=== PATIENT | female | born 1965 ===

== ENCOUNTER 2020-03-30 09:58 | Outpatient (REF) | payer OTHER, SELFPAY ==
[2020-03-30 11:28] LABS: Thyroid Stimulating Hormone 0.02 mIU/mL (0.32-4.0)
== END 2020-03-30 09:59 | disposition home or self-care (01) ==
LOC: HO.LAB 09:58
PROVIDERS: PCP Internal Medicine; Visit Provider Internal Medicine
DX: E03.9 Hypothyroidism, unspecified (principal)
CPT/HCPCS: 84443

== ENCOUNTER 2020-05-25 10:47 | Outpatient (REF) | payer OTHER, SELFPAY | END 2020-05-25 10:48 | disposition home or self-care (01) | LOC: HO.LAB 10:47 | PROVIDERS: Visit Provider Internal Medicine | DX: Z20.828 Contact with and (suspected) exposure to other viral communicable diseases (principal) | CPT/HCPCS: C9803; U0003 ==

== ENCOUNTER 2020-06-22 11:11 | Outpatient (REF) | payer OTHER, SELFPAY | END 2020-06-22 11:12 | disposition home or self-care (01) | LOC: HO.LAB 11:11 | PROVIDERS: Visit Provider Internal Medicine | DX: Z20.822 Contact with and (suspected) exposure to COVID-19 (principal) | CPT/HCPCS: 36415; C9803; U0003 ==

== ENCOUNTER 2020-11-11 06:44 | Outpatient (REF) | payer OTHER, SELFPAY ==
[2020-11-11 10:06] LABS: Thyroid Stimulating Hormone 0.76 uIU/mL (0.32-4.0)
== END 2020-11-11 06:45 | disposition home or self-care (01) ==
LOC: HO.LAB 06:44
PROVIDERS: PCP Internal Medicine; Visit Provider Internal Medicine
DX: E03.9 Hypothyroidism, unspecified (principal)
CPT/HCPCS: 36415; 84443

== ENCOUNTER 2020-12-13 15:26 | Emergency (ER) | payer OTHER, SELFPAY ==
--- NOTE | ~2020-12-13 | XR_ITS ---
EXAMINATION: XR LUMBOSACRAL SPINE CLINICAL INFORMATION: Lifting injury COMPARISON: Previous x-ray May 2018 TECHNIQUE: Three views of the lumbosacral spine. FINDINGS: Bone alignment is normal. No fracture or dislocation is seen. There is degenerative disc disease at L5-S1. There is lower lumbar spine facet arthritis. XR/XR lumbar spine 2-3V IMPRESSION: Degenerative disc disease at L5-S1 and lower lumbar spine facet arthritis.
[2020-12-13 15:54] VITALS: BP 117/79; PULSE 88; RESP 18; TEMP 37; O2SAT 97; BMI 24.1
[2020-12-13] MEDS: traMADoL HCL 50 MG TABLET PO (16:59)
[2020-12-13] MEDS: Lidocaine 4 % Patch ADH..PATCH 1 PATCH TRANSDERMA (17:00)
--- NOTE | 2020-12-13 17:08 | ED.BACK ---
HPI - Back Pain/Injury General Chief Complaint: Back Pain/Injury Stated Complaint: Lower back pain Time Seen by Provider: 12/13/20 16:38 Source: patient Mode of arrival: ambulatory Limitations: language barrier (Venezuelan-speaking) History of Present Illness MD elicited complaint: back pain and back injury Pertinent past history: prior back pain and recent trauma (Carrying her grandson) Onset (ago): week(s) (A week and half ago) Timing: constant and progressively worsening Severity: severe Pain scale (0-10): 10 Similar Symptoms Previously: Yes Quality: aching Location: lumbar spine Radiation: none Exacerbating factors: movement, lifting and other (Bending over forward) Relieving factors: none Context: while lifting (After caring grandson) and turning/twisting Associated symptoms: denies other symptoms Treatments prior to arrival: other (Has been trying Flexeril 5 mg and Tylenol and no symptomatic relief) Work related injury: No Related Data Home Medications Medication Instructions Recorded Confirmed epinephrine 0.3 mg/0.3 mL IM 04/08/20 11/16/20 injection, auto-injector fluticasone propionate 50 INTRANASAL 04/08/20 11/16/20 mcg/actuation nasal spray,suspension Previous Rx's Medication Instructions Recorded levothyroxine 125 mcg tablet 125 mcg PO DAILY #90 tab 06/04/20 diazepam [Valium] 10 mg PO TID PRN #10 tab 12/13/20 lidocaine HCl [Aspercreme 1 appl TOPICAL BID PRN #120 g 12/13/20 (lidocaine HCl)] prednisone 40 mg PO DAILY 5 Days #10 tab 12/13/20 tramadol 50 mg PO BID PRN #14 tab 12/13/20 Allergies Allergy/AdvReac Type Severity Reaction Status Date / Time No Known Allergies Allergy Verified 11/16/20 08:57 Review of Systems Review of Systems: Constitutional : No trauma, No Weight loss, No Fever, No Chills, ENT/Mouth : No Hearing loss, No Ear Pain, No Nasal Congestion, No Sinus Pain, No Hoarseness, No sore throat, No Rhinorrhea, No Swallowing Difficulty Cardiovascular : No Chest Pain, No SOB Respiratory : No Cough, No Dyspnea Gastrointestinal : No Nausea, No Vomiting, No Diarrhea, No abdominal Pain, No Hematochezia, No Melena Genitourinary : No Dysuria, No Urinary Frequency, No Hematuria, No Urinary or Bowel Incontinence/retention Musculoskeletal : + Back pain, No neck pain, No joint stiffness, No joint swelling Skin : No Skin Lesions, No rash or signs of infection Neuro : No Weakness, No radiation, No Numbness, No Paresthesias, No headache, no loss of bowel or bladder incontinence, no saddle anesthesia, Focal weakness, No radiation Denies history of IV drug usage. Yes all other systems are reviewed and are negative [facility] Past Medical History Attestation statement: The following information was validated with the patient. Medical History Hypothyroidism Surgical History History of biopsy History of section History of cholecystectomy Family History Family History Father CVD (cardiovascular disease) DVT (deep venous thrombosis) Mother Liver problem Kidney disease Diabetes Social History Social History Housing: Apartment Alcohol intake: never Second Hand Smoke Exposure: No Advance Directives: No Advance Directives Information Provided: No service: No Current occupational status: employed Physical Exam Vital Signs: Vital Signs: Last Vital Signs Temp 98.6 F 12/13/20 15:54 Pulse 88 12/13/20 15:54 Resp 18 12/13/20 15:54 BP 117/79 12/13/20 15:54 Pulse Ox 97 12/13/20 15:54 Body Mass Index 24.1 vital signs have been reviewed as normal and appeared to be correct. Blood pressure normal. Heart rate normal. Respiration rate normal. Temperature normal. Oxygen saturation normal. Appearance: Alert. Oriented X3. No acute distress. Head: Normal external exam. Normocephalic. Atraumatic. No Mccormack signs noted. No raccoon eyes noted Eyes: PERRLA. EOMI. Conjunctiva and sclera normal. Eyelids normal. ENT: EAC normal. TM's Normal. Pharynx normal. Uvula midline. Moist mucous membranes. No trismus noted. No drooling noted. No muffled voice noted. Neck: Normal inspection. Neck supple. FROM. No adenopathy. Thyroid Normal. No meningeal signs. No neck mass noted. CVS: Normal heart rate and rhythm. Heart sound normal. No murmurs noted. Pulses normal throughout. Respiratory: No respiratory distress. Painless inspiration. Breath sounds normal. No wheezes/rales/rhonchi noted. Chest nontender. No accessory muscle usage noted or decreased air movement noted. Abdomen: Soft and nontender. Bowel sounds normal in all 4 quadrants. No distention noted. No organomegaly noted. No visible injury noted. Back: No CVA tenderness. Full range of motion noted. No obvious deformities, or edema. Mild para-spinal muscular tenderness from lumbar region to coccyx. Full ROM in back and lower extremities. 5/5 strength hip extension/flexion, abduction, adduction. Mild Lumbar pain with hip flexion against resistance. Straight leg raise test negative on right; Straight leg raise test negative on left; Reflexes normal ankle and knee bilaterally; EHL motor strength normal bilaterally. No rashes/lesion/induration/fluctuance or signs infection noted. Skin: Skin warm and dry. Normal skin color. Normal skin turgor. No rashes/lesions/lacerations noted. Extremities: No lower extremity edema. Extremities exhibit normal range of motion. Extremities nontender. Neuro: Oriented X 3. No motor deficit. No sensory deficit. Reflexes normal. Patient has a normal steady gait. Course Course Course Narrative: Pt c likely muscular pain, but could be herniated disc. Neuro exam shows no deficits. Not c/w AAA/epidural abscess/dissection.No high risk Hx (Incont, fever, immunosupp, recent surgery/LP, coag, signif trauma, wt loss, puls mass, hx/o Ca, TB, or IVDU) to warrant MRI/CT today. Not c/w Pyelo/UTI/kidney stone/spinal fx. Not cauda equina syndrome. X-ray obtained and revealed degenerative disc disease otherwise no other acute processes. DC c meds and f/u. MDM - Back Pain/Injury Medical Records Attestation: I reviewed the patient's medical records. Imaging Data X-ray lumbar spine: Attestation: I personally reviewed and interpreted this imaging study as follows: Radiologist's impression: FINDINGS: Bone alignment is normal. No fracture or dislocation is seen. There is degenerative disc disease at L5-S1. There is lower lumbar spine facet arthritis. XR/XR lumbar spine 2-3V IMPRESSION: Degenerative disc disease at L5-S1 and lower lumbar spine facet arthritis. Discharge Plan Discharge Clinical Impression: Strain of lumbar region, Degenerative disc disease at L5-S1 level Patient Disposition: Home, Self-Care Instructions: Low Back Strain (ED), Degenerative Disc Disease (ED), Lower Back Exercises (ED) Prescriptions: New diazepam [Valium] 10 mg tablet 10 mg PO TID PRN (Reason: muscle spasm) Qty: 10 RF: 0 lidocaine HCl [Aspercreme (lidocaine HCl)] 4 % cream 1 appl topical BID PRN (Reason: pain) Qty: 120 RF: 0 prednisone 20 mg tablet 40 mg PO DAILY 5 Days Qty: 10 RF: 0 tramadol 50 mg tablet 50 mg PO BID PRN (Reason: pain) Qty: 14 RF: 0 No Action levothyroxine 125 mcg tablet 125 mcg PO DAILY Qty: 90 RF: 8 fluticasone propionate 50 mcg/actuation spray,suspension intranasal RF: 0 epinephrine 0.3 mg/0.3 mL auto-injector IM RF: 0 Referrals: Dylan Ambriz MD [Primary Care Provider] - 2 days Print Language: Venezuelan
== END 2020-12-13 17:26 | disposition home or self-care (01) ==
PROVIDERS: Emergency Provider Emergency Medicine; PCP Internal Medicine
DX: S39.012A Strain of muscle, fascia and tendon of lower back, initial encounter (principal); M51.37 Other intervertebral disc degeneration, lumbosacral region; X50.9XXA Other and unspecified overexertion or strenuous movements or postures, initial encounter; Y93.9 Activity, unspecified; Y92.9 Unspecified place or not applicable; Y99.9 Unspecified external cause status
CPT/HCPCS: 72100; 99283

== ENCOUNTER 2020-12-29 16:08 | Outpatient (REF) | payer OTHER, SELFPAY ==
[2020-12-29 17:14] LABS: MANUAL DIFF FLAG NO
[2020-12-29 17:35] LABS: Basophils Percent Auto 0.6 % (0-2); Eosinophils Absolute Auto 0.2 X10*3/uL (0.0-0.4); Eosinophils Percent Auto 2.6 % (0-4); Imm Gran Abs Auto 0.02 X10*3/uL (0.00-0.03); Imm Gran Pct Auto 0.3 % (0.0-0.4); Lymphocytes Percent Auto 27.5 % (20-40); Mean Corpuscular HGB Conc 31.6 g/dl (31.0-35.0); Mean Corpuscular Volume 88.6 fL (80-98); Mean Platelet Volume 12.2 fL (9.4-12.3); Monocytes Absolute Auto 0.5 X10*3/uL (0.1-1.2); Monocytes Percent Auto 7.2 % (2-11); Neutrophils Absolute Auto 4.5 X10*3/uL (2.0-8.3); Neutrophils Percent Auto 61.8 % (45-73); Platelet Count 265 X10*3/uL (160-400); Red Blood Count 4.29 X10*6/uL (4.20-5.50); Red Cell Distribution Width 13.7 % (11.0-16.0); White Blood Count 7.3 X10*3/uL (4.8-10.8)
[2020-12-29 17:41] LABS: Alanine Aminotransferase 16 U/L (0-31); Albumin Level 4.6 g/dL (3.5-5.0); Alkaline Phosphatase 107 U/L (39-117); Anion Gap 13 (12-20); Aspartate Amino Transferase 19 U/L (5-31); Bilirubin Total 0.3 mg/dL (0.0-1.0); Blood Urea Nitrogen 19 mg/dL (9-16); Calcium 10.1 mg/dL (8.4-10.2); Carbon Dioxide 32 mmol/L (22-29); Chloride 101 mmol/L (96-108); Cholesterol 223 mg/dL; Estimated Glomerular Filt Rate > 60; Glucose Fasting 87 mg/dL (60-99); HDL Cholesterol 55 mg/dL; LDL Cholesterol Calculated 143 mg/dl; Potassium 4.5 mmol/L (3.3-5.1); Sodium 141 mmol/L (135-145); Total Protein 7.5 g/dL (6.5-8.0); Triglycerides 129 mg/dL
== END 2020-12-29 16:09 | disposition home or self-care (01) ==
LOC: HO.LAB 16:08
PROVIDERS: PCP Internal Medicine; Visit Provider Internal Medicine
DX: Z00.00 Encounter for general adult medical examination without abnormal findings (principal); E11.9 Type 2 diabetes mellitus without complications
CPT/HCPCS: 36415; 80053; 80061; 85025

== ENCOUNTER 2021-03-05 07:17 | Outpatient (REF) | payer OTHER, SELFPAY ==
[2021-03-05 08:25] LABS: Thyroid Stimulating Hormone 72.41 uIU/mL (0.32-4.0)
== END 2021-03-05 07:18 | disposition home or self-care (01) ==
LOC: HO.LAB 07:17
PROVIDERS: PCP Internal Medicine; Visit Provider Internal Medicine
DX: E03.9 Hypothyroidism, unspecified (principal)
CPT/HCPCS: 36415; 84443

== ENCOUNTER 2021-05-07 07:27 | Outpatient (REF) | payer OTHER, SELFPAY ==
[2021-05-07 08:44] LABS: Thyroid Stimulating Hormone 0.91 uIU/mL (0.32-4.0)
== END 2021-05-07 07:28 | disposition home or self-care (01) ==
LOC: HO.LAB 07:27
PROVIDERS: PCP Internal Medicine; Visit Provider Internal Medicine
DX: Z00.00 Encounter for general adult medical examination without abnormal findings (principal)
CPT/HCPCS: 36415; 84443

== ENCOUNTER 2021-07-02 13:43 | Outpatient (REF) | payer OTHER, SELFPAY ==
--- NOTE | ~2021-07-02 | XR_ITS ---
EXAMINATION: XR CHEST CLINICAL INFORMATION: R05.9 - Cough, unspecified COMPARISON: Chest radiographs 03/19/2014 TECHNIQUE: 2 views of the chest were obtained. FINDINGS: The lungs are clear. There is no lobar or segmental airspace consolidation or groundglass opacity or effusion. The costophrenic sulci are well-defined. The heart is normal in size. The hilar and mediastinal contours and visualized bony structures are unremarkable. XR/XR chest 2V IMPRESSION: Unremarkable examination.
[2021-07-02 14:07] LABS: Binax Internal Control QC Valid; Binax Now Covid-19 Ag Negative (Negative)
== END 2021-07-02 13:44 | disposition home or self-care (01) ==
LOC: HO.HMGCX 13:43
PROVIDERS: Visit Provider Physician Assistant
DX: R05.9 Cough, unspecified (principal); B34.9 Viral infection, unspecified
CPT/HCPCS: 71046

== ENCOUNTER 2021-07-11 16:15 | Outpatient (REF) | payer OTHER, SELFPAY ==
[2021-07-11 17:14] LABS: Thyroid Stimulating Hormone 1.48 uIU/mL (0.32-4.0)
== END 2021-07-11 16:16 | disposition home or self-care (01) ==
LOC: HO.LAB 16:15
PROVIDERS: PCP Internal Medicine; Visit Provider Internal Medicine
DX: Z00.00 Encounter for general adult medical examination without abnormal findings (principal)
CPT/HCPCS: 36415; 84443

== ENCOUNTER 2021-09-06 16:57 | Outpatient (REF) | payer OTHER, SELFPAY ==
[2021-09-06 19:08] LABS: Influenza A PCR POSITIVE (Negative); Influenza B PCR NEGATIVE (Negative); Resp Syncy Virus RNA Qual PCR NEGATIVE (Negative); SARS COV2 PCR INHOUSE NEGATIVE (Negative)
== END 2021-09-06 16:58 | disposition home or self-care (01) ==
LOC: HO.LAB 16:57
PROVIDERS: Visit Provider Internal Medicine
DX: R43.9 Unspecified disturbances of smell and taste (principal); Z20.822 Contact with and (suspected) exposure to COVID-19
CPT/HCPCS: 0241U

== ENCOUNTER 2021-10-01 07:29 | Outpatient (REF) | payer OTHER, SELFPAY ==
--- NOTE | ~2021-10-01 | XR_ITS ---
EXAMINATION: XR KNEE, RIGHT CLINICAL INFORMATION: M25.561 - Pain in right knee COMPARISON: Radiographs right knee 10/19/2015 TECHNIQUE: Four views of the right knee. FINDINGS: No fracture, dislocation, or arthropathy. No interval joint narrowing or erosive change or chondrocalcinosis. No suprapatellar effusion. Hoffa's fat pad appears normal. Normal bony mineralization. Axial view patella shows no lateralization or tilting. XR/XR knee RT 4V IMPRESSION: Normal right knee.
[2021-10-01 08:58] LABS: Thyroid Stimulating Hormone 0.27 uIU/mL (0.32-4.0)
== END 2021-10-01 07:30 | disposition home or self-care (01) ==
LOC: HO.XRAY 07:29
PROVIDERS: PCP Internal Medicine; Visit Provider Nurse Practitioner Family
DX: M25.561 Pain in right knee (principal); G89.29 Other chronic pain; E03.9 Hypothyroidism, unspecified
CPT/HCPCS: 36415; 73564; 84443

== ENCOUNTER 2021-10-23 11:42 | Emergency (ER) | payer OTHER, SELFPAY ==
--- NOTE | ~2021-10-23 | XR_ITS ---
EXAMINATION: XR CHEST CLINICAL INFORMATION: Cough. COMPARISON: Chest 07/02/2021 TECHNIQUE: 2 views of the chest were obtained. FINDINGS: The lungs are well-expanded and clear of acute process. The heart size and pulmonary vascularity is normal. No gross bony abnormality seen. XR/XR chest 2V IMPRESSION: Unremarkable chest exam.
[2021-10-23 12:26] VITALS: BP 146/76; PULSE 80; RESP 18; TEMP 37.1; O2SAT 97; BMI 23.3
[2021-10-23 13:28] LABS: Influenza A PCR NEGATIVE (Negative); Influenza B PCR NEGATIVE (Negative); Resp Syncy Virus RNA Qual PCR NEGATIVE (Negative); SARS COV2 PCR INHOUSE NEGATIVE (Negative)
--- NOTE | 2021-10-23 14:22 | ED.URI ---
HPI - URI/Sore Throat General Chief Complaint: Upper Respiratory Symptoms Stated Complaint: cough, chest pain, chills Time Seen by Provider: 10/23/21 14:22 History of Present Illness HPI Narrative: Patient complains of a dry cough, mild runny nose for several days, it does hurt sometimes when she coughs but there is no other chest pain, no sputum no shortness of breath no fever Related Data Home Medications Medication Instructions Recorded Confirmed epinephrine 0.3 mg/0.3 mL IM 04/08/20 10/21/21 injection, auto-injector Previous Rx's Medication Instructions Recorded levothyroxine 150 mcg tablet 150 mcg PO DAILY 90 Days #90 tab 04/08/21 cetirizine 10 mg tablet (Zyrtec) 10 mg PO DAILY 30 Days #30 tab 07/02/21 meloxicam 15 mg tablet 15 mg PO DAILY #14 tab 07/18/21 albuterol sulfate 90 mcg/actuation 2 puff INHALATION Q4-6H PRN #6.7 g 10/23/21 aerosol inhaler (ProAir HFA) azithromycin 250 mg tablet See Rx Instructions .ROUTE 10/23/21 (Zithromax Z-Home) .COMPLEX #6 tab Allergies Allergy/AdvReac Type Severity Reaction Status Date / Time No Known Allergies Allergy Verified 10/23/21 12:26 Review of Systems Review of Systems: Positive for cough and runny nose Negatives are no fever no chills no dizziness weakness no fainting no feeling faint no headache no neck pain no stiff neck no chest pain no shortness of breath no abdominal pain no nausea vomiting or diarrhea no skin rash no leg swelling Yes all other systems are reviewed and are negative PMFSH Past Medical History Source: nursing notes reviewed Medical History (Updated 10/23/21 @ 14:24 by MARYLOU Camacho) Hypothyroidism Surgical History History of biopsy History of section History of cholecystectomy Family History Family History Father CVD (cardiovascular disease) DVT (deep venous thrombosis) Mother Liver problem Kidney disease Diabetes Social History Social History Housing: Apartment Alcohol intake: never Patient Tobacco Use Status: Never used Tobacco e-Cigarette/Vaping Use: Never Used Second Hand Smoke Exposure: No Advance Directives: No Advance Directives Information Provided: No service: No Current occupational status: employed Cognitive needs: No Hearing needs: No Vision needs: Yes Physical Exam Vital Signs: Vital Signs: Last Vital Signs Temp 98.7 F 10/23/21 12:26 Pulse 80 10/23/21 12:26 Resp 18 10/23/21 12:26 BP 146/76 H 10/23/21 12:26 Pulse Ox 97 10/23/21 12:26 BMI result Body Mass Index 23.3 General appearance is no acute distress The eyes anicteric no pallor The nose no sinus tenderness The pharynx clear with no redness swelling or exudate mucous membranes moist Neck is supple Chest clear to auscultation bilateral Heart no murmur Abdomen soft nontender Extremities no edema no rashes Course Course Course Narrative: Chest x-ray was normal, COVID testing negative and well-appearing patient with no shortness of breath was discharged diagnosis bronchitis MDM - URI/Sore Throat Lab Data Labs: Lab Results 10/23/21 Range/Units 12:31 Influenza Type A (PCR) NEGATIVE (Negative) Influenza Type B (PCR) NEGATIVE (Negative) RSV RNA Qual (PCR) NEGATIVE (Negative) SARS-CoV-2 RNA (RT-PCR) NEGATIVE (Negative) Discharge Plan Discharge Clinical Impression: Bronchitis Patient Disposition: Home, Self-Care Additional Instructions: Chest x-ray was normal, COVID test and flu test were negative We are treating for possible bronchitis with antibiotic Zithromax When you take antibiotics it is a good idea to get probiotics in the vitamin section of the pharmacy to help prevent antibiotic associated diarrhea Return any time for difficulty breathing, any worse condition any concerns Prescriptions: New azithromycin [Zithromax Z-Home] 250 mg tablet See Rx Instructions .ROUTE .COMPLEX Qty: 6 0RF Rx Instructions: For 250 mg dose pack: take 500 mg today (day 1), then 250 mg for 4 days (days 2-5) albuterol sulfate [ProAir HFA] 90 mcg/actuation HFA aerosol inhaler 2 puff inhalation Q4-6H PRN (Reason: shortness of breath or wheezing) Qty: 6.7 0RF No Action levothyroxine 150 mcg tablet 150 mcg PO DAILY 90 Days Qty: 90 8RF epinephrine 0.3 mg/0.3 mL auto-injector IM 0RF cetirizine [Zyrtec] 10 mg tablet 10 mg PO DAILY 30 Days Qty: 30 0RF meloxicam 15 mg tablet 15 mg PO DAILY Qty: 14 0RF Stand Alone Forms: Work/School Release Interventions: ED Discharge Assessment Last Done: 10/23/21 14:31 Discharge Date/Time: 10/23/21 14:31
== END 2021-10-23 14:31 | disposition home or self-care (01) ==
PROVIDERS: Emergency Provider Emergency Medicine; PCP Internal Medicine
DX: J40 Bronchitis, not specified as acute or chronic (principal); R05.9 Cough, unspecified; R07.89 Other chest pain; Z20.822 Contact with and (suspected) exposure to COVID-19; Z79.899 Other long term (current) drug therapy
CPT/HCPCS: 0241U; 71046; 99283

== ENCOUNTER 2021-10-28 17:59 | Outpatient (REF) | payer OTHER, SELFPAY ==
--- NOTE | ~2021-10-28 | MR_ITS ---
EXAMINATION: MR KNEE WITHOUT CONTRAST, RIGHT CLINICAL INFORMATION: Pain in right knee. COMPARISON: None TECHNIQUE: MRI of the knee without contrast was performed using routine sequences on a high-field scanner. FINDINGS: MENISCI: Medial Meniscus: There is some subtle increased signal in the posterior horn the medial meniscus which appears to extend into the tibial articular surface on a single sagittal image. Probable tear. Lateral Meniscus: Normal. LIGAMENTS: Cruciate: Intact. Collateral: Intact. EXTENSOR MECHANISM: Intact. ARTICULAR CARTILAGE/BONE: Patellofemoral Compartment: Normal cartilage heterogeneity and tiny subchondral cyst in the medial facet of the patella. Trochlear cartilage normal overall minimal patellofemoral arthrosis. Medial Compartment: Normal. Lateral Compartment: Normal. JOINT FLUID AND BURSAE: Normal. MR/MR knee RT wo con IMPRESSION: Probable tear posterior horn medial meniscus.
== END 2021-10-28 18:00 | disposition home or self-care (01) ==
LOC: HO.MRI 17:59
PROVIDERS: Visit Provider Nurse Practitioner Family
DX: M25.561 Pain in right knee (principal); G89.29 Other chronic pain
CPT/HCPCS: 73721

== ENCOUNTER 2021-12-10 07:09 | Outpatient (REF) | payer OTHER, SELFPAY ==
[2021-12-10 07:21] LABS: MANUAL DIFF FLAG NO
[2021-12-10 08:27] LABS: Basophils Percent Auto 0.3 % (0-2); Eosinophils Absolute Auto 0.2 X10*3/uL (0.0-0.4); Eosinophils Percent Auto 3.2 % (0-4); Hematocrit 38.7 % (37.0-47.0); Hemoglobin 12.1 g/dl (12.0-16.0); Imm Gran Abs Auto 0.01 X10*3/uL (0.00-0.03); Imm Gran Pct Auto 0.2 % (0.0-0.4); Lymphocytes Absolute Auto 1.6 X10*3/uL (1.2-4.9); Lymphocytes Percent Auto 26.5 % (20-40); Mean Corpuscular HGB Conc 31.3 g/dl (31.0-35.0); Mean Corpuscular Hemoglobin 28.1 pg (27.0-33.0); Mean Corpuscular Volume 89.8 fL (80.0-98.0); Mean Platelet Volume 11.6 fL (9.4-12.3); Monocytes Absolute Auto 0.6 X10*3/uL (0.1-1.2); Monocytes Percent Auto 9.8 % (2-11); Neutrophils Absolute Auto 3.6 x10*3/uL (2.0-8.3); Platelet Count 251 X10*3/uL (160-400); Red Blood Count 4.31 X10*6/uL (4.20-5.50); Red Cell Distribution Width 12.6 % (11.0-16.0); White Blood Count 5.9 X10*3/uL (4.8-10.8)
[2021-12-10 08:58] LABS: Alanine Aminotransferase 14 U/L (0-31); Albumin Level 4.3 g/dL (3.5-5.0); Alkaline Phosphatase 116 U/L (39-117); Anion Gap 10 (12-20); Aspartate Amino Transferase 19 U/L (5-31); Bilirubin Total 0.4 mg/dL (0.0-1.0); Blood Urea Nitrogen 13 mg/dL (9-16); Calcium 9.1 mg/dL (8.4-10.2); Carbon Dioxide 31 mmol/L (22-29); Chloride 103 mmol/L (96-108); Cholesterol 205 mg/dL; Estimated Glomerular Filt Rate > 60; Glucose Fasting 91 mg/dL (60-99); HDL Cholesterol 49 mg/dL; LDL Cholesterol Calculated 132 mg/dl; Potassium 4.7 mmol/L (3.3-5.1); Sodium 139 mmol/L (135-145); Total Protein 7.2 g/dL (6.5-8.0); Triglycerides 124 mg/dL
[2021-12-10 09:22] LABS: Thyroid Stimulating Hormone 0.08 uIU/mL (0.32-4.0)
== END 2021-12-10 07:10 | disposition home or self-care (01) ==
LOC: HO.LAB 07:09
PROVIDERS: PCP Internal Medicine; Visit Provider Internal Medicine
DX: Z13.0 Encounter for screening for diseases of the blood and blood-forming organs and certain disorders involving the immune mechanism (principal); E78.5 Hyperlipidemia, unspecified; E03.9 Hypothyroidism, unspecified; I10 Essential (primary) hypertension
CPT/HCPCS: 36415; 80053; 80061; 84443; 85025

== ENCOUNTER → 2021-12-23 08:43 | Outpatient (BNVA) | payer OTHER, SELFPAY | PROVIDERS: PCP Internal Medicine; Visit Provider Physician Assistant | DX: M17.11 Unilateral primary osteoarthritis, right knee (principal); S83.241A Other tear of medial meniscus, current injury, right knee, initial encounter | CPT/HCPCS: 20610; 99202; J1040 ==

== ENCOUNTER 2022-02-07 17:00 | Outpatient (RCR) | payer OTHER, SELFPAY ==
--- NOTE | 2022-01-10 18:34 | MHC.PT.EP ---
[facility] [place] Office [place] Office [place] Office [address] [phone] F: [phone] F: [phone] F: [phone] F: [phone] Physical Therapy Plan of Care Date of Evaluation: Date of Surgery: Diagnosis: R knee medial meniscus injury Assessment: Pt is a 56 y/o female referred to PT for eval and treat for R knee medial meniscus injury resulting in decreased tolerance for negotiating stairs, walking nd standing for duration, standing after sitting for a while, squatting activities and performing heavy chores secondary to decreased R knee strength, decreased hip abd strength, antalgic stair negotiation, painful R knee end range flexion, evidence of R medial meniscus injury on MRI, and pain. Pt is deemed an appropriate candidate to receive skilled PT in order to address her physical limitations to improve her functional ability. Frequency and Duration: The patient will be seen 2 x / wk x 5 wks Short Term Goals: Initiate HEP. improve baseline pain to < 4/10; initial 6/10. Implementation Architect Goals: I with HEP. Pt will be able to walk 1 mile with at most a little bit of difficulty; initial: quite a bit of difficulty. Pt will improve R knee extension MMT by at least 1/2 MMT grade; initial 4/5 with pain. Pt will be able to negotiate 1 fl of stairs with at most a little bit of difficulty; initial: quite a bit of difficulty. Treatment Plan: Modalities to reduce pain, spasms and effusion. Manual therapy to restore motion and function. Therapeutic exercise to improve strength and flexibility. Neuromuscular re-education for posture and balance. Therapeutic activities to return to functional activities of daily living. Electronically signed by: Tanvir Liz PT. Please sign and return to therapist. Thank you for your referral.
--- NOTE | 2022-04-27 15:09 | MHC.PT.DC ---
[facility] [place] Office [place] Office [place] Office [address] Suzi Martinez [address] [facility] [phone] F: [phone] F: [phone] F: [phone] F: [phone] Physical Therapy Discharge Report Diagnosis: R knee medial meniscus injury. Date of Surgery: Date of Evaluation: 01/10/22 Date of Discharge: 04/27/22 Treatments to Date: 5 Cancellations to Date: No Shows to Date: Discharge Status: Visit Non-compliance Discharge Summary: Electronically signed by: Tanvir Liz PT. Please sign and return to therapist. Thank you for your referral.
== END 2022-04-27 15:03 | disposition home or self-care (01) ==
LOC: HO.PTCHIC 17:00
PROVIDERS: PCP Internal Medicine; Visit Provider Physician Assistant
DX: M17.11 Unilateral primary osteoarthritis, right knee (principal); S83.241A Other tear of medial meniscus, current injury, right knee, initial encounter
CPT/HCPCS: 97110; 97112; 97140; 97161

== ENCOUNTER → 2022-02-09 15:13 | Outpatient (BNVA) | payer OTHER, SELFPAY | PROVIDERS: PCP Internal Medicine; Visit Provider Orthopaedic Surgery | DX: M17.11 Unilateral primary osteoarthritis, right knee (principal); S83.241A Other tear of medial meniscus, current injury, right knee, initial encounter | CPT/HCPCS: 99212 ==

== ENCOUNTER 2022-05-25 14:48 | Outpatient (REF) | payer OTHER, SELFPAY ==
[2022-05-25 18:37] LABS: Thyroid Stimulating Hormone 0.45 uIU/mL (0.32-4.0)
== END 2022-05-25 14:49 | disposition home or self-care (01) ==
LOC: HO.LAB 14:48
PROVIDERS: PCP Internal Medicine; Visit Provider Internal Medicine
DX: E03.9 Hypothyroidism, unspecified (principal)
CPT/HCPCS: 36415; 84443

== ENCOUNTER 2022-06-17 11:53 | Outpatient (REF) | payer OTHER, SELFPAY ==
[2022-06-17 14:39] LABS: Influenza A PCR NEGATIVE (Negative); Influenza B PCR NEGATIVE (Negative); Resp Syncy Virus RNA Qual PCR NEGATIVE (Negative); SARS COV2 PCR INHOUSE NEGATIVE (Negative)
== END 2022-06-17 11:54 | disposition home or self-care (01) ==
LOC: HO.LAB 11:53
PROVIDERS: Visit Provider Nurse Practitioner Acute Care
DX: Z20.822 Contact with and (suspected) exposure to COVID-19 (principal); R68.89 Other general symptoms and signs
CPT/HCPCS: 0241U

== ENCOUNTER 2022-06-26 16:38 | Emergency (ER) | payer OTHER, SELFPAY ==
--- NOTE | ~2022-06-26 | XR_ITS ---
EXAMINATION: XR CHEST CLINICAL INFORMATION: Chest pain COMPARISON: Chest x-ray 10/23/2021 TECHNIQUE: 2 views of the chest were obtained. FINDINGS: No significant abnormality is noted involving the heart, lungs, mediastinum, bony thorax or soft tissues. XR/XR chest 2V IMPRESSION: Unremarkable examination.
[2022-06-26 16:53] VITALS: BP 140/84; PULSE 100; RESP 18; TEMP 36.8; O2SAT 98; BMI 25.7
--- NOTE | 2022-06-26 16:54 | ECG_ITS ---
Test Reason : sob Blood Pressure : / mmHG Vent. Rate : 084 BPM Atrial Rate : 084 BPM P-R Int : 194 ms QRS Dur : 076 ms QT Int : 360 ms P-R-T Axes : 053 014 040 degrees QTc Int : 425 ms Normal sinus rhythm Possible Left atrial enlargement Borderline ECG When compared with ECG of 20-MAR-2018 19:57, No significant change was found Referred By: Generic ED Physician Electronically Signed By:Tray Willson
[2022-06-26 17:46] LABS: Influenza A PCR NEGATIVE (Negative); Influenza B PCR NEGATIVE (Negative); Resp Syncy Virus RNA Qual PCR NEGATIVE (Negative); SARS COV2 PCR INHOUSE NEGATIVE (Negative)
--- NOTE | 2022-06-26 17:52 | ED.CHESTPAIN ---
HPI - Chest Pain General Chief Complaint: Chest Pain Stated Complaint: chest pain headache Time Seen by Provider: 06/26/22 23:37 Related Data Home Medications Medication Instructions Recorded Confirmed epinephrine 0.3 mg/0.3 mL IM 04/08/20 05/25/22 injection, auto-injector Previous Rx's Medication Instructions Recorded cetirizine 10 mg tablet (Zyrtec) 10 mg PO DAILY 30 days #30 tabs 07/02/21 albuterol sulfate 90 mcg/actuation 2 puff inhalation Q4-6H PRN 10/23/21 aerosol inhaler (ProAir HFA) shortness of breath or wheezing #6.7 grams levothyroxine 125 mcg capsule 125 mcg PO DAILY #90 caps 02/24/22 ibuprofen 400 mg tablet 400 mg PO Q6H PRN pain #20 tabs 06/27/22 ondansetron 4 mg disintegrating 4 mg PO TID PRN nausea and 06/27/22 tablet vomiting 5 days #10 tabs Allergies Allergy/AdvReac Type Severity Reaction Status Date / Time No Known Allergies Allergy Verified 06/17/22 11:46 [facility] Past Medical History Medical History Hypothyroidism Patellofemoral arthritis of right knee Surgical History History of biopsy History of section History of cholecystectomy Family History Family History Father CVD (cardiovascular disease) DVT (deep venous thrombosis) Mother Liver problem Kidney disease Diabetes Social History Social History Housing: Apartment Alcohol intake: never Patient Tobacco Use Status: Never used Tobacco e-Cigarette/Vaping Use: Never Used Second Hand Smoke Exposure: No Advance Directives: No Advance Directives Information Provided: No service: No Current occupational status: 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 Deferred additional HPI, ROS, PE to primary provider. 56 yo female with history of asthma, hypothyroidism who presents with headache, body aches, intermittent chest pressure for the last 2 days. Will obtain labs, EKG, chest x-ray, viral testing. Vital signs stable. Medications Administered Discontinued Medications Generic Name Dose Route Start Last Admin Trade Name Freq PRN Reason Stop Dose Admin Diphenhydramine HCl 50 mg 06/27/22 00:23 06/27/22 01:26 Diphenhydramine Hcl 50 Mg/Ml Vial IVPUSH 06/27/22 00:24 50 mg ONCE ONE Administration Sodium Chloride 1,000 mls @ 999 mls/hr 06/27/22 00:30 06/27/22 01:27 Ns IV 06/27/22 01:30 999 mls/hr .Q1H1M ALPESH Administration Ketorolac Tromethamine 30 mg 06/27/22 00:23 06/27/22 01:26 Ketorolac Tromethamine 30 Mg/Ml Vial IVPUSH 06/27/22 00:24 30 mg ONCE ONE Administration Metoclopramide HCl 10 mg 06/27/22 00:23 06/27/22 01:26 Metoclopramide Hcl 10 Mg/2 Ml Vial IVPUSH 06/27/22 00:24 10 mg ONCE ONE Administration Ondansetron HCl 4 mg 06/27/22 00:23 06/27/22 01:26 Ondansetron Hcl 4 Mg/2 Ml Vial IVPUSH 06/27/22 00:24 4 mg ONCE ONE Administration Medical Decision Making Lab Data 06/26/22 18:43 06/26/22 18:43 Labs: Lab Results 06/26/22 06/26/22 06/26/22 Range/Units 17:03 18:43 18:43 WBC 7.4 (4.8-10.8) X10*3/uL RBC 4.46 (4.20-5.50) X10*6/uL Hgb 12.7 (12.0-16.0) g/dl Hct 39.6 (37.0-47.0) % MCV 88.8 (80.0-98.0) fL MCH 28.5 (27.0-33.0) pg MCHC 32.1 (31.0-35.0) g/dl RDW 12.2 (11.0-16.0) % Plt Count 255 (160-400) X10*3/uL MPV 11.1 (9.4-12.3) fL Immature Gran % (Auto) 0.1 (0.0-0.4) % Neut % (Auto) 63.1 (45-73) % Lymph % (Auto) 26.7 (20-40) % Shannon % (Auto) 7.8 (2-11) % Eos % (Auto) 1.8 (0-4) % Baso % (Auto) 0.5 (0-2) % Lymph # (Auto) 2.0 (1.2-4.9) X10*3/uL Shannon # (Auto) 0.6 (0.1-1.2) X10*3/uL Eos # (Auto) 0.1 (0.0-0.4) X10*3/uL Baso # (Auto) 0.0 (0.0-0.2) X10*3/uL Abs Immat Gran (auto) 0.01 (0.00-0.03) X10*3/uL Absolute Neuts (auto) 4.6 (2.0-8.3) x10*3/uL Absolute Nucleated RBC 0.000 (0.0-0.012) X10*3/uL Nucleated RBC % (auto) 0.0 (0.0-0.2) /100WBC Sodium 141 (135-145) mmol/L Potassium 4.6 (3.3-5.1) mmol/L Chloride 107 (96-108) mmol/L Carbon Dioxide 27 (22-29) mmol/L Anion Gap 12 (12-20) BUN 13 (9-16) mg/dL Creatinine 0.68 (0.5-1.4) mg/dL Estim Creat Clear Calc 89.6 Estimated GFR > 60 Random Glucose 102 (60-115) mg/dL Calcium 9.4 (8.4-10.2) mg/dL Magnesium 2.3 (1.6-2.6) mg/dL Total Bilirubin 0.2 (0.0-1.0) mg/dL Direct Bilirubin < 0.2 (0.0-0.5) mg/dL AST 23 (5-31) U/L ALT 19 (0-31) U/L Alkaline Phosphatase 112 (39-117) U/L Troponin I High Sens (<3.5-17.0) ng/L Total Protein 7.3 (6.5-8.0) g/dL Albumin 4.3 (3.5-5.0) g/dL Influenza Type A (PCR) NEGATIVE (Negative) Influenza Type B (PCR) NEGATIVE (Negative) RSV RNA Qual (PCR) NEGATIVE (Negative) SARS-CoV-2 RNA (RT-PCR) NEGATIVE (Negative) 06/26/22 06/27/22 Range/Units 18:43 01:01 WBC (4.8-10.8) X10*3/uL RBC (4.20-5.50) X10*6/uL Hgb (12.0-16.0) g/dl Hct (37.0-47.0) % MCV (80.0-98.0) fL MCH (27.0-33.0) pg MCHC (31.0-35.0) g/dl RDW (11.0-16.0) % Plt Count (160-400) X10*3/uL MPV (9.4-12.3) fL Immature Gran % (Auto) (0.0-0.4) % Neut % (Auto) (45-73) % Lymph % (Auto) (20-40) % Shannon % (Auto) (2-11) % Eos % (Auto) (0-4) % Baso % (Auto) (0-2) % Lymph # (Auto) (1.2-4.9) X10*3/uL Shannon # (Auto) (0.1-1.2) X10*3/uL Eos # (Auto) (0.0-0.4) X10*3/uL Baso # (Auto) (0.0-0.2) X10*3/uL Abs Immat Gran (auto) (0.00-0.03) X10*3/uL Absolute Neuts (auto) (2.0-8.3) x10*3/uL Absolute Nucleated RBC (0.0-0.012) X10*3/uL Nucleated RBC % (auto) (0.0-0.2) /100WBC Sodium (135-145) mmol/L Potassium (3.3-5.1) mmol/L Chloride (96-108) mmol/L Carbon Dioxide (22-29) mmol/L Anion Gap (12-20) BUN (9-16) mg/dL Creatinine (0.5-1.4) mg/dL Estim Creat Clear Calc Estimated GFR Random Glucose (60-115) mg/dL Calcium (8.4-10.2) mg/dL Magnesium (1.6-2.6) mg/dL Total Bilirubin (0.0-1.0) mg/dL Direct Bilirubin (0.0-0.5) mg/dL AST (5-31) U/L ALT (0-31) U/L Alkaline Phosphatase (39-117) U/L Troponin I High Sens < 3.5 < 3.5 (<3.5-17.0) ng/L Total Protein (6.5-8.0) g/dL Albumin (3.5-5.0) g/dL Influenza Type A (PCR) (Negative) Influenza Type B (PCR) (Negative) RSV RNA Qual (PCR) (Negative) SARS-CoV-2 RNA (RT-PCR) (Negative) Discharge Plan Discharge Clinical Impression: Migraine Patient Disposition: Home, Self-Care Instructions: Migraine Headache (ED) Prescriptions: New ibuprofen 400 mg tablet 400 mg PO Q6H PRN (Reason: pain) Qty: 20 0RF ondansetron 4 mg tablet,disintegrating 4 mg PO TID PRN (Reason: nausea and vomiting) 5 Days Qty: 10 0RF No Action albuterol sulfate [ProAir HFA] 90 mcg/actuation HFA aerosol inhaler 2 puff inhalation Q4-6H PRN (Reason: shortness of breath or wheezing) Qty: 6.7 0RF epinephrine 0.3 mg/0.3 mL auto-injector IM cetirizine [Zyrtec] 10 mg tablet 10 mg PO DAILY 30 Days Qty: 30 0RF levothyroxine 125 mcg capsule 125 mcg PO DAILY Qty: 90 4RF Referrals: Dylan Ambriz MD [Primary Care Provider] -
[2022-06-26 18:46] LABS: MANUAL DIFF FLAG NO
[2022-06-26 18:49] LABS: Basophils Percent Auto 0.5 % (0-2); Eosinophils Absolute Auto 0.1 X10*3/uL (0.0-0.4); Eosinophils Percent Auto 1.8 % (0-4); Hematocrit 39.6 % (37.0-47.0); Hemoglobin 12.7 g/dl (12.0-16.0); Imm Gran Abs Auto 0.01 X10*3/uL (0.00-0.03); Imm Gran Pct Auto 0.1 % (0.0-0.4); Lymphocytes Percent Auto 26.7 % (20-40); Mean Corpuscular HGB Conc 32.1 g/dl (31.0-35.0); Mean Corpuscular Hemoglobin 28.5 pg (27.0-33.0); Mean Corpuscular Volume 88.8 fL (80.0-98.0); Mean Platelet Volume 11.1 fL (9.4-12.3); Monocytes Absolute Auto 0.6 X10*3/uL (0.1-1.2); Monocytes Percent Auto 7.8 % (2-11); Neutrophils Absolute Auto 4.6 x10*3/uL (2.0-8.3); Neutrophils Percent Auto 63.1 % (45-73); Platelet Count 255 X10*3/uL (160-400); Red Blood Count 4.46 X10*6/uL (4.20-5.50); Red Cell Distribution Width 12.2 % (11.0-16.0); White Blood Count 7.4 X10*3/uL (4.8-10.8)
[2022-06-26 19:10] LABS: Alanine Aminotransferase 19 U/L (0-31); Albumin Level 4.3 g/dL (3.5-5.0); Alkaline Phosphatase 112 U/L (39-117); Anion Gap 12 (12-20); Aspartate Amino Transferase 23 U/L (5-31); Bilirubin Direct < 0.2 mg/dL (0.0-0.5); Bilirubin Total 0.2 mg/dL (0.0-1.0); Blood Urea Nitrogen 13 mg/dL (9-16); Calcium 9.4 mg/dL (8.4-10.2); Carbon Dioxide 27 mmol/L (22-29); Chloride 107 mmol/L (96-108); Creatinine Clr Calc Pharmacy 89.6; Estimated Glomerular Filt Rate > 60; Glucose Random 102 mg/dL (60-115); Magnesium 2.3 mg/dL (1.6-2.6); Potassium 4.6 mmol/L (3.3-5.1); Sodium 141 mmol/L (135-145); Total Protein 7.3 g/dL (6.5-8.0)
[2022-06-26 19:20] LABS: Troponin-I High Sensitivity < 3.5 ng/L (<3.5-17.0)
[2022-06-26 23:57] VITALS: BP 164/90; PULSE 81; TEMP 36.6; O2SAT 100
--- NOTE | 2022-06-27 00:26 | ED_ITS ---
HPI - Headache General Chief Complaint: Chest Pain Stated Complaint: chest pain headache Time Seen by Provider: 06/26/22 23:37 History of Present Illness HPI Narrative: Patient is a 56-year-old female presents today with having headache, mainly on the right side. It is behind the eye. Very similar to previous bouts of migraine. Associated with nausea. Associated with pain going to the neck. Generalized malaise. Symptoms been ongoing for 2 days. Patient had very minimal chest pain. There is no diaphoresis. There is no shortness of breath. She has no history of diabetes, hypertension, hypercholesterolemia, smoking or [place]. she is from home. No recent travel. Not made worse with deep inspiration. No leg swelling. No history of blood clots in the past. Related Data Home Medications Medication Instructions Recorded Confirmed epinephrine 0.3 mg/0.3 mL IM 04/08/20 05/25/22 injection, auto-injector Previous Rx's Medication Instructions Recorded cetirizine 10 mg tablet (Zyrtec) 10 mg PO DAILY 30 days #30 tabs 07/02/21 albuterol sulfate 90 mcg/actuation 2 puff inhalation Q4-6H PRN 10/23/21 aerosol inhaler (ProAir HFA) shortness of breath or wheezing #6.7 grams levothyroxine 125 mcg capsule 125 mcg PO DAILY #90 caps 02/24/22 ibuprofen 400 mg tablet 400 mg PO Q6H PRN pain #20 tabs 06/27/22 ondansetron 4 mg disintegrating 4 mg PO TID PRN nausea and 06/27/22 tablet vomiting 5 days #10 tabs Allergies Allergy/AdvReac Type Severity Reaction Status Date / Time No Known Allergies Allergy Verified 06/17/22 11:46 Review of Systems Review of Systems: No fever no chills no cough no congestion. Positive headache very similar Yes all other systems are reviewed and are negative PMFSH Past Medical History Attestation statement: The following information was validated with the patient. 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 Oriented X3. No acute distress. Eyes: Pupils equal, round and reactive to light. ENT: Pharynx normal. Neck: Normal inspection. Neck supple. No lymph nodes noted. No crepitus CVS: Normal heart rate and rhythm. Pulses normal. Normal S1 and S2 Respiratory: No respiratory distress. Breath sounds normal. No Wheezing. No rales Abdomen: Soft and nontender. No rigidity. No distention. good BS x4 Skin: Skin warm and dry. Normal skin color. Normal skin turgor. Extremities: No lower extremity edema. Neurovascular intact to all extremities. No Lacerations. No Rash Neuro: Oriented X 3. No motor deficit. No sensory deficit. Moving all extermities. No slurred speech Medications Administered Discontinued Medications Generic Name Dose Route Start Last Admin Trade Name Freq PRN Reason Stop Dose Admin Diphenhydramine HCl 50 mg 06/27/22 00:23 06/27/22 01:26 Diphenhydramine Hcl 50 Mg/Ml Vial IVPUSH 06/27/22 00:24 50 mg ONCE ONE Administration Sodium Chloride 1,000 mls @ 999 mls/hr 06/27/22 00:30 06/27/22 01:27 Ns IV 06/27/22 01:30 999 mls/hr .Q1H1M ALPESH Administration Ketorolac Tromethamine 30 mg 06/27/22 00:23 06/27/22 01:26 Ketorolac Tromethamine 30 Mg/Ml Vial IVPUSH 06/27/22 00:24 30 mg ONCE ONE Administration Metoclopramide HCl 10 mg 06/27/22 00:23 06/27/22 01:26 Metoclopramide Hcl 10 Mg/2 Ml Vial IVPUSH 06/27/22 00:24 10 mg ONCE ONE Administration Ondansetron HCl 4 mg 06/27/22 00:23 06/27/22 01:26 Ondansetron Hcl 4 Mg/2 Ml Vial IVPUSH 06/27/22 00:24 4 mg ONCE ONE Administration Medical Decision Making Medical Decision Making [facility] Narrative: patient well appearing no acute distress. Chest x-ray showed no evidence of pneumonia. No pneumothorax. I personally reviewed the x-ray. Patient's chest pain atypical for ACS. No significant cardiac risk factors. Patient's troponin is negative. Symptoms been ongoing for days. my interpretation of the patient's EKG showed a sinus pattern heart rate is 60 MA QRS QTC within normal limits there is no acute ST segment elevation noted. EKG is unchanged from previous EKG. Patient's heart score is less than 3 as patient's history knots none was with ACS, negative troponin, no additional risk factor and patient is 56 years old. Patient's pain atypical for PE. Her headache is Similar with previous bouts of migraine. She is less likely to have temporal arteritis. there is no cord change in vision. The headache is behind the eye. There is no tenderness on palpation of the eyeball. Pupils are equal reactive in size. There is no gross signs of glaucoma. Patient neurologically intact. Will give Reglan Toradol Zofran Ngo migraine. Monitor carefully. 2 a.m. patient monitor in the emergency department. After giving migraine treatment symptomatic Kori improved. Headache has subsided. Two sets of cardiac enzymes are negative. He is in stable condition will discharge home. Differential Diagnosis Differential Diagnoses: The differential diagnosis associated with the presentation includes Migraine headache, intracranial bleed, meningitis, ACS, pneumonia, pneumothorax Lab Data [facility] Lab Attestation statement: I reviewed the patient's lab results. 06/26/22 18:43 06/26/22 18:43 Labs: Lab Results 06/26/22 06/26/22 06/26/22 Range/Units 17:03 18:43 18:43 WBC 7.4 (4.8-10.8) X10*3/uL RBC 4.46 (4.20-5.50) X10*6/uL Hgb 12.7 (12.0-16.0) g/dl Hct 39.6 (37.0-47.0) % MCV 88.8 (80.0-98.0) fL MCH 28.5 (27.0-33.0) pg MCHC 32.1 (31.0-35.0) g/dl RDW 12.2 (11.0-16.0) % Plt Count 255 (160-400) X10*3/uL MPV 11.1 (9.4-12.3) fL Immature Gran % (Auto) 0.1 (0.0-0.4) % Neut % (Auto) 63.1 (45-73) % Lymph % (Auto) 26.7 (20-40) % [place]oshone % (Auto) 7.8 (2-11) % Eos % (Auto) 1.8 (0-4) % Baso % (Auto) 0.5 (0-2) % Lymph # (Auto) 2.0 (1.2-4.9) X10*3/uL [place]oshone # (Auto) 0.6 (0.1-1.2) X10*3/uL Eos # (Auto) 0.1 (0.0-0.4) X10*3/uL Baso # (Auto) 0.0 (0.0-0.2) X10*3/uL Abs Immat Gran (auto) 0.01 (0.00-0.03) X10*3/uL Absolute Neuts (auto) 4.6 (2.0-8.3) x10*3/uL Absolute Nucleated RBC 0.000 (0.0-0.012) X10*3/uL Nucleated RBC % (auto) 0.0 (0.0-0.2) /100WBC Sodium 141 (135-145) mmol/L Potassium 4.6 (3.3-5.1) mmol/L Chloride 107 (96-108) mmol/L Carbon Dioxide 27 (22-29) mmol/L Anion Gap 12 (12-20) BUN 13 (9-16) mg/dL Creatinine 0.68 (0.5-1.4) mg/dL Estim Creat Clear Calc 89.6 Estimated GFR > 60 Random Glucose 102 (60-115) mg/dL Calcium 9.4 (8.4-10.2) mg/dL Magnesium 2.3 (1.6-2.6) mg/dL Total Bilirubin 0.2 (0.0-1.0) mg/dL Direct Bilirubin < 0.2 (0.0-0.5) mg/dL AST 23 (5-31) U/L ALT 19 (0-31) U/L Alkaline Phosphatase 112 (39-117) U/L Troponin I High Sens (<3.5-17.0) ng/L Total Protein 7.3 (6.5-8.0) g/dL Albumin 4.3 (3.5-5.0) g/dL Influenza Type A (PCR) NEGATIVE (Negative) Influenza Type B (PCR) NEGATIVE (Negative) RSV RNA Qual (PCR) NEGATIVE (Negative) SARS-CoV-2 RNA (RT-PCR) NEGATIVE (Negative) 06/26/22 06/27/22 Range/Units 18:43 01:01 WBC (4.8-10.8) X10*3/uL RBC (4.20-5.50) X10*6/uL Hgb (12.0-16.0) g/dl Hct (37.0-47.0) % MCV (80.0-98.0) fL MCH (27.0-33.0) pg MCHC (31.0-35.0) g/dl RDW (11.0-16.0) % Plt Count (160-400) X10*3/uL MPV (9.4-12.3) fL Immature Gran % (Auto) (0.0-0.4) % Neut % (Auto) (45-73) % Lymph % (Auto) (20-40) % [place]oshone % (Auto) (2-11) % Eos % (Auto) (0-4) % Baso % (Auto) (0-2) % Lymph # (Auto) (1.2-4.9) X10*3/uL [place] # (Auto) (0.1-1.2) X10*3/uL Eos # (Auto) (0.0-0.4) X10*3/uL Baso # (Auto) (0.0-0.2) X10*3/uL Abs Immat Gran (auto) (0.00-0.03) X10*3/uL Absolute Neuts (auto) (2.0-8.3) x10*3/uL Absolute Nucleated RBC (0.0-0.012) X10*3/uL Nucleated RBC % (auto) (0.0-0.2) /100WBC Sodium (135-145) mmol/L Potassium (3.3-5.1) mmol/L Chloride (96-108) mmol/L Carbon Dioxide (22-29) mmol/L Anion Gap (12-20) BUN (9-16) mg/dL Creatinine (0.5-1.4) mg/dL Estim Creat Clear Calc Estimated GFR Random Glucose (60-115) mg/dL Calcium (8.4-10.2) mg/dL Magnesium (1.6-2.6) mg/dL Total Bilirubin (0.0-1.0) mg/dL Direct Bilirubin (0.0-0.5) mg/dL AST (5-31) U/L ALT (0-31) U/L Alkaline Phosphatase (39-117) U/L Troponin I High Sens < 3.5 < 3.5 (<3.5-17.0) ng/L Total Protein (6.5-8.0) g/dL Albumin (3.5-5.0) g/dL Influenza Type A (PCR) (Negative) Influenza Type B (PCR) (Negative) RSV RNA Qual (PCR) (Negative) SARS-CoV-2 RNA (RT-PCR) (Negative) Independent Interpretation I performed an independent interpretation of an: EKG Interpretation: Sinus pattern heart rate is 60 MA QRS QTC within normal limits there is no acute ST segment elevation noted. Discharge Plan Discharge Clinical Impression: Migraine Patient Disposition: Home, Self-Care Instructions: Migraine Headache (ED) Prescriptions: New ibuprofen 400 mg tablet 400 mg PO Q6H PRN (Reason: pain) Qty: 20 0RF ondansetron 4 mg tablet,disintegrating 4 mg PO TID PRN (Reason: nausea and vomiting) 5 Days Qty: 10 0RF No Action albuterol sulfate [ProAir HFA] 90 mcg/actuation HFA aerosol inhaler 2 puff inhalation Q4-6H PRN (Reason: shortness of breath or wheezing) Qty: 6.7 0RF epinephrine 0.3 mg/0.3 mL auto-injector IM cetirizine [Zyrtec] 10 mg tablet 10 mg PO DAILY 30 Days Qty: 30 0RF levothyroxine 125 mcg capsule 125 mcg PO DAILY Qty: 90 4RF Referrals: Dylan Ambriz MD [Primary Care Provider] -
[2022-06-27] MEDS: diphenhydrAMINE HCL 50 MG/ML VIAL IVPUSH (01:26)
[2022-06-27] MEDS: ondansetron HCL 4 MG/2 ML VIAL IVPUSH (01:26)
[2022-06-27] MEDS: Ketorolac Tromethamine 30 MG/ML VIAL IVPUSH (01:26)
[2022-06-27] MEDS: Metoclopramide HCl 10 MG/2 ML VIAL IVPUSH (01:26)
[2022-06-27] MEDS: 0.9 % Sodium Chloride 1,000 ML 999 ML IV (01:27)
[2022-06-27 01:30] LABS: Troponin-I High Sensitivity < 3.5 ng/L (<3.5-17.0)
--- NOTE | 2022-06-27 02:32 | PC.NURSE ---
IV line removed. Pt tolerated well. Discharge instructions reviewed with pt. Pt verbalizes understanding.
== END 2022-06-27 02:32 | disposition home or self-care (01) ==
PROVIDERS: Nurse Practitioner Family; Emergency Provider Emergency Medicine Emergency Medical Services; PCP Internal Medicine
DX: G43.909 Migraine, unspecified, not intractable, without status migrainosus (principal); R07.89 Other chest pain; R11.2 Nausea with vomiting, unspecified; Z79.899 Other long term (current) drug therapy; Z20.822 Contact with and (suspected) exposure to COVID-19; Z20.828 Contact with and (suspected) exposure to other viral communicable diseases
CPT/HCPCS: 0241U; 36415; 71046; 80048; 80076; 83735; 84484; 85025; 93005; 96361; 96374; 96375; 99284; J1200; J1885; J2405; J2765

== ENCOUNTER 2022-07-12 09:11 | Outpatient (REF) | payer OTHER, SELFPAY ==
--- NOTE | ~2022-07-12 | XR_ITS ---
EXAMINATION: XR CHEST CLINICAL INFORMATION: Cough COMPARISON: 06/26/2022 TECHNIQUE: 2 views of the chest were obtained. FINDINGS: Lungs are well-inflated and clear. Trachea is midline in position. No interstitial disease, consolidation or mass. No pleural effusion or pneumothorax. Cardiac silhouette and pulmonary vessels are normal in size. The mediastinum and salvatore have normal contour. The visualized bones, and upper abdomen, are unremarkable. XR/XR chest 2V IMPRESSION: Lungs are well-inflated. No radiographic evidence of pneumonia.
== END 2022-07-12 09:12 | disposition home or self-care (01) ==
LOC: HO.XRAY 09:11
PROVIDERS: PCP Internal Medicine; Visit Provider Internal Medicine
DX: R05.9 Cough, unspecified (principal)
CPT/HCPCS: 71046

== ENCOUNTER 2022-08-28 11:07 | Outpatient (REF) | payer OTHER, SELFPAY ==
[2022-08-28 12:41] LABS: Blood Urea Nitrogen 15 mg/dL (9-16); Estimated Glomerular Filt Rate > 60
== END 2022-08-28 11:08 | disposition home or self-care (01) ==
LOC: HO.LAB 11:07
PROVIDERS: Visit Provider Psychiatry & Neurology Neurology
DX: I67.1 Cerebral aneurysm, nonruptured (principal); G43.009 Migraine without aura, not intractable, without status migrainosus
CPT/HCPCS: 36415; 82565; 84520

== ENCOUNTER 2022-09-20 07:28 | Outpatient (REF) | payer OTHER, SELFPAY ==
--- NOTE | ~2022-09-20 | CT_ITS ---
EXAMINATION: CT ANGIOGRAM BRAIN, HEAD CLINICAL INFORMATION: Aneurysm COMPARISON: MRA head without contrast 06/09/2019 TECHNIQUE: Test bolus sequences followed by intravenous administration 75 mL of Omnipaque 350 intravenous contrast. Helical imaging was performed in the axial plane from the skull base to the vertex. Delayed postcontrast imaging of the head was also performed. The data was processed at the chief radiologic technologist workstation for generation of MIP sequences. Three-dimensional volume rendered reformatted images were also generated at an offline 3-D workstation. The degree of stenosis determined by NASCET criteria. This CT examination was performed using dose optimization techniques as appropriate, variously including the following: *Automated exposure control *Adjustment of mA and/or kV according to patient size (this includes techniques or standardized protocols for targeted exams where dose is matched to indication/reason for exam; i.e. extremities or head) *Use of iterative reconstruction technique DLP: 1932 mGy-cm FINDINGS: CT Head: There is no evidence of acute intracranial hemorrhage or edematous territorial infarction. A few foci of hypoattenuation in the periventricular and deep white matter are consistent with mild microangiopathy. Del Rosario-white matter differentiation is preserved. The ventricles are normal in size and configuration. No evidence for obstructive hydrocephalus. No abnormal mass effect or midline shift. No extra-axial fluid collections. No pathologic intra-axial enhancement or regional oligemia. No acute soft tissue or osseous abnormalities. The mastoid air cells and paranasal sinuses are clear. Brain CTA: Intracranial Internal Carotid Arteries: No focal stenosis or occlusion. Stable 3 mm posteriorly and inferiorly projecting aneurysm involving the right carotid terminus (series 13 image 99). Redemonstration of a left posterior communicating artery origin infundibulum. Right Anterior Cerebral Artery: Normal A1 segment. Normal opacification of the distal BRIAN segments. Left Anterior Cerebral Artery: Normal A1 segment. Normal opacification of the distal BRIAN segments. Anterior Communicating Artery: Normal. Right Middle Cerebral Artery: Normal M1 segment of the MCA without focal stenosis or occlusion. Normal arborization of the distal segments. Left Middle Cerebral Artery: Normal M1 segment of the MCA without focal stenosis or occlusion. Normal arborization of the distal segments. Right Vertebral Artery: Dominant. Normal V4 segment. Left Vertebral Artery: Normal V4 segment. Basilar Artery: Normal without focal stenosis or occlusion. Normal appearance of the proximal superior cerebellar arteries. Right Posterior Cerebral Artery: Normal P1 segment. Normal opacification of the distal [employer] segments. Left Posterior Cerebral Artery: Normal P1 segment. Normal opacification of the distal [employer] segments. Normal opacification of the superior sagittal, straight, transverse, and sigmoid sinuses. 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
[2022-09-20] MEDS: iohexoL 350 MG/ML 100 ML INFUS..BTL IV (08:20)
== END 2022-09-20 07:29 | disposition home or self-care (01) ==
LOC: HO.CT 07:28
PROVIDERS: PCP Internal Medicine; Visit Provider Psychiatry & Neurology Neurology
DX: I67.1 Cerebral aneurysm, nonruptured (principal)
CPT/HCPCS: 70496; Q9967

== ENCOUNTER 2023-01-19 16:23 | Outpatient (AMB) | payer OTHER, SELFPAY ==
--- NOTE | 2023-01-19 16:35 | MHC.OFFWIV ---
Intake Vital Signs 01/19/23 16:36 Weight 151 lb BP 120/80 Blood Pressure Location Rt brachial Position Sitting Pulse 80 Pulse Source Pulse Oximeter Temp 97.9 F Temp Source Temporal Artery Scan Pulse Oximetry (%) 98 Intake Visit Reasons: EP Discharge from the Belly Button Intake Note: Patient here because she noticed a few days ago she noticed an odor from belly button and didnt think anything of it and cleaned it and started to notice discharge on sunday. pt states it smells bad. Patient Tobacco Use Status: Never used Tobacco Allergies No Known Allergies Allergy (Verified 01/19/23 16:37) Do you need a note to return to daycare/school/sports/work: No HPI HPI Comments History of Present Illness Details This is a 57-year-old female who presents to the office today for sick visit. Patient complaining of discharge/erythema of her belly button. She states she started to notice foul smelling discharge from her belly button yesterday. She denies any fevers or chills. She denies any abdominal pain or nausea/vomiting/diarrhea. She is otherwise feeling well. 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 Cognitive needs: No Hearing needs: No Vision needs: Yes Review of Systems Const All systems reviewed & are unremarkable except as noted in HPI and below Reports no additional complaints Eyes Reports no additional complaints ENT Reports no additional complaints Card Reports no additional complaints Resp Reports no additional complaints GI Reports no additional complaints Reports no additional complaints Musc Reports no additional complaints Skin/Breast Reports system reviewed and no additional complaints, except as documented Neuro Reports no additional complaints Psych Reports no additional complaints Endo Reports no additional complaints Jeremy/Lymph Reports no additional complaints Aller/Immun Reports no additional complaints Physical Exam Vital Signs: Last Vital Signs Temp 97.9 F 01/19/23 16:36 Pulse 80 01/19/23 16:36 BP 120/80 01/19/23 16:36 Pulse Ox 98 01/19/23 16:36 Const General: cooperative, healthy appearing, no acute distress and well developed Orientation/consciousness: patient oriented x3 HEENT Head: Yes normal to inspection Ears: hearing grossly normal bilaterally General nose exam: Normal external nose present Face and sinus: Yes normal facial exam Mouth: Normal oral and palatal mucosa present Eyes General: appearance normal, both eyes and all related structures Pupils: Equal, round and reactive pupils present EOM: EOMs intact bilaterally Resp Effort & Inspection: normal respiratory effort and no respiratory distress Auscultation: clear to auscultation bilaterally Cardio Rate: regular rate Rhythm: regular rhythm Heart sounds: no gallops, no murmurs and no rubs Peripheral pulses: Peripheral pulses 2+ throughout GI Inspection: No distended Palpation (GI): Soft to palpation and nontender Auscultation: normal bowel sounds Skin Other: There is beefy red discoloration of the umbilicus with thick white discharge noted. General skin exam: no rashes or lesions noted Neuro General: patient oriented x3 Cranial nerves: Yes CN's II-XII intact bilaterally and Yes Equal, round and reactive pupils present Gait exam (Neuro): Normal gait present Motor exam (neuro): 5/5 motor strength present throughout Extrem General: Yes normal to inspection, Yes full ROM and Yes no clubbing, cyanosis or edema Psych Appearance: grossly normal Mental Status: mental status grossly normal Assessment & Plan Assessment & Plan (1) Candidiasis: Code(s): B37.9 - Candidiasis, unspecified Plan: This is a 57-year-old female presenting with foul-smelling drainage from her belly button. On physical examination, there is beefy red discoloration of the umbilicus with a thick white discharge. History and physical most consistent with intertrigo candidiasis of the umbilicus. Patient's vital signs are stable she is overall nontoxic appearing. Her physical exam is otherwise benign. Patient is safe to be discharged home. She was sent home on nystatin cream 3 times daily. She was advised to follow-up here for persistent or worsening symptoms. Patient verbalizes her understanding and she is in agreement with the plan. Medications: New nystatin 1 appl topical TID 15 grams 0RF Coding Level of Care Code Est Pt Level 3 (52763) Diagnoses Candidiasis B37.9
[2023-01-19 16:36] VITALS: BP 120/80; PULSE 80; TEMP 36.6; O2SAT 98
== END 2023-01-19 16:57 | disposition home or self-care (01) ==
PROVIDERS: PCP Internal Medicine; Visit Provider Physician Assistant Medical
DX: B37.9 Candidiasis, unspecified (principal)
CPT/HCPCS: 99213

== ENCOUNTER 2023-02-14 11:15 | Outpatient (AMB) | payer OTHER, SELFPAY ==
[2023-02-14 12:10] VITALS: BP 132/80; PULSE 116; TEMP 37.4; O2SAT 96; BMI 25.9
--- NOTE | 2023-02-14 12:10 | AM.OFFWIN_ITS ---
Intake Vital Signs 02/14/23 12:10 Height 5 ft 4 in Weight 151 lb BMI 25.9 BP 132/80 Blood Pressure Location Rt brachial Position Sitting Pulse 116 H Pulse Source Pulse Oximeter Temp 99.4 F Temp Source Temporal Artery Scan Pulse Oximetry (%) 96 Oxygen Delivery Method Room Air Intake Visit Reasons: EST/runny nose headache/[phone] Intake Note: pt is here for c/o runny nose, headache Patient Tobacco Use Status: Never used Tobacco Allergies No Known Allergies Allergy (Verified 02/14/23 12:10) Do you need a note to return to daycare/school/sports/work: Yes HPI EST/runny nose headache/[phone] HPI Details 57-year-[facility] Reports a 3 day history of nasal congestion, headache, body aches, dry cough, chills. 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 Denies any shortness of breath or GI symptoms. 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 Cognitive needs: No Hearing needs: No Vision needs: Yes Review of Systems Const All systems reviewed & are unremarkable except as noted in HPI and below Physical Exam Vital Signs: Last Vital Signs Temp 99.4 F 02/14/23 12:10 Pulse 116 H 02/14/23 12:10 BP 132/80 02/14/23 12:10 Pulse Ox 96 02/14/23 12:10 Oxygen Delivery Method Room Air 02/14/23 12:10 BMI result Body Mass Index 25.9 Const General: cooperative and ill appearing acutely HEENT Head: Yes normal to inspection and Yes normocephalic Ears: hearing grossly normal bilaterally, external ears normal and TM's normal bilaterally General nose exam: Normal external nose present and Nasal discharge present mucoid Face and sinus: Yes normal facial exam and Yes sinuses nontender Mouth: Normal oral and palatal mucosa present and moist mucous membranes Throat: Yes posterior oropharynx normal Neck Neck: Yes no lymphadenopathy Resp Effort & Inspection: normal respiratory effort, able to speak in complete sentences and Actively coughing Quality: dry Auscultation: clear to auscultation bilaterally Cardio Jugular venous distension: no JVD Palpation: normal PMI Rate: regular rate Rhythm: regular rhythm Skin General skin exam: no rashes or lesions noted Extrem General: Yes capillary refill normal and Yes no clubbing, cyanosis or edema Psych Appearance: grossly normal Mental Status: mental status grossly normal Speech and movement: Normal speech and movement present Assessment & Plan Assessment & Plan (1) Upper respiratory infection: Code(s): J06.9 - Acute upper respiratory infection, unspecified Qualifiers: URI type: unspecified viral URI Qualified Code(s): J06.9 - Acute upper respiratory infection, unspecified Plan: Symptoms consistent with viral illness. COVID/flu/RSV viral swab obtained. Patient aware she will be notified with results once these are available. 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 Advised conservative measures with rest, hydration, otc cold/flu products for symptomatic treatment. If she does not improve with time and conservative measures, or if symptoms worsen/new symptoms develop, she should return to the clinic for further evaluation. Patient agrees to plan. Orders: Orders SARS-CoV2/FLU/RSV Today J06.9 - Acute upper respiratory infection, unspecified Coding Level of Care Code Est Pt Level 3 (11196) Diagnoses Viral upper respiratory tract infection J06.9 URI type: unspecified viral URI
== END 2023-02-14 13:06 | disposition home or self-care (01) ==
PROVIDERS: PCP Internal Medicine; Visit Provider Nurse Practitioner Family
DX: J06.9 Acute upper respiratory infection, unspecified (principal)
CPT/HCPCS: 99213

== ENCOUNTER 2023-02-14 16:29 | Outpatient (REF) | payer OTHER, SELFPAY ==
[2023-02-14 17:59] LABS: Influenza A PCR NEGATIVE (Negative); Influenza B PCR NEGATIVE (Negative); Resp Syncy Virus RNA Qual PCR NEGATIVE (Negative); SARS COV2 PCR INHOUSE POSITIVE (Negative)
== END 2023-02-14 16:30 | disposition home or self-care (01) ==
LOC: HO.LNP 16:29
PROVIDERS: Visit Provider Nurse Practitioner Family
DX: J06.9 Acute upper respiratory infection, unspecified (principal); Z20.822 Contact with and (suspected) exposure to COVID-19
CPT/HCPCS: 0241U

== ENCOUNTER 2023-06-09 09:24 | Outpatient (AMB) | payer OTHER, SELFPAY ==
--- NOTE | 2023-06-09 11:41 | AM.OFFWIN_ITS ---
Intake Vital Signs 06/09/23 11:42 Height 5 ft 4 in Weight 151 lb BMI 25.9 BP 130/80 Blood Pressure Location Rt brachial Position Sitting Pulse 81 Pulse Source Pulse Oximeter Temp 98.1 F Temp Source Oral Pulse Oximetry (%) 97 Oxygen Delivery Method Room Air Intake Visit Reasons: EP Stuffy nose 2wks( masked lobby) Intake Note: Patient here for congestion that has been present for about 2 weeks. Having slight sinus pain and slight SOB. Patient Tobacco Use Status: Never used Tobacco Allergies No Known Allergies Allergy (Verified 06/09/23 11:43) Do you need a note to return to daycare/school/sports/work: No HPI EP Stuffy nose 2wks( masked lobby) HPI Details Patient is a 57-year-old female comes to the walk-in clinic complaining of almost 4 weeks of intermittent nasal congestion, mild cough, and now is has sinus pressure under her eyes bilaterally. She states that she gets purulent discharge at times, no blood reported. She denies fever or chills, significant headache or dizziness, nausea vomiting, diarrhea, weakness, myalgias or malaise, or other significant associated symptoms. 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 Cognitive needs: No Hearing needs: No Vision needs: Yes Review of Systems Const All systems reviewed & are unremarkable except as noted in HPI and below Physical Exam Vital Signs: Last Vital Signs Temp 98.1 F 06/09/23 11:42 Pulse 81 06/09/23 11:42 BP 130/80 06/09/23 11:42 Pulse Ox 97 06/09/23 11:42 Oxygen Delivery Method Room Air 06/09/23 11:42 BMI result Body Mass Index 25.9 Const General: cooperative, comfortable, no acute distress, alert, awake, Physically active and well groomed; No anxious, diaphoretic, intoxicated appearing or poor hygiene Nutritional Appearance: average body habitus Orientation/consciousness: oriented to person Limitations: no limitations HEENT Head: Yes normal to inspection, Yes normocephalic and Yes atraumatic Ears: hearing grossly normal bilaterally, external ears normal, TM's normal bilaterally and EAC's normal General nose exam: Normal external nose present, Abnormal mucous membranes and turbinates present, Abnormal nasal septum present and Nasal discharge present Face and sinus: Yes face symmetric, No edema, No fluctuance, No maxillary instability and Yes sinus tenderness Mouth: Normal oral and palatal mucosa present, lip normal and tongue normal Throat: Yes posterior oropharynx normal, Yes tonsils normal, No peritonsillar mass, No postnasal drainage, No uvular edema and No cobblestoning Eyes General: appearance normal, both eyes and all related structures Neck Neck: Yes normal visual inspection, Yes no lymphadenopathy, Yes trachea midline, Yes supple and No anterior neck swelling Chest Chest palpation & inspection: normal palpation of entire chest wall Resp Effort & Inspection: normal respiratory effort, able to speak in complete sentences, no audible wheezes, Actively coughing (rare), no grunting, not labored, no nasal flaring, no retractions and symmetric chest movement Auscultation: clear to auscultation bilaterally, no crackles, no rales, no rhonchi, no wheezes, lung sounds not diminished and No rub present Cardio Rate: regular rate Skin Other: Good color, warm and dry Neuro General: oriented to person Psych Appearance: grossly normal Mental Status: mental status grossly normal Speech and movement: Normal speech and movement present Affect: normal affect Attitude: cooperative Thought process: Normal thought process present Insight: Good insight present (Psych) Judgement: Good judgement present (Psych) Assessment & Plan Assessment & Plan (1) Sinusitis: Code(s): J32.9 - Chronic sinusitis, unspecified Qualifiers: Chronicity: subacute Sinusitis location: ethmoidal Qualified Code(s): J01.20 - Acute ethmoidal sinusitis, unspecified Plan: Patient is a 57-year-old female comes to the walk-in clinic complaining of almost 4 weeks of intermittent nasal congestion, mild cough, and now is developing sinus pressure under her eyes bilaterally. She states that she gets purulent discharge at times, no blood reported. Pending PCR test to rule out flu, covid and RSV. Will write for antibiotics for likely bacterial sinusitis at this point and she should follow up if symptoms persist or worsen. Orders: Orders SARS-CoV2/FLU/RSV 06/09/23 R09.89 - Other specified symptoms and signs involving the circulatory and respiratory systems Medications: New azithromycin take 500 mg today (day 1), then 250 mg for 4 days (days 2-5) PO 6 tabs 0RF Coding Level of Care Code Est Pt Level 4 (71601) Diagnoses Subacute ethmoidal sinusitis J01.20 Chronicity: subacute Sinusitis location: ethmoidal
[2023-06-09 11:42] VITALS: BP 130/80; PULSE 81; TEMP 36.7; O2SAT 97; BMI 25.9
== END 2023-06-09 12:32 | disposition home or self-care (01) ==
PROVIDERS: PCP Internal Medicine; Visit Provider Physician Assistant Medical
DX: J01.20 Acute ethmoidal sinusitis, unspecified (principal)
CPT/HCPCS: 99051; 99214

== ENCOUNTER 2023-06-09 12:30 | Outpatient (REF) | payer OTHER, SELFPAY ==
[2023-06-09 15:20] LABS: Influenza A PCR NEGATIVE (Negative); Influenza B PCR NEGATIVE (Negative); Resp Syncy Virus RNA Qual PCR NEGATIVE (Negative); SARS COV2 PCR INHOUSE NEGATIVE (Negative)
== END 2023-06-09 12:31 | disposition home or self-care (01) ==
LOC: HO.LNP 12:30
PROVIDERS: Visit Provider Physician Assistant Medical
DX: Z11.52 Encounter for screening for COVID-19 (principal); Z20.822 Contact with and (suspected) exposure to COVID-19; R09.89 Other specified symptoms and signs involving the circulatory and respiratory systems
CPT/HCPCS: 0241U

== ENCOUNTER 2023-08-15 16:03 | Outpatient (AMB) | payer OTHER, SELFPAY ==
[2023-08-15 16:05] VITALS: BP 122/68; PULSE 99; TEMP 37.5; O2SAT 97; BMI 25.7
--- NOTE | 2023-08-15 16:05 | AM.OFFWIN_ITS ---
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 in clinic with c/o cough, chest congestion, headaches and fatigue since Yesterday. 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 Denies fevers, chills, nausea or vomiting today. She has not taken any OTC medications for her symptoms. 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 Cognitive needs: No Hearing needs: No Vision needs: Yes Review of Systems Const All systems reviewed & are unremarkable except as noted in HPI and below Physical Exam Vital Signs: Last Vital Signs Temp 99.5 F 08/15/23 16:05 Pulse 99 08/15/23 16:05 BP 122/68 08/15/23 16:05 Pulse Ox 97 08/15/23 16:05 Oxygen Delivery Method Room Air 08/15/23 16:05 BMI result Body Mass Index 25.7 Const General: comfortable and no acute distress Orientation/consciousness: patient oriented x3 HEENT Head: Yes normocephalic Ears: external ears normal and TM's normal bilaterally General nose exam: Abnormal mucous membranes and turbinates present boggy and erythematous Face and sinus: Yes sinuses nontender Mouth: moist mucous membranes Throat: Yes posterior oropharynx normal Resp Effort & Inspection: normal respiratory effort, able to speak in complete sentences and no audible wheezes Auscultation: clear to auscultation bilaterally, no crackles, no rales, no rhonchi and no wheezes Cardio Rate: regular rate Rhythm: regular rhythm Neuro General: patient oriented x3 Assessment & Plan Assessment & Plan (1) Upper respiratory infection: Code(s): J06.9 - Acute upper respiratory infection, unspecified Qualifiers: URI type: unspecified URI Qualified Code(s): J06.9 - Acute upper respiratory infection, unspecified Plan: -Rest for few days. - Hydrate with warm fluids - Acetaminophen for pain relief - OTC cold remedies. Plan -Rest for few days. - Hydrate with warm fluids - Acetamin Orders: Orders SARS-CoV2/FLU/RSV Today J06.9 - Acute upper respiratory infection, unspecified Coding Level of Care Code Est Pt Level 3 (04192) Diagnoses Upper respiratory tract infection, unspecified type J06.9 URI type: unspecified URI Time Spent (min) 15
== END 2023-08-15 16:32 | disposition home or self-care (01) ==
PROVIDERS: PCP Internal Medicine; Visit Provider Nurse Practitioner Family
DX: J06.9 Acute upper respiratory infection, unspecified (principal)
CPT/HCPCS: 99213

== ENCOUNTER 2023-08-15 16:15 | Outpatient (REF) | payer OTHER, SELFPAY ==
[2023-08-16 14:49] LABS: Influenza A PCR NEGATIVE (Negative); Influenza B PCR NEGATIVE (Negative); Resp Syncy Virus RNA Qual PCR NEGATIVE (Negative); SARS COV2 PCR INHOUSE NEGATIVE (Negative)
== END 2023-08-15 16:16 | disposition home or self-care (01) ==
LOC: HO.LAB 16:15
PROVIDERS: Visit Provider Nurse Practitioner Family
DX: Z11.52 Encounter for screening for COVID-19 (principal); J06.9 Acute upper respiratory infection, unspecified
CPT/HCPCS: 0241U

== ENCOUNTER 2023-08-17 09:58 | Outpatient (AMB) | payer OTHER, SELFPAY ==
[2023-08-17 09:59] VITALS: BP 124/70; PULSE 97; O2SAT 98; BMI 25.2
--- NOTE | 2023-08-17 09:59 | A.OFFPC_ITS ---
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 per policy Accompanied by: Self / Same As Patient Allergies No Known Allergies Allergy (Verified 08/17/23 09:59) Medication List - Last Reconciled 08/17/23 by Dylan Ambriz MD albuterol sulfate 90 mcg/actuation (Ventolin HFA) 2 puffs inhalation Q4-6H PRN cetirizine (Zyrtec) 10 mg PO DAILY 30 days epinephrine IM levothyroxine 125 mcg PO DAILY Tobacco use date assessed: 08/17/23 Dental Screening Dental Screen Date: 08/17/23 Did you have a dental visit in the last 12 months?: Yes Did you have a dental problem in the last 6 months where you did not have access to dental care?: No Was dental information given to patient?: Patient has dentist HPI congestion, cough, chills (COVID-) HPI Details cough and congestion for a week [facility] Medical History Patellofemoral arthritis of right knee Hypothyroidism Surgical History History of biopsy History of cholecystectomy History of section Family History Father CVD (cardiovascular disease) DVT (deep venous thrombosis) Mother Liver problem Kidney disease Diabetes Social History Housing: Apartment Alcohol intake: never Patient Tobacco Use Status: Never used Tobacco e-Cigarette/Vaping Use: Never Used Second Hand Smoke Exposure: No service: No 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 1. Little interest or pleasure in doing things: not at all 2. Feeling down, depressed, or hopeless: not at all 3. Trouble falling or staying asleep, or sleeping too much: not at all 4. Feeling tired or having little energy: not at all 5. Poor appetite or overeating: not at all 6. Feeling bad about yourself - or that you are a failure or have let yourself or your family down: not at all 7. Trouble concentrating on things, such as reading the newspaper or watching television: not at all 8. Moving or speaking so slowly that other people could have noticed. Or the opposite - being so fidgety or restless that you have been moving around a lot more than usual: not at all 9. Thoughts that you would be better off or of hurting yourself in some way: not at all Total score: 0 Depression Screening Interpretation: Negative Depression Screening Done: Yes 23726 - PHQ-9 Billing: Yes Source: Developed by Drs. Deepak Mason, Christina Armando, Darrell Cardenas and colleagues, with an educational susie from [employer]. Thrive Questionnaire Date Thrive assessed: 08/17/23 I am a: Patient What is your living situation today?: I have a steady place to live Within the past 12 months, did the food you bought not last and you didn't have the money to get more?: Never true Within the past 12 months, did you worry whether your food would run out before you got money to buy more?: Never true Do you have trouble paying for medicines?: No Do you have trouble getting transportation to medical appointments?: No Do you have trouble paying your heating and electricity bill?: No Do you have trouble taking care of your child, family member or friend?: No Do you have trouble with day-to-day activities such as bathing, preparing meals, shopping, managing finances, etc.?: No Are you currently unemployed and looking for a job?: No Are you interested in more education?: No Please select the resources that you would like help with: None THRIVE Score: 0 AUDIT C Alcohol Use Questionnaire (AUDIT-C) 1. How often do you have a drink containing alcohol?: Never Total Score: 0 Score Reviewed/Action Taken: Yes CAMILLE-7 AMB Questionnaire CAMILLE-7 Date CAMILLE - 7 assessed: 08/17/23 Feeling nervous, anxious, or on edge: 0 = Not at all Not being able to stop or control worryin = Not at all Worrying too much about different things: 0 = Not at all Trouble relaxin = Not at all Being so restless that it is hard to sit still: 0 = Not at all Becoming easily annoyed or irritable: 0 = Not at all Feeling afraid as if something awful might happen: 0 = Not at all Total CAMILLE-7 score (0-4 normal; 5-9 mild; 10-14 moderate; 15-21 severe): 0 Source: Developed by Drs. Deepak Mason, Christina Armando, Darrell Cardenas and colleagues, with an educational susie from [employer]. CAMILLE-7 Assessment Billing CAMILLE-7 Assessment Tool: CAMILLE-7 Assessment 12847 Review of Systems Const Denies chills, Denies headache(s) and Denies weight loss ENT Denies headache(s) Card Denies chest pain, Denies syncope, Denies irregular heart rhythm and Denies dyspnea Resp Denies dyspnea GI Denies abdominal pain, Denies change in stool character, Denies nausea and Denies vomiting Musc Denies deformity and Denies joint swelling Neuro Denies syncope and Denies headache(s) Physical exam (Primary Care) Vital Signs: Last Vital Signs Pulse 97 08/17/23 09:59 BP 124/70 08/17/23 09:59 Pulse Ox 98 08/17/23 09:59 Oxygen Delivery Method Room Air 08/17/23 09:59 BMI result Body Mass Index 25.2 Tobacco/Smoking Status: Tobacco use Status Tobacco use date assessed 08/17/23 08/17/23 10:00 Patient Tobacco Use Status Never used Tobacco 08/17/23 10:00 e-Cigarette/Vaping Use Never Used 08/17/23 10:00 PHQ-9: PHQ-9 Score PHQ-9: Total score 0 08/17/23 10:00 Depression Screening Interpretation: Negative Thrive Assessment: Date of Thrive Assessment Date Thrive assessed 08/17/23 08/17/23 10:00 Const General: cooperative, comfortable, no acute distress and alert Neck Neck: Yes no lymphadenopathy Thyroid: Thyroid normal Resp Effort & Inspection: normal respiratory effort Auscultation: clear to auscultation bilaterally Percussion: percussion normal Cardio Jugular venous distension: no JVD Palpation: normal PMI Rate: regular rate Rhythm: regular rhythm Heart sounds: S1 normal heart sound present and S2 normal heart sound present GI Inspection: Yes normal to inspection Palpation (GI): No hepatosplenomegaly present Skin General skin exam: no rashes or lesions noted Extrem General: Yes no clubbing, cyanosis or edema Assessment and Plan Assessment & Plan (1) Cough: Code(s): R05.9 - Cough, unspecified Plan: rx sent Orders: Orders COVID-19 ID NOW ([place]) Today R68.89 - Other general symptoms and signs Medications: New azithromycin take 500 mg today (day 1), then 250 mg for 4 days (days 2-5) PO 6 tabs 0RF Coding Level of Care Code Est Pt Level 3 (74899) Diagnoses Cough R05.9 Additional Codes CAMILLE-7 Assessment Billing - CAMILLE-7 Assessment Tool: CAMILLE-7 Assessment 55864 ([id number])
== END 2023-08-17 10:15 | disposition home or self-care (01) ==
PROVIDERS: PCP Internal Medicine; Visit Provider Internal Medicine
DX: R05.9 Cough, unspecified (principal)
CPT/HCPCS: 99213

== ENCOUNTER 2023-08-17 10:28 | Outpatient (REF) | payer OTHER, SELFPAY ==
[2023-08-17 10:55] LABS: COVID-19 Test Negative (Negative); IDNOW Serial# 08D9AD1C
== END 2023-08-17 10:29 | disposition home or self-care (01) ==
LOC: HO.LAB 10:28
PROVIDERS: PCP Internal Medicine; Visit Provider Internal Medicine
DX: Z11.52 Encounter for screening for COVID-19 (principal); R68.89 Other general symptoms and signs
CPT/HCPCS: 87635

== ENCOUNTER 2023-08-27 16:07 | Outpatient (REF) | payer OTHER, SELFPAY ==
--- NOTE | ~2023-08-27 | MM_ITS ---
EXAMINATION: MM SCREENING DIGITAL BREAST TOMOSYNTHESIS, BILATERAL CLINICAL INFORMATION: Screening. Asymptomatic. COMPARISON: Mammography: This study is compared with prior exams dating back to 2017. TECHNIQUE: Digital breast tomosynthesis is performed in both the craniocaudal and mediolateral oblique views along with computer-aided detection (CAD). Synthesized 2D images are generated from the tomosynthesis. FINDINGS: There are scattered areas of fibroglandular density (ACR BI-RADS breast composition Category b). There are no significant masses, abnormal calcifications, or other abnormalities. In the central portion of the left breast from prior benign percutaneous biopsy. MM/MM tomosynthesis screening BI IMPRESSION: No mammographic evidence of malignancy. ASSESSMENT: BI-RADS BI-RADS 2 - Benign Findings RECOMMENDATION: Routine annual mammography screening. 1 year F/U This examination should not preclude the clinical evaluation of a suspicious palpable abnormality. This patient's information was entered into a reminder system with a target due date for their next mammogram.
== END 2023-08-27 16:08 | disposition home or self-care (01) ==
LOC: HO.MAMMO 16:07
PROVIDERS: PCP Internal Medicine; Visit Provider Internal Medicine
DX: Z12.31 Encounter for screening mammogram for malignant neoplasm of breast (principal)
CPT/HCPCS: 77063; 77067

== ENCOUNTER → 2023-08-27 16:30 | Outpatient (BNV) | payer OTHER, SELFPAY | PROVIDERS: PCP Internal Medicine; Visit Provider Radiology Diagnostic Radiology | DX: Z12.31 Encounter for screening mammogram for malignant neoplasm of breast (principal) | CPT/HCPCS: 77063; 77067 ==

== ENCOUNTER 2023-09-10 08:29 | Outpatient (AMB) | payer OTHER, SELFPAY ==
[2023-09-10 08:41] VITALS: BP 120/72; PULSE 73; O2SAT 97; BMI 25.1
--- NOTE | 2023-09-10 08:41 | A.OFFPC_ITS ---
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 Allergies No Known Allergies Allergy (Verified 09/10/23 09:08) Medication List - Last Reconciled 09/10/23 by Dylan Ambriz MD albuterol sulfate 90 mcg/actuation (Ventolin HFA) 2 puffs inhalation Q4-6H PRN cetirizine (Zyrtec) 10 mg PO DAILY 30 days epinephrine IM levothyroxine 125 mcg PO DAILY Tobacco use date assessed: 09/10/23 Dental Screening Dental Screen Date: 09/10/23 Did you have a dental visit in the last 12 months?: No Did you have a dental problem in the last 6 months where you did not have access to dental care?: No HPI f/u HPI Details asthma; stable on rx PFSH Medical History Patellofemoral arthritis of right knee Hypothyroidism Surgical History History of biopsy History of cholecystectomy History of section Family History Father CVD (cardiovascular disease) DVT (deep venous thrombosis) Mother Liver problem Kidney disease Diabetes Social History Housing: Apartment Alcohol intake: never Patient Tobacco Use Status: Never used Tobacco e-Cigarette/Vaping Use: Never Used Second Hand Smoke Exposure: No service: No Current occupational 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: 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 Cognitive needs: No Hearing needs: No Vision needs: Yes Questionnaire Thrive Questionnaire Date Thrive assessed: 09/10/23 I am a: Patient What is your living situation today?: I have a steady place to live Within the past 12 months, did the food you bought not last and you didn't have the money to get more?: Never true Within the past 12 months, did you worry whether your food would run out before you got money to buy more?: Never true Do you have trouble paying for medicines?: No Do you have trouble getting transportation to medical appointments?: No Do you have trouble paying your heating and electricity bill?: No Do you have trouble taking care of your child, family member or friend?: No Do you have trouble with day-to-day activities such as bathing, preparing meals, shopping, managing finances, etc.?: No Are you currently unemployed and looking for a job?: No Are you interested in more education?: No Please select the resources that you would like help with: None THRIVE Score: 0 AUDIT C Alcohol Use Questionnaire (AUDIT-C) 1. How often do you have a drink containing alcohol?: Never 3. How often do you have six or more drinks on one occasion?: Never Total Score: 0 Score Reviewed/Action Taken: Yes CAMILLE-7 AMB Questionnaire CAMILLE-7 Date CAMILLE - 7 assessed: 08/17/23 Source: Developed by Drs. Deepak Mason, Christina Armando, Darrell Cardenas and colleagues, with an educational susie from [employer]. Review of Systems Const Denies chills, Denies headache(s) and Denies weight loss ENT Denies headache(s) Card Denies chest pain, Denies syncope, Denies irregular heart rhythm and Denies dyspnea Resp Denies chest congestion, Denies cough and Denies dyspnea GI Denies abdominal pain, Denies change in stool character, Denies nausea and Denies vomiting Musc Denies deformity and Denies joint swelling Neuro Denies syncope and Denies headache(s) Physical exam (Primary Care) Vital Signs: Last Vital Signs Pulse 73 09/10/23 08:41 BP 120/72 09/10/23 08:41 Pulse Ox 97 09/10/23 08:41 Oxygen Delivery Method Room Air 09/10/23 08:41 BMI result Body Mass Index 25.1 Tobacco/Smoking Status: Tobacco use Status Tobacco use date assessed 09/10/23 09/10/23 08:42 Patient Tobacco Use Status Never used Tobacco 09/10/23 08:42 e-Cigarette/Vaping Use Never Used 09/10/23 08:42 Thrive Assessment: Date of Thrive Assessment Date Thrive assessed 09/10/23 09/10/23 08:42 Const General: cooperative, comfortable, no acute distress and alert Neck Neck: Yes no lymphadenopathy Thyroid: Thyroid normal Resp Effort & Inspection: normal respiratory effort Auscultation: clear to auscultation bilaterally Percussion: percussion normal Cardio Jugular venous distension: no JVD Palpation: normal PMI Rate: regular rate Rhythm: regular rhythm Heart sounds: S1 normal heart sound present and S2 normal heart sound present GI Inspection: Yes normal to inspection Palpation (GI): No hepatosplenomegaly present Skin General skin exam: no rashes or lesions noted Extrem General: Yes no clubbing, cyanosis or edema Assessment and Plan Assessment & Plan (1) Hypothyroidism: Code(s): E03.9 - Hypothyroidism, unspecified Plan: stable; same rx; do labs (2) Asthma: Code(s): J45.909 - Unspecified asthma, uncomplicated Plan: stable; same rx Orders: Orders Thyroid Stimulating Hormone Today Z13.29 - Encounter for screening for other suspected endocrine disorder Coding Level of Care Code Est Pt Level 3 (15854) Diagnoses Hypothyroidism E03.9 Asthma J45.909
== END 2023-09-10 09:22 | disposition home or self-care (01) ==
PROVIDERS: PCP Internal Medicine; Visit Provider Internal Medicine
DX: E03.9 Hypothyroidism, unspecified (principal); J45.909 Unspecified asthma, uncomplicated
CPT/HCPCS: 99213

== ENCOUNTER 2023-09-10 09:27 | Outpatient (REF) | payer OTHER, SELFPAY ==
[2023-09-10 10:44] LABS: Thyroid Stimulating Hormone 0.99 uIU/mL (0.32-4.0)
== END 2023-09-10 09:28 | disposition home or self-care (01) ==
LOC: HO.LAB 09:27
PROVIDERS: PCP Internal Medicine; Visit Provider Internal Medicine
DX: Z13.29 Encounter for screening for other suspected endocrine disorder (principal)
CPT/HCPCS: 36415; 84443

== ENCOUNTER 2024-01-03 08:34 | Outpatient (AMB) | payer OTHER, SELFPAY ==
--- NOTE | 2024-01-03 08:37 | A.OFFPC_ITS ---
Vital Signs 01/03/24 08:38 Height 5 ft 4 in Weight 153 lb BMI 26.3 BP 150/80 H Blood Pressure Location Lt brachial Position Sitting Pulse 72 Pulse Source Pulse Oximeter Pulse Oximetry (%) 98 Oxygen Delivery Method Room Air Intake Visit Reasons: PE Intake Note: Patient here for a physical exam Director Mba Required: No Accompanied by: Self / Same As Patient Allergies No Known Allergies Allergy (Verified 01/03/24 08:38) Medication List - Last Reconciled 01/03/24 by Dylan Ambriz MD albuterol sulfate 90 mcg/actuation (Ventolin HFA) 2 puffs inhalation Q4-6H PRN cetirizine (Zyrtec) 10 mg PO DAILY 30 days epinephrine IM levothyroxine 125 mcg PO DAILY Tobacco use date assessed: 09/10/23 Dental Screening Dental Screen Date: 01/03/24 Did you have a dental visit in the last 12 months?: No Did you have a dental problem in the last 6 months where you did not have access to dental care?: No Was dental information given to patient?: Patient has dentist HPI PE HPI Details asthma and hypothyroidism; doing well and compliant ON LICENSE OF [facility] Medical History Patellofemoral arthritis of right knee Hypothyroidism Surgical History History of biopsy History of cholecystectomy History of section Family History Father CVD (cardiovascular disease) DVT (deep venous thrombosis) Mother Liver problem Kidney disease Diabetes Social History Housing: Apartment Alcohol intake: never Patient Tobacco Use Status: Never used Tobacco e-Cigarette/Vaping Use: Never Used Second Hand Smoke Exposure: No service: No 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 Deepak Mason, Christina Armando, Darrell Cardenas and colleagues, with an educational susie from [employer] Review of Systems Const Denies chills, Denies fatigue, Denies headache(s) and Denies weight loss Eyes Denies change in vision, Denies diplopia and Denies eye pain ENT Denies vertigo, Denies dizziness, Denies headache(s) and Denies nasal discharge Card Denies chest pain, Denies rapid heart rate and Denies dyspnea on exertion Resp Denies chest congestion, Denies cough, Denies pain with cough and Denies dyspnea on exertion GI Denies abdominal pain, Denies hematochezia and Denies change in bowel habits Musc Denies myalgias, Denies arthralgias and Denies joint swelling Skin/Breast Denies lesions and Denies unusual bruising Neuro Denies vertigo, Denies dizziness, Denies headache(s) and Denies focal weakness Endo Denies fatigue Physical exam (Primary Care) Vital Signs: Last Vital Signs Pulse 72 01/03/24 08:38 BP 150/80 H 01/03/24 08:38 Pulse Ox 98 01/03/24 08:38 Oxygen Delivery Method Room Air 01/03/24 08:38 BMI result Body Mass Index 26.3 Tobacco/Smoking Status: Tobacco use Status Tobacco use date assessed 09/10/23 01/03/24 08:42 Patient Tobacco Use Status Never used Tobacco 01/03/24 08:42 e-Cigarette/Vaping Use Never Used 01/03/24 08:42 Thrive Assessment: Date of Thrive Assessment Date Thrive assessed 09/10/23 01/03/24 08:42 Const General: cooperative, healthy appearing and no acute distress Orientation/consciousness: oriented to person, oriented to place and oriented to time [facility] Head: Yes normal to inspection, Yes normocephalic and Yes atraumatic Mouth: Normal oral and palatal mucosa present and tongue normal Throat: Yes posterior oropharynx normal and Yes uvula midline Eyes General: appearance normal, both eyes and all related structures Neck Neck: Yes normal visual inspection, Yes full ROM and Yes no lymphadenopathy Thyroid: Thyroid normal Carotids: normal carotid upstroke Chest Chest palpation & inspection: normal inspection of the chest Resp Effort & Inspection: normal respiratory effort and able to speak in complete sentences Auscultation: clear to auscultation bilaterally Cardio Jugular venous distension: no JVD Palpation: normal PMI Rate: regular rate Rhythm: regular rhythm Heart sounds: S1 normal heart sound present and S2 normal heart sound present GI Inspection: Yes normal to inspection Palpation (GI): Soft to palpation and No hepatosplenomegaly present Auscultation: normal bowel sounds General: Yes no CVA tenderness Back/Spine/Pelvis Back: no CVA tenderness Skin General skin exam: no rashes or lesions noted Neuro General: oriented to person, oriented to place and oriented to time Extrem General: Yes normal to inspection and Yes full ROM Assessment and Plan Assessment & Plan (1) Physical exam: Code(s): Z00.00 - Encounter for general adult medical examination without abnormal findings Plan: stable; do labs (2) Hypothyroidism: Code(s): E03.9 - Hypothyroidism, unspecified Plan: stablle; same rx (3) Asthma: Code(s): J45.909 - Unspecified asthma, uncomplicated Plan: stable; same rx Orders: Orders Thyroid Stimulating Hormone Today Z13.29 - Encounter for screening for other suspected endocrine disorder Comprehensive [place]. Panel Fast Today Z13.9 - Encounter for screening, unspecified Lipid Panel Today Z13.220 - Encounter for screening for lipoid disorders Complete Blood Count Auto Diff Today Z13.0 - Encounter for screening for diseases of the blood and blood-forming organs and certain disorders involving the immune mechanism Coding Level of Care Code New Pt Prev Care 40-64y(64035) Diagnoses Physical exam Z00.00 Hypothyroidism E03.9 Asthma J45.909
[2024-01-03 08:38] VITALS: BP 150/80; PULSE 72; O2SAT 98; BMI 26.3
== END 2024-01-03 09:21 | disposition home or self-care (01) ==
PROVIDERS: PCP Internal Medicine; Visit Provider Internal Medicine
DX: Z00.00 Encounter for general adult medical examination without abnormal findings (principal); E03.9 Hypothyroidism, unspecified; J45.909 Unspecified asthma, uncomplicated
CPT/HCPCS: 99396

== ENCOUNTER 2024-04-19 09:06 | Outpatient (REF) | payer OTHER, SELFPAY ==
[2024-04-19 09:19] LABS: MANUAL DIFF FLAG NO
[2024-04-19 10:22] LABS: Basophils Percent Auto 0.6 % (0-2); Eosinophils Absolute Auto 0.2 X10*3/uL (0.0-0.4); Eosinophils Percent Auto 4.4 % (0-4); Hematocrit 38.8 % (37.0-47.0); Hemoglobin 12.5 g/dl (12.0-16.0); Imm Gran Abs Auto 0.01 X10*3/uL (0.00-0.03); Imm Gran Pct Auto 0.2 % (0.0-0.4); Lymphocytes Absolute Auto 1.7 X10*3/uL (1.2-4.9); Lymphocytes Percent Auto 34.5 % (20-40); Mean Corpuscular HGB Conc 32.2 g/dl (31.0-35.0); Mean Corpuscular Hemoglobin 29.1 pg (27.0-33.0); Mean Corpuscular Volume 90.2 fL (80.0-98.0); Mean Platelet Volume 11.3 fL (9.4-12.3); Monocytes Absolute Auto 0.5 X10*3/uL (0.1-1.2); Neutrophils Absolute Auto 2.4 x10*3/uL (2.0-8.3); Neutrophils Percent Auto 50.3 % (45-73); Platelet Count 263 X10*3/uL (160-400); Red Cell Distribution Width 12.5 % (11.0-16.0); White Blood Count 4.8 X10*3/uL (4.8-10.8)
[2024-04-19 11:08] LABS: Alanine Aminotransferase 23 U/L (0-31); Albumin Level 4.3 g/dL (3.5-5.0); Alkaline Phosphatase 107 U/L (39-117); Anion Gap 10 (12-20); Aspartate Amino Transferase 24 U/L (5-31); Bilirubin Total 0.4 mg/dL (0.0-1.0); Blood Urea Nitrogen 11 mg/dL (9-16); Calcium 9.6 mg/dL (8.4-10.2); Carbon Dioxide 29 mmol/L (22-29); Chloride 105 mmol/L (96-108); Cholesterol 248 mg/dL (<200); Estimated Glomerular Filt Rate > 60; Glucose Fasting 102 mg/dL (60-99); HDL Cholesterol 51 mg/dL (>40); LDL Cholesterol Calculated 167 mg/dL (<100); Potassium 4.2 mmol/L (3.3-5.1); Sodium 140 mmol/L (135-145); Total Protein 7.3 g/dL (6.5-8.0); Triglycerides 152 mg/dL (<150)
[2024-04-19 11:24] LABS: Thyroid Stimulating Hormone 0.75 uIU/mL (0.32-4.0)
== END 2024-04-19 09:07 | disposition home or self-care (01) ==
LOC: HO.LAB 09:06
PROVIDERS: PCP Internal Medicine; Visit Provider Internal Medicine
DX: Z13.29 Encounter for screening for other suspected endocrine disorder (principal); Z13.9 Encounter for screening, unspecified; Z13.220 Encounter for screening for lipoid disorders; Z13.0 Encounter for screening for diseases of the blood and blood-forming organs and certain disorders involving the immune mechanism
CPT/HCPCS: 36415; 80053; 80061; 84443; 85025

== ENCOUNTER 2024-04-23 14:15 | Outpatient (AMB) | payer OTHER, SELFPAY ==
[2024-04-23 14:16] VITALS: BP 122/70; PULSE 79; O2SAT 95; BMI 26.9
--- NOTE | 2024-04-23 14:16 | A.OFFPC_ITS ---
Vital Signs 04/23/24 14:16 Height 5 ft 4 in Weight 157 lb BMI 26.9 BP 122/70 Blood Pressure Location Lt brachial Position Sitting Pulse 79 Pulse Source Pulse Oximeter Pulse Oximetry (%) 95 Oxygen Delivery Method Room Air Intake Visit Reasons: 3 mo f/u Allergies No Known Allergies Allergy (Verified 04/23/24 14:17) Medication List - Last Reconciled 04/28/24 by Dylan Ambriz MD albuterol sulfate 90 mcg/actuation (Ventolin HFA) 2 puffs inhalation Q4-6H PRN cetirizine (Zyrtec) 10 mg PO DAILY 30 days epinephrine IM levothyroxine 125 mcg PO DAILY Tobacco use date assessed: 09/10/23 Dental Screening Dental Screen Date: 01/03/24 HPI 3 mo f/u HPI Details hypothyroidism on rx; due for labs; compliant [facility] Medical History Patellofemoral arthritis of right knee Hypothyroidism Surgical History History of biopsy History of cholecystectomy History of section Family History Father CVD (cardiovascular disease) DVT (deep venous thrombosis) Mother Liver problem Kidney disease Diabetes Social History Housing: Apartment Alcohol intake: never Patient Tobacco Use Status: Never used Tobacco e-Cigarette/Vaping Use: Never Used Second Hand Smoke Exposure: No service: No 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 How often do you have a drink containing alcohol?: Never 3. How often do you have six or more drinks on one occasion?: Never Total Score: 0 Score Reviewed/Action Taken: Yes CAMILLE-7 AMB Questionnaire CAMILLE-7 Date CAMILLE - 7 assessed: 08/17/23 Source: Developed by Drs. Deepak Mason, Christina Armando, Darrell Cardenas and colleagues, with an educational susie from [employer]. Review of Systems Const Denies chills, Denies headache(s) and Denies weight loss ENT Denies headache(s) Card Denies chest pain, Denies syncope, Denies irregular heart rhythm and Denies dyspnea Resp Denies chest congestion, Denies cough and Denies dyspnea GI Denies abdominal pain, Denies change in stool character, Denies nausea and Denies vomiting Musc Denies deformity and Denies joint swelling Neuro Denies syncope and Denies headache(s) Physical exam (Primary Care) Vital Signs: Last Vital Signs Pulse 79 04/23/24 14:16 BP 122/70 04/23/24 14:16 Pulse Ox 95 04/23/24 14:16 Oxygen Delivery Method Room Air 04/23/24 14:16 BMI result Body Mass Index 26.9 Tobacco/Smoking Status: Tobacco use Status Tobacco use date assessed 09/10/23 04/23/24 14:20 Patient Tobacco Use Status Never used Tobacco 04/23/24 14:20 e-Cigarette/Vaping Use Never Used 04/23/24 14:20 Thrive Assessment: Date of Thrive Assessment Date Thrive assessed 09/10/23 04/23/24 14:20 Const General: cooperative, comfortable, no acute distress and alert Neck Neck: Yes no lymphadenopathy Thyroid: Thyroid normal Resp Effort & Inspection: normal respiratory effort Auscultation: clear to auscultation bilaterally Percussion: percussion normal Cardio Jugular venous distension: no JVD Palpation: normal PMI Rate: regular rate Rhythm: regular rhythm Heart sounds: S1 normal heart sound present and S2 normal heart sound present GI Inspection: Yes normal to inspection Palpation (GI): No hepatosplenomegaly present Skin General skin exam: no rashes or lesions noted Extrem General: Yes no clubbing, cyanosis or edema Office Procedures Flu Questionnaire Does the patient have a severe egg allergy?: No Does the patient have severe life threatening allergies?: No Does the patient have a fever or illness today?: No Has the patient ever had Guillain-[place] Syndrome?: No Has the patient ever had any past reaction to a flu shot?: No Immunizations Fluarix Triv [id number] (PF) 45 mcg (15 mcg x 3)/0.5 mL IM syringe Performing Provider: Dylan Ambriz MD [facility] [place] [facility] Administered by: GEMA Frazier on 04/23/24 14:36 Dose Route Admin Location Dispensed Lot Number Expiration Date NDC Stamp Maker 0.5 mL IM Left Deltoid 0.5 mL [id number] 11/24/24 [id number] [id number] VIS Given Date VIS Provided VIS Publication Date 04/23/24 Single Vaccine 20 Eligibility Eligibility Date Funding Source Not [facility] Eligible 04/23/24 Private Coding Level of Care Code Est Pt Level 3 (75734) Diagnoses Hypothyroidism E03.9 Assessment & Plan Assessment & Plan (1) Hypothyroidism: Code(s): E03.9 - Hypothyroidism, unspecified Category: Medical Plan: stable; same rx; do labs Orders: Orders Thyroid Stimulating Hormone 04/23/24 Z13.29 - Encounter for screening for other suspected endocrine disorder Lipid Panel 04/23/24 Z13.220 - Encounter for screening for lipoid disorders Influenza [id number] Immunization 04/23/24 Z23 - Encounter for immunization
== END 2024-04-23 14:33 | disposition home or self-care (01) ==
PROVIDERS: PCP Internal Medicine; Visit Provider Internal Medicine
DX: E03.9 Hypothyroidism, unspecified (principal)

== ENCOUNTER → 2024-04-23 14:15 | Outpatient (BNVA) | payer OTHER, SELFPAY | PROVIDERS: PCP Internal Medicine; Visit Provider Internal Medicine | DX: E03.9 Hypothyroidism, unspecified (principal); Z23 Encounter for immunization | CPT/HCPCS: 90471; 90656 ==

== ENCOUNTER 2024-05-29 10:55 | Outpatient (REF) | payer OTHER, SELFPAY ==
--- OUTSIDE RECORDS SUMMARY | 2024-05-29 13:23 | XMS_ITS | Continuity of Care Document ---
Author Organization [place] - [facility], Allergy Address [address] [address] Care Team Providers Care Performance Tester Name Role Phone BETH ROSA Primary Care Provider Assessment Encounter Date Assessment Date Assessment LastModified by Organization Details LastModified Time 04/02/2024 04/02/2024 Administered By: GEMA Marinelli Use of Antihistamines: No If yes: Vial Test Change in medications: No If yes ?? Increase in asthma symptoms If yes, inhaler use: Reaction to last injections: Yes If yes: ??15mm right arm Allergy Symptoms: Other: ?? Missed 1 week Dose Decreased Notes:?? [email or web address] Not available 04/02/2024 16:18:12 Plan of Treatment Reminders Order Date Submit Date Provider Last Modified By Organization Details Last Modified Time Details Appointments Allergy Shot 2024 09:30A M AVEL HERNANDEZ MD Not available Not available Not available [facility] hed- Allergy f-up 6mon 2024 03:45P [...] and Address Organization Details Recorded Time Headache 24727059 Active 2019 Headache, unspecifi ed; Note: Changed from R51 to R51.9 (07/01/2020 3:34 PM) , Date Diagnosed : 07/03/2019 4:22 PM (R51) Not Available [facility] 4 02:13:25 Tinnitus of vascular origin 834739173 Active 2022 Pulsatile tinnitus, right ear; Note: Date Diagnosed : 08/02/2022 4:38 PM (H93.A1) Not Available [facility] 4 02:14:37 Allergic rhinitis 31991918 Active 2023 SCIT [address] Zhao biweekly shottaurus HERNANDEZ MD 100 [facility],[place] [address], [place], [address] , [facility] - [facility] 4 11:34:09 Bilateral tinnitus 59771325252 02 Active 2018 Tinnitus, bilateral ; Note: Date Diagnosed : 01/23/2019 4:23 PM (H93.13) Not Available [facility] 4 02:13:43 Perennial allergic rhinitis 510606319 Active 2023 GEMA MARINELLI 100 [facility],[place] [address], [place], [address] , [facility] 4 16:27:42 Vasomotor rhinitis 4721981 Active 2023 Vasomotor rhinitis; Note: Date Diagnosed : 07/13/2023 4:55 PM (J30.0) Not Available [facility] 4 02:13:53 Acute maxillary sinusitis 76930129 Active 2023 Acute maxillary sinusitis , unspecifi ed; Note: Date Diagnosed : 07/13/2023 4:55 PM (J01.00) Not Available [facility] 4 02:14:10 Problem Notes None recorded. Procedures Surgical History Date Name Laterality Status Provider Name and Address Organization Details Recorded Time 05/29/19 25 Allergy Immunotherapy Injections completed GEMA MARINELLI [address] [facility],[place] [address], [place], [address], [facility] - [facility] 05/29/2024 11:27:48 05/14/20 24 Allergy Immunotherapy Injections completed CHERIE HERMAN RN 100 [facility],[place] [address], [place], [address], [facility] - [facility] 05/14/2024 16:33:31 04/30/20 24 Allergy Immunotherapy Injections completed SOILA BIRCH, RMA [address], [place], [address], [place] [facility] 04/30/2024 16:31:43 04/16/20 24 Allergy Immunotherapy Injections completed SOILA WEINERC, RMA [address], [place], [address], [place] [facility] 04/16/2024 17:03:52 04/02/20 24 Allergy Immunotherapy Injections completed GEMA MAYS [address], [place], [address], [place] [facility] 04/02/2024 16:17:47 03/19/20 24 Allergy Immunotherapy Injections completed CHERIE HERMAN RN [address],[place] [address] [place] [address], [address], [place] [facility] 03/19/2024 16:26:16 03/07/20 24 Allergy Immunotherapy Injections completed SOILA BIRCH, RMA [address], [place], [address], [place] [facility] 03/07/2024 13:40:29 02/20/20 24 Allergy Immunotherapy Injections completed GEMA MAYS [address], [place], [address], [place] [facility] 02/20/2024 17:11:11 02/06/20 24 Allergy Immunotherapy Injections completed CHERIE HERMAN RN [address],[place] [address] [place] [address], [address], [place] [facility] 02/07/2024 08:49:22 01/22/20 24 Allergy Immunotherapy Injections completed GEMA MAYS [address],[place] [address], [place], [address], [place] [facility] 01/22/2024 14:00:20 01/08/20 24 Allergy Immunotherapy Injections completed GEMA MAYS [address],[place] [address], [place], [address], [place] [facility] 01/08/2024 12:12:08 12/26/19 24 Allergy Immunotherapy Injections completed CHERIE HERMAN RN 100 [facility],[place] [address] [place] [address], [address], [facility] - [facility] 12/26/2023 16:50:55 12/12/19 24 Allergy Immunotherapy Injections completed CHERIE HERMAN RN 100 [facility] [place],[address], [address], [facility] - [facility] 12/12/2023 16:40:58 11/27/19 24 Allergy Immunotherapy Injections completed ABHIJEET MARIN, [facility] [address] [facility],[place] [address] [place] [address], [address], [facility] - [facility] 11/27/2023 16:41:14 11/14/19 24 Allergy Immunotherapy Injections completed SOILA BIRCH, [facility] [address] [facility],[address] [facility], [place], [address], [facility] - [facility] 11/14/2023 11:18:33 10/31/19 24 Allergy Immunotherapy Injections completed SOILA HUSAM, [facility] 100 [facility] [place] [address] [place] [address], [address], [facility] - [facility] 10/31/2023 16:21:15 10/17/19 24 Allergy Immunotherapy Injections completed SOILA HUSAM, [facility] 100 [facility],[place] [address] [place] [address], [address], [facility] - [facility] 10/17/2023 16:28:03 Imaging Results None recorded. Procedure Notes None recorded. Medical Equipment None Reported. Medications Name Sig Start Date Stop Date Status Note LastModified by Organization Details LastModified Time levothyro xine 137 mcg tablet 07/01 completed Medicati on ID: [id number] D uration Value: 30 Brand Name: levothyr [...] gram tablet 09/12 completed Medicati on ID: [id number] D uration Value: 30 Reason: () Brand [...] mg tablet 01/23 completed Medicati on ID: [id number] D uration Value: 3 Reason: () Brand Name: ondanset atif HCl Send Method: E-Prescr ibed Sub s Allowed: subs OK Speci al Instruct ion: TAKE 1 TABLET BY MOUTH EVERY 6 HOURS NEEDED FOR NAUSEA & VOMITING . Medica tionGene ricName: ondanset atif HCl Not Available Not Available Not Available omeprazol e 40 mg capsule,d elayed release 01/02 completed Medicati on ID: [id number] D uration Value: 14 Reason: () Brand Name: omeprazo le Send Method: E-Prescr ibed Sub s Allowed: subs OK Speci al Instruct ion: TAKE ONE CAPSULE BY MOUTH EVERY DAY FOR 14 DAYS Med icationG enericNa me: omeprazo le Not Available Not Available Not Available levothyro xine 25 mcg tablet 01/02 completed Medicati on ID: [id number] D uration Value: 30 Reason: () Brand [...] mcg tablet 01/23 completed Medicati on ID: [id number] D uration Value: 30 Reason: () Brand [...] mg tablet 01/02 completed Medicati on ID: [id number] D uration Value: 30 Reason: () Brand Name: Citrucel Send Method: E-Prescr ibed Sub s Allowed: subs OK Speci al Instruct ion: TAKE 2 TABLETS BY MOUTH DAILY, DRINK 8 OZ WATER WITH TABLETS Medicati onGeneri cName: Citrucel Not Available Not Available Not Available levothyro xine 150 mcg tablet 05/19 completed Medicati on ID: [id number] D uration Value: 30 Reason: () Brand Name: levothyr oxine Se nd Method: E-Prescr ibed Sub s Allowed: subs DANIELLA Speci al Instruct ion: TAKE 1 TABLET BY MOUTH EVERY DAY Medi cationGe nericNam e: levothyr oxine Not Available Not Available Not Available omeprazol e 20 mg capsule,d elayed release 07/01 completed Medicati on ID: [id number] D uration Value: 30 Brand Name: omeprazo [...] Relief 50 mcg/actua tion nasal spray,gabrielle pension [place] 2 spray into both nostrils once a day 07/01 completed Medicati on ID: [id number] D uration Value: 30 Brand Name: Flonase [...] Diagnosis/Indication Diagnosis SNOMED-CT Code Diagnosis ICD10 Code 53158 SOILA BIRCH [facility] Allergy [address] [place] [phone] 03/07/2024 12:27:11 03/07/2024 13:41:01 Perennial allergic rhinitis 363847803 J30.89 62720 CHERIE HERMAN RN Allergy [address] [place] [address] 03/19/2024 16:15:44 03/19/2024 16:27:02 Perennial allergic rhinitis 188887174 J30.89 62211 ABHIJEET MARIN [facility] Allergy [address] [place] [phone] 04/02/2024 16:11:14 04/02/2024 16:19:33 Perennial allergic rhinitis 659632442 J30.89 Health Concerns Section Related Observation LastModified by Organization Detai ls LastModified Time None Recorded Concern Status LastModified by Organization Details LastModified Time None Recorded Payers Encounter Date Sequence Insurance Name Policy Number Policy Gonsalez Covered Member ID Gonsalez Member ID Guarantor Name 04/02/2024 1 [facility] [employer] - NANWALEK ZERO (HMO) [id number] Deepa Ross [id number] 2 Deepa Ross OBGyn Episode No OBEpisode recorded.
[2024-05-29 14:25] LABS: Influenza A PCR NEGATIVE (Negative); Influenza B PCR NEGATIVE (Negative); Resp Syncy Virus RNA Qual PCR NEGATIVE (Negative); SARS COV2 PCR INHOUSE NEGATIVE (Negative)
== END 2024-05-29 10:56 | disposition home or self-care (01) ==
LOC: HO.LAB 10:55
PROVIDERS: PCP Internal Medicine; Visit Provider Physician Assistant
DX: J06.9 Acute upper respiratory infection, unspecified (principal)
CPT/HCPCS: 0241U

== ENCOUNTER 2024-05-29 10:55 | Outpatient (AMB) | payer OTHER, SELFPAY ==
--- OUTSIDE RECORDS SUMMARY | 2024-05-29 11:41 | XMS_ITS | Continuity of Care Document ---
Author Organization [place] - [facility], Allergy Address [address] [address] Care Team Providers Care Replenishment Specialist Name Role Phone BETH ROSA Primary Care Provider Assessment Encounter Date Assessment Date Assessment LastModified by Organization Details LastModified Time 05/29/2024 05/29/2024 Visit With: Carolynn Noland Use of Antihistamine s: No If yes: Vial Test Change in medications: No If yes ?? Increase in asthma symptoms No Asthma Hx If yes, inhaler use: Reaction to last injections: No If yes: ?? Allergy Symptoms: Other: ?? Missed: Dose Aware of Vial Test Notes:?? [email or web address] Not available 05/29/2024 11:28:03 Plan of Treatment Reminders Order Date Submit Date Provider Last Modified By Organization Details Last Modified Time Details Appointments Allergy Shot 2024 09:30A M AVEL HERNANDEZ MD Not available Not available Not available [facility] hed- Allergy f-up 6mon 2024 03:45P Charmaine HERNANDEZ MD Not available Not available Not available Lab None recorded . Referral None recorded . Procedures None recorded . Surgeries None recorded . Imaging None recorded . Medication Orders None recorded . Patient TargetsNo targets recorded. Patient InstructionsNo instructions recorded. Reason for Referral None Reported. Problems Name Problem SNOMED Code Status Onset Date Resolution Date Notes Provider Name and Address Organization Details Recorded Time Headache 00965220 Active 2019 Headache, unspecifi ed; Note: Changed from R51 to R51.9 (07/01/2020 3:34 PM) , Date Diagnosed : 07/03/2019 4:22 PM (R51) Not Available [facility] 08/02/202 4 02:13:25 Tinnitus of vascular origin 927722157 Active 2022 Pulsatile tinnitus, right ear; Note: Date Diagnosed : 08/02/2022 4:38 PM (H93.A1) Not Available [facility] 4 02:14:37 Allergic rhinitis 92953439 Active 2023 [facility] [address] Zhao biweekly [employer] HERNANDEZ MD [address] [facility],[place] [address], [place], [address] , [facility] - [facility] 4 11:34:09 Bilateral tinnitus [id number] 02 Active 2018 Tinnitus, bilateral ; Note: Date Diagnosed : 01/23/2019 4:23 PM (H93.13) Not Available [facility] 4 02:13:43 Perennial allergic rhinitis 721887533 Active 2023 [facility] [address] [facility],[place] [address], [place], [address] , [facility] 4 16:27:42 Vasomotor rhinitis 1831352 Active 2023 Vasomotor rhinitis; Note: Date Diagnosed : 07/13/2023 4:55 PM (J30.0) Not Available [facility] 4 02:13:53 Acute maxillary sinusitis 08924308 Active 2023 Acute maxillary sinusitis , unspecifi ed; Note: Date Diagnosed : 07/13/2023 4:55 PM (J01.00) Not Available [facility] 4 02:14:10 Problem Notes None recorded. Procedures Surgical History Date Name Laterality Status Provider Name and Address Organization Details Recorded Time 05/29/19 25 Allergy Immunotherapy Injections completed GEMA MARINELLI [address] [facility],[place] [address], [place], [address], [facility] - [facility] 05/29/2024 11:27:48 05/14/20 24 Allergy Immunotherapy Injections completed CHERIE HERMAN RN [address] [facility],[place] [address], [place], [address], [facility] - [facility] 05/14/2024 16:33:31 04/30/20 24 Allergy Immunotherapy Injections completed SOILA BIRCH, RMA [address], [place], [address], [place] - [facility] 04/30/2024 16:31:43 04/16/20 24 Allergy Immunotherapy Injections completed SOILA WEINERC, RMA [address], [place], [address], [place] [facility] 04/16/2024 17:03:52 04/02/20 24 Allergy Immunotherapy Injections completed GEMA MAYS [address], [place], [address], [place] [facility] 04/02/2024 16:17:47 03/19/20 24 Allergy Immunotherapy Injections completed CHERIE HERMAN RN [address] [place] [address], [address], [place] - [facility] 03/19/2024 16:26:16 03/07/20 24 Allergy Immunotherapy Injections completed SOILA BIRCH, RMA [address], [place], [address], [place] [facility] 03/07/2024 13:40:29 02/20/20 24 Allergy Immunotherapy Injections completed GEMA MAYS [address] [place] [address], [address], [place] - [facility] 02/20/2024 17:11:11 02/06/20 24 Allergy Immunotherapy Injections completed CHERIE HERMAN RN [address] [facility] [place] [address], [address], [place] [facility] 02/07/2024 08:49:22 01/22/20 24 Allergy Immunotherapy Injections completed GEMA MAYS [address] [place] [address], [address], [place] [facility] 01/22/2024 14:00:20 01/08/20 24 Allergy Immunotherapy Injections completed GEMA MAYS [address],[place] [address], [place], [address], [place] [facility] 01/08/2024 12:12:08 12/26/19 24 Allergy Immunotherapy Injections completed CHERIE HERMAN RN [address] [facility] [place],[address] [facility], [place], [address], [facility] - [facility] 12/26/2023 16:50:55 12/12/19 24 Allergy Immunotherapy Injections completed CHERIE HERMAN RN [address], [place], [address], [facility] - [facility] 12/12/2023 16:40:58 11/27/19 24 Allergy Immunotherapy Injections completed [facility]NN NOLAND[facility] [address], [place], [address], [facility] - [facility] 11/27/2023 16:41:14 11/14/19 24 Allergy Immunotherapy Injections completed SOILA BIRCH, A [address] [facility],[place] [facility], [place], [address], [facility] - [facility] 11/14/2023 11:18:33 10/31/19 24 Allergy Immunotherapy Injections completed SOILA BIRCH, RMA [address] [facility], [place], [address], [facility] - [facility] 10/31/2023 16:21:15 10/17/19 24 Allergy Immunotherapy Injections completed SOILA BIRCH, RMA [address], [place], [address], [facility] - [facility] 10/17/2023 16:28:03 Imaging Results None recorded. Procedure Notes None recorded. Medical Equipment None Reported. Medications Name Sig Start Date Stop Date Status Note LastModified by Organization Details LastModified Time levothyro xine 137 mcg tablet 07/01 completed Medicati on ID: [id number] D uration Value: 30 Brand Name: levothyr oxine Se nd Method: E-Prescr ibed Sub s Allowed: subs OK Speci al Instruct ion: take 1 tablet by mouth once daily Me dication GenericN kati: levothyr oxine Not Available Not Available Not Available azithromy lakshmi 250 mg tablet TOME 2 TABLETAS V A ORAL HOY, [place] TOME 1 TABLETA DIARIAME NTE TAMIKO 4 D SEG N LAS INDICACI ONES active Not Available Not Available No t Available sucralfat e 1 gram tablet 09/12 completed Medicati on ID: [id number] D uration Value: 30 Reason: () Brand Name: sucralfa te Send Method: E-Prescr ibed Sub s Allowed: subs OK Speci al Instruct ion: MIX 1 TABLET IN 5 OZ WARM WATER STIR AND DRINK SLURRY ON EMPTY STOMACH BEFORE MEALS 3 TIMES DAILY Me dication GenericN kati: sucralfa te Not Available Not Available Not Available ondansetr on HCl 4 mg tablet 01/23 completed Medicati on ID: [id number] D uration Value: 3 Reason: () Brand Name: ondanset atif HCl Send Method: E-Prescr ibed Sub s Allowed: subs OK Speci al Instruct ion: TAKE 1 TABLET BY MOUTH EVERY 6 HOURS NEEDED FOR NAUSEA & VOMITING . Medica tionGene ricName: ondanset atif HCl Not Available Not Available Not Available omeprazol e 40 mg capsule,d elayed release 01/02 completed Medicati on ID: [id number] D uration Value: 14 Reason: () Brand Name: omeprazo le Send Method: E-Prescr ibed Sub s Allowed: subs OK Speci al Instruct ion: TAKE ONE CAPSULE BY MOUTH EVERY DAY FOR 14 DAYS Med icationG enericNa me: omeprazo le Not Available Not Available Not Available levothyro xine 25 mcg tablet 01/02 completed Medicati on ID: [id number] D uration Value: 30 Reason: () Brand Name: levothyr oxine Se nd Method: E-Prescr ibed Sub s Allowed: subs OK Speci al Instruct ion: TAKE 1 TABLET BY MOUTH EVERY DAY ON EMPTY STOMACH IN THE MORNING TAKE WITH 50MCG FOR TOTAL 125MCG M edicatio nGeneric Name: levothyr oxine Not Available Not Available Not Available levothyro xine 50 mcg tablet 01/23 completed Medicati on ID: [id number] D uration Value: 30 Reason: () Brand Name: levothyr oxine Se nd Method: E-Prescr ibed Sub s Allowed: subs OK Speci al Instruct ion: TAKE 2 TABLETS ON AN EMPTY STOMACH IN THE MORNING ONCE A DAY TAKE WITH 25MCG FOR TOTAL OF 125MCG Charmaine Hianes Name: levothyr oxine Not Available Not Available Not Available levothyro xine 125 mcg tablet TOME ADRIANA TABLETA TODOS LOS D active Not Available Not Available No t Available Citrucel 500 mg tablet 01/02 completed Medicati on ID: [id number] D uration Value: 30 Reason: () Brand Name: Citrucel Send Method: E-Prescr ibed Sub s Allowed: subs DANIELLA Guilloryi al Instruct ion: TAKE 2 TABLETS BY MOUTH DAILY, DRINK 8 OZ WATER WITH TABLETS Medicati onGeneri cName: Citrucel Not Available Not Available Not Available levothyro xine 150 mcg tablet 05/19 completed Medicati on ID: [id number] D uration Value: 30 Reason: () Brand Name: levothyr oxine Se nd Method: E-Prescr ibed Sub s Allowed: subs DANIELLA Bahena al Instruct ion: TAKE 1 TABLET BY MOUTH EVERY DAY Medi cationGe nericNam e: levothyr oxine Not Available Not Available Not Available omeprazol e 20 mg capsule,d elayed release 07/01 completed Medicati on ID: [id number] D uration Value: 30 Brand Name: omeprazo le Send Method: E-Prescr ibed Sub s Allowed: subs DANIELLA Bahena al Instruct ion: TAKE 1 CAPSULE BY MOUTH TWICE A DAY Medi cationGe nericNam e: omeprazo le Not Available Not Available Not Available epinephri ne 0.3 mg/0.3 mL injection , auto-inje ctor INJECT 1 PEN INJECTOR INTRAMUS CULARLY SINGLE DOSE active Not Available Not Available No t Available ipratropi um bromide 21 mcg (0.03 %) nasal spray USE 2 SPRAYS IN EACH NOSTRIL 1-3 TIMES A DAY active Not Available Not Available No t Available amoxicill in 875 mg-potass ium clavulana te 125 mg tablet TOME ADRIANA TABLETA POR V A ORAL CADA DOCE HORAS active Not Available Not Available No t Available Flonase Allergy Relief 50 mcg/actua tion nasal spray,gabrielle pension Uph[place] 2 spray into both nostrils once a day 07/01 completed Medicati on ID: [id number] D uration Value: 30 Brand Name: Flonase Allergy Relief S end Method: E-Prescr ibed Sub s Allowed: subs OK Medic ationGen ericName : Flonase Allergy Relief Not Available Not Available Not Available Vitals None Recorded Social History None recorded. Functional Status None recorded. Mental Status None recorded. Family History Nothing Reported. Medical History No medical history recorded. Gynecological HistoryNo gynecological history recorded. Obstetrics History GPAL:G 0 P 0 0 0 0 Past Encounters Encounter ID Performer Location Encounter Start Date Encounter Closed Date Diagnosis/Indication Diagnosis SNOMED-CT Code Diagnosis ICD10 Code [id number] GEMA MARINELLI Allergy [address] [place] [address] [address] [place] [address] 04/30/2024 16:13:35 04/30/2024 16:32:22 Perennial allergic rhinitis 540385301 J30.89 [id number] CHERIE HERAMN RN Allergy [address] [place] [address] [address] [place] [address] 05/14/2024 16:21:48 05/14/2024 16:34:07 Perennial allergic rhinitis 296776232 J30.89 [id number] GEMA MARINELLI Allergy [address] [place] [address] [address] [place] [address] 05/29/2024 09:15:53 05/29/2024 11:28:25 Perennial allergic rhinitis 821037427 J30.89 Health Concerns Section Related Observation LastModified by Organization Detai ls LastModified Time None Recorded Concern Status LastModified by Organization Details LastModified Time None Recorded Payers Encounter Date Sequence Insurance Name Policy Number Policy Gonsalez Covered Member ID Gonsalez Member ID Guarantor Name 05/29/2024 1 [facility] [employer] - DIRECT - [id number] (HMO) [id number] Deepa Ross [id number] Deepa Ross OBGyn Episode No OBEpisode recorded.
--- OUTSIDE RECORDS SUMMARY | 2024-05-29 11:41 | XMS_ITS | Data Portability ---
Author Organization [place] [facility], Allergy Address [address] [address] Care Team Providers Care Igniter Assembler Name Role Phone BETH ROSA Primary Care Provider Assessment Encounter Date Assessment Date Assessment LastModified by Organization Details LastModified Time 04/02/2024 04/02/2024 Administered By: GEMA Ontiveros Use of Antihistamines: No If yes: Vial Test Change in medications: No If yes ?? Increase in asthma symptoms If yes, inhaler use: Reaction to last injections: Yes If yes: ??15mm right arm Allergy Symptoms: Other: ?? Missed 1 week Dose Decreased Notes:?? Not available 04/02/2024 16:18:12 04/16/2024 04/16/2024 Administered By: GEMA Ontiveros Use of Antihistamines: No If yes: Vial Test Yes Change in medications: No If yes ?? Increase in asthma symptoms If yes, inhaler use: Reaction to last injections: No If yes: ?? Allergy Symptoms: Other: ?? Missed 1 week Dose Notes:?? [email or web address] Not available 04/16/2024 17:03:58 04/30/2024 04/30/2024 Administered By: Carolynn Noland Use of Antihistamines: No If yes: Vial Test Change in medications: No If yes ?? Increase in asthma symptoms If yes, inhaler use: Reaction to last injections: No If yes: ?? Allergy Symptoms: Other: ?? Missed 1 week Dose Notes:?? [email or web address] Not available 04/30/2024 16:32:00 05/14/2024 05/14/2024 Administered By: Carolynn Noland Use of Antihistamines: No If yes: Vial Test Change in medications: No If yes ?? Increase in asthma symptoms No Asthma Hx If yes, inhaler use: Reaction to last injections: No If yes: ?? Allergy Symptoms: Other: ?? Missed 1 week Dose Notes:?? [email or web address] Not available 05/14/2024 16:33:46 05/29/2024 05/29/2024 Visit With: Carolynn Noland Use of Antihistamines: No If yes: Vial Test Change in [...] MD Not available Not available Not available [facility] hed- Allergy f-up 6mon 2024 03:45P M AVEL HERNANDEZ MD Not available Not [...] and Address Organization Details Recorded Time Headache 58950480 Active 2019 Headache, unspecifi ed; Note: Changed from R51 to R51.9 (07/01/2020 3:34 PM) , Date Diagnosed : 07/03/2019 4:22 PM (R51) Not Available Critical access hospital 4 02:13:25 Tinnitus of vascular origin 917561320 Active 2022 Pulsatile tinnitus, right ear; Note: Date Diagnosed : 08/02/2022 4:38 PM (H93.A1) Not Available Critical access hospital 4 02:14:37 Allergic rhinitis 13836482 Active 2023 [facility] [address] Pavel HERNANDEZ MD [address] [place] [address], [place], [address] , [facility] - [facility] 4 11:34:09 Bilateral tinnitus 55161656343 02 Active 2018 Tinnitus, bilateral ; Note: Date Diagnosed : 01/23/2019 4:23 PM (H93.13) Not Available Critical access hospital 02:13:43 Perennial allergic rhinitis 928122305 Active 2023 [facility] [address] [facility],[place] [address], [facility] [place], [address] , [facility] - [facility] 4 16:27:42 Vasomotor rhinitis 3714816 Active 2023 Vasomotor rhinitis; Note: Date Diagnosed : 07/13/2023 4:55 PM (J30.0) Not Available Critical access hospital 02:13:53 Acute maxillary sinusitis 70802091 Active 2023 Acute maxillary sinusitis , unspecifi ed; Note: Date Diagnosed : 07/13/2023 4:55 PM (J01.00) Not Available Critical access hospital 02:14:10 Problem Notes None recorded. Procedures Surgical History Date Name Laterality Status Provider Name and Address Organization Details Recorded Time 05/29/19 25 Allergy Immunotherapy Injections completed [facility] [address] [facility],[address], [address], [facility] - [facility] 05/29/2024 11:27:48 05/14/20 24 Allergy Immunotherapy Injections completed CHERIE HERMAN RN 100 [facility],[address], [address], [facility] - [facility] 05/14/2024 16:33:31 04/30/20 24 Allergy Immunotherapy Injections completed [facility] [address] [facility],[address], [address], [facility] - [facility] 04/30/2024 16:31:43 04/16/20 24 Allergy Immunotherapy Injections completed [facility] [address] [facility],[address], [address], [facility] - [facility] 04/16/2024 17:03:52 04/02/20 24 Allergy Immunotherapy Injections completed GEMA MAYS [address], [place], [address], [place] [facility] 04/02/2024 16:17:47 03/19/20 24 Allergy Immunotherapy Injections completed CHERIE HERMAN RN [address], [place], [address], [place] [facility] 03/19/2024 16:26:16 03/07/20 24 Allergy Immunotherapy Injections completed [facility]ILA [facility] RMJohnny [address], [place], [address], [place] [facility] 03/07/2024 13:40:29 02/20/20 24 Allergy Immunotherapy Injections completed GEMA MAYS [address] [place] [address], [address], [place] [facility] 02/20/2024 17:11:11 02/06/20 24 Allergy Immunotherapy Injections completed CHERIE HERMAN RN [address] [place] [address], [address], [place] [facility] 02/07/2024 08:49:22 01/22/20 24 Allergy Immunotherapy Injections completed GEMA MAYS [address],[place] [address], [place], [address], [place] [facility] 01/22/2024 14:00:20 01/08/20 24 Allergy Immunotherapy Injections completed GEMA MAYS [address], [place], [address], [place] [facility] 01/08/2024 12:12:08 12/26/19 24 Allergy Immunotherapy Injections completed CHERIE HERMAN RN [address], [place], [address], [place] [facility] 12/26/2023 16:50:55 12/12/19 24 Allergy Immunotherapy Injections completed CHERIE HERMAN RN [address],[place], [place], [address], [place] [facility] 12/12/2023 16:40:58 11/27/19 24 Allergy Immunotherapy Injections completed [facility] [place],[address], [address], [facility] - [facility] 11/27/2023 16:41:14 11/14/19 24 Allergy Immunotherapy Injections completed [facility] [place],[address], [address], [facility] - [facility] 11/14/2023 11:18:33 10/31/19 24 Allergy Immunotherapy Injections completed [facility] [address] [facility] [place] [address], [place], [address], [facility] - [facility] 10/31/2023 16:21:15 10/17/19 24 Allergy Immunotherapy Injections completed [facility], A [address] [facility],[address], [address], [facility] - [facility] 10/17/2023 16:28:03 Imaging Results None recorded. Procedure Notes None recorded. Medical Equipment None Reported. Medications Name Sig Start Date Stop Date Status Note LastModified by Organization Details LastModified Time levothyro xine 137 mcg tablet 07/01 completed Medicati on ID: [id number] D uration Value: 30 Brand Name: levothyr [...] gram tablet 09/12 completed Medicati on ID: [id number] D uration Value: 30 Reason: () Brand [...] mg tablet 01/23 completed Medicati on ID: [id number] D uration Value: 3 Reason: () Brand Name: ondanset atif HCl Send Method: E-Prescr ibed Sub s Allowed: subs OK Speci al Instruct ion: TAKE 1 TABLET BY MOUTH EVERY 6 HOURS NEEDED FOR NAUSEA & VOMITING . Medica tionGene ricName: ondanset atif HCl Not Available Not Available Not Available omeprazol e 40 mg capsule,d elayed release 01/02 completed Medicati on ID: [id number] D uration Value: 14 Reason: () Brand Name: omeprazo le Send Method: E-Prescr ibed Sub s Allowed: subs OK Speci al Instruct ion: TAKE ONE CAPSULE BY MOUTH EVERY DAY FOR 14 DAYS Med icationG enericNa me: omeprazo le Not Available Not Available Not Available levothyro xine 25 mcg tablet 01/02 completed Medicati on ID: [id number] D uration Value: 30 Reason: () Brand [...] mcg tablet 01/23 completed Medicati on ID: [id number] D uration Value: 30 Reason: () Brand Name: levothyr oxine Se nd Method: E-Prescr ibed Sub s Allowed: subs OK Speci al Instruct ion: TAKE 2 TABLETS ON AN EMPTY STOMACH IN THE MORNING ONCE A DAY TAKE WITH 25MCG FOR TOTAL OF 125MCG M edicatio nGeneric Name: levothyr oxine Not Available Not Available Not Available levothyro xine 125 mcg tablet TOME ADRIANA TABLETA TODOS LOS D active Not Available Not Available No t Available Citrucel 500 mg tablet 01/02 completed Medicati on ID: [id number] D uration Value: 30 Reason: () Brand Name: Citrucel Send Method: E-Prescr ibed Sub s Allowed: subs OK Speci al Instruct ion: TAKE 2 TABLETS BY MOUTH DAILY, DRINK 8 OZ WATER WITH TABLETS Medicati onGeneri cName: Citrucel Not Available Not Available Not Available levothyro xine 150 mcg tablet 05/19 completed Medicati on ID: [id number] D uration Value: 30 Reason: () Brand Name: levothyr oxine Se nd Method: E-Prescr ibed Sub s Allowed: subs OK Speci al Instruct ion: TAKE 1 TABLET BY MOUTH EVERY DAY Medi cationGe nericNam e: levothyr oxine Not Available Not Available Not Available omeprazol e 20 mg capsule,d elayed release 07/01 completed Medicati on ID: [id number] D uration Value: 30 Brand Name: omeprazo le Send Method: E-Prescr ibed Sub s Allowed: subs OK Speci al Instruct ion: TAKE 1 CAPSULE BY [...] Relief 50 mcg/actua tion nasal spray,gabrielle pension [place] 2 spray into both nostrils once a day 07/01 completed Medicati on ID: [id number] D uration Value: 30 Brand Name: Flonase [...] Diagnosis/Indication Diagnosis SNOMED-CT Code Diagnosis ICD10 Code 1218 AVEL HERNANDEZ MD Allergy [address] [place] [address],[place] [address] [place] [address] 10/17/2023 16:13:22 10/17/2023 17:41:05 Perennial allergic rhinitis 012009032 J30.89 2931 [facility], A Allergy [address] [place] [address], [address] [place] [address] 10/31/2023 16:06:43 10/31/2023 16:22:50 Perennial allergic rhinitis 611552937 J30.89 4686 [facility], A Allergy [address] [place] [address] [address] [place] [address] 11/14/2023 11:17:23 11/14/2023 14:48:16 Perennial allergic rhinitis 818273414 J30.89 6403 [facility] Allergy [address] [place] [address] [address] [place] [address] 11/27/2023 16:10:47 11/27/2023 16:44:32 Perennial allergic rhinitis 781862550 J30.89 8352 CHERIE HERMAN RN Allergy [address] [place] [address] [address] [place] [address] 12/12/2023 16:17:18 12/12/2023 16:41:45 Perennial allergic rhinitis 559683066 J30.89 78546 CHERIE HERMAN RN Allergy [address] [place], [place] [address] [address] [place] [address] 12/26/2023 16:12:41 12/26/2023 16:54:07 Perennial allergic rhinitis 867558475 J30.89 73213 [facility] Allergy [address] [place] [address],[place] [address] [place] [address] 01/08/2024 10:13:46 01/08/2024 12:13:56 Perennial allergic rhinitis 900501501 J30.89 17817 [facility] Allergy [address] [place], [place] [address] [address] [place] [address] 01/22/2024 13:40:12 01/22/2024 15:01:18 Perennial allergic rhinitis 878241682 J30.89 24895 AVEL HERNANDEZ MD [facility] [address] [facility] [place] [facility] [address] 02/01/2024 15:36:38 02/01/2024 16:07:42 Allergic rhinitis 23259558 J30.89 41255 CHERIE HERMAN RN Allergy [address] [place] [address] 100 [place] [facility] [place] [address] 02/06/2024 16:23:19 02/07/2024 08:49:55 Perennial allergic rhinitis 894458554 J30.89 05585 [facility] Allergy [address] [place] [address] 100 [place] [address] 02/20/2024 16:26:39 02/20/2024 17:23:59 Perennial allergic rhinitis 420453570 J30.89 03939 [facility] Allergy [address] [place] [address] 100 [place] [address] 03/07/2024 12:27:11 03/07/2024 13:41:01 Perennial allergic rhinitis 124493865 J30.89 42852 CHERIE HERMAN RN Allergy [address] [place] [address] 100 [place] [address] 03/19/2024 16:15:44 03/19/2024 16:27:02 Perennial allergic rhinitis [id number] J30.89 79871 [facility] All[facility] [address] [place] [address] 100 [place] [address] 04/02/2024 16:11:14 04/02/2024 16:19:33 Perennial allergic rhinitis 554390025 J30.89 40400 [facility] Allergy [address] [place], [place] [address] [address] [place] [address] 04/16/2024 16:44:27 04/16/2024 17:04:24 Perennial allergic rhinitis 094317429 J30.89 12280 [facility], [facility] Allergy [address] [facility],[place] [address] [place] [address] 04/30/2024 16:13:35 04/30/2024 16:32:22 Perennial allergic rhinitis 641160984 J30.89 20751 CHERIE HERMAN RN Allergy [address] [facility],[place] [address] [place] [address] 05/14/2024 16:21:48 05/14/2024 16:34:07 Perennial allergic rhinitis 803142509 J30.89 50753 [facility], [facility] [address] [facility],[place] [address] [place] [address] 05/29/2024 09:15:53 05/29/2024 11:28:25 Perennial allergic rhinitis 285987556 J30.89 Health Concerns Section Related Observation LastModified by Organization Detai ls LastModified Time None Recorded Concern Status LastModified by Organization Details LastModified Time None Recorded Advance Directives Directive None Recorded Payers Encounter Date Sequence Insurance Name Policy Number Policy Gonsalez Covered Member ID Gonsalez Member ID Guarantor Name 04/02/2024 1 [facility] [employer] [place] [employer] (HMO) [id number] Deepa Ross [id number] 2 Deepa Ross 04/16/2024 1 [facility] [employer] [place] [employer] [place]H[employer]) [id number] Deepa Ross [id number] 2 Deepa Ross 04/30/2024 1 [facility] [employer] [place] [employer] (HMO) [id number] Deepa Ross [id number] 2 Deepa Ross 05/14/2024 1 [facility] [employer] [place] [employer] (HMO) [id number] Deepa Ross [id number] 2 Deepa Ross 05/29/2024 1 [facility] [employer] [place] [employer] (HMO) [id number] Deepa Ross [id number] 2 Deepa Ross OBGyn Episode No OBEpisode recorded.
--- OUTSIDE RECORDS SUMMARY | 2024-05-29 11:42 | XMS_ITS | Continuity of Care Document ---
Author Organization [place] - [facility], Allergy Address [address] [address] Care Team Providers Care Publication Editor Name Role Phone BETH ROSA Primary Care Provider Assessment Encounter Date Assessment Date Assessment LastModified by Organization Details LastModified Time 04/16/2024 04/16/2024 Administered By: GEMA Marinelli Use of Antihistamines: No If yes: Vial Test Yes Change in medications: No If yes ?? Increase in asthma symptoms If yes, inhaler use: Reaction to last injections: No If yes: ?? Allergy Symptoms: Other: ?? Missed 1 week Dose Notes:?? [email or web address] Not available 04/16/2024 17:03:58 Plan of Treatment Reminders Order Date Submit Date Provider Last Modified By Organization Details Last Modified Time Details Appointments Allergy Shot 2024 09:30A M AVEL HERNANDEZ MD Not available Not available Not available [facility]- Allergy f-up 6mon 2024 03:45P M AVEL [...] and Address Organization Details Recorded Time Headache 72370063 Active 2019 Headache, unspecifi ed; Note: Changed from R51 to R51.9 (07/01/2020 3:34 PM) , Date Diagnosed : 07/03/2019 4:22 PM (R51) Not [facility] 4 02:13:25 Tinnitus of vascular origin 012720652 Active 2022 Pulsatile tinnitus, right ear; Note: Date Diagnosed : 08/02/2022 4:38 PM (H93.A1) Not Available [facility] 4 02:14:37 Allergic rhinitis 98585569 Active 2023 SCIT [address] Pavel HERNANDEZ MD 100 [facility],[place] [address], [place], [address] , [facility] - [facility] 4 11:34:09 Bilateral tinnitus [id number] 02 Active 2018 Tinnitus, bilateral ; Note: Date Diagnosed : 01/23/2019 4:23 PM (H93.13) Not Available [facility] 4 02:13:43 Perennial allergic rhinitis 820775666 Active 2023 SOILA BIRCH [facility] 100 [facility],[place] [address], [place], [address] , [facility] - [facility] 4 16:27:42 Vasomotor rhinitis 9605514 Active 2023 Vasomotor rhinitis; Note: Date Diagnosed : 07/13/2023 4:55 PM (J30.0) Not Available [facility] 4 02:13:53 Acute maxillary sinusitis 93382086 Active 2023 Acute maxillary sinusitis , unspecifi ed; Note: Date Diagnosed : 07/13/2023 4:55 PM (J01.00) Not Available [facility] 4 02:14:10 Problem Notes None recorded. Procedures Surgical History Date Name Laterality Status Provider Name and Address Organization Details Recorded Time 05/29/19 25 Allergy Immunotherapy Injections completed GEMA MARINELLI [address] [facility],[place] [address], [place], [address], [facility] - [facility] 05/29/2024 11:27:48 05/14/20 24 Allergy Immunotherapy Injections completed CHERIE HERMAN RN 100 [facility],[place] [address], [place], [address], [facility] - [facility] 05/14/2024 16:33:31 04/30/20 24 Allergy Immunotherapy Injections completed SOILA BIRCH, RMA [address], [place], [address], [place] [facility] [place] 04/30/2024 16:31:43 04/16/20 24 Allergy Immunotherapy Injections completed SOILA WEINERC, RMA [address], [place], [address], [place] [facility] [place] 04/16/2024 17:03:52 04/02/20 24 Allergy Immunotherapy Injections completed GEMA MAYS [address], [place], [address], [place] [facility] [place] 04/02/2024 16:17:47 03/19/20 24 Allergy Immunotherapy Injections completed CHERIE HERMAN RN [address] [place] [address], [address], [place] [facility] [place] 03/19/2024 16:26:16 03/07/20 24 Allergy Immunotherapy Injections completed SOILA BIRCH, RMA [address], [place], [address], [place] [facility] [place] 03/07/2024 13:40:29 02/20/20 24 Allergy Immunotherapy Injections completed GEMA MAYS [address], [place], [address], [place] [facility] [place] 02/20/2024 17:11:11 02/06/20 24 Allergy Immunotherapy Injections completed CHERIE HERMAN RN [address], [place], [address], [place] [facility] [place] 02/07/2024 08:49:22 01/22/20 24 Allergy Immunotherapy Injections completed GEMA MAYS [address], [place], [address], [place] [facility] [place] 01/22/2024 14:00:20 01/08/20 24 Allergy Immunotherapy Injections completed GEMA MAYS [address], [place], [address], [place] [facility] [place] 01/08/2024 12:12:08 12/26/19 24 Allergy Immunotherapy Injections completed CHERIE HERMAN RN [address] [facility],[address] [facility], [place], [address], [facility] - [facility] 12/26/2023 16:50:55 12/12/19 24 Allergy Immunotherapy Injections completed CHERIE HERMAN RN [address], [place], [address], [facility] - [facility] 12/12/2023 16:40:58 11/27/19 24 Allergy Immunotherapy Injections completed ABHIJEET MARIN, [facility] [address], [place], [address], [facility] - [facility] 11/27/2023 16:41:14 11/14/19 24 Allergy Immunotherapy Injections completed SOILA BIRCH, [facility] [address] [facility], [place], [address], [facility] - [facility] 11/14/2023 11:18:33 10/31/19 24 Allergy Immunotherapy Injections completed SOILA BIRCH, [facility] [address], [place], [address], [facility] - [facility] 10/31/2023 16:21:15 10/17/19 24 Allergy Immunotherapy Injections completed SOILA BIRCH, A [address], [place], [address], [facility] - [facility] 10/17/2023 16:28:03 Imaging Results None recorded. Procedure Notes None recorded. Medical Equipment None Reported. Medications Name Sig Start Date Stop Date Status Note LastModified by Organization Details LastModified Time levothyro xine 137 mcg tablet 07/01 completed Medicati on ID: [id number] D uration Value: 30 Brand Name: levothyr [...] gram tablet 09/12 completed Medicati on ID: [id number] D uration Value: 30 Reason: () Brand [...] mg tablet 01/23 completed Medicati on ID: [id number] D uration Value: 3 Reason: () Brand Name: ondanset atif HCl Send Method: E-Prescr ibed Sub s Allowed: subs [place] Speci al Instruct ion: TAKE 1 TABLET BY MOUTH EVERY 6 HOURS NEEDED FOR NAUSEA & VOMITING . Medica tionGene ricName: ondanset atif HCl Not Available Not Available Not Available omeprazol e 40 mg capsule,d elayed release 01/02 completed Medicati on ID: [id number] D uration Value: 14 Reason: () Brand Name: omeprazo le Send Method: E-Prescr ibed Sub s Allowed: subs DANIELLA Speci al Instruct ion: TAKE ONE CAPSULE BY MOUTH EVERY DAY FOR 14 DAYS Med [facility] omeprazo le Not Available Not Available Not Available levothyro xine 25 mcg tablet 01/02 completed Medicati on ID: [id number] D uration Value: 30 Reason: () Brand [...] mcg tablet 01/23 completed Medicati on ID: [id number] D uration Value: 30 Reason: () Brand Name: levothyr oxine Se nd Method: E-Prescr ibed Sub s Allowed: subs OK Speci al Instruct ion: TAKE 2 TABLETS ON AN EMPTY STOMACH IN THE MORNING ONCE A DAY TAKE WITH 25MCG FOR TOTAL OF 125MCG Charmaine Haines Name: levothyr oxine Not Available Not Available Not Available levothyro xine 125 mcg tablet TOME ADRIANA TABLETA TODOS LOS D active Not Available Not Available No t Available Citrucel 500 mg tablet 01/02 completed Medicati on ID: [id number] D uration Value: 30 Reason: () Brand Name: Citrucel Send Method: E-Prescr ibed Sub s Allowed: subs DANIELLA Speci al Instruct ion: TAKE 2 TABLETS BY MOUTH DAILY, DRINK 8 OZ WATER WITH TABLETS Medicati onGeneri cName: Citrucel Not Available Not Available Not Available levothyro xine 150 mcg tablet 05/19 completed Medicati on ID: [id number] D uration Value: 30 Reason: () Brand Name: levothyr oxine Se nd Method: E-Prescr ibed Sub s Allowed: subs DANIELLA Bahena al Instruct ion: TAKE 1 TABLET BY MOUTH EVERY DAY Medi cationGe nericNam e: levothyr oxine Not Available Not Available Not Available omeprazol e 20 mg capsule,d elayed release 07/01 completed Medicati on ID: [id number] D uration Value: 30 Brand Name: omeprazo [...] Relief 50 mcg/actua tion nasal spray,gabrielle pension Rittman 2 spray into both nostrils once a day 07/01 completed Medicati on ID: [id number] D uration Value: 30 Brand Name: Flonase [...] Diagnosis/Indication Diagnosis SNOMED-CT Code Diagnosis ICD10 Code 55620 CHERIE HERMAN RN Allergy [address] [place] [address] 03/19/2024 16:15:44 03/19/2024 16:27:02 Perennial allergic rhinitis [id number] J30.89 19229 ABHIJEET MARIN [facility] Allergy [address] [place] [address] 04/02/2024 16:11:14 04/02/2024 16:19:33 Perennial allergic rhinitis 500372669 J30.89 [id number] SOILA BIRCH, [facility] Allergy [address] [place] [address] 100 [place] [address] 04/16/2024 16:44:27 04/16/2024 17:04:24 Perennial allergic rhinitis 313450129 J30.89 Health Concerns Section Related Observation LastModified by Organization Detai ls LastModified Time None Recorded Concern Status LastModified by Organization Details LastModified Time None Recorded Payers Encounter Date Sequence Insurance Name Policy Number Policy Gonsalez Covered Member ID Gonsalez Member ID Guarantor Name 04/16/2024 1 [facility] [employer] - DIRECT - [place] (HMO) [id number] Deepa Ross [id number] 2 Deepa Ross OBGyn Episode No OBEpisode recorded.
--- OUTSIDE RECORDS SUMMARY | 2024-05-29 11:42 | XMS_ITS | Continuity of Care Document ---
Author Organization [place] - [facility], Allergy Address [address] [address] Care Team Providers Care Boss Dyer Name Role Phone BETH ROSA Primary Care Provider [phone] Assessment Encounter Date Assessment Date Assessment LastModified by Organization Details LastModified Time 03/07/2024 03/07/2024 Administered By: GEMA Marinelli Use of Antihistamines: No If yes: Vial Test Change in medications: No If yes ?? Increase in asthma symptoms If yes, inhaler use: Reaction to last injections: No If yes: ?? Allergy Symptoms: Other: ?? Missed 1 week Dose Notes:?? murali Not available 03/07/2024 13:40:34 Plan of Treatment Reminders Order Date Submit Date Provider Last Modified By Organization Details Last Modified Time Details Appointments Allergy Shot 2024 09:30A M AVEL HERNANDEZ MD Not available Not available Not available [facility]- Allergy f-up 6mon 2024 03:45P M [...] and Address Organization Details Recorded Time Headache 45221033 Active 2019 Headache, unspecifi ed; Note: Changed from R51 to R51.9 (07/01/2020 3:34 PM) , Date Diagnosed : 07/03/2019 4:22 PM (R51) Not Available [facility] 08/02/202 4 02:13:25 Tinnitus of vascular origin 586482344 Active 2022 Pulsatile tinnitus, right ear; Note: Date Diagnosed : 08/02/2022 4:38 PM (H93.A1) Not Available [facility] 4 02:14:37 Allergic rhinitis 89443954 Active 2023 SCIT [address] Pavel HERNANDEZ MD 100 [facility],[place] [address], [place], [address] , [facility] - [facility] 4 11:34:09 Bilateral tinnitus 27186454330 02 Active 2018 Tinnitus, bilateral ; Note: Date Diagnosed : 01/23/2019 4:23 PM (H93.13) Not Available [facility] 4 02:13:43 Perennial allergic rhinitis 301010461 Active 2023 SOILA BIRCH [facility] 100 [facility],[place] [address], [place], [address] , [facility] - [facility] 4 16:27:42 Vasomotor rhinitis 3697468 Active 2023 Vasomotor rhinitis; Note: Date Diagnosed : 07/13/2023 4:55 PM (J30.0) Not Available [facility] 4 02:13:53 Acute maxillary sinusitis 47726935 Active 2023 Acute maxillary sinusitis , unspecifi ed; Note: Date Diagnosed : 07/13/2023 4:55 PM (J01.00) Not Available [facility] 4 02:14:10 Problem Notes None recorded. Procedures Surgical History Date Name Laterality Status Provider Name and Address Organization Details Recorded Time 05/29/19 25 Allergy Immunotherapy Injections completed GEMA MARINELLI 100 [facility],[place] [address], [place], [address], [facility] - [facility] 05/29/2024 11:27:48 05/14/20 24 Allergy Immunotherapy Injections completed CHERIE HERMAN RN 100 [facility],[place] [address], [place], [address], [facility] - [facility] 05/14/2024 16:33:31 1204/20 24 Allergy Immunotherapy Injections completed SOILA BIRCH, RMA [address], [place], [address], [place] [facility] [place] 04/30/2024 16:31:43 04/16/20 24 Allergy Immunotherapy Injections completed SOILA WEINERC, RMA [address], [place], [address], [place] [facility] [place] 04/16/2024 17:03:52 04/02/20 24 Allergy Immunotherapy Injections completed GEMA MAYS [address], [place], [address], [place] [facility] [place] 04/02/2024 16:17:47 03/19/20 24 Allergy Immunotherapy Injections completed CHERIE HERMAN RN [address] [facility],[address], [place], [address], [place] [facility] [place] 03/19/2024 16:26:16 03/07/20 24 Allergy Immunotherapy Injections completed SOILA BIRCH, RMA [address], [place], [address], [place] [facility] [place] 03/07/2024 13:40:29 02/20/20 24 Allergy Immunotherapy Injections completed GEMA MAYS [address], [place], [address], [place] [facility] [place] 02/20/2024 17:11:11 02/06/20 24 Allergy Immunotherapy Injections completed CHERIE HERMAN RN [address] [facility],[address], [place], [address], [place] [facility] [place] 02/07/2024 08:49:22 01/22/20 24 Allergy Immunotherapy Injections completed GEMA MAYS [address], [place], [address], [place] [facility] [place] 01/22/2024 14:00:20 01/08/20 24 Allergy Immunotherapy Injections completed GEMA MAYS [address], [place], [address], [place] [facility] [place] 01/08/2024 12:12:08 12/26/19 24 Allergy Immunotherapy Injections completed CHERIE HERMAN RN 100 [facility],[address], [place], [address], [facility] - [facility] 12/26/2023 16:50:55 12/12/19 24 Allergy Immunotherapy Injections completed CHERIE HERMAN RN [address] [facility] [address], [place], [address], [facility] - [facility] 12/12/2023 16:40:58 11/27/19 24 Allergy Immunotherapy Injections completed ABHIJEET MARIN, [facility] [address] [facility] [address], [place], [address], [facility] - [facility] 11/27/2023 16:41:14 11/14/19 24 Allergy Immunotherapy Injections completed SOILA BIRCH, [facility] [address] [facility] [address], [place], [address], [facility] - [facility] 11/14/2023 11:18:33 10/31/19 24 Allergy Immunotherapy Injections completed SOILA BIRCH, [facility] [address] [facility] [address], [place], [address], [facility] - [facility] 10/31/2023 16:21:15 10/17/19 24 Allergy Immunotherapy Injections completed SOILA BIRCH, [facility] [address] [facility],[address], [place], [address], [facility] - [facility] 10/17/2023 16:28:03 Imaging Results None recorded. Procedure Notes None recorded. Medical Equipment None Reported. Medications Name Sig Start Date Stop Date Status Note LastModified by Organization Details LastModified Time levothyro xine 137 mcg tablet 07/01 completed Medicati on ID: [id number] D uration Value: 30 Brand Name: levothyr [...] gram tablet 09/12 completed Medicati on ID: [id number] D uration Value: 30 Reason: () Brand [...] mg tablet 01/23 completed Medicati on ID: [id number] D uration Value: 3 Reason: () Brand Name: ondanset atif HCl Send Method: E-Prescr ibed Sub s Allowed: subs [place] Speci al Instruct ion: TAKE 1 TABLET BY MOUTH EVERY 6 HOURS NEEDED FOR NAUSEA & VOMITING . Medica tionGene ricName: ondanset atif HCl Not Available Not Available Not Available omeprazol e 40 mg capsule,d elayed release 01/02 completed Medicati on ID: [id number] D uration Value: 14 Reason: () Brand Name: omeprazo le Send Method: E-Prescr ibed Sub s Allowed: subs DANIELLA Speci al Instruct ion: TAKE ONE CAPSULE BY MOUTH EVERY DAY FOR 14 DAYS Med icationG enericNa me: omeprazo le Not Available Not Available Not Available levothyro xine 25 mcg tablet 01/02 completed Medicati on ID: [id number] D uration Value: 30 Reason: () Brand [...] mcg tablet 01/23 completed Medicati on ID: [id number] D uration Value: 30 Reason: () Brand Name: levothyr oxine Se nd Method: E-Prescr ibed Sub s Allowed: subs [place] Speci al Instruct ion: TAKE 2 TABLETS ON AN EMPTY STOMACH IN THE MORNING ONCE A DAY TAKE WITH 25MCG FOR TOTAL OF 125MCG M horace Crespoic Name: levothyr oxine Not Available Not Available Not Available levothyro xine 125 mcg tablet TOME ADRIANA TABLETA TODOS LOS D active Not Available Not Available No t Available Citrucel 500 mg tablet 01/02 completed Medicati on ID: [id number] D uration Value: 30 Reason: () Brand Name: Citrucel Send Method: E-Prescr ibed Sub s Allowed: subs DANIELLA Bahena al Instruct ion: TAKE 2 TABLETS BY MOUTH DAILY, DRINK 8 OZ WATER WITH TABLETS Medicati onGeneri cName: Citrucel Not Available Not Available Not Available levothyro xine 150 mcg tablet 05/19 completed Medicati on ID: [id number] D uration Value: 30 Reason: () Brand Name: levothyr oxine Se nd Method: E-Prescr ibed Sub s Allowed: subs DANIELLA Bahena al Instruct ion: TAKE 1 TABLET BY MOUTH EVERY DAY Medi cationGe nericNam e: levothyr oxine Not Available Not Available Not Available omeprazol e 20 mg capsule,d elayed release 07/01 completed Medicati on ID: [id number] D uration Value: 30 Brand Name: omeprazo [...] Relief 50 mcg/actua tion nasal spray,gabrielle pension Bernard 2 spray into both nostrils once a day 05/12/ 2020 02/04 /2021 completed Medicati on ID: [id number] D uration Value: 30 Brand Name: Flonase [...] Diagnosis/Indication Diagnosis SNOMED-CT Code Diagnosis ICD10 Code 01826 CHERIE HERMAN RN Allergy [address] [place] [address],[address] [address] 02/06/2024 16:23:19 02/07/2024 08:49:55 Perennial allergic rhinitis 058317486 J30.89 56975 ABHIJEET MARIN [facility] Allergy [address] [place] [address] 02/20/2024 16:26:39 02/20/2024 17:23:59 Perennial allergic rhinitis 500818255 J30.89 91163 SOILA BIRCH, [facility] Allergy [address] [place] [address] 100 [place] [address] 03/07/2024 12:27:11 03/07/2024 13:41:01 Perennial allergic rhinitis 014107338 J30.89 Health Concerns Section Related Observation LastModified by Organization Detai ls LastModified Time None Recorded Concern Status LastModified by Organization Details LastModified Time None Recorded Payers Encounter Date Sequence Insurance Name Policy Number Policy Gonsalez Covered Member ID Gonsalez Member ID Guarantor Name 03/07/2024 1 [facility] [employer] - DIRECT - [place] (HMO) [id number] Deepa Ross [id number] Deepa Ross OBGyn Episode No OBEpisode recorded.
--- OUTSIDE RECORDS SUMMARY | 2024-05-29 11:42 | XMS_ITS | Continuity of Care Document ---
Author Organization [place] - [facility], Allergy Address [address] [address] Care Team Providers Care Ophthalmic Asst Name Role Phone MOE BETH Primary Care Provider [phone] Assessment Encounter Date Assessment Date Assessment LastModified by Organization Details LastModified Time 03/19/2024 03/19/2024 Administered By: Carolynn Noland Use of Antihistamines: No If yes: Vial Test Change in medications: No If yes ?? Increase in asthma symptoms No Asthma Hx If yes, inhaler use: Reaction to last injections: No If yes: ?? Allergy Symptoms: Other: ?? Missed 1 week Dose Notes:?? [email or web address] Not available 03/19/2024 16:26:43 Plan of Treatment Reminders Order Date Submit Date Provider Last Modified By Organization Details Last Modified Time Details Appointments Allergy Shot 2024 09:30A M AVEL HERNANDEZ MD Not available Not available Not available [facility] hed- Allergy f-up 6mon 2024 03:45P M [...] and Address Organization Details Recorded Time Headache 93142884 Active 2019 Headache, unspecifi ed; Note: Changed from R51 to R51.9 (07/01/2020 3:34 PM) , Date Diagnosed : 07/03/2019 4:22 PM (R51) Not Available [facility] 08/02/202 4 02:13:25 Tinnitus of vascular origin 824420728 Active 2022 Pulsatile tinnitus, right ear; Note: Date Diagnosed : 08/02/2022 4:38 PM (H93.A1) Not Available [facility] 4 02:14:37 Allergic rhinitis 74790766 Active 2023 [facility] [address] Pavel HERNANDEZ MD [address] [facility],[place] [address], [place], [address] , [facility] - [facility] 4 11:34:09 Bilateral tinnitus 12901069146 02 Active 2018 Tinnitus, bilateral ; Note: Date Diagnosed : 01/23/2019 4:23 PM (H93.13) Not Available Critical [facility] hospital 4 02:13:43 Perennial allergic rhinitis 479909284 Active 2023 SOILA BIRCH Johnny 100 [facility],[place] [address], [place], [address] , [facility] - [facility] 4 16:27:42 Vasomotor rhinitis 6385043 Active 2023 Vasomotor rhinitis; Note: Date Diagnosed : 07/13/2023 4:55 PM (J30.0) Not Available Critical access hospital 4 02:13:53 Acute maxillary sinusitis 17487113 Active 2023 Acute maxillary sinusitis , unspecifi ed; Note: Date Diagnosed : 07/13/2023 4:55 PM (J01.00) Not Available Critical access hospital 4 02:14:10 Problem Notes None recorded. Procedures Surgical History Date Name Laterality Status Provider Name and Address Organization Details Recorded Time 05/29/19 25 Allergy Immunotherapy Injections completed GEMA MARINELLI [address] [facility] [place] [address], [place], [address], [facility] - [facility] 05/29/2024 11:27:48 05/14/20 24 Allergy Immunotherapy Injections completed CHERIE HERMAN RN [address] [facility] [place],[address], [place], [address], [facility] - [facility] 05/14/2024 16:33:31 04/30/20 24 Allergy Immunotherapy Injections completed SOILA BIRCH, RMA [address], [place], [address], [place] [facility] 04/30/2024 16:31:43 04/16/20 24 Allergy Immunotherapy Injections completed SOILA WEINERC, RMA [address], [place], [address], [place] [facility] 04/16/2024 17:03:52 04/02/20 24 Allergy Immunotherapy Injections completed GEMA MAYS [address], [place], [address], [place] [facility] 04/02/2024 16:17:47 03/19/20 24 Allergy Immunotherapy Injections completed CHERIE HERMAN RN [address], [place], [address], [place] [facility] 03/19/2024 16:26:16 03/07/20 24 Allergy Immunotherapy Injections completed SOILA BIRCH, RMA [address], [place], [address], [place] [facility] 03/07/2024 13:40:29 02/20/20 24 Allergy Immunotherapy Injections completed GEMA MAYS [address], [place], [address], [place] [facility] 02/20/2024 17:11:11 02/06/20 24 Allergy Immunotherapy Injections completed CHERIE HERMAN RN [address], [place], [address], [place] [facility] 02/07/2024 08:49:22 01/22/20 24 Allergy Immunotherapy Injections completed GEMA MAYS [address], [place], [address], [place] [facility] 01/22/2024 14:00:20 01/08/20 24 Allergy Immunotherapy Injections completed GEMA MAYS [address], [place], [address], [place] [facility] 01/08/2024 12:12:08 12/26/19 24 Allergy Immunotherapy Injections completed CHERIE HERMAN RN [address] [facility] [place],[address] [facility], [place], [address], [facility] - [facility] 12/26/2023 16:50:55 12/12/19 24 Allergy Immunotherapy Injections completed CHERIE HERMAN RN [address] [facility], [place], [address], [facility] - [facility] 12/12/2023 16:40:58 11/27/19 24 Allergy Immunotherapy Injections completed CAROLYNN NOLAND, [facility] [address] [facility], [place], [address], [facility] - [facility] 11/27/2023 16:41:14 11/14/19 24 Allergy Immunotherapy Injections completed SOILA BIRCH, [facility] [address] [facility], [place], [address], [facility] - [facility] 11/14/2023 11:18:33 10/31/19 24 Allergy Immunotherapy Injections completed SOILA BIRCH, [facility] [address] [facility] [place],[address] [facility], [place], [address], [facility] - [facility] 10/31/2023 16:21:15 10/17/19 24 Allergy Immunotherapy Injections completed SOILA BIRCH, [facility] [address] [place] [address], [address], [facility] - [facility] 10/17/2023 16:28:03 Imaging Results None recorded. Procedure Notes None recorded. Medical Equipment None Reported. Medications Name Sig Start Date Stop Date Status Note LastModified by Organization Details LastModified Time levothyro xine 137 mcg tablet 07/01 completed Medicati on ID: [id number] D uration Value: 30 Brand Name: levothyr [...] gram tablet 09/12 completed Medicati on ID: [id number] D uration Value: 30 Reason: () Brand [...] mg tablet 01/23 completed Medicati on ID: [id number] D uration Value: 3 Reason: () Brand Name: ondanset atif HCl Send Method: E-Prescr ibed Sub s Allowed: subs DANIELLA Speci al Instruct ion: TAKE 1 TABLET BY MOUTH EVERY 6 HOURS NEEDED FOR NAUSEA & VOMITING . Medica tionGene ricName: ondanset atif HCl Not Available Not Available Not Available omeprazol e 40 mg capsule,d elayed release 01/02 completed Medicati on ID: [id number] D uration Value: 14 Reason: () Brand Name: omeprazo le Send Method: E-Prescr ibed Sub s Allowed: subs DANIELLA Guilloryi al Instruct ion: TAKE ONE CAPSULE BY MOUTH EVERY DAY FOR 14 DAYS Med [facility] me: omeprazo le Not Available Not Available Not Available levothyro xine 25 mcg tablet 01/02 completed Medicati on ID: [id number] D uration Value: 30 Reason: () Brand [...] mcg tablet 01/23 completed Medicati on ID: [id number] D uration Value: 30 Reason: () Brand Name: levothyr oxine Se nd Method: E-Prescr ibed Sub s Allowed: subs OK Speci al Instruct ion: TAKE 2 TABLETS ON AN EMPTY STOMACH IN THE MORNING ONCE A DAY TAKE WITH 25MCG FOR TOTAL OF 125MCG Charmaine Crespoic Name: levothyr oxine Not Available Not Available Not Available levothyro xine 125 mcg tablet TOME ADRIANA TABLETA TODOS LOS D active Not Available Not Available No t Available Citrucel 500 mg tablet 01/02 completed Medicati on ID: [id number] D uration Value: 30 Reason: () Brand Name: Citrucel Send Method: E-Prescr ibed Sub s Allowed: subs DANIELLA nunez Instruct ion: TAKE 2 TABLETS BY MOUTH DAILY, DRINK 8 OZ WATER WITH TABLETS Medicati onGeneri cName: Citrucel Not Available Not Available Not Available levothyro xine 150 mcg tablet 05/19 completed Medicati on ID: [id number] D uration Value: 30 Reason: () Brand Name: levothyr oxine Se nd Method: E-Prescr ibed Sub s Allowed: subs DANIELLA nunez Instruct ion: TAKE 1 TABLET BY MOUTH EVERY DAY Medi cationGe nericNam e: levothyr oxine Not Available Not Available Not Available omeprazol e 20 mg capsule,d elayed release 07/01 completed Medicati on ID: [id number] D uration Value: 30 Brand Name: omeprazo le Send Method: E-Prescr ibed Sub s Allowed: subs DANIELLA nunez Instruct ion: TAKE 1 CAPSULE BY MOUTH [...] Relief 50 mcg/actua tion nasal spray,gabrielle pension [place] 2 spray into both nostrils once a day 07/01 completed Medicati on ID: [id number] D uration Value: 30 Brand Name: Flonase [...] Diagnosis/Indication Diagnosis SNOMED-CT Code Diagnosis ICD10 Code 84469 CAROLYNN NOLAND [facility] Allergy [address] [place] [address] 02/20/2024 16:26:39 02/20/2024 17:23:59 Perennial allergic rhinitis 542517087 J30.89 [id number] SOILA BIRCH [facility] Allergy [address] [place] [address] 03/07/2024 12:27:11 03/07/2024 13:41:01 Perennial allergic rhinitis 598346572 J30.89 [id number] CHERIE HERMAN RN Allergy [address] [place] [address] 03/19/2024 16:15:44 03/19/2024 16:27:02 Perennial allergic rhinitis 095056338 J30.89 Health Concerns Section Related Observation LastModified by Organization Detai ls LastModified Time None Recorded Concern Status LastModified by Organization Details LastModified Time None Recorded Payers Encounter Date Sequence Insurance Name Policy Number Policy Gonsalez Covered Member ID Gonsalez Member ID Guarantor Name 03/19/2024 1 [facility] [employer] - [place] (HMO) [id number] Deepa Ross [id number] 2 Deepa Ross OBGyn Episode No OBEpisode recorded.
--- NOTE | 2024-05-29 12:07 | AM.OFFWIN_ITS ---
Intake Vital Signs 05/29/24 12:11 Height 5 ft 4 in BP 118/70 Blood Pressure Location Rt brachial Position Sitting Pulse 72 Pulse Source Pulse Oximeter Temp 98.4 F Temp Source Oral Pulse Oximetry (%) 97 Intake Visit Reasons: EP cough due to asthma (car [phone]) Patient Tobacco Use Status: Never used Tobacco Allergies No Known Allergies Allergy (Verified 05/29/24 12:13) Do you need a note to return to daycare/school/sports/work: No HPI HPI Comments History of Present Illness Details History - The patient is a 58-year-old female pr esenting with persistent cough and respiratory symptoms. - Symptoms began the last Sunday before , accompanied by body aches, a runny nose, sore throat, ear pressure, and lasted with significant cough. - Cough persisted for 11 days with phleg m, ameliorated slightly over time, but remaining frequent and bothersome. - At night, the patient experiences ches t tightness and breathlessness, linked to lying supine; occasional dyspnea noted. - Patient self-administered Tylenol, hon ey, [place], and salt for symptom relief, with partial help from albuterol inhaler used for asthma management. - The patient's asthma history prompted the use of an albuterol inhaler, yielding limited but temporary relief. - Attended a family reunion on with known COVID-19 positive contact. - 2 known RSV contacts at her home dayca re. Physical Exam General: Cooperative, healthy appearing, comfortable and no acute distress Orientation/consciousness: Patient oriented x3 Limitations: No limitations Head: Normal to inspection Ears: Hearing grossly normal bilaterally, external ears normal and TM's normal bilaterally Nose: Runny nose present Face and sinus: Normal facial exam and Yes sinuses nontender Mouth: Normal oral and palatal mucosa present and moist mucous membranes Throat: Sore throat present, Yes uvula midline. Posterior oropharynx erythema Eyes: Appearance normal, both eyes and all related structures Neck: Normal visual inspection Respiratory: Clear to auscultation bilaterally. Normal respiratory effort, able to speak in complete sentences, Actively coughing, no respiratory distress, not tachypneic, no tripod positioning and no use of accessory muscles Cardiovascular: Regular rate and rhythm. Normal S1 and S2 Skin: No rashes or lesions noted Neuro: Patient oriented x3 Extremities: Normal to inspection and Yes no clubbing, cyanosis or edema [facility] Medical History Patellofemoral arthritis of right knee Hypothyroidism Surgical History History of biopsy History of cholecystectomy History of section Family History Father CVD (cardiovascular disease) DVT (deep venous thrombosis) Mother Liver problem Kidney disease Diabetes Social History Housing: Apartment Alcohol intake: never Patient Tobacco Use Status: Never used Tobacco e-Cigarette/Vaping Use: Never Used Second Hand Smoke Exposure: No service: No Current occupational status: 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 A nasopharyngeal swab test was conducted to rule out COVID-19, influenza, and RSV due to the patient's symptoms and history of exposure. Continuation of the albuterol inhaler for asthma is recommended to ease breathing difficulty. The patient should persist with [id number] treatments like Tylenol for general symptom relief. Awaiting viral test results will guide further management steps, if viral is all negative, can send Z-clint. Also sent small burst prednisone to aid in feelings of shortness of breath. Adhering to the current asthma treatment protocol with monitoring for any progression in symptoms is advised. Patient was informed and verbally consented to the use of an ambient scribe for clinic note documentation during this visit Orders: Orders SARS-CoV2/FLU/RSV Today J06.9 - Acute upper respiratory infection, unspecified Medications: New prednisone 20 mg PO QAM 5 tabs 0RF Refilled albuterol sulfate 90 mcg/actuation (Ventolin HFA) 2 puffs inhalation Q4-6H PRN 8.5 grams 0RF shortness of breath or wheezing Coding Level of Care Code Est Pt Level 4 (08721) Diagnoses URI, acute J06.9
[2024-05-29 12:11] VITALS: BP 118/70; PULSE 72; TEMP 36.9; O2SAT 97
== END 2024-05-29 12:27 | disposition home or self-care (01) ==
PROVIDERS: PCP Internal Medicine; Visit Provider Physician Assistant
DX: J06.9 Acute upper respiratory infection, unspecified (principal)

== ENCOUNTER 2024-07-24 13:52 | Outpatient (AMB) | payer OTHER, SELFPAY ==
--- NOTE | 2024-07-24 14:00 | A.OFFPC_ITS ---
Vital Signs 07/24/24 14:01 Height 5 ft 4 in Weight 154 lb BMI 26.4 BP 110/60 Blood Pressure Location Lt brachial Position Sitting Pulse 86 Pulse Source Pulse Oximeter Temp 97.3 F Temp Source Temporal Artery Scan Pulse Oximetry (%) 98 Oxygen Delivery Method Room Air Intake Visit Reasons: 3mth f./u Intake Note: Patient is here to follow up on Asthma, Chronic pain. 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 per policy Accompanied by: Self / Same As Patient Allergies No Known Allergies Allergy (Verified 07/24/24 14:01) Medication List - Last Reconciled 07/25/24 by Dylan Ambriz MD albuterol sulfate 90 mcg/actuation (Ventolin HFA) 2 puffs inhalation Q4-6H PRN cetirizine (Zyrtec) 10 mg PO DAILY 30 days ciprofloxacin HCl (Cipro) 250 mg PO BID epinephrine IM levothyroxine 125 mcg PO DAILY prednisone 20 mg PO QAM Tobacco use date assessed: 07/24/24 Dental Screening Dental Screen Date: 07/24/24 Did you have a dental visit in the last 12 months?: No Did you have a dental problem in the last 6 months where you did not have access to dental care?: No Was dental information given to patient?: No HPI 3mth f./u HPI Details hypothyroidism on rx; doing well and compliant [facility] Medical History Patellofemoral arthritis of right knee Hypothyroidism Surgical History History of biopsy History of cholecystectomy History of section Family History Father CVD (cardiovascular disease) DVT (deep venous thrombosis) Mother Liver problem Kidney disease Diabetes Social History Housing: Apartment Alcohol intake: never Patient Tobacco Use Status: Never used Tobacco e-Cigarette/Vaping Use: Never Used Second Hand Smoke Exposure: No service: No Current occupational status: 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 1. Little interest or pleasure in doing things: not at all 2. Feeling down, depressed, or hopeless: not at all 3. Trouble falling or staying asleep, or sleeping too much: not at all 4. Feeling tired or having little energy: not at all 5. Poor appetite or overeating: not at all 6. Feeling bad about yourself - or that you are a failure or have let yourself or your family down: not at all 7. Trouble concentrating on things, such as reading the newspaper or watching television: not at all 8. Moving or speaking so slowly that other people could have noticed. Or the opposite - being so fidgety or restless that you have been moving around a lot more than usual: not at all 9. Thoughts that you would be better off or of hurting yourself in some way: not at all Total score: 0 Depression Screening Interpretation: Negative Depression Screening Done: Yes Source: Developed by Drs. Deepak Mason, Christina Armando, Darrell Cardenas and colleagues, with an educational susie from [employer]. Thrive Questionnaire Date Thrive assessed: 07/24/24 I am a: Patient What is your living situation today?: I have a steady place to live Within the past 12 months, did the food you bought not last and you didn't have the money to get more?: Never true Within the past 12 months, did you worry whether your food would run out before you got money to buy more?: Never true Do you have trouble paying for medicines?: No Do you have trouble getting transportation to medical appointments?: No Do you have trouble paying your heating and electricity bill?: No Do you have trouble taking care of your child, family member or friend?: No Do you have trouble with day-to-day activities such as bathing, preparing meals, shopping, managing finances, etc.?: No Are you currently unemployed and looking for a job?: No Are you interested in more education?: No Please select the resources that you would like help with: None Currently or been in a relationship where the following occur: No concerns reported THRIVE Score: 0 AUDIT C Alcohol Use Questionnaire (AUDIT-C) 1. How often do you have a drink containing alcohol?: Never Total Score: 0 CAMILLE-7 AMB Questionnaire CAMILLE-7 Date CAMILLE - 7 assessed: 07/24/24 Feeling nervous, anxious, or on edge: 0 = Not at all Not being able to stop or control worryin = Not at all Worrying too much about different things: 0 = Not at all Trouble relaxin = Not at all Being so restless that it is hard to sit still: 0 = Not at all Becoming easily annoyed or irritable: 0 = Not at all Feeling afraid as if something awful might happen: 0 = Not at all Total CAMILLE-7 score (0-4 normal; 5-9 mild; 10-14 moderate; 15-21 severe): 0 Source: Developed by Drs. Deepak Mason, Christina Armando, Darrell Cardenas and colleagues, with an educational susie from [employer]. Review of Systems Const Denies chills, Denies headache(s) and Denies weight loss ENT Denies headache(s) Card Denies chest pain, Denies syncope, Denies irregular heart rhythm and Denies dyspnea Resp Denies chest congestion, Denies cough and Denies dyspnea GI Denies abdominal pain, Denies change in stool character, Denies nausea and Denies vomiting Musc Denies deformity and Denies joint swelling Neuro Denies syncope and Denies headache(s) Physical exam (Primary Care) Vital Signs: Last Vital Signs Temp 97.3 F 07/24/24 14:01 Pulse 86 07/24/24 14:01 BP 110/60 07/24/24 14:01 Pulse Ox 98 07/24/24 14:01 Oxygen Delivery Method Room Air 07/24/24 14:01 BMI result Body Mass Index 26.4 Tobacco/Smoking Status: Tobacco use Status Tobacco use date assessed 07/24/24 07/24/24 14:05 Patient Tobacco Use Status Never used Tobacco 07/24/24 14:05 e-Cigarette/Vaping Use Never Used 07/24/24 14:05 PHQ-9: PHQ-9 Score PHQ-9: Total score 0 07/24/24 14:05 Depression Screening Interpretation: Negative Thrive Assessment: Date of Thrive Assessment Date Thrive assessed 07/24/24 07/24/24 14:05 Currently or been in a relationship where the following occur: No concerns reported Const General: cooperative, comfortable, no acute distress and alert Neck Neck: Yes no lymphadenopathy Thyroid: Thyroid normal Resp Effort & Inspection: normal respiratory effort Auscultation: clear to auscultation bilaterally Percussion: percussion normal Cardio Jugular venous distension: no JVD Palpation: normal PMI Rate: regular rate Rhythm: regular rhythm Heart sounds: S1 normal heart sound present and S2 normal heart sound present GI Inspection: Yes normal to inspection Palpation (GI): No hepatosplenomegaly present Skin General skin exam: no rashes or lesions noted Extrem General: Yes no clubbing, cyanosis or edema Coding Level of Care Code Est Pt Level 3 (32636) Diagnoses Hypothyroidism E03.9 Assessment & Plan Assessment & Plan (1) Hypothyroidism: Code(s): E03.9 - Hypothyroidism, unspecified Category: Medical Plan: stable; same rx Medications: New ciprofloxacin HCl (Cipro) 250 mg PO BID 10 tabs 0RF
[2024-07-24 14:01] VITALS: BP 110/60; PULSE 86; TEMP 36.3; O2SAT 98; BMI 26.4
--- OUTSIDE RECORDS SUMMARY | 2024-07-24 16:45 | XMS_ITS | Data Portability ---
Author Organization [place] - [facility], Allergy Address [address] [address] Care Team Providers Care Community Health Consultant Name Role Phone BETH ROSA Primary Care Provider Assessment Encounter Date Assessment Date Assessment LastModified by Organization Details LastModified Time 05/29/2024 05/29/2024 Visit With: Carolynn Marin Use of Antihistamine s: No If yes: Vial Test Change in medications: No If yes ?? Increase in asthma symptoms No Asthma Hx If yes, inhaler use: Reaction to last injections: No If yes: ?? Allergy Symptoms: Other: ?? Missed: Dose Aware of Vial Test Notes:?? [email or web address] Not available 05/29/2024 11:28:03 06/11/2024 06/11/2024 Visit With: GEMA Ontiveros Use of Antihistamine s: No If yes: Vial Test Change in medications: No If yes ?? Increase in asthma symptoms If yes, inhaler use: Reaction to last injections: No If yes: ?? Allergy Symptoms: Other: ?? Missed: Dose Aware of Vial Test Notes:?? [email or web address] Not available 06/11/2024 13:45:05 06/25/2024 06/25/2024 Visit With: Carolynn Marin Use of Antihistamine s: No If yes: Vial Test Change in medications: No If yes ?? Increase in asthma symptoms If yes, inhaler use: Reaction to last injections: No If yes: ?? Allergy Symptoms: Other: ?? Missed: Dose Aware of Vial Test Notes:?? [email or web address] Not available 06/25/2024 17:08:11 07/09/2024 07/09/2024 Visit With: Carolynn Marin Use of Antihistamine s: No If yes: Vial Test Change in medications: No If yes ?? Increase in asthma symptoms If yes, inhaler use: Reaction to last injections: No If yes: ?? Allergy Symptoms: Other: ?? Missed: Dose Aware of Vial Test Notes:?? [email or web address] Not available 07/09/2024 16:36:36 07/23/2024 07/23/2024 Visit With: Cherie Herman RN Use of Antihistamine s: No If yes: Vial Test Change in medications: No If yes ?? Increase in asthma symptoms If yes, inhaler use: Reaction to last injections: No If yes: ?? Allergy Symptoms: Other: ?? Missed: Dose Aware of Vial Test Notes:??marshal dye trouble with vomiting [email or web address] Not available 07/23/2024 16:46:20 Plan of Treatment Reminders Order Date Submit Date Provider Last Modified By Organization Details Last Modified Time Details Appointments [facility]- Allergy f-up 6mon 2024 03:45P M AVEL [...] and Address Organization Details Recorded Time Headache 96515469 Active 2019 Headache, unspecifi ed; Note: Changed from R51 to R51.9 (07/01/2020 3:34 PM) , Date Diagnosed : 07/03/2019 4:22 PM (R51) Not Available [facility] 4 02:13:25 Tinnitus of vascular origin 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 Active 2022 Pulsatile tinnitus, right ear; Note: Date Diagnosed : 08/02/2022 4:38 PM (H93.A1) Not Available [facility] 4 02:14:37 Allergic rhinitis 96750586 Active 2023 [facility] [address] Pavel laurenekmartine HERNANDEZ MD [address] [place] [address],[place] [address], [facility] [place], [address] , [facility] - [facility] 4 11:34:09 Bilateral tinnitus 89756290113 02 Active 2018 Tinnitus, bilateral ; Note: Date Diagnosed : 01/23/2019 4:23 PM (H93.13) Not Available [facility] 4 02:13:43 Perennial allergic rhinitis 672319073 Active 2023 SOILA BIRCH [facility] 100 [facility],[address], [address] , [facility] - [facility] [place] 4 16:27:42 Vasomotor rhinitis 0581052 Active 2023 Vasomotor rhinitis; Note: Date Diagnosed : 07/13/2023 4:55 PM (J30.0) Not Available [facility] 02:13:53 Acute maxillary sinusitis 30369662 Active 2023 Acute maxillary sinusitis , unspecifi ed; Note: Date Diagnosed : 07/13/2023 4:55 PM (J01.00) Not Available [facility] 4 02:14:10 Problem Notes None recorded. Procedures Surgical History Date Name Laterality Status Provider Name and Address Organization Details Recorded Time 07/23/19 25 Allergy Immunotherapy Injections completed SOILA BIRCH A 100 [facility],[address], [address], [facility] - [facility] 07/23/2024 16:45:52 07/09/19 25 Allergy Immunotherapy Injections completed SOILA BIRCH A 100 [facility],[address], [address], [facility] - [facility] [place] 07/09/2024 16:36:30 06/25/19 25 Allergy Immunotherapy Injections completed CAROLYNN MARIN [facility] 100 [facility],[address], [address], [facility] - [facility] [place] 06/25/2024 17:07:58 06/11/19 25 Allergy Immunotherapy Injections completed SO[facility] BIRCH [facility]MA [facility],[place] [address] [place] [address], [address], [facility] - [facility] [place] 06/11/2024 13:44:47 05/29/19 25 Allergy Immunotherapy Injections completed SOILA BIRCH, RMA [address], [place], [address], [place] - [facility] [place] 05/29/2024 11:27:48 05/14/20 24 Allergy Immunotherapy Injections completed CHERIE HERMAN RN [address], [place], [address], [place] - [facility] 05/14/2024 16:33:31 04/30/20 24 Allergy Immunotherapy Injections completed SOILA BIRCH, RMA [address], [place], [address], [place] [facility] 04/30/2024 16:31:43 04/16/20 24 Allergy Immunotherapy Injections completed SOILA BIRCH, RMA [address], [place], [address], [place] [facility] 04/16/2024 17:03:52 04/02/20 24 Allergy Immunotherapy Injections completed GEMA MAYS [address], [place], [address], [place] - [facility] [place] [facility] 04/02/2024 16:17:47 03/19/20 24 Allergy Immunotherapy Injections completed CHERIE HERMAN RN [address] [address],[place] [address] [place] [address], [address], [place] - [facility] [place] [facility] 03/19/2024 16:26:16 03/07/20 24 Allergy Immunotherapy Injections completed SOILA BIRCH RMA [address],[place] [address], [address], [place] [facility] 03/07/2024 13:40:29 02/20/20 24 Allergy Immunotherapy Injections completed GEMA MAYS [address],[place] [address], [address], [place] [facility] 02/20/2024 17:11:11 02/06/20 24 Allergy Immunotherapy Injections completed CHERIE HERMAN RN [address],[place] [address], [address], [place] [facility] 02/07/2024 08:49:22 01/22/20 24 Allergy Immunotherapy Injections completed GEMA MAYS [address],[place] [facility], [place], [address], [facility] - [facility] [place] 01/22/2024 14:00:20 01/08/20 24 Allergy Immunotherapy Injections completed GEMA MAYS [address], [place], [address], [place] [facility] [place] 01/08/2024 12:12:08 12/26/19 24 Allergy Immunotherapy Injections completed CHERIE HERMAN RN [address], [place], [address], [place] [facility] 12/26/2023 16:50:55 12/12/19 24 Allergy Immunotherapy Injections completed CHERIE HERMAN RN [address],[place] [address] [place] [address], [address], [place] - [facility] 12/12/2023 16:40:58 11/27/19 24 Allergy Immunotherapy Injections completed GEMA MAYS [address],[place] [facility] [place], [place], [address], [facility] - [facility] [place] 11/27/2023 16:41:14 11/14/19 24 Allergy Immunotherapy Injections completed GEMA ONTIVEROS [address],[place] [address] [place] [address], [address], [facility] - [facility] 11/14/2023 11:18:33 10/31/19 24 Allergy Immunotherapy Injections completed GEMA ONTIVEROS [address] [facility],[place] [address] [place] [address], [address], [facility] - [facility] [place] 10/31/2023 16:21:15 10/17/19 24 Allergy Immunotherapy Injections completed SOILA BIRCH RMJohnny [address],[place] [address], [address], [facility] - [facility] [place] 10/17/2023 16:28:03 Imaging Results None recorded. Procedure Notes None recorded. Medical Equipment None Reported. Medications Name Sig Start Date Stop Date Status Note LastModified by Organization Details LastModified Time levothyro xine 137 mcg tablet 07/01 completed Medicati on ID: [id number] D uration Value: 30 Brand Name: levothyr [...] gram tablet 09/12 completed Medicati on ID: [id number] D uration Value: 30 Reason: () Brand [...] mg tablet 01/23 completed Medicati on ID: [id number] D uration Value: 3 Reason: () Brand Name: ondanset atif HCl Send Method: E-Prescr ibed Sub s Allowed: subs OK Speci al Instruct ion: TAKE 1 TABLET BY MOUTH EVERY 6 HOURS NEEDED FOR NAUSEA & VOMITING . Medica tionGene ricName: ondanset atif HCl Not Available Not Available Not Available omeprazol e 40 mg capsule,d elayed release 01/02 completed Medicati on ID: [id number] D uration Value: 14 Reason: () Brand Name: omeprazo le Send Method: E-Prescr ibed Sub s Allowed: subs OK Speci al Instruct ion: TAKE ONE CAPSULE BY MOUTH EVERY DAY FOR 14 DAYS Med icationG enericNa me: omeprazo le Not Available Not Available Not Available levothyro xine 25 mcg tablet 01/02 completed Medicati on ID: [id number] D uration Value: 30 Reason: () Brand Name: levothyr oxine Se nd Method: E-Prescr ibed Sub s Allowed: subs OK Speci al Instruct ion: TAKE 1 TABLET BY MOUTH EVERY DAY ON EMPTY STOMACH IN THE MORNING TAKE WITH 50MCG FOR TOTAL 125MCG horace Ngeneric Name: levothyr oxine Not Available Not Available Not Available levothyro xine 50 mcg tablet 01/23 completed Medicati on ID: [id number] D uration Value: 30 Reason: () Brand Name: levothyr oxine Se nd Method: E-Prescr ibed Sub s Allowed: subs OK Speci al Instruct ion: TAKE 2 TABLETS ON AN EMPTY STOMACH IN THE MORNING ONCE A DAY TAKE WITH 25MCG FOR TOTAL OF 125MCG horace Ng[facility] Name: levothyr oxine Not Available Not Available Not Available levothyro xine 125 mcg tablet TOME ADRIANA TABLETA TODOS LOS D active Not Available Not Available No t Available Citrucel 500 mg tablet 01/02 completed Medicati on ID: [id number] D uration Value: 30 Reason: () Brand Name: Citrucel Send Method: E-Prescr ibed Sub s Allowed: subs DANIELLA Guilloryi al Instruct ion: TAKE 2 TABLETS BY MOUTH DAILY, DRINK 8 OZ WATER WITH TABLETS Medicati onGeneri cName: Citrucel Not Available Not Available Not Available levothyro xine 150 mcg tablet 05/19 completed Medicati on ID: [id number] D uration Value: 30 Reason: () Brand Name: levothyr oxine Se nd Method: E-Prescr ibed Sub s Allowed: subs DANIELLA Guilloryi al Instruct ion: TAKE 1 TABLET BY MOUTH EVERY DAY Medi cationGe nericNam e: levothyr oxine Not Available Not Available Not Available omeprazol e 20 mg capsule,d elayed release 07/01 completed Medicati on ID: [id number] D uration Value: 30 Brand Name: omeprazo le Send Method: E-Prescr ibed Sub s Allowed: subs DANIELLA Speci al Instruct ion: TAKE 1 CAPSULE [...] Relief 50 mcg/actua tion nasal spray,gabrielle pension [place] 2 spray into both nostrils once a day 07/01 completed Medicati on ID: [id number] D uration Value: 30 Brand Name: Flonase [...] Diagnosis/Indication Diagnosis SNOMED-CT Code Diagnosis ICD10 Code Diagnosis Note 1218 AVEL HERNANDEZ MD Allergy [address] [place] [address] 100 [facility] [address] 10/17/2023 16:13:22 10/17/2023 17:41:05 Perennial allergic rhinitis 249418191 J30.89 2931 [facility] Allergy [address] [place] [address] ite 100 [facility] [address] 10/31/2023 16:06:43 10/31/2023 16:22:50 Perennial allergic rhinitis 546436994 J30.89 4686 [facility] Allergy [address] [place] [address], ite 100 [facility] [address] 11/14/2023 11:17:23 11/14/2023 14:48:16 Perennial allergic rhinitis 986958075 J30.89 6403 CAROLYNN MARIN [facility] Allergy [address] [place] [address],[place]e 100 [facility] [place] [address] 11/27/2023 16:10:47 11/27/2023 16:44:32 Perennial allergic rhinitis 723631120 J30.89 8352 CHERIE HERMAN RN Allergy [address] [place] [address],[place] [address] [place] [address] 12/12/2023 16:17:18 12/12/2023 16:41:45 Perennial allergic rhinitis [id number] J30.89 59573 CHERIE HERMAN RN Allergy [address] [place] [address], [address] [place] [address] 12/26/2023 16:12:41 12/26/2023 16:54:07 Perennial allergic rhinitis 098919391 J30.89 45547 CAROLYNN MARIN [facility] Allergy [address] [place] [address],[place] [address] [place] [address] 01/08/2024 10:13:46 01/08/2024 12:13:56 Perennial allergic rhinitis [id number] J30.89 10357 CAROLYNN MARIN [facility] Allergy [address] [place] [address], [address] [place] [address] 01/22/2024 13:40:12 01/22/2024 15:01:18 Perennial allergic rhinitis [id number] J30.89 36462 AVEL HERNANDEZ MD [facility] [place] 100 [facility] [place] [address] 02/01/2024 15:36:38 02/01/2024 16:07:42 Allergic rhinitis 73756249 J30.89 17383 CHERIE HERMAN RN Allergy [address] [place] [address], [address] [place] [address] 02/06/2024 16:23:19 02/07/2024 08:49:55 Perennial allergic rhinitis 198718443 J30.89 64094 CAROLYNN MARIN [facility] Allergy [address] [place] [address],[place] [address] [place] [address] 02/20/2024 16:26:39 02/20/2024 17:23:59 Perennial allergic rhinitis 569618022 J30.89 67363 SOILA BIRCH, A Allergy 100 [facility],[place] [address] [place] [address] 03/07/2024 12:27:11 03/07/2024 13:41:01 Perennial allergic rhinitis 494841170 J30.89 57502 CHERIE HERMAN RN Allergy [address] [place] [address],[place] [address] [place] [address] 03/19/2024 16:15:44 03/19/2024 16:27:02 Perennial allergic rhinitis 408547475 J30.89 37804 CAROLYNN MARIN, [facility] Allergy 100 [facility],[place] [address] [place] [address] 04/02/2024 16:11:14 04/02/2024 16:19:33 Perennial allergic rhinitis 074792398 J30.89 [id number] [facility], A Allergy 100 [facility],[place] [address] [place] [address] 04/16/2024 16:44:27 04/16/2024 17:04:24 Perennial allergic rhinitis 019917805 J30.89 09882 [facility], A Allergy [address] [place] [address],[place] [address] [place] [address] 04/30/2024 16:13:35 04/30/2024 16:32:22 Perennial allergic rhinitis 564291465 J30.89 [id number] CHERIE HERMAN RN Allergy [address] [place] [address],[place] [address] [place] [address] 05/14/2024 16:21:48 05/14/2024 16:34:07 Perennial allergic rhinitis [id number] J30.89 30061 [facility] Allergy [address] [place] [address],[place] [address] [place] [address] 05/29/2024 09:15:53 05/29/2024 11:28:25 Perennial allergic rhinitis 876934873 J30.89 94917 [facility], A Allergy 100 [facility],[place] [address] [place] [address] 06/11/2024 13:30:16 06/11/2024 13:45:27 Perennial allergic rhinitis [id number] J30.89 28417 CAROLYNN MARIN, A Allergy 100 [facility],[place] [address] [place] [address] 06/25/2024 16:57:05 06/25/2024 17:08:31 Perennial allergic rhinitis 371860589 J30.89 11142 SOILA WEINER, RMA [facility]ergy 100 [facility],[place] [address] [place] [address] 07/09/2024 16:24:50 07/09/2024 16:36:54 Perennial allergic rhinitis [id number] J30.89 [id number] SOILA BIRCH RMA Allergy 100 [facility],[place] [address] [place] [address] 07/23/2024 16:16:56 07/23/2024 16:46:34 Perennial allergic rhinitis [id number] J30.89 Health Concerns Section Related Observation LastModified by Organization Detai ls LastModified Time None Recorded Concern Status LastModified by Organization Details LastModified Time None Recorded Advance Directives Directive None Recorded Payers Encounter Date Sequence Insurance Name Policy Number Policy Gonsalez Covered Member ID Gonsalez Member ID Guarantor Name 05/29/2024 1 [employer] [place] (HMO) [id number] Deepa Ross [id number] 2 Deepa Ross 06/11/2024 1 [employer] [place] (HMO) [id number] Deepa Ross [id number] 2 Deepa Ross 06/25/2024 1 [employer] [place] (HMO) [id number] Deepa Ross [id number] 2 Deepa Ross 07/09/2024 1 [employer] [place] (HMO) [id number] Deepa Ross [id number] 2 Deepa Ross 07/23/2024 1 [employer] [place] (HMO) [id number] Deepa Ross [id number] 2 Deepa Ross OBGyn Episode No OBEpisode recorded.
--- OUTSIDE RECORDS SUMMARY | 2024-07-24 16:45 | XMS_ITS | Continuity of Care Document ---
Author Organization [place] - [facility], Allergy Address [address] [address] Care Team Providers Care Ergonomic Specialist Name Role Phone MOE BETH Primary Care Provider Assessment Encounter Date Assessment Date Assessment LastModified by Organization Details LastModified Time 07/09/2024 07/09/2024 Visit With: Carolynn Noland Use of Antihistamine s: No If yes: Vial Test Change in medications: No If yes ? ? ? Increase in asthma symptoms If yes, inhaler use: Reaction to last injections: No If yes: ? ? ? Allergy Symptoms: Other: ? ? ? Missed: Dose Aware of Vial Test Notes:? ? ? [email or web address] Not available 07/09/2024 16:36:36 Plan of Treatment Reminders Order Date Submit Date Provider Last Modified By Organization Details Last Modified Time Details Appointments [facility]- Allergy f-up 6mon 2024 03:45P M [...] and Address Organization Details Recorded Time Headache 04552931 Active 2019 Headache, unspecifi ed; Note: Changed from R51 to R51.9 (07/01/2020 3:34 PM) , Date Diagnosed : 07/03/2019 4:22 PM (R51) Not Available [facility] 02:13:25 Tinnitus of vascular origin 573248733 Active 2022 Pulsatile tinnitus, right ear; Note: Date Diagnosed : 08/02/2022 4:38 PM (H93.A1) Not Available [facility] 4 02:14:37 Allergic rhinitis 53423759 Active 2023 SCIT [address] Pavel HERNANDEZ MD [address], [place], [address] , [place] - [facility] [place] [place] 4 11:34:09 Bilateral tinnitus 79168756852 02 Active 2018 Tinnitus, bilateral ; Note: Date Diagnosed : 01/23/2019 4:23 PM (H93.13) Not Available [facility] 02:13:43 Perennial allergic rhinitis 170876978 Active 2023 SOILA BIRCH [facility] [address] [facility], [place], [address] , [facility] - [facility] [place] 4 16:27:42 Vasomotor rhinitis 7407431 Active 2023 Vasomotor rhinitis; Note: Date Diagnosed : 07/13/2023 4:55 PM (J30.0) Not Available [facility] 02:13:53 Acute maxillary sinusitis 76863010 Active 2023 Acute maxillary sinusitis , unspecifi ed; Note: Date Diagnosed : 07/13/2023 4:55 PM (J01.00) Not Available [facility] 02:14:10 Problem Notes None recorded. Procedures Surgical History Date Name Laterality Status Provider Name and Address Organization Details Recorded Time 07/23/19 25 Allergy Immunotherapy Injections completed SOILA BIRCH RMA [address], [place], [address], [facility] - [facility] [place] 07/23/2024 16:45:52 07/09/19 25 Allergy Immunotherapy Injections completed SOILA BIRCH RMA [address], [place], [address], [facility] - [facility] [place] 07/09/2024 16:36:30 06/25/19 25 Allergy Immunotherapy Injections completed CAROLYNN TOMAS, RMA [address], [place], [address], [place] - [facility] [place] 06/25/2024 17:07:58 06/11/19 25 Allergy Immunotherapy Injections completed SOILA BIRCH, RMA [address], [place], [address], [place] [facility] [place] [place] 06/11/2024 13:44:47 05/29/19 25 Allergy Immunotherapy Injections completed SOILA WEINERC, RMA [address], [place], [address], [place] [facility] [place] [place] 05/29/2024 11:27:48 05/14/20 24 Allergy Immunotherapy Injections completed CHERIE HERMAN RN [address] [place] [address], [address], [place] - [facility] [place] [place] 05/14/2024 16:33:31 04/30/20 24 Allergy Immunotherapy Injections completed SOILA BIRCH, RMA [address] [place] [address], [address], [place] - [facility] [place] 04/30/2024 16:31:43 04/16/20 24 Allergy Immunotherapy Injections completed SOILA BIRCH, RMA [address] [place] [address], [address], [place] [facility] [place] [place] 04/16/2024 17:03:52 04/02/20 24 Allergy Immunotherapy Injections completed GEMA MAYS [address] [place] [address], [address], [place] [facility] [place] [place] 04/02/2024 16:17:47 03/19/20 24 Allergy Immunotherapy Injections completed CHERIE HERMAN RN [address], [place], [address], [place] [facility] [place] [place] 03/19/2024 16:26:16 03/07/20 24 Allergy Immunotherapy Injections completed SOILA BIRCH, RMA [address], [place], [address], [place] [facility] [place] [place] 03/07/2024 13:40:29 02/20/20 24 Allergy Immunotherapy Injections completed GEMA MAYS [address], [place], [address], [place] [facility] [place] [place] 02/20/2024 17:11:11 02/06/20 24 Allergy Immunotherapy Injections completed CHERIE HERMAN RN [address], [place], [address], [place] [facility] [place] [place] 02/07/2024 08:49:22 01/22/20 24 Allergy Immunotherapy Injections completed GEMA MAYS [address], [place], [address], [place] [facility] [place] [place] 01/22/2024 14:00:20 01/08/20 24 Allergy Immunotherapy Injections completed GEMA MAYS [address], [place], [address], [place] [facility] [place] [place] 01/08/2024 12:12:08 12/26/19 24 Allergy Immunotherapy Injections completed CHERIE HERMAN RN 100 [facility],[address] [place] [address], [address], [place] [facility] [place] [place] 12/26/2023 16:50:55 12/12/19 24 Allergy Immunotherapy Injections completed CHERIE HERMAN RN [address] [place] [address], [address], [place] [facility] [place] [place] 12/12/2023 16:40:58 11/27/19 24 Allergy Immunotherapy Injections completed GEMA MAYS [address] [place] [address], [address], [place] [facility] [place] [place] 11/27/2023 16:41:14 11/14/19 24 Allergy Immunotherapy Injections completed GEMA MARINELLI [address], [place], [address], [place] [facility] 11/14/2023 11:18:33 10/31/19 24 Allergy Immunotherapy Injections completed GEMA MARINELLI [address], [place], [address], [place] [facility] [place] [place] 10/31/2023 16:21:15 10/17/19 24 Allergy Immunotherapy Injections completed SAMSON MARINELLIA 100 [facility] [address], [place], [address], [facility] - [facility] 10/17/2023 16:28:03 Imaging Results None recorded. Procedure Notes None recorded. Medical Equipment None Reported. Medications Name Sig Start Date Stop Date Status Note LastModified by Organization Details LastModified Time levothyro xine 137 mcg tablet 07/01 completed Medicati on ID: [id number] D uration Value: 30 Brand Name: levothyr [...] gram tablet 09/12 completed Medicati on ID: [id number] D uration Value: 30 Reason: () Brand [...] mg tablet 01/23 completed Medicati on ID: [id number] D uration Value: 3 Reason: () Brand Name: ondanset atif HCl Send Method: E-Prescr ibed Sub s Allowed: subs OK Speci al Instruct ion: TAKE 1 TABLET BY MOUTH EVERY 6 HOURS NEEDED FOR NAUSEA & VOMITING . Medica tionGene ricName: ondanset atif HCl Not Available Not Available Not Available omeprazol e 40 mg capsule,d elayed release 01/02 completed Medicati on ID: [id number] D uration Value: 14 Reason: () Brand Name: omeprazo le Send Method: E-Prescr ibed Sub s Allowed: subs OK Speci al Instruct ion: TAKE ONE CAPSULE BY MOUTH EVERY DAY FOR 14 DAYS Med icationG enericNa me: omeprazo le Not Available Not Available Not Available levothyro xine 25 mcg tablet 01/02 completed Medicati on ID: [id number] D uration Value: 30 Reason: () Brand Name: levothyr oxine Se nd Method: E-Prescr ibed Sub s Allowed: subs DANIELLA Guilloryi al Instruct ion: TAKE 1 TABLET BY MOUTH EVERY DAY ON EMPTY STOMACH IN THE MORNING TAKE WITH 50MCG FOR TOTAL 125MCG M horace Ngeneric Name: levothyr oxine Not Available Not Available Not Available levothyro xine 50 mcg tablet 01/23 completed Medicati on ID: [id number] D uration Value: 30 Reason: () Brand Name: levothyr oxine Se nd Method: E-Prescr ibed Sub s Allowed: subs DANIELLA Bahena al Instruct ion: TAKE 2 TABLETS ON AN EMPTY STOMACH IN THE MORNING ONCE A DAY TAKE WITH 25MCG FOR TOTAL OF 125MCG M horace Ngeneric Name: levothyr oxine Not Available Not Available Not Available levothyro xine 125 mcg tablet TOME ADRIANA TABLETA TODOS LOS D active Not Available Not Available No t Available Cit[employer] 500 mg tablet 01/02 completed Medicati on ID: [id number] D uration Value: 30 Reason: () Brand Name: Citrucel Send Method: E-Prescr ibed Sub s Allowed: subs DANIELLA Guilloryi al Instruct ion: TAKE 2 TABLETS BY MOUTH DAILY, DRINK 8 OZ WATER WITH TABLETS Medicati onGeneri cName: Citrucel Not Available Not Available Not Available levothyro xine 150 mcg tablet 05/19 completed Medicati on ID: [id number] D uration Value: 30 Reason: () Brand Name: levothyr oxine Se nd Method: E-Prescr ibed Sub s Allowed: subs DANIELLA Bahena al Instruct ion: TAKE 1 TABLET BY MOUTH EVERY DAY Medi cationGe nericNam e: levothyr oxine Not Available Not Available Not Available omeprazol e 20 mg capsule,d elayed release 07/01 completed Medicati on ID: [id number] D uration Value: 30 Brand Name: omeprazo [...] Relief 50 mcg/actua tion nasal spray,gabrielle pension [place] 2 spray into both nostrils once a day 07/01 completed Medicati on ID: [id number] D uration Value: 30 Brand Name: Flonase [...] SNOMED-CT Code Diagnosis ICD10 Code Diagnosis Note [id number] SOILA HUSAMRosey RMA Allergy 100 [facility] it[address] 100 [place] [address] 06/11/2024 13:30:16 06/11/2024 13:45:27 Perennial allergic rhinitis 868910013 J30.89 06912 CAROLYNN NOLAND RMA Allergy 100 [facility],[address] [place] [address] 06/25/2024 16:57:05 06/25/2024 17:08:31 Perennial allergic rhinitis [id number] J30.89 00191 SOILA HUSAMRosey RMA Allergy [address] [place] [address] ite 100 [facility] [place] [address] 07/09/2024 16:24:50 07/09/2024 16:36:54 Perennial allergic rhinitis 758057585 J30.89 Health Concerns Section Related Observation LastModified by Organization Detai ls LastModified Time None Recorded Concern Status LastModified by Organization Details LastModified Time None Recorded Payers Encounter Date Sequence Insurance Name Policy Number Policy Gonsalez Covered Member ID Gonsalez Member ID Guarantor Name 07/09/2024 1 [facility] [employer] PLANS [facility] - [place] [employer] (HMO) [id number] Deepa Ross [id number] 2 Deepa Ross OBGyn Episode No OBEpisode recorded.
--- OUTSIDE RECORDS SUMMARY | 2024-07-24 16:45 | XMS_ITS | Continuity of Care Document ---
Author Organization [place] - [facility], Allergy Address [address] [address] Care Team Providers Care Orthopedic Rn Name Role Phone BETH ROSA Primary Care Provider Assessment Encounter Date Assessment Date Assessment LastModified by Organization Details LastModified Time 07/23/2024 07/23/2024 Visit With: Cherie Herman RN Use of Antihistamine s: No If yes: Vial Test Change in medications: No If yes ? ? ? Increase in asthma symptoms If yes, inhaler use: Reaction to last injections: No If yes: ? ? ? Allergy Symptoms: Other: ? ? ? Missed: Dose Aware of Vial Test Notes:? ? ?having trouble with vomiting skorzec Not available 07/23/2024 16:46:20 Plan of Treatment Reminders Order Date Submit Date Provider Last Modified By Organization Details Last Modified Time Details Appointments [facility]- Allergy f-up 6mon 2024 03:45P M AVEL [...] and Address Organization Details Recorded Time Headache 49284827 Active 2019 Headache, unspecifi ed; Note: Changed from R51 to R51.9 (07/01/2020 3:34 PM) , Date Diagnosed : 07/03/2019 4:22 PM (R51) Not Available [facility] 02:13:25 Tinnitus of vascular origin 297644047 Active 2022 Pulsatile tinnitus, right ear; Note: Date Diagnosed : 08/02/2022 4:38 PM (H93.A1) Not Available [facility] 4 02:14:37 Allergic rhinitis 84308401 Active 2023 SCIT [address] Zhao biweekly vinny HERNANDEZ MD 100 [facility],[address], [place], [address] , [facility] - [facility] 4 11:34:09 Bilateral tinnitus 19363101706 02 Active 2018 Tinnitus, bilateral ; Note: Date Diagnosed : 01/23/2019 4:23 PM (H93.13) Not Available [facility] 4 02:13:43 Perennial allergic rhinitis 775530727 Active 2023 SOILA BIRCH [facility] 100 [facility],[address], [place], [address] , [facility] - [facility] 4 16:27:42 Vasomotor rhinitis 4160442 Active 2023 Vasomotor rhinitis; Note: Date Diagnosed : 07/13/2023 4:55 PM (J30.0) Not Available [facility] 4 02:13:53 Acute maxillary sinusitis 74664983 Active 2023 Acute maxillary sinusitis , unspecifi ed; Note: Date Diagnosed : 07/13/2023 4:55 PM (J01.00) Not Available [facility] 4 02:14:10 Problem Notes None recorded. Procedures Surgical History Date Name Laterality Status Provider Name and Address Organization Details Recorded Time 07/23/19 25 Allergy Immunotherapy Injections completed SOILA BIRCH [facility] 100 [facility] [place],[address], [place], [address], [facility] - [facility] [place] 07/23/2024 16:45:52 07/09/19 25 Allergy Immunotherapy Injections completed SOILA BIRCH A [address] [facility] [address], [place], [address], [facility] - [facility] [place] 07/09/2024 16:36:30 06/25/19 25 Allergy Immunotherapy Injections completed SAMSON MAYSA [address], [place], [address], [place] - [facility] [place] 06/25/2024 17:07:58 06/11/19 25 Allergy Immunotherapy Injections completed SOILA BIRCH, RMA [address], [place], [address], [place] [facility] [place] 06/11/2024 13:44:47 05/29/19 25 Allergy Immunotherapy Injections completed SOILA WEINERC, RMA [address], [place], [address], [place] [facility] [place] 05/29/2024 11:27:48 05/14/20 24 Allergy Immunotherapy Injections completed CHERIE HERMAN RN [address] [place] [address], [address], [place] - [facility] [place] 05/14/2024 16:33:31 04/30/20 24 Allergy Immunotherapy Injections completed SOILA BIRCH, RMA [address], [place], [address], [place] [facility] [place] 04/30/2024 16:31:43 04/16/20 24 Allergy Immunotherapy Injections completed SOILA BIRCH, RMA [address], [place], [address], [place] [facility] [place] 04/16/2024 17:03:52 04/02/20 24 Allergy Immunotherapy Injections completed GEMA MAYS [address], [address], [place] [facility] [place] 04/02/2024 16:17:47 03/19/20 24 Allergy Immunotherapy Injections completed CHERIE HERMAN RN [address], [place], [address], [place] [facility] [place] 03/19/2024 16:26:16 03/07/20 24 Allergy Immunotherapy Injections completed SOILA BIRCH, RMA [address], [place], [address], [place] [facility] [place] 03/07/2024 13:40:29 02/20/20 24 Allergy Immunotherapy Injections completed GEMA MAYS [address], [place], [address], [place] [facility] [place] 02/20/2024 17:11:11 02/06/20 24 Allergy Immunotherapy Injections completed CHERIE HERMAN RN [address] [facility] [address], [place], [address], [place] [facility] [place] 02/07/2024 08:49:22 01/22/20 24 Allergy Immunotherapy Injections completed GEMA MAYS [address] [facility] [address], [place], [address], [place] [facility] [place] 01/22/2024 14:00:20 01/08/20 24 Allergy Immunotherapy Injections completed GEMA MAYS [address] [facility] [address], [place], [address], [place] [facility] [place] 01/08/2024 12:12:08 12/26/19 24 Allergy Immunotherapy Injections completed CHERIE HERMAN RN [address] [facility] [address] [place] [address], [address], [place] [facility] [place] 12/26/2023 16:50:55 12/12/19 24 Allergy Immunotherapy Injections completed CHERIE HERMAN RN [address] [facility] [address], [address], [place] [facility] [place] 12/12/2023 16:40:58 11/27/19 24 Allergy Immunotherapy Injections completed GEMA MAYS [address], [place], [address], [place] [facility] [place] 11/27/2023 16:41:14 11/14/19 24 Allergy Immunotherapy Injections completed GEMA MARINELLI [address], [place], [address], [place] [facility] [place] 11/14/2023 11:18:33 10/31/19 24 Allergy Immunotherapy Injections completed GEMA MARINELLI [address], [place], [address], [place] [facility] [place] 10/31/2023 16:21:15 10/17/19 24 Allergy Immunotherapy Injections completed [facility], [facility] 100 [facility] 100, [place], [address], [facility] - [facility] 10/17/2023 16:28:03 Imaging Results None recorded. Procedure Notes None recorded. Medical Equipment None Reported. Medications Name Sig Start Date Stop Date Status Note LastModified by Organization Details LastModified Time levothyro xine 137 mcg tablet 07/01 completed Medicati on ID: [id number] D uration Value: 30 Brand Name: levothyr [...] gram tablet 09/12 completed Medicati on ID: [id number] D uration Value: 30 Reason: () Brand [...] mg tablet 01/23 completed Medicati on ID: [id number] D uration Value: 3 Reason: () Brand Name: ondanset atif HCl Send Method: E-Prescr ibed Sub s Allowed: subs OK Speci al Instruct ion: TAKE 1 TABLET BY MOUTH EVERY 6 HOURS NEEDED FOR NAUSEA & VOMITING . Medica tionGene ricName: ondanset atif HCl Not Available Not Available Not Available omeprazol e 40 mg capsule,d elayed release 01/02 completed Medicati on ID: [id number] D uration Value: 14 Reason: () Brand Name: omeprazo le Send Method: E-Prescr ibed Sub s Allowed: subs OK Speci al Instruct ion: TAKE ONE CAPSULE BY MOUTH EVERY DAY FOR 14 DAYS Med icationG enericNa me: omeprazo le Not Available Not Available Not Available levothyro xine 25 mcg tablet 01/02 completed Medicati on ID: [id number] D uration Value: 30 Reason: () Brand Name: levothyr oxine Se nd Method: E-Prescr ibed Sub s Allowed: subs DANIELLA Speci al Instruct ion: TAKE 1 TABLET BY MOUTH EVERY DAY ON EMPTY STOMACH IN THE MORNING TAKE WITH 50MCG FOR TOTAL 125MCG pipetiisaiah nGeneric Name: levothyr oxine Not Available Not Available Not Available levothyro xine 50 mcg tablet 01/23 completed Medicati on ID: [id number] D uration Value: 30 Reason: () Brand Name: levothyr oxine Se nd Method: E-Prescr ibed Sub s Allowed: subs DANIELLA Speci al Instruct ion: TAKE 2 TABLETS ON AN EMPTY STOMACH IN THE MORNING ONCE A DAY TAKE WITH 25MCG FOR TOTAL OF 125MCG pipetiisaiah nGeneric Name: levothyr oxine Not Available Not Available Not Available levothyro xine 125 mcg tablet TOME ADRIANA TABLETA TODOS LOS D active Not Available Not Available No t Available Citrucel 500 mg tablet 01/02 completed Medicati on ID: [id number] D uration Value: 30 Reason: () Brand Name: Citrucel Send Method: E-Prescr ibed Sub s Allowed: subs DANIELLA Guilloryi al Instruct ion: TAKE 2 TABLETS BY MOUTH DAILY, DRINK 8 OZ WATER WITH TABLETS Medicati onGeneri cName: Citrucel Not Available Not Available Not Available levothyro xine 150 mcg tablet 05/19 completed Medicati on ID: [id number] D uration Value: 30 Reason: () Brand Name: levothyr oxine Se nd Method: E-Prescr ibed Sub s Allowed: subs DANIELLA Speci al Instruct ion: TAKE 1 TABLET BY MOUTH EVERY DAY Medi cationGe nericNam e: levothyr oxine Not Available Not Available Not Available omeprazol e 20 mg capsule,d elayed release 07/01 completed Medicati on ID: [id number] D uration Value: 30 Brand Name: omeprazo [...] Relief 50 mcg/actua tion nasal spray,gabrielle pension [place] 2 spray into both nostrils once a day 07/01 completed Medicati on ID: [id number] D uration Value: 30 Brand Name: Flonase [...] SNOMED-CT Code Diagnosis ICD10 Code Diagnosis Note [id number] ABHIJEET MARIN A Allergy 100 [facility] 100 [facility] [address] 06/25/2024 16:57:05 06/25/2024 17:08:31 Perennial allergic rhinitis [id number] J30.89 [id number] [facility] 100 [facility],[place] [address] 100 [facility] [address] 07/09/2024 16:24:50 07/09/2024 16:36:54 Perennial allergic rhinitis 719288681 J30.89 77407 [facility] 100 [facility] 100 [facility] [place] [address] 07/23/2024 16:16:56 07/23/2024 16:46:34 Perennial allergic rhinitis 153892183 J30.89 Health Concerns Section Related Observation LastModified by Organization Detai ls LastModified Time None Recorded Concern Status LastModified by Organization Details LastModified Time None Recorded Payers Encounter Date Sequence Insurance Name Policy Number Policy Gonsalez Covered Member ID Gonsalez Member ID Guarantor Name 07/23/2024 1 [facility] [employer] PLANS [facility] - DIRECT - [place] ZERO (HMO) [id number] Deepa Ross [id number] 2 Deepa Ross OBGyn Episode No OBEpisode recorded.
--- OUTSIDE RECORDS SUMMARY | 2024-07-24 16:45 | XMS_ITS | Continuity of Care Document ---
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 ? ? Increase in asthma symptoms If yes, inhaler use: Reaction to last injections: No If yes: ? ? ? Allergy Symptoms: Other: ? ? ? Missed: Dose Aware of Vial Test Notes:? ? ? [email or web address] Not available 06/25/2024 17:08:11 Plan of Treatment Reminders Order Date Submit Date Provider Last Modified By Organization Details Last Modified Time Details Appointments [facility]- Allergy f-up 6mon 2024 03:45P M [...] and Address Organization Details Recorded Time Headache 24158689 Active 2019 Headache, unspecifi ed; Note: Changed from R51 to R51.9 (07/01/2020 3:34 PM) , Date Diagnosed : 07/03/2019 4:22 PM (R51) Not Available [facility] 02:13:25 Tinnitus of vascular origin 691891242 Active 2022 Pulsatile tinnitus, right ear; Note: Date Diagnosed : 08/02/2022 4:38 PM (H93.A1) Not Available [facility] 02:14:37 Allergic rhinitis 78591874 Active 2023 [facility] [address] Pavel HERNANDEZ MD [address] [facility] [address], [place], [address] , [place] - [facility] 4 11:34:09 Bilateral tinnitus 79210075932 02 Active 2018 Tinnitus, bilateral ; Note: Date Diagnosed : 01/23/2019 4:23 PM (H93.13) Not Available [facility] 02:13:43 Perennial allergic rhinitis 734546943 Active 2023 SOILA BIRCH [facility] [address] [facility] [address], [place], [address] , [facility] - [facility] 4 16:27:42 Vasomotor rhinitis 2745342 Active 2023 Vasomotor rhinitis; Note: Date Diagnosed : 07/13/2023 4:55 PM (J30.0) Not Available [facility] 02:13:53 Acute maxillary sinusitis 34205034 Active 2023 Acute maxillary sinusitis , unspecifi ed; Note: Date Diagnosed : 07/13/2023 4:55 PM (J01.00) Not Available [facility] 02:14:10 Problem Notes None recorded. Procedures Surgical History Date Name Laterality Status Provider Name and Address Organization Details Recorded Time 07/23/19 25 Allergy Immunotherapy Injections completed SOILA BIRCH RMA [address] [facility] [address] [facility], [place], [address], [facility] - [facility] 07/23/2024 16:45:52 07/09/19 25 Allergy Immunotherapy Injections completed SOILA BIRCH RMA [address] [facility] [address], [place], [address], [facility] - [facility] 07/09/2024 16:36:30 06/25/19 25 Allergy Immunotherapy Injections completed CAROLYNN NOLAND Johnny [address], [address], [place] - [facility] 06/25/2024 17:07:58 06/11/19 25 Allergy Immunotherapy Injections completed SOILA BIRCH, RMA [address], [address], [place] - [facility] 06/11/2024 13:44:47 05/29/19 25 Allergy Immunotherapy Injections completed SOILA WEINERC, RMA [address], [place], [address], [place] - [facility] 05/29/2024 11:27:48 05/14/20 24 Allergy Immunotherapy Injections completed CHERIE HERMAN RN [address] [place] [address], [address], [place] - [facility] 05/14/2024 16:33:31 04/30/20 24 Allergy Immunotherapy Injections completed SOILA BIRCH RMA [address] [facility] [address],[address] [place] [address], [address], [place] - [facility] 04/30/2024 16:31:43 04/16/20 24 Allergy Immunotherapy Injections completed SOILA BIRCH, RMA [address] [place] [address], [address], [place] - [facility] 04/16/2024 17:03:52 04/02/20 24 Allergy Immunotherapy Injections completed GEMA MAYS [address] [place] [address], [address], [place] - [facility] 04/02/2024 16:17:47 03/19/20 24 Allergy Immunotherapy Injections completed CHERIE HERMAN RN [address], [address], [place] [facility] 03/19/2024 16:26:16 03/07/20 24 Allergy Immunotherapy Injections completed SOILA BIRCH RMA [address], [address], [place] [facility] 03/07/2024 13:40:29 02/20/20 24 Allergy Immunotherapy Injections completed GEMA MAYS [address], [place], [address], [place] [facility] 02/20/2024 17:11:11 02/06/20 24 Allergy Immunotherapy Injections completed CHERIE HERMAN RN [address], [address], [place] [facility] 02/07/2024 08:49:22 01/22/20 24 Allergy Immunotherapy Injections completed GEMA MAYS [address], [address], [place] - [facility] 01/22/2024 14:00:20 01/08/20 24 Allergy Immunotherapy Injections completed GEMA MAYS [address], [address], [place] [facility] 01/08/2024 12:12:08 12/26/19 24 Allergy Immunotherapy Injections completed CHERIE HERMAN RN [address] [facility] [address] [place] [address], [address], [place] - [facility] 12/26/2023 16:50:55 12/12/19 24 Allergy Immunotherapy Injections completed CHERIE HERMAN RN [address] [place] [address], [address], [place] [facility] 12/12/2023 16:40:58 11/27/19 24 Allergy Immunotherapy Injections completed GEMA MAYS [address], [address], [place] [facility] 11/27/2023 16:41:14 11/14/19 24 Allergy Immunotherapy Injections completed SOILA BIRCH RMJohnny [address], [address], [place] - [facility] 11/14/2023 11:18:33 10/31/19 24 Allergy Immunotherapy Injections completed GEMA MARINELLI [address], [address], [place] - [facility] 10/31/2023 16:21:15 10/17/19 24 Allergy Immunotherapy Injections completed SOILA BIRCH [facility] 100 [facility] [address], [place], [address], [facility] - [facility] 10/17/2023 16:28:03 Imaging Results None recorded. Procedure Notes None recorded. Medical Equipment None Reported. Medications Name Sig Start Date Stop Date Status Note LastModified by Organization Details LastModified Time levothyro xine 137 mcg tablet 07/01 completed Medicati on ID: [id number] D uration Value: 30 Brand Name: levothyr [...] gram tablet 09/12 completed Medicati on ID: [id number] D uration Value: 30 Reason: () Brand [...] mg tablet 01/23 completed Medicati on ID: [id number] D uration Value: 3 Reason: () Brand Name: ondanset atif HCl Send Method: E-Prescr ibed Sub s Allowed: subs OK Speci al Instruct ion: TAKE 1 TABLET BY MOUTH EVERY 6 HOURS NEEDED FOR NAUSEA & VOMITING . Medica tionGene ricName: ondanset atif HCl Not Available Not Available Not Available omeprazol e 40 mg capsule,d elayed release 01/02 completed Medicati on ID: [id number] D uration Value: 14 Reason: () Brand Name: omeprazo le Send Method: E-Prescr ibed Sub s Allowed: subs OK Speci al Instruct ion: TAKE ONE CAPSULE BY MOUTH EVERY DAY FOR 14 DAYS Med icationG enericNa me: omeprazo le Not Available Not Available Not Available levothyro xine 25 mcg tablet 01/02 completed Medicati on ID: [id number] D uration Value: 30 Reason: () Brand [...] mcg tablet 01/23 completed Medicati on ID: [id number] D uration Value: 30 Reason: () Brand Name: levothyr oxine Se nd Method: E-Prescr ibed Sub s Allowed: subs DANIELLA Guilloryi al Instruct ion: TAKE 2 TABLETS ON AN EMPTY STOMACH IN THE MORNING ONCE A DAY TAKE WITH 25MCG FOR TOTAL OF 125MCG horace Ngeneric Name: levothyr oxine Not Available Not Available Not Available levothyro xine 125 mcg tablet TOME ADRIANA TABLETA TODOS LOS D active Not Available Not Available No t Available Citrucel 500 mg tablet 01/02 completed Medicati on ID: [id number] D uration Value: 30 Reason: () Brand Name: Citrucel Send Method: E-Prescr ibed Sub s Allowed: subs DANIELLA Guilloryi al Instruct ion: TAKE 2 TABLETS BY MOUTH DAILY, DRINK 8 OZ WATER WITH TABLETS Medicati onGeneri cName: Citrucel Not Available Not Available Not Available levothyro xine 150 mcg tablet 05/19 completed Medicati on ID: [id number] D uration Value: 30 Reason: () Brand Name: levothyr oxine Se nd Method: E-Prescr ibed Sub s Allowed: subs DANIELLA Guilloryi al Instruct ion: TAKE 1 TABLET BY MOUTH EVERY DAY Medi cationGe nericNam e: levothyr oxine Not Available Not Available Not Available omeprazol e 20 mg capsule,d elayed release 07/01 completed Medicati on ID: [id number] D uration Value: 30 Brand Name: omeprazo [...] Relief 50 mcg/actua tion nasal spray,gabrielle pension [place] 2 spray into both nostrils once a day 07/01 completed Medicati on ID: [id number] D uration Value: 30 Brand Name: Flonase [...] SNOMED-CT Code Diagnosis ICD10 Code Diagnosis Note [id number] SOILA WEINER RMA Allergy [address] [place] [address] [address] [place] [address] 05/29/2024 09:15:53 05/29/2024 11:28:25 Perennial allergic rhinitis [id number] J30.89 26023 SOILA HUSAM, RMA Allergy [address] [facility],[address] [place] [address] 06/11/2024 13:30:16 06/11/2024 13:45:27 Perennial allergic rhinitis [id number] J30.89 22355 CAROLYNN NOLAND RMA Allergy [address] [place] [address] [address] [place] [address] 06/25/2024 16:57:05 06/25/2024 17:08:31 Perennial allergic rhinitis [id number] J30.89 Health Concerns Section Related Observation LastModified by Organization [employer] LastModified Time None Recorded Concern Status LastModified by Organization Details LastModified Time None Recorded Payers Encounter Date Sequence Insurance Name Policy Number Policy Gonsalez Covered Member ID Gonsalez Member ID Guarantor Name 06/25/2024 1 [facility] [employer] [facility] [place] (HMO) [id number] Deepa Ross [id number] Deepa Ross OBGyn Episode No OBEpisode recorded.
== END 2024-07-24 14:37 | disposition home or self-care (01) ==
PROVIDERS: PCP Internal Medicine; Visit Provider Internal Medicine
DX: E03.9 Hypothyroidism, unspecified (principal)

== ENCOUNTER 2024-08-11 07:30 | Emergency (ER) | payer OTHER, SELFPAY ==
[2024-08-11] VITALS (9 sets, daily range): BP systolic 92–111; BP diastolic 45–61; PULSE 61–114; RESP 12–20; TEMP 36.2–37.2; O2SAT 93–98; BMI 24.5
--- NOTE | 2024-08-11 | ECG_ITS ---
Test Reason : CP Blood Pressure : */* mmHG Vent. Rate : 108 BPM Atrial Rate : 108 BPM P-R Int : 184 ms QRS Dur : 76 ms QT Int : 334 ms P-R-T Axes : 55 29 44 degrees QTcB Int : 447 ms Sinus tachycardia Possible Left atrial enlargement Nonspecific T wave abnormality Abnormal ECG When compared with ECG of 26-Jun-2022 17:07, Nonspecific T wave abnormality, worse in Lateral leads Referred By: Generic ED Physician Electronically Signed By: Tray Willson
--- NOTE | ~2024-08-11 | XR_ITS ---
EXAMINATION: XR CHEST 2 VIEWS HISTORY: chest pain COMPARISON: Comparison is made with the prior examination dated 07/12/2022. FINDINGS: PA and lateral views of the chest are submitted. The lungs are expanded and clear. There is no pleural effusion, pneumothorax, or pulmonary vascular congestion. The heart is normal in size. The bones are intact. XR/XR chest 2V IMPRESSION: No acute cardiopulmonary abnormality. Electronically signed by: Deepak Masterson MD 08/11/2024 09:27 AM EDT
--- NOTE | ~2024-08-11 | CT_ITS ---
EXAMINATION: CT ABDOMEN PELVIS WITH IV CONTRAST HISTORY: abdominal pain COMPARISON: There are no prior studies for comparison. TECHNIQUE: CT scan of the abdomen and pelvis was performed following administration of 85 mL Omnipaque 350 using standard departmental protocol. Coronal and sagittal reformatted images were generated and reviewed. Oral contrast material was not administered at the request of the referring physician. This CT exam was performed with one or more of the following dose reduction techniques: automated exposure control, adjustment of the mA and/or kV according to patient size, use of iterative reconstruction technique. DLP: 529 mGy-cm FINDINGS: LOWER CHEST: The visualized lung bases are clear. There is no pleural effusion. CARDIOVASCULATURE: The heart is normal in size. There is no pericardial effusion. LIVER: The liver is normal in size and contour. No liver mass is identified. The hepatic and portal veins are patent. GALLBLADDER / BILE DUCTS: The gallbladder is surgically absent. There is no intra or extrahepatic biliary ductal dilatation. SPLEEN: The spleen is normal in size. No focal splenic lesion is identified. PANCREAS: The pancreas is unremarkable in appearance. ADRENAL GLANDS: Within normal limits. KIDNEYS/RETROPERITONEUM: No renal calculi are identified. There is no hydronephrosis. No renal masses are identified. LYMPH NODES: No abdominal or pelvic lymphadenopathy. VASCULATURE: The abdominal aorta demonstrates atherosclerotic calcification, but is normal in caliber. MESENTERY/PERITONEUM: No free fluid. No masses. There is no free intraperitoneal gas. STOMACH: The stomach is collapsed, limiting evaluation. SMALL BOWEL: The small bowel is normal in caliber. COLON: The colon is unremarkable. APPENDIX: Normal. URINARY BLADDER/PELVIC ORGANS: The urinary bladder is unremarkable. The uterus and ovaries are unremarkable. BONES / SOFT TISSUES: No suspicious bony or soft tissue abnormalities. CT/CT abdomen pelvis w IV con IMPRESSION: Unremarkable contrast-enhanced CT of the abdomen and pelvis. Electronically signed by: Deepak Masterson MD 08/11/2024 09:33 AM EDT
[2024-08-11 07:49] LABS: MANUAL DIFF FLAG NO
[2024-08-11 07:51] LABS: Basophils Percent Auto 0.3 % (0-2); Eosinophils Absolute Auto 0.2 X10*3/uL (0.0-0.4); Eosinophils Percent Auto 2.3 % (0-4); Hematocrit 37.9 % (37.0-47.0); Hemoglobin 12.4 g/dl (12.0-16.0); Imm Gran Abs Auto 0.02 X10*3/uL (0.00-0.03); Imm Gran Pct Auto 0.3 % (0.0-0.4); Lymphocytes Absolute Auto 0.3 X10*3/uL (1.2-4.9); Lymphocytes Percent Auto 3.6 % (20-40); Mean Corpuscular HGB Conc 32.7 g/dl (31.0-35.0); Mean Corpuscular Hemoglobin 28.8 pg (27.0-33.0); Mean Corpuscular Volume 88.1 fL (80.0-98.0); Mean Platelet Volume 10.6 fL (9.4-12.3); Monocytes Absolute Auto 0.4 X10*3/uL (0.1-1.2); Monocytes Percent Auto 5.1 % (2-11); Neutrophils Percent Auto 88.4 % (45-73); Platelet Count 222 X10*3/uL (160-400); Red Cell Distribution Width 12.1 % (11.0-16.0); White Blood Count 7.9 X10*3/uL (4.8-10.8)
[2024-08-11 07:58] LABS: INTERNATIONAL NORM RATIO 1.1 (0.9-1.1); Prothrombin Time 12.3 SEC (10.9-12.4)
--- NOTE | 2024-08-11 07:58 | ED_ITS ---
HPI - Nausea/Vomiting/Diarrhea General Chief complaint: Nausea/Vomiting/Diarrhea Stated complaint: CP, chills, unable to eat Time Seen by Provider: 08/11/24 07:58 Source: patient and RN notes reviewed Mode of arrival: ambulatory Limitations: no limitations History of Present Illness ED Provider: Paty Tomlinson PA-C HPI Narrative: This is a 59-year-old female, with a history of hypothyroidism, who presents to the emergency department with nausea, vomiting, and diarrhea x3 weeks. 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 She also states that she had an [employer] sandwich 3 weeks ago in his unsure if this caused her to have the symptoms. She states that since then she has had nausea, vomiting and diarrhea. She states that she is unable to tolerate anything orally secondary to nausea and vomiting. She went to her primary care physician where they started her on 5 day course of ciprofloxacin as she has a history of E coli?. She states that this did not alleviate any of your symptoms. She does report chest pain that only occurs with vomiting. Denies any shortness for breath. No known fevers. She does report intermittent abdominal pain that occurs with vomiting. MD elicited complaint: nausea, vomiting and diarrhea Associated nausea: Yes Associated abdominal pain: Yes Location of pain: none Quality: aching Exacerbating factors: none Relieving factors: none Context: possible food poisoning and sick contacts Associated symptoms: denies other symptoms Related Data Home Medications ?Medication ?Instructions ?Recorded ?Confirmed epinephrine 0.3 mg/0.3 mL IM 04/08/20 07/25/24 injection, auto-injector Previous Rx's ?Medication ?Instructions ?Recorded cetirizine 10 mg tablet (Zyrtec) 10 mg PO DAILY 30 days #30 tabs 07/02/21 levothyroxine 125 mcg tablet 125 mcg PO DAILY #90 tabs 03/12/24 albuterol sulfate 90 mcg/actuation 2 puff inhalation Q4-6H PRN 05/29/24 aerosol inhaler (Ventolin HFA) shortness of breath or wheezing #8.5 grams prednisone 20 mg tablet 20 mg PO QAM #5 tabs 05/29/24 ciprofloxacin HCl 250 mg tablet 250 mg PO BID #10 tabs 07/24/24 (Cipro) aluminum-mag hydroxide-simethicone 5 ml PO 5XD PRN dyspepsia #500 mL 08/11/24 200 mg-200 mg-20 mg/5 mL oral susp (Maalox Advanced) ondansetron 4 mg disintegrating 4 mg PO Q6H PRN nausea and 08/11/24 tablet vomiting #10 tabs Allergies Allergy/AdvReac Type Severity Reaction Status Date / Time No Known Allergies Allergy Verified 08/11/24 07:40 Review of Systems 2 Review of Systems: Yes all other systems are reviewed and are negative Constitutional: Constitutional: Reports as per HPI Gastrointestinal: Gastrointestinal: Reports nausea PMFSH Past Medical History Attestation statement: The following information was validated with the patient. 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 Current occupational exposures/hazards: No Cognitive needs: No Hearing needs: No Vision needs: Yes (Glasses) Physical Exam 2 Vital Signs: Vital Signs: Last Vital Signs Temp 97.6 F 08/11/24 15:24 Pulse 83 08/11/24 15:24 Resp 13 08/11/24 15:24 BP 108/57 L 08/11/24 15:24 Pulse Ox 97 08/11/24 15:24 O2 Del Method Room Air 08/11/24 15:24 BMI result Body Mass Index 24.5 Const: General: cooperative, comfortable and no acute distress O rientation/consciousness: patient oriented x3 Limitations: no limitations HEENT: Head: Yes normal to inspection, Yes normocephalic and Yes atraumatic Ears: hearing grossly normal bilaterally General nose exam: Normal external nose present Face and sinus: Yes normal facial exam Mouth: Normal oral and palatal mucosa present, oropharynx normal and moist mucous membranes Throat: Yes posterior oropharynx normal Eyes: General: appearance normal, both eyes and all related structures E yelids: Yes eyelids normal Conjunctivae: conjunctivae normal Sclerae: s clerae normal Pupils: Equal, round and reactive pupils present EOM: EOMs intact bilaterally Neck: Neck: Yes normal visual inspection, Yes full ROM and Yes no lymphadenopathy Lymphatic: no lymphadenopathy noted Chest: Chest palpation & inspection: normal inspection of the chest Resp: Effort & Inspection: normal respiratory effort and able to speak in complete sentences Auscultation: clear to auscultation bilaterally, no crackles, no rales, no rhonchi and no wheezes Cardio: Rate: regular rate Rhythm: regular rhythm Heart sounds: S1 normal heart sound present and S2 normal heart sound present GI: Other: Abdomen is soft, nontender, nondistended Inspection: Yes normal to inspection Skin: General skin exam: no rashes or lesions noted Trauma: no lacerations or abrasions Wounds: no wounds Neuro: General: patient oriented x3 and moves all extremities Cranial nerves: Yes Equal, round and reactive pupils present Extrem: General: Yes normal to inspection Right upper extremity: normal to inspection Left upper extremity: normal to inspection Right lower extremity: normal to inspection Left lower extremity: normal to inspection Course Reevaluation(s) Reevaluation #1: Patient re-evaluated, still having nausea and epigastric pain. Will medicate with Maalox and lidocaine. Will continue to closely monitor Time: 10:35 Reevaluation #2: Lab work returns, she has no leukocytosis, stable H&H, chemistry with no electrolyte derangement. She does have slight elevation in her AST and ALT at 88 in 63. Troponin x2 less than 2.7, lipase 20. Viral swabs negative. CT abdomen and pelvis unremarkable. Patient mildly hypotensive at 92/45, will order 2 L of lactated Ringer's. We will also obtain lactic and cultures however infection is not suspected at this time. Patient states that she was feeling much better after receiving GI cocktail. Time: 12:50 Reevaluation #3: Patient feeling much better, she has improvement of blood pressure. Will p.o. challenge. Time: 15:15 Medications Administered Discontinued Medications Generic Name Dose Route Start Last Admin Trade Name Caryn PRN Reason Stop Dose Admin Al Hydroxide/Mg Hydroxide 15 ml 08/11/24 10:38 08/11/24 11:32 Magnesium Hydrox/Alum Hydrox 30 Ml Oral.Susp PO 08/11/24 10:39 15 ml ONCE ONE Administration Lactated Ringer's 1,000 mls @ 999 mls/hr 08/11/24 08:15 08/11/24 10:45 Lr IV 08/11/24 09:15 Infused .Q1H1M ONE Infusion Acetaminophen 1,000 mg in 100 mls @ 400 mls/hr 08/11/24 08:15 08/11/24 08:51 Ofirmev IV 08/11/24 08:29 Infused ONCE ONE Infusion Lactated Ringer's 500 mls @ 999 mls/hr 08/11/24 12:49 08/11/24 14:19 Lr IV 08/11/24 13:19 Infused .Q31M ONE Infusion Iohexol 100 ml 08/11/24 09:12 08/11/24 09:13 Iohexol 350 Mg/Ml 100 Ml Infus..Btl IV 08/11/24 09:13 85 ml ONCE ONE Administration Lidocaine HCl 15 ml 08/11/24 10:38 08/11/24 11:32 Lidocaine Hcl Viscous 2 % 15 Ml Solution MUCOUS MEM 08/11/24 10:39 15 ml ONCE ONE Administration Ondansetron HCl 4 mg 08/11/24 08:15 08/11/24 08:33 Ondansetron Hcl 4 Mg/2 Ml Vial IVPUSH 08/11/24 08:16 4 mg ONCE ONE Administration Medical Decision Making Medical Decision Making [facility] Narrative: This is a 59-year-old female who presents emergency department with complaints of abdominal pain, nausea, vomiting diarrhea. She states that she has had chest pressure only with vomiting. She denies any fevers. She was exposed to norovirus several weeks ago, and states that she also had an [employer] sandwich on the same day, unsure if this is the source of her symptoms. She was seen by her primary care physician who prescribed a 5 day course of ciprofloxacin. She took this as prescribed however states that her symptoms have not improved. On arrival, patient tachycardic at 114, however when I evaluated patient, your heart was regular rate and rhythm. She is afebrile, nontoxic appearing. Abdomen is soft with diffuse tenderness throughout, no specific point tenderness. Normoactive bowel sounds present. Patient reports chest pain only occurs with vomiting. Differential diagnoses include ACS, gastritis, gastroenteritis, norovirus. Plan: Labs, EKG, chest x-ray, CT abdomen and pelvis. Will medicate with IV fluids, as well as antiemetics. Differential Diagnosis Differential Diagnoses: The differential diagnosis associated with the presentation includes See above Admission/Observation Consideration of admission/observation: Escalation of care including admission/observation considered Lab Data MDM Lab Attestation statement: I reviewed the patient's lab results. Leukocytosis, stable H&H, chemistry with no significant electrolyte derangement, she does have slight elevation in AST and ALT, likely viral in etiology. Specific urine gravity at > 1.030 08/11/24 07:43 08/11/24 07:43 Labs: Lab Results 08/11/24 08/11/24 08/11/24 Range/Units 07:43 10:07 13:24 WBC 7.9 (4.8-10.8) X10*3/uL RBC 4.30 (4.20-5.50) X10*6/uL Hgb 12.4 (12.0-16.0) g/dl Hct 37.9 (37.0-47.0) % MCV 88.1 (80.0-98.0) fL MCH 28.8 (27.0-33.0) pg MCHC 32.7 (31.0-35.0) g/dl RDW 12.1 (11.0-16.0) % Plt Count 222 (160-400) X10*3/uL MPV 10.6 (9.4-12.3) fL Immature Gran % (Auto) 0.3 (0.0-0.4) % Neut % (Auto) 88.4 H (45-73) % Lymph % (Auto) 3.6 L (20-40) % [place] % (Auto) 5.1 (2-11) % Eos % (Auto) 2.3 (0-4) % Baso % (Auto) 0.3 (0-2) % Lymph # (Auto) 0.3 L (1.2-4.9) X10*3/uL [place] # (Auto) 0.4 (0.1-1.2) X10*3/uL Eos # (Auto) 0.2 (0.0-0.4) X10*3/uL Baso # (Auto) 0.0 (0.0-0.2) X10*3/uL Abs Immat Gran (auto) 0.02 (0.00-0.03) X10*3/uL Absolute Neuts (auto) 7.0 (2.0-8.3) x10*3/uL Absolute Nucleated RBC 0.000 (0.0-0.012) X10*3/uL Nucleated RBC % (auto) 0.0 (0.0-0.2) /100WBC PT 12.3 (10.9-12.4) SEC INR 1.1 (0.9-1.1) D-Dimer High Sensitivty 150 NG/ML Sodium 142 (135-145) mmol/L Potassium 4.0 (3.3-5.1) mmol/L Chloride 107 (96-108) mmol/L Carbon Dioxide 26 (22-29) mmol/L Anion Gap 13 (12-20) BUN 8 L (9-16) mg/dL Creatinine 0.66 (0.5-1.4) mg/dL Estim Creat Clear Calc 84.6 Estimated GFR > 60 Random Glucose 111 (60-115) mg/dL Lactic Acid 0.8 (0.5-2.0) mmol/L Calcium 9.1 (8.4-10.2) mg/dL Magnesium 1.8 (1.6-2.6) mg/dL Total Bilirubin 0.7 (0.0-1.0) mg/dL AST 88 H (5-31) U/L ALT 63 H (0-31) U/L Alkaline Phosphatase 114 (39-117) U/L Troponin I High Sens < 2.7 < 2.7 (<3.5-17.0) ng/L Total Protein 7.8 (6.5-8.0) g/dL Albumin 4.3 (3.5-5.0) g/dL Lipase 20 (8-78) U/L Urine Color Urine Appearance Urine pH (5.0-9.0) Ur Specific [place] (1.005-1.025) Urine Protein (Neg-Trace) mg/dL Urine Glucose (UA) (Negative) mg/dL Urine Ketones (Negative) mg/dL Urine Blood (Negative) Urine Nitrite (Negative) Ur Leukocyte Esterase (Negative) Influenza Type A (PCR) NEGATIVE (Negative) Influenza Type B (PCR) NEGATIVE (Negative) RSV RNA Qual (PCR) NEGATIVE (Negative) SARS-CoV-2 RNA (RT-PCR) NEGATIVE (Negative) 08/11/24 Range/Units 14:54 WBC (4.8-10.8) X10*3/uL RBC (4.20-5.50) X10*6/uL Hgb (12.0-16.0) g/dl Hct (37.0-47.0) % MCV (80.0-98.0) fL MCH (27.0-33.0) pg MCHC (31.0-35.0) g/dl RDW (11.0-16.0) % Plt Count (160-400) X10*3/uL MPV (9.4-12.3) fL Immature Gran % (Auto) (0.0-0.4) % Neut % (Auto) (45-73) % Lymph % (Auto) (20-40) % [place] % (Auto) (2-11) % Eos % (Auto) (0-4) % Baso % (Auto) (0-2) % Lymph # (Auto) (1.2-4.9) X10*3/uL [place] # (Auto) (0.1-1.2) X10*3/uL Eos # (Auto) (0.0-0.4) X10*3/uL Baso # (Auto) (0.0-0.2) X10*3/uL Abs Immat Gran (auto) (0.00-0.03) X10*3/uL Absolute Neuts (auto) (2.0-8.3) x10*3/uL Absolute Nucleated RBC (0.0-0.012) X10*3/uL Nucleated RBC % (auto) (0.0-0.2) /100WBC PT (10.9-12.4) SEC INR (0.9-1.1) D-Dimer High Sensitivty NG/ML Sodium (135-145) mmol/L Potassium (3.3-5.1) mmol/L Chloride (96-108) mmol/L Carbon Dioxide (22-29) mmol/L Anion Gap (12-20) BUN (9-16) mg/dL Creatinine (0.5-1.4) mg/dL Estim Creat Clear Calc Estimated GFR Random Glucose (60-115) mg/dL Lactic Acid (0.5-2.0) mmol/L Calcium (8.4-10.2) mg/dL Magnesium (1.6-2.6) mg/dL Total Bilirubin (0.0-1.0) mg/dL AST (5-31) U/L ALT (0-31) U/L Alkaline Phosphatase (39-117) U/L Troponin I High Sens (<3.5-17.0) ng/L Total Protein (6.5-8.0) g/dL Albumin (3.5-5.0) g/dL Lipase (8-78) U/L Urine Color Yellow Urine Appearance Clear Urine pH 7.0 (5.0-9.0) Ur Specific [place] >= 1.030 H (1.005-1.025) Urine Protein Negative (Neg-Trace) mg/dL Urine Glucose (UA) Negative (Negative) mg/dL Urine Ketones Negative (Negative) mg/dL Urine Blood Negative (Negative) Urine Nitrite Negative (Negative) Ur Leukocyte Esterase Negative (Negative) Influenza Type A (PCR) (Negative) Influenza Type B (PCR) (Negative) RSV RNA Qual (PCR) (Negative) SARS-CoV-2 RNA (RT-PCR) (Negative) Radiology Impression Discussion of test interpretation with radiology: I have reviewed the radiologist's reading. External Record Review External record reviewed: Inpatient record, Office record, Outpatient record, Prior outpatient labs, Prior outpatient radiology, Primary care record and Outside ED record Discharge Plan Discharge Clinical Impression: Nausea & vomiting Patient Disposition: Home, Self-Care Instructions: Acute Nausea and Vomiting (ED) Additional Instructions: You were seen in the emergency department due to abdominal pain. Your workup today was reassuring. You likely have a virus causing you to have the symptoms. Please drink plenty of fluids get plenty of rest. Avoid spicy or fried foods. You were unable to provide a stool sample therefore I am recommending you follow-up with the GI specialist and your primary care physician regarding your symptoms. If any new or worsening symptoms occur including but not limited to severe abdominal pain, chest pain, shortness of breath, please seek emergent care. Prescriptions: New alum-mag hydroxide-simeth [Maalox Advanced] 200-200-20 mg/5 mL suspension 5 ml PO 5XD PRN (Reason: dyspepsia) Qty: 500 0RF Rx Instructions: administer between meals and at bedtime ondansetron 4 mg tablet,disintegrating 4 mg PO Q6H PRN (Reason: nausea and vomiting) Qty: 10 0RF No Action levothyroxine 125 mcg tablet 125 mcg PO DAILY Qty: 90 3RF epinephrine 0.3 mg/0.3 mL auto-injector IM cetirizine [Zyrtec] 10 mg tablet 10 mg PO DAILY 30 Days Qty: 30 0RF ciprofloxacin HCl [Cipro] 250 mg tablet 250 mg PO BID Qty: 10 0RF prednisone 20 mg tablet 20 mg PO QAM Qty: 5 0RF albuterol sulfate [Ventolin HFA] 90 mcg/actuation HFA aerosol inhaler 2 puff inhalation Q4-6H PRN (Reason: shortness of breath or wheezing) Qty: 8.5 0RF Referrals: [facility] [Provider Group] Stand Alone Forms: Work/School Release Print Language: [place]
[2024-08-11 08:11] LABS: Alanine Aminotransferase 63 U/L (0-31); Albumin Level 4.3 g/dL (3.5-5.0); Alkaline Phosphatase 114 U/L (39-117); Anion Gap 13 (12-20); Aspartate Amino Transferase 88 U/L (5-31); Bilirubin Total 0.7 mg/dL (0.0-1.0); Blood Urea Nitrogen 8 mg/dL (9-16); Calcium 9.1 mg/dL (8.4-10.2); Carbon Dioxide 26 mmol/L (22-29); Chloride 107 mmol/L (96-108); Creatinine Clr Calc Pharmacy 84.6; Estimated Glomerular Filt Rate > 60; Glucose Random 111 mg/dL (60-115); Magnesium 1.8 mg/dL (1.6-2.6); Sodium 142 mmol/L (135-145); Total Protein 7.8 g/dL (6.5-8.0)
[2024-08-11 08:21] LABS: Troponin-I High Sensitivity < 2.7 ng/L (<3.5-17.0)
[2024-08-11 08:30] LABS: Influenza A PCR NEGATIVE (Negative); Influenza B PCR NEGATIVE (Negative); Resp Syncy Virus RNA Qual PCR NEGATIVE (Negative); SARS COV2 PCR INHOUSE NEGATIVE (Negative)
[2024-08-11] MEDS: Lactated Ringers 1,000 ML 999 ML IV (08:32)
[2024-08-11] MEDS: ondansetron HCL 4 MG/2 ML VIAL IVPUSH (08:33)
[2024-08-11] MEDS: Acetaminophen 1,000 MG/100 ML PIGGYBACK 400 MG IV (08:34)
[2024-08-11 08:39] LABS: Lipase 20 U/L (8-78)
[2024-08-11 08:53] LABS: D Dimer High Sensitivity 150 NG/ML
[2024-08-11] MEDS: iohexoL 350 MG/ML 100 ML INFUS..BTL IV (09:13)
[2024-08-11 10:35] LABS: Troponin-I High Sensitivity < 2.7 ng/L (<3.5-17.0)
[2024-08-11] MEDS: Magnesium Hydrox/Alum Hydrox 30 ML ORAL.SUSP 15 ML PO (11:32)
[2024-08-11] MEDS: Lidocaine HCl Viscous 2 % 15 ML SOLUTION MUCOUS MEM (11:32)
[2024-08-11] MEDS: Lactated Ringers 500 ML 999 ML IV (13:48)
[2024-08-11 13:50] LABS: Lactic Acid 0.8 mmol/L (0.5-2.0)
[2024-08-11 15:03] LABS: Appearance Urine Clear; Color Urine Yellow; Glucose Urine UA Negative (Negative); Leukocyte Esterase Urine Negative (Negative); Nitrite Urine Negative (Negative); Specific Gravity - Urine >= 1.030 (1.005-1.025); Urine Blood Negative (Negative); Urine Ketones Negative (Negative); Urine Protein Negative (Neg-Trace)
== END 2024-08-11 16:30 | disposition home or self-care (01) ==
PROVIDERS: Physician Assistant Medical; Emergency Provider Emergency Medicine Emergency Medical Services; PCP Internal Medicine
DX: R10.13 Epigastric pain (principal); R11.2 Nausea with vomiting, unspecified; R19.7 Diarrhea, unspecified; R07.89 Other chest pain; R10.2 Pelvic and perineal pain; R00.0 Tachycardia, unspecified; R94.31 Abnormal electrocardiogram [ECG] [EKG]; Z03.818 Encounter for observation for suspected exposure to other biological agents ruled out; Z79.899 Other long term (current) drug therapy
CPT/HCPCS: 0241U; 36415; 71046; 74177; 80053; 81003; 83605; 83690; 83735; 84484; 85025; 85379; 85610; 87040; 93005; 96361; 96374; 96375; 99284; 99285; J0131; J2405; J7120; Q9967

== ENCOUNTER → 2024-08-11 07:33 | Outpatient (BNV) | payer OTHER, SELFPAY | PROVIDERS: Emergency Provider Emergency Medicine Emergency Medical Services; PCP Internal Medicine; Visit Provider Internal Medicine Cardiovascular Disease | DX: R00.0 Tachycardia, unspecified (principal) | CPT/HCPCS: 93010 ==

== ENCOUNTER → 2024-08-11 09:07 | Outpatient (BNV) | payer OTHER, SELFPAY | PROVIDERS: Emergency Provider Emergency Medicine Emergency Medical Services; PCP Internal Medicine; Visit Provider Radiology Diagnostic Radiology | DX: R10.9 Unspecified abdominal pain (principal); R07.9 Chest pain, unspecified | CPT/HCPCS: 71046; 74177 ==

== ENCOUNTER 2024-08-15 15:46 | Outpatient (AMB) | payer OTHER, SELFPAY ==
--- NOTE | 2024-08-15 15:57 | MHC.PC.OV ---
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 Name: Used tablet- shelley [id number] Allergies No Known Allergies Allergy (Verified 08/15/24 16:16) Medication List - Last Reconciled 08/15/24 by RAHUL Winters albuterol sulfate 90 mcg/actuation (Ventolin HFA) 2 puffs inhalation Q4-6H PRN alum-mag hydroxide-simeth 200-200-20 mg/5 mL (Maalox Advanced) 5 mL PO 5XD PRN cetirizine (Zyrtec) 10 mg PO DAILY 30 days epinephrine IM levothyroxine 125 mcg PO DAILY ondansetron 4 mg PO Q6H PRN Tobacco use date assessed: 08/15/24 Dental Screening Dental Screen Date: 08/15/24 Did you have a dental visit in the last 12 months?: Yes Did you have a dental problem in the last 6 months where you did not have access to dental care?: No Was dental information given to patient?: Patient has dentist HPI stomach pain HPI Details The patient is 59-year-old female presenting with stomach pain Reports that the pain has been going on for 4 weeks now-discussed with Dr. Ambriz Reports that 1st they were concerned about norovirus because she was having nausea, vomiting and diarrhea Patient reports that the symptom continues until she was dehydrated and end up in the ER She reports that she was having chest pain and her heart rate was increased and her blood pressure was low in ED Reports that she was mildly confused and fatigued; she is still feeling somewhat tired and the water that she is drinking isn't helping Patient reports that she had the same symptoms last year when she had E coli Reports that she was going to the bathroom every 5-6 hours and feel like her foods were not digesting properly She is currently eating only 1 or 2 meals a day and this are not solid foods Patient reports that she has been drinking plenty of water and some coconut water that seems to help some but not enough The patient denies having diarrhea still but think that she is not eating enough for this to be activated She reports that she is getting nauseous after drinking water as well And reports that she still have some chest pain after she eats in the center of her chest and epigastric region In the emergency room the patient was referred to GI and Maalox was ordered. The patient has not taken this medication yet-reports that she does not like traditional medications COUNTS INCLUDE 234 BEDS AT THE [facility] Medical History Patellofemoral arthritis of right knee Hypothyroidism Surgical History History of biopsy History of cholecystectomy History of section Family History Father CVD (cardiovascular disease) DVT (deep venous thrombosis) Mother Liver problem Kidney disease Diabetes Social History Housing: Apartment Alcohol intake: never Patient Tobacco Use Status: Never used Tobacco e-Cigarette/Vaping Use: Never Used Second Hand Smoke Exposure: No service: No Current occupational status: 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 1. Little interest or pleasure in doing things: not at all 2. Feeling down, depressed, or hopeless: not at all 3. Trouble falling or staying asleep, or sleeping too much: not at all 4. Feeling tired or having little energy: not at all 5. Poor appetite or overeating: not at all 6. Feeling bad about yourself - or that you are a failure or have let yourself or your family down: not at all 7. Trouble concentrating on things, such as reading the newspaper or watching television: not at all 8. Moving or speaking so slowly that other people could have noticed. Or the opposite - being so fidgety or restless that you have been moving around a lot more than usual: not at all 9. Thoughts that you would be better off or of hurting yourself in some way: not at all Total score: 0 Depression Screening Interpretation: Negative Depression Screening Done: Yes Source: Developed by Drs. Deepak Mason, Darrell Faulkner and colleagues, with an educational susie from [employer]. Thrive Questionnaire Date Thrive assessed: 08/15/24 I am a: Patient What is your living situation today?: I have a steady place to live Within the past 12 months, did the food you bought not last and you didn't have the money to get more?: Never true Within the past 12 months, did you worry whether your food would run out before you got money to buy more?: Never true Do you have trouble paying for medicines?: No Do you have trouble getting transportation to medical appointments?: No Do you have trouble paying your heating and electricity bill?: No Do you have trouble taking care of your child, family member or friend?: No Do you have trouble with day-to-day activities such as bathing, preparing meals, shopping, managing finances, etc.?: No Are you currently unemployed and looking for a job?: No Are you interested in more education?: No Please select the resources that you would like help with: None Currently or been in a relationship where the following occur: No concerns reported THRIVE Score: 0 AUDIT C Alcohol Use Questionnaire (AUDIT-C) 1. How often do you have a drink containing alcohol?: Never Total Score: 0 CAMILLE-7 AMB Questionnaire CAMILLE-7 Date CAMILLE - 7 assessed: 08/15/24 Feeling nervous, anxious, or on edge: 0 = Not at all Not being able to stop or control worryin = Not at all Worrying too much about different things: 0 = Not at all Trouble relaxin = Not at all Being so restless that it is hard to sit still: 0 = Not at all Becoming easily annoyed or irritable: 0 = Not at all Feeling afraid as if something awful might happen: 0 = Not at all Total CAMILLE-7 score (0-4 normal; 5-9 mild; 10-14 moderate; 15-21 severe): 0 Source: Developed by Christina Morales Kurt Kroenke and colleagues, with an educational susie from [employer]. Review of Systems ENT Denies sore throat Card Denies chest pain, Denies leg edema and Denies lightheadedness Resp Denies cough and Denies hemoptysis GI Reports abdominal pain, Denies melena, Denies constipation, Reports dyspepsia, Denies diarrhea, Reports nausea and Denies vomiting Denies urinary frequency, Denies dysuria and Denies urinary urgency Physical exam (Primary Care) Vital Signs: Last Vital Signs Temp 99.1 F 08/15/24 15:58 Pulse 90 08/15/24 15:58 BP 126/70 08/15/24 15:58 Pulse Ox 98 08/15/24 15:58 Oxygen Delivery Method Room Air 08/15/24 15:58 BMI result Body Mass Index 25.6 Tobacco/Smoking Status: Tobacco use Status Tobacco use date assessed 08/15/24 08/15/24 16:06 Patient Tobacco Use Status Never used Tobacco 08/15/24 16:06 e-Cigarette/Vaping Use Never Used 08/15/24 16:06 PHQ-9: PHQ-9 Score PHQ-9: Total score 0 08/15/24 16:30 Depression Screening Interpretation: Negative Thrive Assessment: Date of Thrive Assessment Date Thrive assessed 08/15/24 08/15/24 16:06 Currently or been in a relationship where the following occur: No concerns reported Const General: healthy appearing, no acute distress, alert and awake Nutritional Appearance: well nourished Orientation/consciousness: oriented to person, oriented to place and oriented to time HENMT Ears: TM's normal bilaterally General nose exam: Normal nasal mucous membranes and turbinates present Eyes Conjunctivae: conjunctivae normal Sclerae: sclerae normal Neck Neck: Yes no lymphadenopathy and Yes no JVD Thyroid: Thyroid normal Carotids: no bruits Resp Effort & Inspection: normal respiratory effort and not tachypneic Auscultation: no crackles, no rales, no rhonchi and no wheezes Cardio Rate: regular rate Rhythm: regular rhythm Heart sounds: no murmurs and normal S1 and S2 GI Palpation (GI): Soft to palpation, Tenderness to palpation present (GI) in the epigastrum, no hepatomegaly and no splenomegaly Auscultation: normal bowel sounds Neuro General: oriented to person, oriented to place and oriented to time Coding Level of Care Code Est Pt Level 4 (70589) Diagnoses Heart burn R12 Time Spent (min) 42 Assessment & Plan Assessment & Plan (1) Heart burn: Code(s): R12 - Heartburn Category: Medical Plan: The patient developed nausea, vomiting and diarrhea few weeks ago and was prescribed ciprofloxacin by Dr. Ambriz without any relief. Patient went in the ED tachycardic, hypotensive and complaining of GI symptoms. EKG done showed sinus tachycardia, CT of the abdomen and pelvis was unremarkable, chest x-ray was unremarkable. The patient was prescribed Maalox and Zofran and was referred to GI. The patient has not taken these medications as yet-due to dislike of traditional medications, per patient. The patient complains in office today is consistent with GERD. Discussed with the patient about the importance of complying with treatment regimen to prevent further irritation to her esophagus. Omeprazole 40 mg daily was ordered. Continue Zofran 4 mg q.6 hours as needed and Maalox 5 mL p.r.n. Orders: Orders Complete Blood Count Auto Diff 3 Months E03.9 - Hypothyroidism, unspecified, R12 - Heartburn, Z00.00 - Encounter for general adult medical examination without abnormal findings Comprehensive [place]. Panel Fast 3 Months E03.9 - Hypothyroidism, unspecified, R12 - Heartburn, Z00.00 - Encounter for general adult medical examination without abnormal findings UA CC w/rflx Micro + Cult 3 Months E03.9 - Hypothyroidism, unspecified, R12 - Heartburn, Z00.00 - Encounter for general adult medical examination without abnormal findings Free T4 (Free Thyroxine) 3 Months E03.9 - Hypothyroidism, unspecified, R12 - Heartburn, Z00.00 - Encounter for general adult medical examination without abnormal findings Lipid Panel 3 Months E03.9 - Hypothyroidism, unspecified, R12 - Heartburn, Z00.00 - Encounter for general adult medical examination without abnormal findings TSH reflex Free T4 3 Months E03.9 - Hypothyroidism, unspecified, R12 - Heartburn, Z00.00 - Encounter for general adult medical examination without abnormal findings Vitamin D 25-OH Total 3 Months E03.9 - Hypothyroidism, unspecified, R12 - Heartburn, Z00.00 - Encounter for general adult medical examination without abnormal findings Glucose Fasting 3 Months E03.9 - Hypothyroidism, unspecified, R12 - Heartburn, Z00.00 - Encounter for general adult medical examination without abnormal findings Medications: New omeprazole 40 mg PO DAILY 30 caps 3RF 30 days R12 - Heartburn
[2024-08-15 15:58] VITALS: BP 126/70; PULSE 90; TEMP 37.3; O2SAT 98; BMI 25.6
== END 2024-08-15 17:25 | disposition home or self-care (01) ==
LOC: HO.HMCH 15:47
PROVIDERS: PCP Internal Medicine
DX: R12 Heartburn (principal)

== ENCOUNTER 2024-10-21 15:59 | Emergency (ER) | payer OTHER, SELFPAY ==
--- NOTE | 2024-10-21 16:01 | ECG_ITS ---
Test Reason : CHEST PAIN Blood Pressure : */* mmHG Vent. Rate : 75 BPM Atrial Rate : 75 BPM P-R Int : 172 ms QRS Dur : 80 ms QT Int : 378 ms P-R-T Axes : 53 20 50 degrees QTcB Int : 422 ms Normal sinus rhythm Normal ECG When compared with ECG of 11-Aug-2024 07:33, No significant change was found Referred By: Generic ED Physician Electronically Signed By: PAT GALICIA MD
[2024-10-21 16:08] VITALS: BP 143/73; PULSE 88; RESP 18; TEMP 36.5; O2SAT 99; BMI 24.7
--- NOTE | 2024-10-21 16:08 | ED_ITS ---
HPI - Chest Pain General Chief Complaint: Headache Stated Complaint: Chest pain/headache/Chills Time Seen by Provider: 10/21/24 20:32 Source: patient Mode of arrival: ambulatory Limitations: no limitations History of Present Illness ED Provider: Dr. Vivien Rodríguez HPI narrative: 59-year-old female with history of migraines, GERD, asthma, hypothyroidism presenting with migraine headache that has been ongoing for the last 5 days or so. Describes as throbbing sensation in the right side of her face into her ear and behind her eye that has been constant since it started 5 days ago. Did have some relief with Excedrin but it started to upset her stomach so she was not able to take anymore of it. Describes associated photophobia and nausea but no vomiting. No reported fever. Has some sinus congestion for which she takes allergy shots. No neck stiffness or skin rashes. Had been feeling well otherwise. Related Data Home Medications ?Medication ?Instructions ?Recorded ?Confirmed epinephrine 0.3 mg/0.3 mL IM 04/08/20 08/15/24 injection, auto-injector Previous Rx's ?Medication ?Instructions ?Recorded cetirizine 10 mg tablet (Zyrtec) 10 mg PO DAILY 30 days #30 tabs 07/02/21 levothyroxine 125 mcg tablet 125 mcg PO DAILY #90 tabs 03/12/24 albuterol sulfate 90 mcg/actuation 2 puff inhalation Q4-6H PRN 05/29/24 aerosol inhaler (Ventolin HFA) shortness of breath or wheezing #8.5 grams aluminum-mag hydroxide-simethicone 5 ml PO 5XD PRN dyspepsia #500 mL 08/11/24 200 mg-200 mg-20 mg/5 mL oral susp (Maalox Advanced) ondansetron 4 mg disintegrating 4 mg PO Q6H PRN nausea and 08/11/24 tablet vomiting #10 tabs omeprazole 40 mg capsule,delayed 40 mg PO DAILY 30 days #30 caps 08/16/24 release ssparnnybs-srudamvopsooq-qvaizyjw 1 cap PO TID PRN migraine headache 10/22/24 50 mg-300 mg-40 mg capsule #10 caps (Fioricet) Allergies Allergy/AdvReac Type Severity Reaction Status Date / Time No Known Allergies Allergy Verified 10/21/24 16:08 Review of Systems 2 Review of Systems: Yes all other systems are reviewed and are negative [facility] Past Medical History Attestation statement: The following information was validated with the patient. [facility] Narrative: migraines, GERD, asthma, hypothyroidism, nonsmoker Medical History Patellofemoral arthritis of right knee Hypothyroidism Surgical History History of biopsy History of cholecystectomy History of section Family History Family History Father CVD (cardiovascular disease) DVT (deep venous thrombosis) Mother Liver problem Kidney disease Diabetes Social History Social History Housing: Apartment Alcohol intake: never Patient Tobacco Use Status: Never used Tobacco Smoked in Last 30 Days: No e-Cigarette/Vaping Use: Never Used Second Hand Smoke Exposure: No Use of substances other than those prescribed or required for medical reasons: No Advance Directives: No Advance Directives Information Provided: Yes service: No Current occupational status: 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 SKIN: Normal skin color for ethnicity, warm, dry, no rashes noted. HEENT: Normocephalic, atraumatic, no stridor, dry mucous membranes, dentition intact, EOMI, PERRLA. NECK: Soft, supple, full ROM, midline structures nontender, no step-offs, no deformities, no lymphadenopathy. CHEST: Heart regular tachycardia, no murmurs, symmetric chest rise and fall. PULMONARY: Clear to auscultation bilaterally, diminished at the bases, no labored breathing, no wheezes/rhales/rhonchi. ABDOMINAL: Soft, nondistended, nontender, positive bowel sounds in all quadrants. : Deferred. MUSCULOSKELETAL: Normal tone, full range of motion, no deformities, no peripheral edema. NEURO: Alert and oriented x3, CN II through XII intact, equal strength and sensation bilateral upper and lower extremities, no focal neurologic deficits. PSYCHIATRIC: Flat affect, fluid speech, good eye contact and appropriate demeanor. Course Course Course Narrative: This is a Rapid Medical Exam performed in triage by Clara Tripp PA-C. Full HPI, ROS and PE to be performed by primary ED provider. 59 yo F w/PMHx hypothyroid presenting to the ED c/o BARNES x 3 days, Took Excedrin w/o relief (on Sunday). Admits to hx migraines. Denies taking anything today. States BARNES has been worsening, not maximal at onset. +N/V. Also reports palpitations, denies at present. PE: tearful, ambulating w/ steady gait, nonfocal Plan: EKG, Labs, SARs Reevaluation(s) Reevaluation #1: Patient with continued severe headache, tearful, no meningismus on exam. Blood work is reassuring. No evidence of infectious process. Suspect status migrainosus. Medicated with a migraine cocktail, IVF. Time: 21:33 Reevaluation #2: Patient's headache is improved but not totally resolved. We will add on morphine for pain. Anticipate discharge with Fioricet. Time: 23:07 Reevaluation #3: Patient reporting total resolution of headache. Requesting discharge home. Using shared decision making, plan for discharge home to follow-up with primary care and/or specialist. Patient understands and agrees with plan for discharge. Discharged home in stable condition. Time: 00:16 Medications Administered Discontinued Medications Generic Name Dose Route Start Last Admin Trade Name Freq PRN Reason Stop Dose Admin Diphenhydramine HCl 50 mg 10/21/24 21:30 10/21/24 21:47 Diphenhydramine Hcl 50 Mg/Ml Vial IVPUSH 10/21/24 21:31 50 mg ONCE ONE Administration Lactated Ringer's 1,000 mls @ 999 mls/hr 10/21/24 21:30 10/22/24 00:11 Lr IV 10/21/24 22:30 Infused .Q1H1M ONE Infusion Metoclopramide HCl 10 mg 10/21/24 21:30 10/21/24 21:47 Metoclopramide Hcl 10 Mg/2 Ml Vial IVPUSH 10/21/24 21:31 10 mg ONCE ONE Administration Morphine Sulfate 4 mg 10/21/24 23:06 10/21/24 23:18 Morphine Sulfate 4 Mg/Ml Cartridge IVPUSH 10/21/24 23:07 4 mg ONCE ONE Administration Protocol Medical Decision Making Medical Decision Making [facility] Narrative: Patient presents with a chief complaint of headache.?? The differential diagnosis on this patient includes but is not limited to migraine headache,? tension headache, cluster headache, subarachnoid hemorrhage, dissection, venous?thrombosis, meningitis, sinusitis, bleeding or tumor. Based on history and physical exam,? appropriate work-up was initiated.? Differential Diagnosis Differential Diagnoses: The differential diagnosis associated with the presentation includes As above Admission/Observation Consideration of admission/observation: Escalation of care including admission/observation considered Lab Data [facility] Lab Attestation statement: I reviewed the patient's lab results. No leukocytosis, severe anemia, renal dysfunction, significant electrolyte disturbance. TSH is low but free T4 is normal. 10/21/24 16:22 10/21/24 16:22 Labs: Lab Results 10/21/24 Range/Units 16:22 WBC 7.4 (4.8-10.8) X10*3/uL RBC 4.26 (4.20-5.50) X10*6/uL Hgb 12.2 (12.0-16.0) g/dl Hct 36.6 L (37.0-47.0) % MCV 85.9 (80.0-98.0) fL MCH 28.6 (27.0-33.0) pg MCHC 33.3 (31.0-35.0) g/dl RDW 12.4 (11.0-16.0) % Plt Count 263 (160-400) X10*3/uL MPV 10.7 (9.4-12.3) fL Immature Gran % (Auto) 0.3 (0.0-0.4) % Neut % (Auto) 54.1 (45-73) % Lymph % (Auto) 28.4 (20-40) % Wayne % (Auto) 8.3 (2-11) % Eos % (Auto) 8.4 H (0-4) % Baso % (Auto) 0.5 (0-2) % Lymph # (Auto) 2.1 (1.2-4.9) X10*3/uL Wayne # (Auto) 0.6 (0.1-1.2) X10*3/uL Eos # (Auto) 0.6 H (0.0-0.4) X10*3/uL Baso # (Auto) 0.0 (0.0-0.2) X10*3/uL Abs Immat Gran (auto) 0.02 (0.00-0.03) X10*3/uL Absolute Neuts (auto) 4.0 (2.0-8.3) x10*3/uL Absolute Nucleated RBC 0.000 (0.0-0.012) X10*3/uL Nucleated RBC % (auto) 0.0 (0.0-0.2) /100WBC Sodium 140 (135-145) mmol/L Potassium 3.8 (3.3-5.1) mmol/L Chloride 104 (96-108) mmol/L Carbon Dioxide 30 H (22-29) mmol/L Anion Gap 10 L (12-20) BUN 13 (9-16) mg/dL Creatinine 0.53 (0.5-1.4) mg/dL Estim Creat Clear Calc 105.3 Estimated GFR > 60 Random Glucose 134 H (60-115) mg/dL Calcium 9.5 (8.4-10.2) mg/dL Magnesium 2.3 (1.6-2.6) mg/dL Total Bilirubin 0.2 (0.0-1.0) mg/dL Direct Bilirubin < 0.2 (0.0-0.5) mg/dL AST 23 (5-31) U/L ALT 24 (0-31) U/L Alkaline Phosphatase 121 H (39-117) U/L Troponin I High Sens < 2.7 (<3.5-17.0) ng/L Total Protein 7.5 (6.5-8.0) g/dL Albumin 4.5 (3.5-5.0) g/dL TSH < 0.01 L (0.32-4.0) uIU/mL Free T4 1.51 (0.71-1.85) ng/dL Influenza Type A (PCR) NEGATIVE (Negative) Influenza Type B (PCR) NEGATIVE (Negative) RSV RNA Qual (PCR) NEGATIVE (Negative) SARS-CoV-2 RNA (RT-PCR) NEGATIVE (Negative) Discharge Plan Discharge Clinical Impression: Headache, chronic migraine without aura, intractable, with status, Sinus congestion Patient Disposition: Home, Self-Care Instructions: Migraine Headache (ED) Prescriptions: New ulgxhuyvlm-yrtxpjuumxtel-bbiy [Fioricet] 50-300-40 mg capsule 1 cap PO TID PRN (Reason: migraine headache) Qty: 10 0RF No Action levothyroxine 125 mcg tablet 125 mcg PO DAILY Qty: 90 3RF omeprazole 40 mg capsule,delayed release(DR/EC) 40 mg PO DAILY 30 Days Qty: 30 1RF alum-mag hydroxide-simeth [Maalox Advanced] 200-200-20 mg/5 mL suspension 5 ml PO 5XD PRN (Reason: dyspepsia) Qty: 500 0RF Rx Instructions: administer between meals and at bedtime ondansetron 4 mg tablet,disintegrating 4 mg PO Q6H PRN (Reason: nausea and vomiting) Qty: 10 0RF epinephrine 0.3 mg/0.3 mL auto-injector IM cetirizine [Zyrtec] 10 mg tablet 10 mg PO DAILY 30 Days Qty: 30 0RF albuterol sulfate [Ventolin HFA] 90 mcg/actuation HFA aerosol inhaler 2 puff inhalation Q4-6H PRN (Reason: shortness of breath or wheezing) Qty: 8.5 0RF Print Language: Tunisian
[2024-10-21 16:28] LABS: MANUAL DIFF FLAG NO
[2024-10-21 16:29] LABS: Basophils Percent Auto 0.5 % (0-2); Eosinophils Absolute Auto 0.6 X10*3/uL (0.0-0.4); Eosinophils Percent Auto 8.4 % (0-4); Hematocrit 36.6 % (37.0-47.0); Hemoglobin 12.2 g/dl (12.0-16.0); Imm Gran Abs Auto 0.02 X10*3/uL (0.00-0.03); Imm Gran Pct Auto 0.3 % (0.0-0.4); Lymphocytes Absolute Auto 2.1 X10*3/uL (1.2-4.9); Lymphocytes Percent Auto 28.4 % (20-40); Mean Corpuscular HGB Conc 33.3 g/dl (31.0-35.0); Mean Corpuscular Hemoglobin 28.6 pg (27.0-33.0); Mean Corpuscular Volume 85.9 fL (80.0-98.0); Mean Platelet Volume 10.7 fL (9.4-12.3); Monocytes Absolute Auto 0.6 X10*3/uL (0.1-1.2); Monocytes Percent Auto 8.3 % (2-11); Neutrophils Percent Auto 54.1 % (45-73); Platelet Count 263 X10*3/uL (160-400); Red Blood Count 4.26 X10*6/uL (4.20-5.50); Red Cell Distribution Width 12.4 % (11.0-16.0); White Blood Count 7.4 X10*3/uL (4.8-10.8)
[2024-10-21 16:49] LABS: Alanine Aminotransferase 24 U/L (0-31); Albumin Level 4.5 g/dL (3.5-5.0); Alkaline Phosphatase 121 U/L (39-117); Anion Gap 10 (12-20); Aspartate Amino Transferase 23 U/L (5-31); Bilirubin Direct < 0.2 mg/dL (0.0-0.5); Bilirubin Total 0.2 mg/dL (0.0-1.0); Blood Urea Nitrogen 13 mg/dL (9-16); Calcium 9.5 mg/dL (8.4-10.2); Carbon Dioxide 30 mmol/L (22-29); Chloride 104 mmol/L (96-108); Creatinine Clr Calc Pharmacy 105.3; Estimated Glomerular Filt Rate > 60; Glucose Random 134 mg/dL (60-115); Magnesium 2.3 mg/dL (1.6-2.6); Potassium 3.8 mmol/L (3.3-5.1); Sodium 140 mmol/L (135-145); Total Protein 7.5 g/dL (6.5-8.0)
[2024-10-21 16:58] LABS: Troponin-I High Sensitivity < 2.7 ng/L (<3.5-17.0)
[2024-10-21 17:05] LABS: Influenza A PCR NEGATIVE (Negative); Influenza B PCR NEGATIVE (Negative); Resp Syncy Virus RNA Qual PCR NEGATIVE (Negative); SARS COV2 PCR INHOUSE NEGATIVE (Negative)
[2024-10-21 17:10] LABS: TSH reflex Free T4 < 0.01 uIU/mL (0.32-4.0)
[2024-10-21 18:20] LABS: Free T4 (Free Thyroxine) 1.51 ng/dL (0.71-1.85)
[2024-10-21] MEDS: diphenhydrAMINE HCL 50 MG/ML VIAL IVPUSH (21:47)
[2024-10-21] MEDS: Lactated Ringers 1,000 ML 999 ML IV (21:47)
[2024-10-21] MEDS: Metoclopramide HCl 10 MG/2 ML VIAL IVPUSH (21:47)
[2024-10-21 21:59] VITALS: BP 136/59; PULSE 76; RESP 16; TEMP 36.8; O2SAT 97
[2024-10-21] MEDS: Morphine Sulfate 4 MG/ML CARTRIDGE IVPUSH (23:18)
[2024-10-22 01:08] VITALS: BP 105/55; PULSE 60; RESP 16; TEMP 36.7; O2SAT 99
[2024-10-22 02:10] VITALS: BP 114/61; PULSE 62; RESP 15; TEMP 36.6; O2SAT 100
[2024-10-22] MEDS: Butalb/Acetamin/Caff 50/325/40 TABLET 1 TAB PO (02:24)
== END 2024-10-22 03:17 | disposition home or self-care (01) ==
PROVIDERS: Physician Assistant; Emergency Provider Emergency Medicine; PCP Internal Medicine
DX: G43.909 Migraine, unspecified, not intractable, without status migrainosus (principal); R07.89 Other chest pain; R11.0 Nausea; R09.81 Nasal congestion; H53.143 Visual discomfort, bilateral; Z79.899 Other long term (current) drug therapy; Z03.818 Encounter for observation for suspected exposure to other biological agents ruled out
CPT/HCPCS: 0241U; 36415; 80048; 80076; 83735; 84439; 84443; 84484; 85025; 93005; 96361; 96374; 96375; 99284; J1200; J2270; J2765; J7120

== ENCOUNTER → 2024-10-21 16:01 | Outpatient (BNV) | payer OTHER, SELFPAY | PROVIDERS: Emergency Provider Emergency Medicine; PCP Internal Medicine; Visit Provider Internal Medicine Cardiovascular Disease | DX: R07.9 Chest pain, unspecified (principal) | CPT/HCPCS: 93010 ==

== ENCOUNTER 2024-11-07 06:15 | Outpatient (REF) | payer OTHER, SELFPAY ==
[2024-11-07 06:36] LABS: MANUAL DIFF FLAG NO
[2024-11-07 07:16] LABS: Basophils Absolute Auto 0.1 X10*3/uL (0.0-0.2); Basophils Percent Auto 0.8 % (0-2); Eosinophils Percent Auto 15.6 % (0-4); Hematocrit 38.7 % (37.0-47.0); Hemoglobin 12.4 g/dl (12.0-16.0); Imm Gran Abs Auto 0.01 X10*3/uL (0.00-0.03); Imm Gran Pct Auto 0.2 % (0.0-0.4); Lymphocytes Percent Auto 29.9 % (20-40); Mean Corpuscular Hemoglobin 28.7 pg (27.0-33.0); Mean Corpuscular Volume 89.6 fL (80.0-98.0); Mean Platelet Volume 11.1 fL (9.4-12.3); Monocytes Absolute Auto 0.5 X10*3/uL (0.1-1.2); Neutrophils Percent Auto 45.5 % (45-73); Platelet Count 271 X10*3/uL (160-400); Red Blood Count 4.32 X10*6/uL (4.20-5.50); Red Cell Distribution Width 12.6 % (11.0-16.0); White Blood Count 6.5 X10*3/uL (4.8-10.8)
[2024-11-07 07:29] LABS: Appearance Urine Clear; Color Urine Yellow; Glucose Urine UA Negative (Negative); Leukocyte Esterase Urine Negative (Negative); Nitrite Urine Negative (Negative); Specific Gravity - Urine 1.015 (1.005-1.025); Urine Blood Negative (Negative); Urine Ketones Negative (Negative); Urine Protein Negative (Neg-Trace)
[2024-11-07 07:34] LABS: Alanine Aminotransferase 30 U/L (0-31); Albumin Level 4.5 g/dL (3.5-5.0); Alkaline Phosphatase 114 U/L (39-117); Anion Gap 11 (12-20); Aspartate Amino Transferase 29 U/L (5-31); Bilirubin Total 0.3 mg/dL (0.0-1.0); Blood Urea Nitrogen 12 mg/dL (9-16); Calcium 9.7 mg/dL (8.4-10.2); Carbon Dioxide 30 mmol/L (22-29); Chloride 105 mmol/L (96-108); Cholesterol 262 mg/dL (<200); Estimated Glomerular Filt Rate > 60; Glucose Fasting 103 mg/dL (60-99); Glucose Random 102 mg/dL (60-115); HDL Cholesterol 54 mg/dL (>40); LDL Cholesterol Calculated 179 mg/dL (<100); Potassium 4.1 mmol/L (3.3-5.1); Sodium 142 mmol/L (135-145); Total Protein 7.3 g/dL (6.5-8.0); Triglycerides 145 mg/dL (<150)
[2024-11-07 07:58] LABS: Free T4 (Free Thyroxine) 2.14 ng/dL (0.71-1.85); TSH reflex Free T4 0.02 uIU/mL (0.32-4.0)
== END 2024-11-07 06:16 | disposition home or self-care (01) ==
LOC: HO.LAB 06:15
PROVIDERS: Internal Medicine
DX: E78.5 Hyperlipidemia, unspecified (principal); R12 Heartburn; E03.9 Hypothyroidism, unspecified; Z00.00 Encounter for general adult medical examination without abnormal findings
CPT/HCPCS: 36415; 80053; 80061; 81003; 82306; 84439; 84443; 85025

== ENCOUNTER 2024-11-11 14:55 | Outpatient (AMB) | payer OTHER, SELFPAY ==
--- NOTE | 2024-11-11 15:04 | MHC.PC.OV ---
Vital Signs 11/11/24 15:05 Height 5 ft 5 in Weight 151 lb BMI 25.1 BP 130/72 Blood Pressure Location Lt brachial Position Sitting Intake Visit Reasons: Transfer Care from Dr. 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 Accompanied by: Self / Same As Patient Allergies No Known Allergies Allergy (Verified 11/11/24 15:17) Medication List - Last Reconciled 11/11/24 by Roxann Meraz MD albuterol sulfate 90 mcg/actuation (Ventolin HFA) 2 puffs inhalation Q4-6H PRN [id number]-qyua 50-300-40 mg (Fioricet) 1 cap PO TID PRN epinephrine IM levothyroxine 125 mcg PO DAILY omeprazole 40 mg PO DAILY 30 days ondansetron 4 mg PO Q6H PRN Tobacco use date assessed: 08/15/24 Dental Screening Dental Screen Date: 08/15/24 HPI HPI Comments History of Present Illness Details The patient is a 59-year-old female presenting with concerns regarding elevated hepatic enzymes, migraine, and thyroid dysfunction. The patient reports a history of gastroesophageal reflux disease (GERD), which was identified during previous evaluations. She was prescribed omeprazole but has not been taking it regularly. She experiences nausea and abdominal pain, which led her to seek emergency care. During these episodes, she also experienced vomiting and cold sweats. The patient has a history of elevated hepatic enzymes, which were identified during routine laboratory tests. She was informed of this finding by a healthcare provider, but no specific liver-related symptoms were noted. The patient has been using natural remedies, including neem and a liver detoxifier, which she believes have contributed to the normalization of her liver enzyme levels. The patient experiences severe migraines, which have led to emergency room visits. She reports that these migraines are often triggered by strong odors and stress. During these episodes, she experiences nausea, vomiting, and sensitivity to light. She has been prescribed Fioricet and sumatriptan for migraine management. She has a 3 mm saccular aneurysm. The patient has a history of asthma, which is exacerbated by exposure to allergens such as cats. She uses an albuterol inhaler as needed and reports frequent wheezing. She has been advised to use a steroid inhaler for better control of her symptoms. The patient has been diagnosed with thyroid dysfunction, specifically elevated TSH levels. She is currently on levothyroxine, but her dosage is being adjusted to better manage her condition. Regular follow-up and laboratory tests are planned to monitor her thyroid function. The patient has a known aneurysm, which was identified during previous imaging studies. She has a family history of aneurysms, with her father and brother having had similar conditions. She is scheduled for further evaluation to monitor the aneurysm. 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 1. Little interest or pleasure in doing things: not at all 2. Feeling down, depressed, or hopeless: not at all 3. Trouble falling or staying asleep, or sleeping too much: not at all 4. Feeling tired or having little energy: not at all 5. Poor appetite or overeating: not at all 6. Feeling bad about yourself - or that you are a failure or have let yourself or your family down: not at all 7. Trouble concentrating on things, such as reading the newspaper or watching television: not at all 8. Moving or speaking so slowly that other people could have noticed. Or the opposite - being so fidgety or restless that you have been moving around a lot more than usual: not at all 9. Thoughts that you would be better off or of hurting yourself in some way: not at all Total score: 0 Depression Screening Interpretation: Negative Depression Screening Done: Yes 24373 - PHQ-9 Billing: Yes Source: Developed by Drs. Deepak Mason, Darrell Faulkner and colleagues, with an educational susie from [facility]. Thrive Questionnaire Date Thrive assessed: 08/15/24 I am a: Patient What is your living situation today?: I have a steady place to live Within the past 12 months, did the food you bought not last and you didn't have the money to get more?: Never true Within the past 12 months, did you worry whether your food would run out before you got money to buy more?: Never true Do you have trouble paying for medicines?: No Do you have trouble getting transportation to medical appointments?: No Do you have trouble paying your heating and electricity bill?: No Do you have trouble taking care of your child, family member or friend?: No Do you have trouble with day-to-day activities such as bathing, preparing meals, shopping, managing finances, etc.?: No Are you currently unemployed and looking for a job?: No Are you interested in more education?: No Please select the resources that you would like help with: None Currently or been in a relationship where the following occur: No concerns reported THRIVE Score: 0 AUDIT C Alcohol Use Questionnaire (AUDIT-C) 1. How often do you have a drink containing alcohol?: Never Total Score: 0 CAMILLE-7 AMB Questionnaire CAMILLE-7 Date CAMILLE - 7 assessed: 08/15/24 Feeling nervous, anxious, or on edge: 1 = Several days Not being able to stop or control worryin = Several days Worrying too much about different things: 1 = Several days Trouble relaxin = Several days Being so restless that it is hard to sit still: 0 = Not at all Becoming easily annoyed or irritable: 0 = Not at all Feeling afraid as if something awful might happen: 0 = Not at all Total CAMILLE-7 score (0-4 normal; 5-9 mild; 10-14 moderate; 15-21 severe): 4 Source: Developed by Christina Morales Kurt Kroenke and colleagues, with an educational susie from [facility] [place]. CAMILLE-7 Assessment Billing CAMILLE-7 Assessment Tool: CAMILLE-7 Assessment 75034 Review of Systems Const All systems reviewed & are unremarkable except as noted in HPI and below Reports headache(s) ENT Reports headache(s) Card Denies chest pain at rest, Denies chest pain with activity, Denies edema, Denies irregular heart rhythm, Denies claudication, Denies dyspnea, Reports dyspnea on exertion, Denies orthopnea, Denies paroxysmal nocturnal dyspnea and Denies slow heart rate Resp Reports chest congestion, Reports cough, Denies dyspnea, Reports dyspnea on exertion and Reports wheezing GI Reports abdominal pain, Denies change in bowel habits, Denies excessive flatus, Denies nausea and Denies vomiting Denies urinary incontinence, Denies urinary hesitancy and Denies urinary urgency Musc Denies abnormal gait, Denies atrophy, Denies deformity and Denies limited range of motion Skin/Breast Denies bleeding lesions, Denies changing lesions and Denies rash Neuro Denies abnormal gait, Reports headache(s) and Denies lack of coordination Aller/Immun Reports wheezing Physical exam (Primary Care) Vital Signs: Last Vital Signs BP 130/72 11/11/24 15:05 BMI result Body Mass Index 25.1 Tobacco/Smoking Status: Tobacco use Status Tobacco use date assessed 08/15/24 11/11/24 15:10 Patient Tobacco Use Status Never used Tobacco 11/11/24 15:10 e-Cigarette/Vaping Use Never Used 11/11/24 15:10 PHQ-9: PHQ-9 Score PHQ-9: Total score 0 11/11/24 15:18 Depression Screening Interpretation: Negative Thrive Assessment: Date of Thrive Assessment Date Thrive assessed 08/15/24 11/11/24 15:10 Currently or been in a relationship where the following occur: No concerns reported Resp Effort & Inspection: normal respiratory effort Auscultation: clear to auscultation bilaterally Cardio Jugular venous distension: no JVD Rate: regular rate Rhythm: regular rhythm Heart sounds: S1 normal heart sound present and S2 normal heart sound present Extrem General: Yes full ROM Coding Level of Care Code Est Pt Level 4 (15911) Complex EM visit Add On G2211 Diagnoses Migraines G43.909 Aneurysm I72.9 Asthma J45.909 Hypothyroidism E03.9 Heart burn R12 Additional Codes CAMILLE-7 Assessment Billing - CAMILLE-7 Assessment Tool: CAMILLE-7 Assessment 25980 ([id number]) PHQ-9 - 50208 - PHQ-9 Billing: Yes ([id number]) Time Spent (min) 29 Assessment & Plan Assessment & Plan (1) Migraines: Code(s): G43.909 - Migraine, unspecified, not intractable, without status migrainosus Category: Medical (2) Aneurysm: Code(s): I72.9 - Aneurysm of unspecified site Category: Medical (3) Asthma: Code(s): J45.909 - Unspecified asthma, uncomplicated Category: Medical (4) Hypothyroidism: Code(s): E03.9 - Hypothyroidism, unspecified Category: Medical (5) Heart burn: Code(s): R12 - Heartburn Category: Medical Plan The patient will continue to monitor her hepatic enzyme levels, with follow-up laboratory tests scheduled to ensure they remain within normal limits. She is advised to continue her current regimen of natural remedies, as they appear to be effective in maintaining liver health. For her migraines, the patient has been prescribed Fioricet and sumatriptan, and she is advised to avoid known triggers such as strong odors and stress. A referral to a neurologist has been made for further evaluation of her migraines and to assess the need for additional treatment options. The patient's asthma management includes the use of an albuterol inhaler as needed, and she has been prescribed a steroid inhaler for daily use to improve symptom control. She is advised to avoid exposure to allergens, particularly cats, to prevent exacerbations. Her thyroid dysfunction is being managed with levothyroxine, and her dosage has been adjusted to 112 mcg. Follow-up laboratory tests are planned to monitor her thyroid function and ensure optimal management. The patient is scheduled for further evaluation of her known aneurysm, given her family history of similar conditions. Regular monitoring and imaging studies will be conducted to assess the aneurysm's status and determine if any intervention is necessary. Patient was informed and verbally consented to the use of an ambient scribe for clinic note documentation during this visit. Orders: Orders Thyroid Stimulating Hormone 6 Weeks E03.9 - Hypothyroidism, unspecified Free T4 (Free Thyroxine) 6 Weeks E03.9 - Hypothyroidism, unspecified MR angio head wo/w con Today I72.9 - Aneurysm of unspecified site Referrals Neurology Referral G43.909 - Migraine, unspecified, not intractable, without status migrainosus Medications: New umeclidinium-vilanterol 62.5-25 mcg/actuation (Anoro Ellipta) 1 inh inhalation DAILY 60 ea 3RF 60 days - Unspecified asthma, uncomplicated nebulizers (AeroEclipse II Nebulizer) As directed 1 ea 0RF - Unspecified asthma, uncomplicated prednisone Take 4 tabs for 2 days, then 3 tabs for 2 days, then 2 tabs for 2 days, then 1 tab for 2 days 10 mg PO DIRECTED 20 tabs 0RF 8 days - Unspecified asthma, uncomplicated levothyroxine 112 mcg PO DAILY 90 tabs 1RF 90 days E03.9 - Hypothyroidism, unspecified albuterol sulfate 2.5 mg (3 mL) inhalation QID PRN 75 mL 2RF shortness of breath or wheezing 30 days - Unspecified asthma, uncomplicated Refilled albuterol sulfate 90 mcg/actuation (Ventolin HFA) 2 puffs inhalation Q4-6H PRN 8.5 grams 0RF shortness of breath or wheezing E03.9 - Hypothyroidism, unspecified albuterol sulfate 90 mcg/actuation (Ventolin HFA) 2 puffs inhalation Q4-6H PRN 8.5 grams 3RF shortness of breath or wheezing
[2024-11-11 15:05] VITALS: BP 130/72; BMI 25.1
--- OUTSIDE RECORDS SUMMARY | 2024-11-11 17:22 | XMS_ITS | Data Portability ---
Author Organization [place] - [facility], Allergy Address [address] [address] Care Team Providers Care Immunochemist Name Role Phone BETH ROSA Primary Care Provider Assessment Encounter Date Assessment Date Assessment LastModified by Organization Details LastModified Time 09/03/2024 09/03/2024 Visit With: GEMA Ontiveros Use of Antihistamine s: No If yes: Vial Test Change in medications: No If yes Increase in asthma symptoms If yes, inhaler use: Reaction to last injections: No If yes: Allergy Symptoms: Other: Missed: Dose Aware of Vial Test Notes: [email or web address] Not available 09/03/2024 16:01:52 09/17/2024 09/17/2024 Visit With: GEMA Ontiveros Use of Antihistamine s: No If yes: Vial Test Change in medications: No If yes Increase in asthma symptoms If yes, inhaler use: Reaction to last injections: No If yes: Allergy Symptoms: Other: Missed: Dose Aware of Vial Test Notes: [email or web address] Not available 09/17/2024 16:16:42 10/01/2024 10/01/2024 Visit With: Carolynn Noland Use of Antihistamine s: No If yes: Vial Test Change in medications: No If yes Increase in asthma symptoms If yes, inhaler use: Reaction to last injections: No If yes: Allergy Symptoms: Other: Missed: Dose Aware of Vial Test Notes: [email or web address] Not available 10/01/2024 16:23:34 10/15/2024 10/15/2024 Visit With: GEAM Ontiveros Use of Antihistamine s: No If yes: Vial Test Change in medications: No If yes Increase in asthma symptoms If yes, inhaler use: Reaction to last injections: No If yes: Allergy Symptoms: Other: Missed: Dose Aware of Vial Test Notes: [email or web address] Not available 10/15/2024 16:53:47 10/29/2024 10/29/2024 Visit With: GEMA Ontiveros Use of Antihistamine s: No If yes: Vial Test Change in medications: No If yes Increase in asthma symptoms If yes, inhaler use: Reaction to last injections: No If yes: Allergy Symptoms: Other: Missed: Dose Aware of Vial Test Notes: [email or web address] Not available 10/29/2024 16:24:29 Plan of Treatment Reminders Order Date Submit Date Provider Last Modified By Organization Details Last Modified Time Details Appointments [facility]- Allergy f-up 6mon 2024 03:45P M AVEL [...] and Address Organization Details Recorded Time Headache 58524740 Active 2019 Headache, unspecifi ed; Note: Changed from R51 to R51.9 (07/01/2020 3:34 PM) , Date Diagnosed : 07/03/2019 4:22 PM (R51) Not Available [facility] 4 02:13:25 Tinnitus of vascular origin 096770760 Active 2022 Pulsatile tinnitus, right ear; Note: Date Diagnosed : 08/02/2022 4:38 PM (H93.A1) Not Available [facility] 4 02:14:37 Allergic rhinitis 19171306 Active 2023 SCIT [address] Pavel HERNANDEZ MD [address] [place] [address], [place], [address] , [facility] - [facility] 4 11:34:09 Bilateral tinnitus [id number] 02 Active 2018 Tinnitus, bilateral ; Note: Date Diagnosed : 01/23/2019 4:23 PM (H93.13) Not Available [facility] 02:13:43 Perennial allergic rhinitis 168653888 Active 2023 SOILA HUSAMC, RMA [address], [place], [address] , [facility] - [facility] 16:27:42 Vasomotor rhinitis 9722943 Active 2023 Vasomotor rhinitis; Note: Date Diagnosed : 07/13/2023 4:55 PM (J30.0) Not Available [facility] 02:13:53 Acute maxillary sinusitis 59941719 Active 2023 Acute maxillary sinusitis , unspecifi ed; Note: Date Diagnosed : 07/13/2023 4:55 PM (J01.00) Not Available [facility] 02:14:10 Problem Notes None recorded. Procedures Surgical History Date Name Laterality Status Provider Name and Address Organization Details Recorded Time 10/30/19 25 Allergy Immunotherapy Injections completed SOILA BIRCH, RMA [address], [place], [address], [facility] - [facility] 10/29/2024 16:24:24 10/16/19 25 Allergy Immunotherapy Injections completed SOILA BIRCH, RMA [address] [place] [address], [address], [facility] - [facility] 10/15/2024 16:53:42 10/02/19 25 Allergy Immunotherapy Injections completed SOILA BIRCH, RMA [address], [place], [address], [facility] - [facility] 10/01/2024 16:23:26 09/18/19 25 Allergy Immunotherapy Injections completed SOILA WEINERC, RMA [address] [place] [address], [address], [facility] - [facility] 09/17/2024 16:16:34 09/04/19 25 Allergy Immunotherapy Injections completed SOILA BIRCH, RMA [address], [place], [address], [facility] - [facility] 09/03/2024 16:01:46 08/22/19 25 Allergy Immunotherapy Injections completed CAROLYNN NOLAND, RMA [address], [place], [address], [place] [facility] 08/21/2024 16:05:02 08/07/19 25 Allergy Immunotherapy Injections completed SOILA CAMILOZEC, RMA [address], [place], [address], [place] [facility] 08/06/2024 16:32:03 07/23/19 25 Allergy Immunotherapy Injections completed SOILA KORZEC, RMA [address], [place], [address], [place] [facility] 07/23/2024 16:45:52 07/09/19 25 Allergy Immunotherapy Injections completed SOILA CAMILOZEC, RMA [address], [place], [address], [place] [facility] 07/09/2024 16:36:30 06/25/19 25 Allergy Immunotherapy Injections completed CAROLYNN NOLAND, RMA [address], [place], [address], [place] [facility] 06/25/2024 17:07:58 06/11/19 25 Allergy Immunotherapy Injections completed SOILA CAIMLOZEC, RMA [address], [place], [address], [place] [facility] 06/11/2024 13:44:47 05/29/19 25 Allergy Immunotherapy Injections completed SOILA CAMILOZEC, RMA [address], [place], [address], [place] [facility] 05/29/2024 11:27:48 05/14/20 24 Allergy Immunotherapy Injections completed CHERIE HERMAN RN [address], [place], [address], [place] [facility] 05/14/2024 16:33:31 04/30/20 24 Allergy Immunotherapy Injections completed SOILA CAMILOZEC, RMA [address], [place], [address], [place] [facility] 04/30/2024 16:31:43 04/16/20 24 Allergy Immunotherapy Injections completed SOILA IBRCH, RMA [address], [place], [address], [place] [facility] 04/16/2024 17:03:52 04/02/20 24 Allergy Immunotherapy Injections completed GEMA MAYS [address], [place], [address], [place] [facility] 04/02/2024 16:17:47 03/19/20 24 Allergy Immunotherapy Injections completed CHERIE HERMAN RN [address] [place] [address], [address], [place] [facility] 03/19/2024 16:26:16 03/07/20 24 Allergy Immunotherapy Injections completed SOILA BIRCH, RMJohnny [address], [place], [address], [place] [facility] 03/07/2024 13:40:29 02/20/20 24 Allergy Immunotherapy Injections completed GEMA MAYS [address] [facility], [place], [address], [place] [facility] 02/20/2024 17:11:11 02/06/20 24 Allergy Immunotherapy Injections completed CHERIE HERMAN RN [address] [place] [address], [address], [place] [facility] 02/07/2024 08:49:22 01/22/20 24 Allergy Immunotherapy Injections completed GEMA MAYS [address], [place], [address], [place] [facility] 01/22/2024 14:00:20 01/08/20 24 Allergy Immunotherapy Injections completed GEMA MAYS [address], [place], [address], [place] [facility] 01/08/2024 12:12:08 12/26/19 24 Allergy Immunotherapy Injections completed CHERIE HERMAN RN [address] [place] [address], [address], [place] [facility] 12/26/2023 16:50:55 12/12/19 24 Allergy Immunotherapy Injections completed CHERIE HERMAN RN 100 [facility],[address], [address], [facility] - [facility] 12/12/2023 16:40:58 11/27/19 24 Allergy Immunotherapy Injections completed CAROLYNN NOLAND, [facility] 100 [facility],[address], [address], [facility] - [facility] 11/27/2023 16:41:14 11/14/19 24 Allergy Immunotherapy Injections completed SOILA HUSAM, [facility] 100 [facility],[place] [address], [place], [address], [facility] - [facility] 11/14/2023 11:18:33 10/31/19 [address] [facility] HUSAM, [facility] 100 [facility],[address], [address], [facility] - [facility] 10/31/2023 16:21:15 10/17/19 24 [address]ergy Immun[address] Injections [address] [facility] HUSAM, [facility] 100 [facility],[address], [address], [facility] - [facility] 10/17/2023 16:28:03 Imaging Results None recorded. Procedure Notes None recorded. Medical Equipment None Reported. Medications Name Sig Start Date Stop Date Status Note LastModified by Organization Details LastModified Time levothyro xine 137 mcg tablet 07/01 completed Medicati on ID: [id number] D uration Value: 30 Brand Name: levothyr [...] 4 D SEG N LAS INDICACI ONES 08/21 completed Not Available Not Available Not Available sucralfat e 1 gram tablet 09/12 completed Medicati on ID: [id number] D uration Value: 30 Reason: () Brand [...] mg tablet 01/23 completed Medicati on ID: [id number] D uration Value: 3 Reason: () Brand Name: ondanset atif HCl Send Method: E-Prescr ibed Sub s Allowed: subs OK Speci al Instruct ion: TAKE 1 TABLET BY MOUTH EVERY 6 HOURS NEEDED FOR NAUSEA & VOMITING . Medica tionGene ricName: ondanset atif HCl Not Available Not Available Not Available prednison e 20 mg tablet TAKE 1 TABLET BY MOUTH EVERY MORNING active Not Available Not Available No t Available ciproflox acin 250 mg tablet TAKE 1 TABLET BY MOUTH 2 TIMES A DAY 08/21 completed Not Available Not Available Not Available omeprazol e 40 mg capsule,d elayed release TAKE 1 CAPSULE BY MOUTH DAILY active Not Available Not Available No t Available levothyro xine 25 mcg tablet 01/02 completed Medicati on ID: [id number] D uration Value: 30 Reason: () Brand [...] mcg tablet 01/23 completed Medicati on ID: [id number] D uration Value: 30 Reason: () Brand Name: levothyr oxine Se nd Method: E-Prescr ibed Sub s Allowed: subs OK Speci al Instruct ion: TAKE 2 TABLETS ON AN EMPTY STOMACH IN THE MORNING ONCE A DAY TAKE WITH 25MCG FOR TOTAL OF 125MCG M edicatio nGeneric Name: levothyr oxine Not Available Not Available Not Available levothyro xine 125 mcg tablet TOME 1 TABLETA POR V A ORAL TODOS LOS D active Not Available Not Available No t Available Citrucel 500 mg tablet 01/02 completed Medicati on ID: [id number] D uration Value: 30 Reason: () Brand Name: Citrucel Send Method: E-Prescr ibed Sub s Allowed: subs OK Speci al Instruct ion: TAKE 2 TABLETS BY MOUTH DAILY, DRINK 8 OZ WATER WITH TABLETS Medicati onGeneri cName: Citrucel Not Available Not Available Not Available levothyro xine 150 mcg tablet 05/19 completed Medicati on ID: [id number] D uration Value: 30 Reason: () Brand Name: levothyr oxine Se nd Method: E-Prescr ibed Sub s Allowed: subs DANIELLA Speci al Instruct ion: TAKE 1 TABLET BY MOUTH EVERY DAY Medi cationGe nericNam e: levothyr oxine Not Available Not Available Not Available omeprazol e 20 mg capsule,d elayed release 07/01 completed Medicati on ID: [id number] D uration Value: 30 Brand Name: omeprazo [...] Not Available Not Available No t Available albuterol sulfate HFA 90 mcg/actua tion aerosol inhaler INHALE 2 PUFFS BY MOUTH EVERY 4-6 HOURS NEEDED FOR SHORTNES S OF BREATH OR WHEEZING active Not Available Not Available No t Available ondansetr on 4 mg disintegr ating tablet DISSOLVE 1 TAB IN MOUTH EVERY 6 HOURS NEEDED FOR NAUSEA AND VOMITING active Not Available Not Available No t Available ipratropi um bromide 21 mcg (0.03 %) nasal spray USE 2 SPRAYS IN EACH NOSTRIL 1-3 TIMES A DAY active Not Available Not Available No t Available amoxicill in 875 mg-potass ium clavulana te 125 mg tablet TOME ADRIANA TABLETA POR V A ORAL CADA DOCE HORAS 08/21 completed Not Available Not Available Not Available Flonase Allergy Relief 50 mcg/actua tion nasal spray,gabrielle pension Hope 2 spray into both nostrils once a day 07/01 completed Medicati on ID: [id number] D uration Value: 30 Brand Name: Flonase [...] Code Diagnosis ICD10 Code Diagnosis Note 1218 SOILA WEINER A Allergy 100 [facility],[address] [place] [address] 10/17/2023 16:13:22 10/17/2023 17:41:05 Perennial allergic rhinitis [id number] J30.[address] [facility] All[facility] [address] [place] [address],[address] [place] [address] 10/31/2023 16:06:43 10/31/2023 16:22:50 Perennial allergic rhinitis [id number] J30.[address] [facility] [address] [place] [address],[address] [place] [address] 11/14/2023 11:17:23 11/14/2023 14:48:16 Perennial allergic rhinitis [id number] J30.89 6403 CAROLYNN NOLAND [facility] Allergy 100 [facility],[address] [place] [address] 11/27/2023 16:10:47 11/27/2023 16:44:32 Perennial allergic rhinitis [id number] J30.[address] [facility] Allergy 100 [facility],[address] [place] [address] 12/12/2023 16:17:18 12/12/2023 16:41:45 Perennial allergic rhinitis 105338398 J30.89 09649 CHERIE HERMAN RN Allergy 100 [facility],[address] [place] [address] 12/26/2023 16:12:41 12/26/2023 16:54:07 Perennial allergic rhinitis [id number] J30.89 25546 CAROLYNN NOLAND [facility] Allergy 100 [facility],[address] [place] [address] 01/08/2024 10:13:46 01/08/2024 12:13:56 Perennial allergic rhinitis [id number] J30.89 [id number] CAROLYNN NOLAND [facility] Allergy [address] [place] [address],[address] [place] [address] 01/22/2024 13:40:12 01/22/2024 15:01:18 Perennial allergic rhinitis [id number] J30.89 [id number] AVEL HERNANDEZ MD [facility] [place] 100 [facility] [place] [address] 02/01/2024 15:36:38 02/01/2024 16:07:42 Allergic rhinitis 49661738 J30.89 35513 CAROLYNN NOLAND [facility] Allergy [address] [place] [address],[address] [place] [address] 02/06/2024 16:23:19 02/07/2024 08:49:55 Perennial allergic rhinitis [id number] J30.89 [id number] CAROLYNN NOLAND [facility] Allergy 100 [facility],[address] [place] [address] 02/20/2024 16:26:39 02/20/2024 17:23:59 Perennial allergic rhinitis [id number] J30.89 25635 [facility] Allergy 100 [facility],[address] [place] [address] 03/07/2024 12:27:11 03/07/2024 13:41:01 Perennial allergic rhinitis [id number] J30.89 [id number] CAROLYNN NOLAND [facility] Allergy 100 [facility],[address] [place] [address] 03/19/2024 16:15:44 03/19/2024 16:27:02 Perennial allergic rhinitis [id number] J30.89 11866 [facility], R[facility] [place] [address] 04/02/2024 16:11:14 04/02/2024 16:19:33 Perennial allergic rhinitis [id number] J30.89 65066 [facility], RMA Allergy [facility] [place],[address] [place] [address] 04/16/2024 16:44:27 04/16/2024 17:04:24 Perennial allergic rhinitis [id number] J30.89 06888 CAROLYNN NOLAND, RMA Allergy 100 [facility],[address] [place] [address] 04/30/2024 16:13:35 04/30/2024 16:32:22 Perennial allergic rhinitis [id number] J30.89 76339 CAROLYNN NOLNAD A Allergy 100 [facility],[address] [place] [address] 05/14/2024 16:21:48 05/14/2024 16:34:07 Perennial allergic rhinitis 128990216 J30.89 14152 CAROLYNN NOLAND A Allergy 100 [facility],[address] [place] [address] 05/29/2024 09:15:53 05/29/2024 11:28:25 Perennial allergic rhinitis [id number] J30.89 37546 [facility], RMA Allergy [address] [facility] [place],[address] [place] [address] 06/11/2024 13:30:16 06/11/2024 13:45:27 Perennial allergic rhinitis [id number] J30.89 [id number] CAROLYNN NOLAND RMA Allergy 100 [facility],[address] [place] [address] 06/25/2024 16:57:05 06/25/2024 17:08:31 Perennial allergic rhinitis [id number] J30.89 40552 CAROLYNN NOLAND RMA Allergy [address] [facility] [place],[address] [place] [address] 07/09/2024 16:24:50 07/09/2024 16:36:54 Perennial allergic rhinitis [id number] J30.89 [id number] CHERIE HERMAN etcher apprentice 100 [facility],[address] [place] [address] 07/23/2024 16:16:56 07/23/2024 16:46:34 Perennial allergic rhinitis [id number] J30.89 06824 [facility], A Allergy 100 [facility],[address] [place] [address] 08/06/2024 16:16:54 08/06/2024 16:32:47 Perennial allergic rhinitis [id number] J30.89 30667 AVEL HERNANDEZ MD [facility] [place] 100 [facility] [place] [address] 08/21/2024 15:20:45 08/21/2024 16:01:10 Allergic rhinitis [id number] J30.89 [id number] [facility] Allergy [address] [place] [address],[address] [place] [address] 08/21/2024 15:23:00 08/21/2024 16:05:43 Perennial allergic rhinitis [id number] J30.89 [id number] [facility] Allergy [address] [place] [address],[address] [place] [address] 09/03/2024 15:35:16 09/03/2024 16:02:14 Perennial allergic rhinitis [id number] J30.89 [id number] [facility] Allergy [address] [place] [address],[address] [place] [address] 09/17/2024 16:11:12 09/17/2024 16:17:33 Perennial allergic rhinitis [id number] J30.89 52983 CAROLYNN NOLAND, [facility] Allergy [address] [place] [address],[address] [place] [address] 10/01/2024 16:08:36 10/01/2024 16:23:50 Perennial allergic rhinitis [id number] J30.89 13630 [facility], A Allergy [address] [place] [address],[address] [place] [address] 10/15/2024 16:21:16 10/15/2024 16:54:08 Perennial allergic rhinitis [id number] J30.89 02644 SOILA WEINER, RMA Allergy 100 [facility] 100 [place] [address] 10/29/2024 16:17:00 10/29/2024 16:25:07 Perennial allergic rhinitis [id number] J30.89 Health Concerns Section Related Observation LastModified by Organization Detai ls LastModified Time None Recorded Concern Status LastModified by Organization Details LastModified Time None Recorded Advance Directives Directive None Recorded Payers Insurance Date Sequence Insurance Name Policy Number Policy Gonsalez Covered Member ID Gonsalez Member ID Guarantor Name 12/12/2023 1 [facility] [id number] Deepa Ross [id number] 2 Deepa Ross 10/29/2024 1 [facility] [employer] - DIRECT - [place] (HMO) [id number] Deepa Ross [id number] Deepa Ross OBGyn Episode No OBEpisode recorded.
== END 2024-11-11 15:51 | disposition home or self-care (01) ==
LOC: HO.HMCH 14:56
PROVIDERS: PCP Internal Medicine; Visit Provider Internal Medicine
DX: G43.909 Migraine, unspecified, not intractable, without status migrainosus (principal); I72.9 Aneurysm of unspecified site; J45.909 Unspecified asthma, uncomplicated; E03.9 Hypothyroidism, unspecified; R12 Heartburn

== ENCOUNTER → 2024-11-11 14:55 | Outpatient (BNVA) | payer OTHER, SELFPAY | PROVIDERS: PCP Internal Medicine; Visit Provider Internal Medicine | DX: K21.9 Gastro-esophageal reflux disease without esophagitis (principal); G43.909 Migraine, unspecified, not intractable, without status migrainosus; J45.909 Unspecified asthma, uncomplicated; I72.9 Aneurysm of unspecified site; E03.9 Hypothyroidism, unspecified; R12 Heartburn | CPT/HCPCS: 96127 ==

== ENCOUNTER 2024-11-15 08:01 | Outpatient (REF) | payer OTHER, SELFPAY ==
--- NOTE | ~2024-11-15 | MR_ITS ---
CLINICAL HISTORY: I72.9 - Aneurysm of unspecified site MR Angiography head without gadolinium Comparison: None provided Findings No evidence of significant arterial stenosis, aneurysm, AVM, or dissection. Unremarkable brain on limited brain parenchymal evaluation. IMPRESSION: No evidence of significant arterial stenosis, aneurysm, AVM, or dissection. This document has been electronically signed by: Monica Ortega MD on 11/17/2024 13:30:17
== END 2024-11-15 08:02 | disposition home or self-care (01) ==
LOC: HO.MRI 08:01
PROVIDERS: PCP Internal Medicine; Visit Provider Internal Medicine
DX: I72.9 Aneurysm of unspecified site (principal)
CPT/HCPCS: 70544

== ENCOUNTER → 2024-11-15 08:13 | Outpatient (BNV) | payer OTHER, SELFPAY | PROVIDERS: PCP Internal Medicine; Visit Provider Radiology Diagnostic Radiology | DX: I72.9 Aneurysm of unspecified site (principal) | CPT/HCPCS: 70544 ==

== ENCOUNTER 2024-12-09 15:41 | Outpatient (AMB) | payer OTHER, SELFPAY ==
--- NOTE | 2024-12-09 15:55 | A.OFFPC_ITS ---
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 The patient reports a history of asthma, with symptoms including persistent cough and difficulty breathing, which began approximately four weeks ago. She completed a course of prednisone and uses albuterol every six hours, but continues to experience chest tightness. The patient is allergic to cats, which may contribute to her respiratory symptoms, as she lives with two cats. She has been advised to avoid exposure as much as possible and consider using an air purifier. She has not been taking her LABA, instead only using RILEY and nebulizer treatments. She has been coughing for a month. Expiratory wheezing/rhonchi throughout lung field. Will start the patient on zpack. Explained to the patient that her LABA is to prevent these symptoms and the RILEY and nebulizer are for breakthrough symptoms. Apparently, the patient's son advised her not to take the LABA since she has been taken the RILEY because it is too much. The patient also reports visual disturbances, including episodes of triple vision with her migraines, which have not been explained by recent MRI results. She is scheduled to follow up with a neurologist and an eye doctor for further evaluation. [facility] Medical History (Updated 12/28/24 @ 00:19 by RAHUL Winters) History of Helicobacter pylori infection Patellofemoral arthritis of right knee Hypothyroidism Surgical History History of biopsy History of cholecystectomy History of section Family History Father CVD (cardiovascular disease) DVT (deep venous thrombosis) Mother Liver problem Kidney disease Diabetes Social History Housing: Apartment Alcohol intake: never Patient Tobacco Use Status: Never used Tobacco e-Cigarette/Vaping Use: Never Used Second Hand Smoke Exposure: No service: No Current occupational status: 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 1. Little interest or pleasure in doing things: not at all 2. Feeling down, depressed, or hopeless: not at all 3. Trouble falling or staying asleep, or sleeping too much: not at all 4. Feeling tired or having little energy: not at all 5. Poor appetite or overeating: not at all 6. Feeling bad about yourself - or that you are a failure or have let yourself or your family down: not at all 7. Trouble concentrating on things, such as reading the newspaper or watching television: not at all 8. Moving or speaking so slowly that other people could have noticed. Or the opposite - being so fidgety or restless that you have been moving around a lot more than usual: not at all 9. Thoughts that you would be better off or of hurting yourself in some way: not at all Total score: 0 Depression Screening Interpretation: Negative Depression Screening Done: Yes Source: Developed by Drs. Deepak Mason, Christina Armando, Darrell Cardenas and colleagues, with an educational susie from [employer]. Thrive Questionnaire Date Thrive assessed: 12/09/24 I am a: Patient What is your living situation today?: I have a steady place to live Within the past 12 months, did the food you bought not last and you didn't have the money to get more?: Never true Within the past 12 months, did you worry whether your food would run out before you got money to buy more?: Never true Do you have trouble paying for medicines?: No Do you have trouble getting transportation to medical appointments?: No Do you have trouble paying your heating and electricity bill?: No Do you have trouble taking care of your child, family member or friend?: No Do you have trouble with day-to-day activities such as bathing, preparing meals, shopping, managing finances, etc.?: No Are you currently unemployed and looking for a job?: No Are you interested in more education?: No Please select the resources that you would like help with: None Currently or been in a relationship where the following occur: No concerns reported THRIVE Score: 0 CAMILLE-7 AMB Questionnaire CAMILLE-7 Date CAMILLE - 7 assessed: 12/09/24 Source: Developed by Drs. Deepak Mason, Christina Armando, Darrell Cardenas and colleagues, with an educational susie from [employer]. Review of Systems Const Denies body aches, Denies chills, Denies fever(s), Reports headache(s) (History of migraine) and Denies poor appetite Eyes Reports other visual disturbances (Reports seeing triple doing migraines) ENT Denies dysphagia, Denies dizziness, Reports headache(s) (History of migraine) and Denies odynophagia Card Denies chest pain, Denies syncope, Denies edema, Denies irregular heart rhythm, Denies lightheadedness, Denies dyspnea and Reports dyspnea on exertion Resp Reports cough, Denies dyspnea and Reports dyspnea on exertion GI Denies abdominal pain, Denies constipation, Denies dysphagia, Denies diarrhea, Denies nausea, Denies odynophagia and Denies vomiting Reports no additional complaints Musc Reports no additional complaints and Denies abnormal gait Skin/Breast Reports system reviewed and no additional complaints, except as documented Neuro Denies abnormal gait, Denies dizziness, Denies syncope and Reports headache(s) (History of migraine) Psych Reports no additional complaints Physical exam (Primary Care) Vital Signs: Last Vital Signs BP 116/68 12/09/24 15:56 BMI result Body Mass Index 25.6 Tobacco/Smoking Status: Tobacco use Status Tobacco use date assessed 08/15/24 12/09/24 15:58 Patient Tobacco Use Status Never used Tobacco 12/09/24 15:58 e-Cigarette/Vaping Use Never Used 12/09/24 15:58 PHQ-9: PHQ-9 Score PHQ-9: Total score 0 12/09/24 17:05 Depression Screening Interpretation: Negative Thrive Assessment: Date of Thrive Assessment Date Thrive assessed 12/09/24 12/09/24 15:58 Currently or been in a relationship where the following occur: No concerns reported Const General: cooperative, healthy appearing, comfortable and no acute distress Orientation/consciousness: patient oriented x3 HENMT Head: Yes normocephalic Ears: TM's normal bilaterally General nose exam: Normal nasal mucous membranes and turbinates present Eyes General: appearance normal, both eyes and all related structures Conjunctivae: conjunctivae normal Pupils: Equal, round and reactive pupils present Neck Neck: Yes full ROM and Yes no lymphadenopathy Resp Effort & Inspection: audible wheezes Auscultation: no crackles, no rales, no rhonchi and wheezes expiratory wheezes, lower bilaterally and upper bilaterally Cardio Rate: regular rate Rhythm: regular rhythm Heart sounds: S1 normal heart sound present and S2 normal heart sound present Skin General skin exam: no rashes or lesions noted Neuro General: patient oriented x3 Cranial nerves: Yes CN's II-XII intact bilaterally and Yes Equal, round and reactive pupils present Gait exam (Neuro): Normal gait present Motor exam (neuro): 5/5 motor strength present throughout Extrem General: Yes normal to inspection, Yes full ROM and No edema Psych Affect: normal affect Attitude: cooperative Insight: Good insight present (Psych) Judgement: Good judgement present (Psych) Coding Level of Care Code Est Pt Level 3 (26059) Diagnoses Moderate persistent asthma with acute exacerbation J45.41 Asthma severity: moderate Asthma persistence: persistent Asthma complication type: with acute exacerbation Cough, unspecified type R05.9 Cough type: unspecified Migraine with status migrainosus, not intractable, unspecified migraine type G43.901 Migraine type: unspecified Status migrainosus presence: with status migrainosus Intractability: not intractable Time Spent (min) 33 Assessment & Plan Assessment & Plan (1) Asthma: Code(s): J45.909 - Unspecified asthma, uncomplicated Category: Medical Qualifiers: Asthma severity: moderate Asthma persistence: persistent Asthma complication type: with acute exacerbation Qualified Code(s): J45.41 - Moderate persistent asthma with (acute) exacerbation (2) Cough: Code(s): R05.9 - Cough, unspecified Category: Medical Qualifiers: Cough type: unspecified Qualified Code(s): R05.9 - Cough, unspecified (3) Migraines: Code(s): G43.909 - Migraine, unspecified, not intractable, without status migrainosus Category: Medical Qualifiers: Migraine type: unspecified Status migrainosus presence: with status migrainosus Intractability: not intractable Qualified Code(s): G43.901 - Migraine, unspecified, not intractable, with status migrainosus Plan The patient will be started on a course of azithromycin to address the potential respiratory infection, as abnormal lung sounds were noted during the examination. She is advised to continue using her nebulizer and inhalers as prescribed to manage breakthrough asthma symptoms, but she use Anoro Ellipta 1 inh daily regardless if she has symptoms are not. The patient is also encouraged to minimize exposure to allergens, particularly the cats, and to use an air purifier at home. For her visual disturbances, the patient is scheduled to follow up with a neurologist and an eye doctor to further investigate the cause of her symptoms. Patient was informed and verbally consented to the use of an ambient scribe for clinic note documentation during this visit. Medications: New azithromycin For 250 mg dose pack: take 500 mg today (day 1), then 250 mg for 4 days (days 2-5) PO 6 tabs 0RF
[2024-12-09 15:56] VITALS: BP 116/68; BMI 25.6
--- OUTSIDE RECORDS SUMMARY | 2024-12-09 16:35 | XMS_ITS | Data Portability ---
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 Name Role Phone BETH ROSA Primary Care Provider Assessment Encounter Date Assessment Date Assessment LastModified by Organization Details LastModified Time 10/01/2024 10/01/2024 Visit With: Carolynn Noland Use of Antihistamine s: No If yes: Vial Test Change in medications: No If yes Increase in asthma symptoms If yes, inhaler use: Reaction to last injections: No If yes: Allergy Symptoms: Other: Missed: Dose Aware of Vial Test Notes: [email or web address] Not available 10/01/2024 16:23:34 10/15/2024 10/15/2024 Visit With: GEMA Ontiveros Use of Antihistamine s: No If yes: Vial Test Change in medications: No If yes Increase in asthma symptoms If yes, inhaler use: Reaction to last injections: No If yes: Allergy Symptoms: Other: Missed: Dose Aware of Vial Test Notes: [email or web address] Not available 10/15/2024 16:53:47 10/29/2024 10/29/2024 Visit With: GEMA Ontiveros Use of Antihistamine s: No If yes: Vial Test Change in medications: No If yes Increase in asthma symptoms If yes, inhaler use: Reaction to last injections: No If yes: Allergy Symptoms: Other: Missed: Dose Aware of Vial Test Notes: [email or web address] Not available 10/29/2024 16:24:29 11/12/2024 11/12/2024 Visit With: GEMA Ontiveros Use of Antihistamine s: No If yes: Vial Test Change in medications: No If yes Increase in asthma symptoms If yes, inhaler use: Reaction to last injections: No If yes: Allergy Symptoms: Other: Missed: Dose Aware of Vial Test Aware: Notes: [email or web address] Not available 11/12/2024 16:32:43 11/26/2024 11/26/2024 Visit With: Carolynn Noland Use of Antihistamine s: No If yes: Vial Test Change in medications: No If yes Increase in asthma symptoms If yes, inhaler use: Reaction to last injections: No If yes: Allergy Symptoms: Other: Missed: Dose Aware of Vial Test Aware: Notes: [email or web address] Not available 11/26/2024 16:40:21 Plan of Treatment Reminders Order Date Submit Date Provider Last Modified By Organization Details Last Modified Time Details Appointments [facility]- Allergy f-up 6mon 2024 03:45P M AVEL [...] and Address Organization Details Recorded Time Headache 36284161 Active 2019 Headache, unspecifi ed; Note: Changed from R51 to R51.9 (07/01/2020 3:34 PM) , Date Diagnosed : 07/03/2019 4:22 PM (R51) Not Available [facility] 4 02:13:25 Tinnitus of vascular origin [id number] Active 2022 Pulsatile tinnitus, right ear; Note: Date Diagnosed : 08/02/2022 4:38 PM (H93.A1) Not Available [facility] 4 02:14:37 Allergic rhinitis 04666016 Active 2023 SCIT [address] Pavel laurenekmartine HERNANDEZ MD [address] [place] [address], [facility] [place], [address] , [facility] - [facility] 4 11:34:09 Bilateral tinnitus [id number] 02 Active 2018 Tinnitus, bilateral ; Note: Date Diagnosed : 01/23/2019 4:23 PM (H93.13) Not Available [facility] 02:13:43 Perennial allergic rhinitis 234158011 Active 2023 SOILA BIRCH RMA [address], [place], [address] , [facility] - [facility] 16:27:42 Vasomotor rhinitis 1124277 Active 2023 Vasomotor rhinitis; Note: Date Diagnosed : 07/13/2023 4:55 PM (J30.0) Not Available [facility] 02:13:53 Acute maxillary sinusitis 43738180 Active 2023 Acute maxillary sinusitis , unspecifi ed; Note: Date Diagnosed : 07/13/2023 4:55 PM (J01.00) Not Available [facility] 02:14:10 Problem Notes None recorded. Procedures Surgical History Date Name Laterality Status Provider Name and Address Organization Details Recorded Time 11/27/19 25 Allergy Immunotherapy Injections completed SAMSON MAYSA [address] [place] [address], [phone], [facility] - [facility] 11/26/2024 16:39:51 11/13/19 25 Allergy Immunotherapy Injections completed SOILA BIRCH RMA [address], [place], [address], [facility] - [facility] 11/12/2024 16:31:21 10/30/19 25 Allergy Immunotherapy Injections completed SOILA BIRCH RMA [address], [place], [address], [facility] - [facility] 10/29/2024 16:24:24 10/16/19 25 Allergy Immunotherapy Injections completed SOILA BIRCH RMA [address], [place], [address], [facility] - [facility] 10/15/2024 16:53:42 10/02/19 25 Allergy Immunotherapy Injections completed SOILA BIRCH RMA [address], [place], [address], [place] - [facility] 10/01/2024 16:23:26 09/18/19 25 Allergy Immunotherapy Injections completed SOILA KORZEC, RMA [address], [place], [address], [place] [facility] 09/17/2024 16:16:34 09/04/19 25 Allergy Immunotherapy Injections completed SOILA KORZEC, RMA [address], [place], [address], [place] [facility] 09/03/2024 16:01:46 08/22/19 25 Allergy Immunotherapy Injections completed CAROLYNN NOLAND, RMA [address], [place], [address], [place] [facility] 08/21/2024 16:05:02 08/07/19 25 Allergy Immunotherapy Injections completed SOILA KORZEC, RMA [address], [place], [address], [place] [facility] 08/06/2024 16:32:03 07/23/19 25 Allergy Immunotherapy Injections completed SOILA KORZEC, RMA [address], [place], [address], [place] [facility] 07/23/2024 16:45:52 07/09/19 25 Allergy Immunotherapy Injections completed SOILA KORZEC, RMA [address], [place], [address], [place] [facility] 07/09/2024 16:36:30 06/25/19 25 Allergy Immunotherapy Injections completed CAROLYNN NOLAND RMA [address], [place], [address], [place] [facility] 06/25/2024 17:07:58 06/11/19 25 Allergy Immunotherapy Injections completed SOILA KORZEC, RMA [address], [place], [address], [place] [facility] 06/11/2024 13:44:47 05/29/19 25 Allergy Immunotherapy Injections completed SOILA KORZEC, RMA [address], [place], [address], [place] [facility] 05/29/2024 11:27:48 05/14/20 24 Allergy Immunotherapy Injections completed CHERIE HERMAN RN [address], [place], [address], [place] [facility] 05/14/2024 16:33:31 04/30/20 24 Allergy Immunotherapy Injections completed SOILA BIRCH RMA [address], [place], [address], [place] [facility] 04/30/2024 16:31:43 04/16/20 24 Allergy Immunotherapy Injections completed SOILA BIRCH RMA [address], [place], [address], [place] [facility] 04/16/2024 17:03:52 04/02/20 24 Allergy Immunotherapy Injections completed GEMA MAYS [address] [place] [address], [address], [place] [facility] 04/02/2024 16:17:47 03/19/20 24 Allergy Immunotherapy Injections completed CHERIE HERMAN RN [address] [place] [address], [address], [place] [facility] 03/19/2024 16:26:16 03/07/20 24 Allergy Immunotherapy Injections completed SOILA BIRCH RMA [address] [place] [address], [address], [place] [facility] 03/07/2024 13:40:29 02/20/20 24 Allergy Immunotherapy Injections completed GEMA MAYS [address], [place], [address], [place] [facility] 02/20/2024 17:11:11 02/06/20 24 Allergy Immunotherapy Injections completed CHERIE HERMAN RN [address], [place], [address], [place] [facility] 02/07/2024 08:49:22 01/22/20 24 Allergy Immunotherapy Injections completed GEMA MAYS [address], [place], [address], [facility] - [facility] 01/22/2024 14:00:20 01/08/20 24 Allergy Immunotherapy Injections completed GEMA MAYS [address] [place] [address], [address], [facility] - [facility] 01/08/2024 12:12:08 12/26/19 24 Allergy Immunotherapy Injections completed CHERIE HERMAN RN [address] [facility] [place] [address], [address], [facility] - [facility] 12/26/2023 16:50:55 12/12/19 24 Allergy Immunotherapy Injections completed CHERIE HERMAN RN [address] [facility] [address] [place] [address], [address], [facility] - [facility] 12/12/2023 16:40:58 11/27/19 24 Allergy Immunotherapy Injections completed GEMA MAYS [address] [facility] [address] [place] [address], [address], [facility] - [facility] 11/27/2023 16:41:14 11/14/19 24 Allergy Immunotherapy Injections completed SOILA BIRCH RMA [address] [place] [address], [address], [facility] - [facility] 11/14/2023 11:18:33 10/31/19 24 Allergy Immunotherapy Injections completed SOILA IBRCH, RMA [address] [place] [address], [address], [facility] - [facility] 10/31/2023 16:21:15 10/17/19 24 Allergy Immunotherapy Injections completed SOILA BIRCH RMA [address], [place], [address], [facility] - [facility] 10/17/2023 16:28:03 Imaging Results None recorded. Procedure Notes None recorded. Medical Equipment None Reported. Medications Name Sig Start Date Stop Date Status Note LastModified by Organization Details LastModified Time levothyro xine 137 mcg tablet 07/01 completed Medicati on ID: [id number] D uration Value: 30 Brand Name: levothyr [...] gram tablet 09/12 completed Medicati on ID: [id number] D uration Value: 30 Reason: () Brand [...] mg tablet 01/23 completed Medicati on ID: [id number] D uration Value: 3 Reason: () Brand [...] mcg tablet 01/02 completed Medicati on ID: [id number] D uration Value: 30 Reason: () Brand [...] mcg tablet 01/23 completed Medicati on ID: [id number] D uration Value: 30 Reason: () Brand Name: levothyr oxine Se nd Method: E-Prescr ibed Sub s Allowed: ronald nunez Instruct ion: TAKE 2 TABLETS ON AN [...] mg tablet 01/02 completed Medicati on ID: [id number] D uration Value: 30 Reason: () Brand Name: Citrucel Send Method: E-Prescr ibed Sub s Allowed: ronald Bahena al Instruct ion: TAKE 2 TABLETS BY MOUTH DAILY, DRINK 8 OZ WATER WITH TABLETS Medicati onGeneri cName: Citrucel Not Available Not Available Not Available levothyro xine 150 mcg tablet 05/19 completed Medicati on ID: [id number] D uration Value: 30 Reason: () Brand Name: levothyr oxine Se nd Method: E-Prescr ibed Sub s Allowed: ronald nunez Instruct ion: TAKE 1 TABLET BY MOUTH EVERY DAY Medi cationGe nericNam e: levothyr oxine Not Available Not Available Not Available omeprazol e 20 mg capsule,d elayed release 07/01 completed Medicati on ID: [id number] D uration Value: 30 Brand Name: omeprazo le Send Method: E-Prescr ibed Sub s Allowed: ronald nunez Instruct ion: TAKE 1 CAPSULE BY [...] Relief 50 mcg/actua tion nasal spray,gabrielle pension Morris 2 spray into both nostrils once a day 07/01 completed Medicati on ID: [id number] D uration Value: 30 Brand Name: Flonase [...] Diagnosis ICD10 Code Diagnosis Note 1218 SOILA BIRCH A Allergy [address] [place] [address] 10/17/2023 16:13:22 10/17/2023 17:41:05 Perennial allergic rhinitis [id number] J30.89 2931 SOILA HUSAM RMA Allergy [address] [place] [address] [address] [place] [address] 10/31/2023 16:06:43 10/31/2023 16:22:50 Perennial allergic rhinitis [id number] J30.89 4686 SOILA HUSAM, RMA Allergy 100 [facility],[place] [address] [place] [address] 11/14/2023 11:17:23 11/14/2023 14:48:16 Perennial allergic rhinitis [id number] J30.89 6403 CAROLYNN NOLAND A Allergy [address] [place] [address], [address] [facility] [address] 11/27/2023 16:10:47 11/27/2023 16:44:32 Perennial allergic rhinitis [id number] J30.89 8352 [facility] Allergy [address] [place], [place] [address] 100 [facility] [address] 12/12/2023 16:17:18 12/12/2023 16:41:45 Perennial allergic rhinitis [id number] J30.89 13942 CHERIE HERMAN RN Allergy [address] [place], [place] [address] [address] [place] [address] 12/26/2023 16:12:41 12/26/2023 16:54:07 Perennial allergic rhinitis [id number] J30.89 53778 CAROLYNN NOLAND [facility] Allergy [address] [place], [place] [address] [address] [place] [address] 01/08/2024 10:13:46 01/08/2024 12:13:56 Perennial allergic rhinitis [id number] J30.89 69742 CAROLYNN NOLAND [facility] Allergy [address] [place], [place] [address] 100 [place] [address] 01/22/2024 13:40:12 01/22/2024 15:01:18 Perennial allergic rhinitis [id number] J30.89 02011 AVEL HERNANDEZ MD [facility] [address] [place] [address] 02/01/2024 15:36:38 02/01/2024 16:07:42 Allergic rhinitis 23073022 J30.89 [id number] CAROLYNN NOLAND [facility] Allergy [address] [place], [place] [address] 100 [facility] [place] [address] 02/06/2024 16:23:19 02/07/2024 08:49:55 Perennial allergic rhinitis [id number] J30.89 [id number] CAROLYNN NOLAND [facility] Allergy [address] [place] [address] [address] [place] [address] 02/20/2024 16:26:39 02/20/2024 17:23:59 Perennial allergic rhinitis [id number] J30.89 27140 [facility], RMA Allergy 100 [facility],[place] [address] [place] [address] 03/07/2024 12:27:11 03/07/2024 13:41:01 Perennial allergic rhinitis [id number] J30.89 44840 CAROLYNN NOLAND A Allergy 100 [facility],[place] [address] [place] [address] 03/19/2024 16:15:44 03/19/2024 16:27:02 Perennial allergic rhinitis [id number] J30.89 56947 [facility], RMA Allergy 100 [facility],[place] [address] [place] [address] 04/02/2024 16:11:14 04/02/2024 16:19:33 Perennial allergic rhinitis [id number] J30.89 44700 [facility], A Allergy 100 [facility],[place] [address] [place] [address] 04/16/2024 16:44:27 04/16/2024 17:04:24 Perennial allergic rhinitis [id number] J30.89 31466 CAROLYNN NOLAND A Allergy 100 [facility],[place] [address] [place] [address] 04/30/2024 16:13:35 04/30/2024 16:32:22 Perennial allergic rhinitis [id number] J30.89 78390 CAROLYNN NOLAND A Allergy 100 [facility],[place] [address] [place] [address] 05/14/2024 16:21:48 05/14/2024 16:34:07 Perennial allergic rhinitis [id number] J30.89 12451 CAROLYNN NOLAND A Allergy 100 [facility],[place] [address] [place] [address] 05/29/2024 09:15:53 05/29/2024 11:28:25 Perennial allergic rhinitis [id number] J30.89 27583 [facility], RMA [facility]ergy [address] [facility] [address] [place] [address] 06/11/2024 13:30:16 06/11/2024 13:45:27 Perennial allergic rhinitis [id number] J30.89 [id number] CAROLYNN NOLAND [facility] Allergy 100 [facility],[place] [address] [place] [address] 06/25/2024 16:57:05 06/25/2024 17:08:31 Perennial allergic rhinitis [id number] J30.89 79492 CAROLYNN NOLAND, [facility] Allergy [address] [place] [address],[address] [place] [address] 07/09/2024 16:24:50 07/09/2024 16:36:54 Perennial allergic rhinitis [id number] J30.89 18792 CHERIE HERMAN RN Allergy [address] [place] [address],[place] [place] [address] 07/23/2024 16:16:56 07/23/2024 16:46:34 Perennial allergic rhinitis [id number] J30.[address] [facility] Allergy [address] [place] [address],[place] [place] [address] 08/06/2024 16:16:54 08/06/2024 16:32:47 Perennial allergic rhinitis [id number] J30.89 [id number] AVEL HERNANDEZ MD [facility] [place] 100 [facility] [place] [address] 08/21/2024 15:20:45 08/21/2024 16:01:10 Allergic rhinitis [id number] J30.[id number] [facility] Allergy [address] [place] [address],[place] [place] [address] 08/21/2024 15:23:00 08/21/2024 16:05:43 Perennial allergic rhinitis [id number] J30.[address] [facility] Allergy 100 [facility],[place] [address] [place] [address] 09/03/2024 15:35:16 09/03/2024 16:02:14 Perennial allergic rhinitis [id number] J30.89 54858 [facility], A Allergy [address] [place] [address],[place] [address] [place] [address] 09/17/2024 16:11:12 09/17/2024 16:17:33 Perennial allergic rhinitis [id number] J30.89 43286 CAROLYNN TOMAS RMA [facility]ergy [address] [facility] [address] [place] [address] 10/01/2024 16:08:36 10/01/2024 16:23:50 Perennial allergic rhinitis [id number] J30.89 18016 [facility], RMA Allergy [address] [facility] [address] [place] [address] 10/15/2024 16:21:16 10/15/2024 16:54:08 Perennial allergic rhinitis [id number] J30.89 [id number] [facility] R[facility] [address] [facility] [address] [place] [address] 10/29/2024 16:17:00 10/29/2024 16:25:07 Perennial allergic rhinitis [id number] J30.89 44002 [facility], RMA Allergy [address] [facility] [address] [place] [address] 11/12/2024 16:10:27 11/12/2024 16:33:04 Perennial allergic rhinitis [id number] J30.89 23750 CAROLYNN TOMAS A Allergy 100 [facility],[place] [address] [place] [address] 11/26/2024 16:14:50 11/26/2024 16:40:47 Perennial allergic rhinitis [id number] J30.89 Health Concerns Section Related Observation LastModified by Organization Detai ls LastModified Time None Recorded Concern Status LastModified by Organization Details LastModified Time None Recorded Advance Directives Directive None Recorded Payers Insurance Date Sequence Insurance Name Policy Number Policy Gonsalez Covered Member ID Gonsalez Member ID Guarantor Name 12/12/2023 1 [facility] PLAN [id number] Deepa Ross [id number] Deepa Ross 11/26/2024 1 [facility] [employer] [place] [id number] Deepa Ross [id number] Deepa Ross OBGyn Episode No OBEpisode recorded.
== END 2024-12-09 17:08 | disposition home or self-care (01) ==
LOC: HO.HMCH 15:41
PROVIDERS: PCP Internal Medicine
DX: J45.41 Moderate persistent asthma with (acute) exacerbation (principal); R05.9 Cough, unspecified; G43.901 Migraine, unspecified, not intractable, with status migrainosus

== ENCOUNTER 2024-12-24 15:03 | Outpatient (REF) | payer OTHER, SELFPAY ==
--- OUTSIDE RECORDS SUMMARY | 2024-12-25 12:01 | XMS_ITS | Clinical Summary ---
Author Organization [facility] Address [address] [place] [address] Care Team Providers Care State Epidemiologist Name Role Phone Roxann Mathis MD Primary Care Provider [phone] Encounters Date Type Department Care Team Description 12/22/2024 3:40 PM EDT Ancillary Procedure [facility]iology [address] [place] [address] Provider, File Room Arrived 12/22/2024 3:40 PM EDT Ancillary Procedure [facility] [address] [place] [address] Provider, File Room Arrived 12/22/2024 3:35 PM EDT Ancillary Procedure [facility] [address] [place] [address] Provider, File Room Arrived 12/12/2024 Transcribe Orders GENERIC EXTERNAL DATA DEPARTMENT Roxann Mathis MD Aneurysm of unspecified site (Primary Dx) 11/15/2024 Orders Only [facility] [address] [place] [address] Provider, File Room from Last 3 Months [...] of2 resultswithin the time period is included. [facility] 12/22/2024 3:37 PM EDT This study has been auto finalized and does not contain a result. us File Room Provider IMG DIGITIZE FILMS Final Resu lt Performing Organization Address [facility] de Phone Number [place] [phone] * CT Head Archive for Reference Only (12/22/2024 3:36 PM EDT) [facility] - 12/22/2024 3:36 PM EDT This study has been auto finalized and does not contain a result. us File Room Provider IMG DIGITIZE FILMS Final Resu lt Performing Organization Address [facility] Co de Phone Number [place] [phone] from Last 3 Months Insurance [employer] Care Teams State Epidemiologist Relationship Specialty Start Date End Date Roxann Mathis MD [address] [place] [address] PCP - General Family Medicine 11/25/24
== END 2024-12-24 15:04 | disposition home or self-care (01) ==
LOC: HO.LNP 15:03
PROVIDERS: PCP Internal Medicine; Visit Provider Nurse Practitioner Family
DX: K21.9 Gastro-esophageal reflux disease without esophagitis (principal); R10.13 Epigastric pain; R79.89 Other specified abnormal findings of blood chemistry; R13.14 Dysphagia, pharyngoesophageal phase; R74.01 Elevation of levels of liver transaminase levels; E55.9 Vitamin D deficiency, unspecified; R19.7 Diarrhea, unspecified; Z86.19 Personal history of other infectious and parasitic diseases; Z79.899 Other long term (current) drug therapy; Z79.51 Long term (current) use of inhaled steroids; Z86.39 Personal history of other endocrine, nutritional and metabolic disease
CPT/HCPCS: 83013

== ENCOUNTER 2024-12-24 15:03 | Outpatient (AMB) | payer OTHER, SELFPAY ==
--- NOTE | 2024-12-24 15:14 | A.OFFVIS_ITS ---
Vital Signs 12/24/24 15:21 Height 5 ft 5 in Weight 154 lb BMI 25.6 BP 136/80 Blood Pressure Location Rt brachial Position Sitting Pulse 94 Pulse Source Pulse Oximeter Pulse Oximetry (%) 97 Oxygen Delivery Method Room Air Intake Visit Reasons: LFT's Intake Note: New pt for eval of abn LFTs. No prior hx of colo. CC: Pt denies any GI sx or concerns at this time. Pt prefers to have boarding specialist services for provider/medical based matters only. Pt denied boarding specialist services while being roomed by the MA. Food Equipment Service Technician Required: Yes Food Equipment Service Technician Services: Food Equipment Service Technician Present Accompanied by: Self / Same As Patient Allergies No Known Allergies Allergy (Verified 12/24/24 15:15) Medication List - Last Reconciled 12/24/24 by KUMAR Bustamante-SAMEER albuterol sulfate 2.5 mg (3 mL) inhalation QID PRN 30 days albuterol sulfate 90 mcg/actuation (Ventolin HFA) 2 puffs inhalation Q4-6H PRN [id number] 50-300-40 mg (Fioricet) 1 cap PO TID PRN epinephrine IM levothyroxine 112 mcg PO DAILY 90 days nebulizers (AeroEclipse II Nebulizer) As directed ondansetron 4 mg PO Q6H PRN sumatriptan succinate 25 mg PO Q2-4H PRN 30 days umeclidinium-vilanterol 62.5-25 mcg/actuation (Anoro Ellipta) 1 inh inhalation DAILY 60 days HPI HPI LFT's: Details: 59-year-old female with past medical history of hyperthyroidism, migraines, transaminitis, GERD, asthma is here today for initial consultation. Patient previously seen in a GI clinic. Had upper endoscopy and colonoscopy [place] [address] Means. Patient had 2 tubular adenomas. Prior to colonoscopy and endoscopy she was seeing in the clinic for acid reflux. Diagnosed with H pylori and treated. No H pylori found on endoscopy in 2018. Patient reports that she has been having trouble swallowing, epigastric pain and severe acid reflux. Currently patient is not on any PPI. Patient was started by PCP on omeprazole, however she only took it for very short time. Symptoms were not improved while taking it. Currently her pain is in the epigastric area no matter what she eats. However patient states that she is eating healthier in her pain is more tolerable. She does describe epigastric burning postprandially though. She is moving her bowels well without any issues. Denies melena, hematochezia, unintentional weight loss or ribbon like stools. Patient denies any nausea or vomiting. Denies dyspepsia or odynophagia [facility] Medical History (Updated 12/24/24 @ 20:35 by Ivy Clay [facility]) History of Helicobacter pylori infection Patellofemoral arthritis of right knee Hypothyroidism Surgical History History of biopsy History of cholecystectomy History of section Family History Father CVD (cardiovascular disease) DVT (deep venous thrombosis) Mother Liver problem Kidney disease Diabetes Social History Housing: Apartment Alcohol intake: never Patient Tobacco Use Status: Never used Tobacco e-Cigarette/Vaping Use: Never Used Second Hand Smoke Exposure: No service: No Current occupational status: 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 Current occupational exposures/hazards: No Cognitive needs: No Hearing needs: No Vision needs: Yes (Glasses) Review of Systems Const Denies weight gain and Denies weight loss ENT Reports no additional complaints, Denies dysphagia and Denies odynophagia Card Reports no additional complaints Resp Reports no additional complaints GI Reports abdominal pain (Epigastric), Denies belching, Denies melena, Denies bloating, Denies change in bowel habits, Denies dysphagia, Denies excessive flatus, Denies dyspepsia, Reports heartburn, Denies diarrhea, Denies loose stools, Denies nausea, Denies odynophagia and Denies vomiting Reports no additional complaints Musc Reports no additional complaints Neuro Reports no additional complaints Psych Reports no additional complaints Endo Reports no additional complaints Physical Exam Vital Signs: Last Vital Signs Pulse 94 12/24/24 15:21 BP 136/80 12/24/24 15:21 Pulse Ox 97 12/24/24 15:21 Oxygen Delivery Method Room Air 12/24/24 15:21 BMI result Body Mass Index 25.6 Const General: healthy appearing, no acute distress and well developed Nutritional Appearance: well nourished Orientation/consciousness: patient oriented x3 Resp Effort & Inspection: normal respiratory effort, able to speak in complete sentences, no tracheal deviation and symmetric chest movement Auscultation: clear to auscultation bilaterally Cardio Rate: regular rate GI Inspection: Yes normal to inspection and No distended Palpation (GI): Soft to palpation, not firm, nontender and No hepatosplenomegaly present Auscultation: normal bowel sounds General: Yes no CVA tenderness Back/Spine/Pelvis Back: no CVA tenderness Skin General skin exam: elasticity normal, turgor normal and dry skin Neuro General: patient oriented x3 Psych Appearance: grossly normal Mental Status: mental status grossly normal Assessment & Plan Assessment & Plan (1) Heart burn: Code(s): R12 - Heartburn Category: Medical (2) Transaminitis: Code(s): R74.01 - Elevation of levels of liver transaminase levels Category: Medical (3) Dysphagia: Code(s): R13.10 - Dysphagia, unspecified Qualifiers: Dysphagia type: pharyngoesophageal phase Qualified Code(s): R13.14 - Dysphagia, pharyngoesophageal phase (4) History of Helicobacter pylori infection: Code(s): Z86.19 - Personal history of other infectious and parasitic diseases Category: Medical (5) Postprandial epigastric pain: Code(s): R10.13 - Epigastric pain Plan Will do H pylori testing today if positive will treat empirically. Will check transglutaminase, lipase, we will recheck liver panel. Although patient had 1 episode only of liver enzymes elevated and then normal since then. Patient change her diet, states that she is eating clean. Denies eating food that is high in fat or fried. Will check lipase, vitamin B12, folate, vitamin-D level. Patient will be sent for upper GI with barium swallow as well. She is due to go for colonoscopy. When returning in 2-3 months we will discuss going for colonoscopy and possible upper endoscopy. Patient is agreeable to this plan and verbalizes understanding of instructions. She was given the opportunity to ask questions and all questions answered. Thank you for allowing me to participate in her care Orders: Orders Transglutaminase IgA Today R10.9 - Unspecified abdominal pain US abdomen comp w elastography Today R79.89 - Other specified abnormal findings of blood chemistry H Pylori Breath Test Today K21.9 - Gastro-esophageal reflux disease without esophagitis Lipase Today R10.9 - Unspecified abdominal pain Liver Panel Today R74.01 - Elevation of levels of liver transaminase levels Vitamin B12 and Folate Today R19.7 - Diarrhea, unspecified Vitamin D 25-OH (D2 and D3) Today E55.9 - Vitamin D deficiency, unspecified [place] upper GI w Ba Swallow Today K21.9 - Gastro-esophageal reflux disease without esophagitis Coding Level of Care Code New Pt Level 4 (37873) Diagnoses Heart burn R12 Transaminitis R74.01 Pharyngoesophageal dysphagia R13.14 Dysphagia type: pharyngoesophageal phase History of Helicobacter pylori infection Z86.19 Postprandial epigastric pain R10.13 Time Spent (min) 50 Comment 35 minutes spent with patient and additional 15 minutes spent reviewing her records
[2024-12-24 15:21] VITALS: BP 136/80; PULSE 94; O2SAT 97; BMI 25.6
--- OUTSIDE RECORDS SUMMARY | 2024-12-24 15:47 | XMS_ITS | Clinical Summary ---
Author Organization Formerly [facility] Address [address] [place] [id number] Care Team Providers Care Hand Leather Trimmer Name Role Phone Roxann Mathis MD Primary Care Provider [phone] Encounters Date Type Department Care Team Description 12/22/2024 3:40 PM EDT Ancillary Procedure [facility] [address] [place] [address] Provider, File Room Arrived 12/22/2024 3:40 PM EDT Ancillary Procedure [facility] [address] [place] [address] Provider, File Room Arrived 12/22/2024 3:35 PM EDT Ancillary Procedure [facility] [address] [place] [address] Provider, File Room Arrived 12/12/2024 Transcribe Orders GENERIC EXTERNAL DATA DEPARTMENT Roxann Mathis MD Aneurysm of unspecified site (Primary Dx) 11/15/2024 Orders Only [facility] [address] [place] [address] Provider, File Room from Last 3 Months Social History Tobacco Use Types Packs/Day Years Used Date Smoking Tobacco: Never Assessed Comments Unknown Sex and Gender Information Value Date Recorded Sex Assigned at Not on file Legal Sex Female 11:53 AM EDT Gender Identity Not on file Sexual Orientation Not on file Plan of Treatment Health Maintenance Due Date Last Done Comments Hepatitis C Virus Screening 1967 HIV Screening 1980 DTaP/Tdap/Td Vaccines (1 - Tdap) 1986 Hepatitis B Vaccines (1 of 3 - 19+ 3-dose series) 06/28 Pap Smear (Ages 21-65) 1988 Mammogram 2007 Colonoscopy 2012 Pneumococcal Vaccines 50+ (1 of 1 - PCV) 2017 Zoster (Shingles) Vaccine (1 of 2) 2017 COVID-19 Vaccine ( season) 2024 Influenza Vaccine 12/26/2024 Procedures Procedure Name Priority Date/Time Associated Diagnosis Comments MR HEAD ARCHIVE FOR REFERENCE ONLY Routine 12/22/2024 3:[address] HEAD ARCHIVE FOR REFERENCE ONLY Routine 12/22/2024 3:36 PM EDT MR HEAD ARCHIVE FOR REFERENCE ONLY Routine 12/22/2024 3:34 PM EDT from Last 3 Months Results * MR Head Archive for Reference Only (12/22/2024 3:37 PM EDT) Only the most recent of2 resultswithin the time period is included. [facility] 12/22/2024 3:37 PM EDT This study has been auto finalized and does not contain a result. us File Room Provider IMG DIGITIZE FILMS Final Resu lt Performing Organization Address [facility] de Phone Number [place] [phone] * CT Head Archive for Reference Only (12/22/2024 3:36 PM EDT) [facility] - 12/22/2024 3:36 PM EDT This study has been auto finalized and does not contain a result. us File Room Provider IMG DIGITIZE FILMS Final Resu lt Performing Organization Address [facility] Co de Phone Number [place] [phone] from Last 3 Months Insurance [employer] Care Teams Hand Leather Trimmer Relationship Specialty Start Date End Date Roxann Mathis MD [address] [place] [address] PCP - General Family Medicine 11/25/24
--- OUTSIDE RECORDS SUMMARY | 2024-12-24 15:47 | XMS_ITS ---
Author Name [facility] Organization Unknown Problems Problem Status Onset Date Problem Type Date of Resoluti on Source Aneurysm of unspecified site active EncounterDiagnosisAct CCT Encounters Encounter Type Encounter Reason Primary Diagnosis Location Date [facility] 12/22/2024 [facility] 12/22/2024 [facility] 12/22/2024 Care Team Organization Name Specialty Phone Email Start Date End Da [facility] RADHA PASCUAL Primary Care 12/23/2024
== END 2024-12-24 16:13 | disposition home or self-care (01) ==
LOC: HO.HGI 15:04
PROVIDERS: PCP Internal Medicine; Visit Provider Nurse Practitioner Family
DX: R74.01 Elevation of levels of liver transaminase levels (principal); R13.14 Dysphagia, pharyngoesophageal phase; Z86.19 Personal history of other infectious and parasitic diseases; R10.13 Epigastric pain
CPT/HCPCS: 99204

== ENCOUNTER 2024-12-25 13:42 | Outpatient (REF) | payer OTHER, SELFPAY ==
[2024-12-25 16:35] LABS: Resp Syncy Virus RNA Qual PCR NEGATIVE (Negative); SARS COV2 PCR INHOUSE NEGATIVE (Negative)
== END 2024-12-25 13:43 | disposition home or self-care (01) ==
LOC: HO.LNP 13:42
PROVIDERS: PCP Internal Medicine; Visit Provider Physician Assistant Medical
DX: R09.81 Nasal congestion (principal); R09.89 Other specified symptoms and signs involving the circulatory and respiratory systems
CPT/HCPCS: 87637

== ENCOUNTER 2024-12-25 13:42 | Outpatient (AMB) | payer OTHER, SELFPAY ==
[2024-12-25 13:47] VITALS: BP 122/70; PULSE 96; TEMP 37; O2SAT 98; BMI 25.8
--- NOTE | 2024-12-25 13:47 | AM.OFFWIN_ITS ---
Intake Vital Signs 12/25/24 13:47 Height 5 ft 5 in Weight 155 lb BMI 25.8 BP 122/70 Blood Pressure Location Lt brachial Position Sitting Pulse 96 Pulse Source Pulse Oximeter Temp 98.6 F Temp Source Oral Pulse Oximetry (%) 98 Oxygen Delivery Method Room Air Intake Visit Reasons: EP Chills, headache, congestion (flu exposure) Intake Note: presents with sinus congestion, itchy eyes, headaches, body chills. pt states she was recently exposed to flu and covid. Patient Tobacco Use Status: Never used Tobacco Allergies No Known Allergies Allergy (Verified 12/25/24 13:49) Do you need a note to return to daycare/school/sports/work: Yes HPI HPI Comments History of Present Illness Details History of Present Illness - The patient is a 59-year-old female pr esenting with symptoms of sinus congestion. - She reports nasal congestion, sinus pr essure, and yellow nasal discharge starting three days ago. 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 - She completed a course of prednisone a nd antibiotics three weeks ago for asthma exacerbation. - Current symptoms include chills, heada oswald, and nasal congestion, with no fever reported. - She has been using Flonase without rel ief and has not taken any decongestants or allergy medications. 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 - She denies fever, chills, CP, SOB, abd pain, n/v/d. Physical Exam General: Cooperative, healthy appearing, comfortable, no acute distress and well developed Head: Normal to inspection Ears: Hearing grossly normal bilaterally. No tragus or mastoid tenderness noted. Auditory canals clear bilaterally. TM's normal, not bulging. No fluid noted. Nose: Normal external nose present. Moist mucosa. Turbinates normal bilaterally, not boggy. Face and sinus: Tenderness to palpation of the frontal and maxillary sinuses bilaterally. Neck: Normal visual inspection and Yes full ROM. No lymphadenopathy noted. Respiratory: Normal respiratory effort and able to speak in complete sentences. Clear to auscultation bilaterally Cardiovascular: Regular rate and rhythm. Normal S1 and S2 GI: Normal to inspection. Soft to palpation and nontender, nondistended. No guarding noted. Skin: No rashes or lesions noted Patient was informed and verbally consented to the use of an ambient scribe for clinic note documentation during this visit. [facility] Medical History (Updated 12/24/24 @ 20:35 by Ivy Clay [facility]) History of Helicobacter pylori infection Patellofemoral arthritis of right knee Hypothyroidism Surgical History History of biopsy History of cholecystectomy History of section Family History Father CVD (cardiovascular disease) DVT (deep venous thrombosis) Mother Liver problem Kidney disease Diabetes Social History Housing: Apartment Alcohol intake: never Patient Tobacco Use Status: Never used Tobacco e-Cigarette/Vaping Use: Never Used Second Hand Smoke Exposure: No service: No Current occupational status: 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 Current occupational exposures/hazards: No Cognitive needs: No Hearing needs: No Vision needs: Yes (Glasses) Review of Systems Const All systems reviewed & are unremarkable except as noted in HPI and below Physical Exam Vital Signs: Last Vital Signs Temp 98.6 F 12/25/24 13:47 Pulse 96 12/25/24 13:47 BP 122/70 12/25/24 13:47 Pulse Ox 98 12/25/24 13:47 Oxygen Delivery Method Room Air 12/25/24 13:47 BMI result Body Mass Index 25.8 Assessment & Plan Assessment & Plan (1) Sinus congestion: Code(s): R09.81 - Nasal congestion Plan Most likely viral illness vs covid vs flu vs sinusitis vs allergic rhinitis Plan - will order covid/flu/RSV test - continue with the flonase - add zyrtec D daily - tylenol or motrin as needed for pain - steam showers - will call with the results - follow up with PCP Orders: Orders SARS-CoV2/FLU/RSV Today R09.89 - Other specified symptoms and signs involving the circulatory and respiratory systems Medications: New cetirizine-pseudoephedrine 5-120 mg ER 1 tab PO BID 14 tabs 0RF 7 days Coding Level of Care Code Est Pt Level 3 (26265) Diagnoses Sinus congestion R09.81
== END 2024-12-25 13:59 | disposition home or self-care (01) ==
PROVIDERS: PCP Internal Medicine; Visit Provider Physician Assistant Medical
DX: R09.81 Nasal congestion (principal)

== ENCOUNTER 2024-12-27 07:59 | Outpatient (REF) | payer OTHER, SELFPAY ==
[2024-12-27 09:14] LABS: Cholesterol 251 mg/dL (<200); HDL Cholesterol 42 mg/dL (>40); Triglycerides 219 mg/dL (<150)
[2024-12-27 09:17] LABS: Alanine Aminotransferase 24 U/L (0-31); Albumin Level 4.4 g/dL (3.5-5.0); Alkaline Phosphatase 124 U/L (39-117); Aspartate Amino Transferase 27 U/L (5-31); Lipase 29 U/L (8-78); Total Protein 7.4 g/dL (6.5-8.0)
[2024-12-27 09:22] LABS: Thyroid Stimulating Hormone 0.24 uIU/mL (0.32-4.0)
[2024-12-27 09:33] LABS: Free T4 (Free Thyroxine) 1.24 ng/dL (0.71-1.85)
[2024-12-27 09:40] LABS: Folate 14.5 ng/mL (> or = 4.0); Vitamin B12 531 pg/mL (200-900)
[2025-01-03 14:47] LABS: Vitamin D 25-OH, D2 <4 ng/mL; Vitamin D 25-OH, D3 37 ng/mL; Vitamin D 25-OH, Total 37 ng/mL (30-100)
== END 2024-12-27 08:00 | disposition home or self-care (01) ==
LOC: HO.LAB 07:59
PROVIDERS: PCP Internal Medicine; Visit Provider Nurse Practitioner Family
DX: Z00.00 Encounter for general adult medical examination without abnormal findings (principal); E55.9 Vitamin D deficiency, unspecified; E03.9 Hypothyroidism, unspecified; R12 Heartburn; R74.01 Elevation of levels of liver transaminase levels; R10.9 Unspecified abdominal pain; R19.7 Diarrhea, unspecified
CPT/HCPCS: 36415; 80061; 80076; 82306; 82607; 82746; 82947; 83690; 84439; 84443; 86364

== ENCOUNTER 2025-02-19 10:30 | Outpatient (REF) | payer OTHER, SELFPAY ==
--- NOTE | ~2025-02-19 | US_ITS ---
EXAMINATION: US ABDOMEN COMPLETE WITH LIVER ELASTOGRAPHY HISTORY: R79.89 - Other specified abnormal findings of blood chemistry TECHNIQUE: Real-time grayscale ultrasound imaging of the abdomen was performed and images were reviewed. COMPARISON: Correlation is made with a CT of the abdomen with contrast dated 08/11/2024. FINDINGS: Liver: The right lobe of the liver measures 18.4 cm in size. The left lobe of the liver measures 7.2 cm in size. The liver demonstrates normal homogeneous echotexture. No focal mass or intrahepatic biliary ductal dilatation is identified. There is normal hepatopedal flow in the portal vein. Ultrasound elastography of the liver was performed with 10 separate measurements of the liver parenchyma with the patient in the supine position. Measurements were obtained approximately 2 cm below Niko's capsule and perpendicular to the capsule. The median shear wave velocity is 1.19 m/s. The interquartile range/median (IQR/median) is 0.24. Gallbladder and biliary tree: The gallbladder is surgically absent. The common bile duct is normal in caliber measuring 6 mm. Kidneys: The right kidney measures 10.0 cm in length. The left kidney measures 9.8 cm in length. The kidneys are unremarkable, without evidence of masses, hydronephrosis, or calculi. Pancreas: The pancreatic head, neck, and body are unremarkable. The pancreatic tail is obscured by bowel gas. Spleen: The spleen is normal in size and contour, measuring 6.8 cm in length. Abdominal aorta and inferior vena cava: The visualized portions of the abdominal aorta and inferior vena cava are normal in caliber. There is no free fluid in the abdomen. US/US abdomen comp w elastography IMPRESSION: Unremarkable abdominal ultrasound. The median shear wave velocity in the liver is 1.19 m/s, corresponding to a median liver stiffness of 4.28 kPa. The IQR/median value is 0.24. This is indicative of a poor quality data set, and the estimated liver stiffness may be unreliable. Findings are indicative of a normal elastography value with a low likelihood of severe fibrosis or cirrhosis. REFERENCE: Society of Radiologists in Ultrasound Liver Stiffness Thresholds (2020): LIVER STIFFNESS THRESHOLDS: *Shear wave velocity less than 1.3 m/s (Liver Stiffness equal or less than 5 kPa): High probability of being normal. *Shear wave velocity less than 1.7 m/s (Liver Stiffness less than 9 kPa): In the absence of other known clinical signs, rules out compensated advanced chronic liver disease. *Shear wave velocity between 1.7-2.1 m/s (Liver Stiffness 9-13 kPa): Suggestive of compensated advanced chronic liver disease but need further test for confirmation. *Shear wave velocity between 2.1-2.4 m/s (Liver Stiffness 13-17 kPa): Rules in compensated advanced chronic liver disease. *Shear wave velocity greater than 2.4 m/s (Liver Stiffness over 17 kPa): Suggestive of clinically significant portal hypertension. QUALITY OF DATA SET: *IQR/Median value equal or less than 0.15 implies a quality data set. *IQR/Median value over 0.15 implies a poor quality data set. SIGNIFICANT CHANGE FROM PRIOR EXAM: Significant change if liver stiffness measurement is 10% or greater from prior exam. OTHER CONSIDERATIONS: The stage of liver fibrosis may be overestimated in the setting of acute hepatitis, liver inflammation, elevated liver function tests, hepatic vascular congestion, obstructive cholestasis, non-fasting state, and infiltrative diseases such as amyloidosis and lymphoma. In some patients with NAFLD, the liver stiffness thresholds for compensated advanced chronic liver disease may be lower. In causes other than viral hepatitis and NAFLD, liver stiffness thresholds are not well established. Electronically signed by: Deepak Masterson MD 02/19/2025 11:24 AM EDT
== END 2025-02-19 10:31 | disposition home or self-care (01) ==
LOC: HO.US 10:30
PROVIDERS: PCP Internal Medicine; Visit Provider Nurse Practitioner Family
DX: R79.89 Other specified abnormal findings of blood chemistry (principal)
CPT/HCPCS: 76700; 76981

== ENCOUNTER → 2025-02-19 10:32 | Outpatient (BNV) | payer OTHER, SELFPAY | PROVIDERS: PCP Internal Medicine; Visit Provider Radiology Diagnostic Radiology | DX: R79.89 Other specified abnormal findings of blood chemistry (principal) | CPT/HCPCS: 76700 ==

== ENCOUNTER 2025-03-18 16:33 | Outpatient (AMB) | payer OTHER, SELFPAY ==
--- NOTE | 2025-03-18 16:42 | A.OFFPC_ITS ---
Vital Signs 03/18/25 16:45 Height 5 ft 5 in Weight 155 lb BMI 25.8 BP 120/70 Blood Pressure Location Lt brachial Position Sitting Pulse 79 Pulse Source Pulse Oximeter Pulse Oximetry (%) 95 Oxygen Delivery Method Room Air Intake Visit Reasons: Annual Exam Trichologist Required: No Accompanied by: Self / Same As Patient Allergies No Known Allergies Allergy (Verified 03/18/25 17:11) Medication List - Last Reconciled 03/18/25 by Roxann Meraz MD albuterol sulfate 2.5 mg (3 mL) inhalation QID PRN 30 days albuterol sulfate 90 mcg/actuation (Ventolin HFA) 2 puffs inhalation Q4-6H PRN cetirizine-pseudoephedrine 5-120 mg ER 1 tab PO BID 7 days epinephrine IM PRN levothyroxine 112 mcg PO DAILY 90 days nebulizers (AeroEclipse II Nebulizer) As directed ondansetron 4 mg PO Q6H PRN rizatriptan mg PO umeclidinium-vilanterol 62.5-25 mcg/actuation (Anoro Ellipta) 1 inh inhalation DAILY 60 days Tobacco use date assessed: 03/18/25 Dental Screening Dental Screen Date: 03/18/25 Did you have a dental visit in the last 12 months?: Yes Did you have a dental problem in the last 6 months where you did not have access to dental care?: No Was dental information given to patient?: Patient has dentist HPI HPI Comments History of Present Illness Details The patient is a 59-year-old female presenting for a wellness visit and management of chronic conditions. The patient is up to date with her tetanus vaccination, last administered in 2015, and is due for a booster next year. Her last mammogram was performed last year, with normal results, and she is advised to continue annual screenings. The patient reports a history of a Pap smear conducted approximately nine years ago following a procedure for excessive bleeding. She retains her reproductive organs and is advised to continue Pap smears until the age of 65. The patient has not had a colonoscopy or endoscopy in over five years and is scheduled for a follow-up with her archival records clerk in April. She recently underwent an abdominal ultrasound, which was normal, and a CT scan in July also showed normal results. The patient is on thyroid medication, which has alleviated her symptoms of tachycardia. Her thyroid levels were last checked in December, and she is due for another test. The patient experiences migraines and has been prescribed Rizatriptan, which has been effective. The patient reports a persistent cough following a COVID-19 infection two weeks ago. She describes the cough as persistent with phlegm and occasional nasal congestion. A chest X-ray performed in July was normal, and she is referred to a brake lining driller for further evaluation. The patient follows a predominantly organic diet, avoids soda, and consumes organic coffee. She maintains a healthy lifestyle and is concerned about her liver function due to a family history of liver cancer. Her liver function tests were elevated in July but have since normalized. The patient's cardiovascular risk assessment using the [place] Risk Score is low, and no medication is deemed necessary at this time. - Tetanus vaccination up to date, next d ue in 2025 - Annual mammography recommended, last p erformed in 2023 - Pap smear advised until age 65, last p erformed approximately nine years ago - Colonoscopy and endoscopy follow-up sc heduled with archival records clerk - Thyroid function monitoring, next test due - Cardiovascular risk assessment perform ed, low risk identified [facility] Medical History (Updated 03/19/25 @ 07:44 by Roxann Meraz MD) History of Helicobacter pylori infection Patellofemoral arthritis of right knee Hypothyroidism Surgical History History of biopsy History of cholecystectomy History of section Family History Father CVD (cardiovascular disease) DVT (deep venous thrombosis) Mother Liver problem Kidney disease Diabetes Social History Housing: Apartment Alcohol intake: never Patient Tobacco Use Status: Never used Tobacco e-Cigarette/Vaping Use: Never Used Second Hand Smoke Exposure: No service: No Current occupational status: 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 1. Little interest or pleasure in doing things: not at all 2. Feeling down, depressed, or hopeless: not at all 3. Trouble falling or staying asleep, or sleeping too much: not at all 4. Feeling tired or having little energy: not at all 5. Poor appetite or overeating: not at all 6. Feeling bad about yourself - or that you are a failure or have let yourself or your family down: not at all 7. Trouble concentrating on things, such as reading the newspaper or watching television: not at all 8. Moving or speaking so slowly that other people could have noticed. Or the opposite - being so fidgety or restless that you have been moving around a lot more than usual: not at all 9. Thoughts that you would be better off or of hurting yourself in some way: not at all Total score: 0 Depression Screening Interpretation: Negative Depression Screening Done: Yes 70617 - PHQ-9 Billing: Yes Source: Developed by Drs. Deepak Mason, Christina Armando, Darrell Cardenas and colleagues, with an educational susie from [employer]. Thrive Questionnaire Date Thrive assessed: 11/04/24 I am a: Patient What is your living situation today?: I have a steady place to live Within the past 12 months, did the food you bought not last and you didn't have the money to get more?: Never true Within the past 12 months, did you worry whether your food would run out before you got money to buy more?: Never true Do you have trouble paying for medicines?: No Do you have trouble getting transportation to medical appointments?: No Do you have trouble paying your heating and electricity bill?: No Do you have trouble taking care of your child, family member or friend?: No Do you have trouble with day-to-day activities such as bathing, preparing meals, shopping, managing finances, etc.?: No Are you currently unemployed and looking for a job?: No Are you interested in more education?: No Please select the resources that you would like help with: None Currently or been in a relationship where the following occur: No concerns reported THRIVE Score: 0 AUDIT C Alcohol Use Questionnaire (AUDIT-C) 1. How often do you have a drink containing alcohol?: Never 3. How often do you have six or more drinks on one occasion?: Never Total Score: 0 Score Reviewed/Action Taken: No CAMILLE-7 AMB Questionnaire CAMILLE-7 Date CAMILLE - 7 assessed: 12/09/24 Source: Developed by Drs. Deepak Mason, Christina Armando, Darrell Cardenas and colleagues, with an educational susie from [employer]. Review of Systems Const All systems reviewed & are unremarkable except as noted in HPI and below Card Denies chest pain at rest, Denies chest pain with activity, Denies edema, Denies irregular heart rhythm, Denies claudication, Denies dyspnea, Denies dyspnea on exertion, Denies orthopnea, Denies paroxysmal nocturnal dyspnea and Denies slow heart rate Resp Denies cough, Denies dyspnea and Denies dyspnea on exertion GI Denies abdominal pain, Denies change in bowel habits, Denies excessive flatus, Denies nausea and Denies vomiting Denies urinary incontinence, Denies urinary hesitancy and Denies urinary urgency Musc Denies abnormal gait, Denies atrophy, Denies deformity and Denies limited range of motion Skin/Breast Denies bleeding lesions, Denies changing lesions and Denies rash Neuro Denies abnormal gait, Denies behavioral changes, Denies confusion and Denies lack of coordination Psych Denies behavioral changes and Denies confusion Endo Denies cold intolerance Physical exam (Primary Care) Vital Signs: Last Vital Signs Pulse 79 03/18/25 16:45 BP 120/70 03/18/25 16:45 Pulse Ox 95 03/18/25 16:45 Oxygen Delivery Method Room Air 03/18/25 16:45 BMI result Body Mass Index 25.8 Tobacco/Smoking Status: Tobacco use Status Tobacco use date assessed 03/18/25 03/18/25 16:48 Patient Tobacco Use Status Never used Tobacco 03/18/25 16:48 e-Cigarette/Vaping Use Never Used 03/18/25 16:48 PHQ-9: PHQ-9 Score PHQ-9: Total score 0 03/18/25 17:14 Depression Screening Interpretation: Negative Thrive Assessment: Date of Thrive Assessment Date Thrive assessed 11/04/24 03/18/25 16:48 Currently or been in a relationship where the following occur: No concerns reported Const General: No confusion Orientation/consciousness: patient oriented x3 and No confusion HENMT Head: Yes normal to inspection, Yes normocephalic and Yes atraumatic Ears: external ears normal Eyes General: appearance normal, both eyes and all related structures Eyelids: Yes eyelids normal Conjunctivae: conjunctivae normal Neck Neck: Yes normal visual inspection and Yes supple Resp Effort & Inspection: normal respiratory effort Auscultation: clear to auscultation bilaterally Cardio Jugular venous distension: no JVD Rate: regular rate Rhythm: regular rhythm Heart sounds: S1 normal heart sound present and S2 normal heart sound present GI Inspection: Yes normal to inspection Palpation (GI): Soft to palpation and nontender Auscultation: normal bowel sounds Skin General skin exam: no rashes or lesions noted Neuro General: patient oriented x3, no focal motor deficits and No confusion Extrem General: Yes full ROM Psych Appearance: grossly normal Coding Level of Care Code Est Pt Level 3 (55861) Est Pt Prev Care 40-64y(08221) Diagnoses Annual physical exam Z00.00 Chronic cough R05.3 Additional Codes PHQ-9 - 88128 - PHQ-9 Billing: Yes ([id number]) Time Spent (min) 32 Assessment & Plan Assessment & Plan (1) Annual physical exam: Code(s): Z00.00 - Encounter for general adult medical examination without abnormal findings Category: Medical (2) Chronic cough: Code(s): R05.3 - Chronic cough Category: Medical Plan Plan 1. Encounter for general adult medical examination without abnormal findings Z00.00 Repeat in a year. 2. Chronic cough R05.3 The patient reports a persistent cough following a COVID-19 infection two weeks ago, characterized by phlegm and occasional nasal congestion. A chest X-ray performed in July was normal, and she is referred to a brake lining driller for further evaluation. Orders: Orders Thyroid Stimulating Hormone 03/18/25 E03.9 - Hypothyroidism, unspecified Referrals Pulmonology Referral R05.3 - Chronic cough NON DESTRUCTIVE TESTING TECHNICIAN Referral Z12.4 - Encounter for screening for malignant neoplasm of cervix
[2025-03-18 16:45] VITALS: BP 120/70; PULSE 79; O2SAT 95; BMI 25.8
--- OUTSIDE RECORDS SUMMARY | 2025-03-18 22:09 | XMS_ITS | Continuity of Care Document ---
Author Organization [place] - [facility], Allergy Address [address] [place] [address] Care Team Providers Care Snuff Grinder Name Role Phone BETH ROSA Primary Care Provider [phone] Assessment Encounter Date Assessment Date Assessment LastModified by Organization Details LastModified Time 03/18/2025 03/18/2025 Visit With: Carolynn Noland Use of Antihistamine s: Yes If yes: Vial Test Change in medications: No If yes Increase in asthma symptoms No If yes, inhaler use: Reaction to last injections: No If yes: Allergy Symptoms: Other: Missed: Dose Aware of Vial Test Aware: Notes: [email or web address] Not available 03/18/2025 16:19:57 Plan of Treatment Reminders Order Date Submit Date Provider Last Modified By Organization Details Last Modified Time Details Appointments Allergy Shot 2024 03:20P M [facility] Not available Not available Not available [facility]- Allergy f-up 6mon 2024 03:45P M MARYLOU WHITAKER Not available Not available Not available Lab None recorded . Referral None recorded . Procedures None recorded . Surgeries None recorded . Imaging None recorded . Medication Orders None recorded . Patient TargetsNo targets recorded. Patient InstructionsNo instructions recorded. Reason for Referral None Reported. 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 Active 2022 Pulsatile tinnitus, right ear; Note: Date Diagnosed : 08/02/2022 4:38 PM (H93.A1) Not Available [facility] 4 02:14:37 Allergic rhinitis 18833604 Active 2023 [facility] [address] Pavel HERNANDEZ MD [address] [facility],[place] [address], [place], [address] , [place] [facility] 4 11:34:09 Vasomotor rhinitis 5012015 Active 2023 Vasomotor rhinitis; Note: Date Diagnosed : 07/13/2023 4:55 PM (J30.0) Not Available [facility] 4 02:13:53 Acute maxillary sinusitis 53358916 Active 2023 Acute maxillary sinusitis , unspecifi ed; Note: Date Diagnosed : 07/13/2023 4:55 PM (J01.00) Not Available [facility] 4 02:14:10 Perennial allergic rhinitis 607978139 Active 2023 Aline Mao [address] [place] [address],[place] [address], [place], [address] , [place] [facility] 16:29:14 Problem Notes None recorded. Procedures Surgical History Date Name Laterality Status Provider Name and Address Organization Details Recorded Time 03/18/20 25 Allergy Immunotherapy Injections completed CHERIE HERMAN RN [address] [facility],[place] [address], [place], [address], [place] [facility] 03/18/2025 16:19:46 02/19/20 25 Allergy Immunotherapy Injections completed Aline Mao [address] [facility],[place] [address], [place], [address], [place] [facility] 02/18/2025 16:29:34 02/05/20 25 Allergy Immunotherapy Injections completed Aline Mao [address], [place], [address], [place] [facility] 02/04/2025 16:33:44 01/22/20 25 Allergy Immunotherapy Injections completed CHERIE HERMAN RN [address], [place], [address], [place] [facility] 01/21/2025 17:13:25 01/08/20 25 Allergy Immunotherapy Injections completed SOILA BIRCH RMA [address], [place], [address], [place] [facility] 01/07/2025 16:31:15 12/25/19 25 Allergy Immunotherapy Injections completed GEMA MAYS [address], [place], [address], [place] [facility] 12/24/2024 16:39:30 12/11/19 25 Allergy Immunotherapy Injections completed CHERIE HERMAN RN [address], [place], [address], [place] [facility] 12/10/2024 16:13:34 11/27/19 25 Allergy Immunotherapy Injections completed GEMA MAYS [address], [place], [address], [place] [facility] 11/26/2024 16:39:51 11/13/19 25 Allergy Immunotherapy Injections completed SOILA BIRCH RMA [address], [place], [address], [place] [facility] 11/12/2024 16:31:21 10/30/19 25 Allergy Immunotherapy Injections completed SOILA BIRCH RMA [address], [place], [address], [place] [facility] 10/29/2024 16:24:24 10/16/19 25 Allergy Immunotherapy Injections completed SOILA BIRCH RMA [address], [place], [address], [place] [facility] 10/15/2024 16:53:42 10/02/19 25 Allergy Immunotherapy Injections completed SOILA CAMILOZEC, RMA [address], [place], [address], [place] [facility] 10/01/2024 16:23:26 09/18/19 25 Allergy Immunotherapy Injections completed SOILA CAMILOZEC, RMA [address], [place], [address], [place] [facility] 09/17/2024 16:16:34 09/04/19 25 Allergy Immunotherapy Injections completed SOILA KORZEC, RMA [address], [place], [address], [place] [facility] 09/03/2024 16:01:46 08/22/19 25 Allergy Immunotherapy Injections completed CAROLYNN NOLAND, RMA [address], [place], [address], [place] [facility] 08/21/2024 16:05:02 08/07/19 25 Allergy Immunotherapy Injections completed SOILA HUSAMC, RMA [address], [place], [address], [place] [facility] 08/06/2024 16:32:03 07/23/19 25 Allergy Immunotherapy Injections completed SOILA PAGEZEC, RMA [address], [place], [address], [place] [facility] 07/23/2024 16:45:52 07/09/19 25 Allergy Immunotherapy Injections completed SOILA WEINERC, RMA [address], [place], [address], [place] [facility] 07/09/2024 16:36:30 06/25/19 25 Allergy Immunotherapy Injections completed CAROLYNN NOLAND RMA [address], [place], [address], [place] [facility] 06/25/2024 17:07:58 06/11/19 25 Allergy Immunotherapy Injections completed SOILA WEINERC, RMA [address], [place], [address], [place] [facility] 06/11/2024 13:44:47 05/29/19 25 Allergy Immunotherapy Injections completed SOILA BIRCH, RMA [address], [place], [address], [place] [facility] 05/29/2024 11:27:48 05/14/20 24 Allergy Immunotherapy Injections completed CHERIE HERMAN RN [address], [place], [address], [place] [facility] 05/14/2024 16:33:31 04/30/20 24 Allergy Immunotherapy Injections completed SOILA BIRCH, RMA [address], [place], [address], [place] [facility] 04/30/2024 16:31:43 04/16/20 24 Allergy Immunotherapy Injections completed SOILA BIRCH, RMA [address], [place], [address], [place] [facility] 04/16/2024 17:03:52 04/02/20 24 Allergy Immunotherapy Injections completed GEMA MAYS [address], [place], [address], [place] [facility] 04/02/2024 16:17:47 03/19/20 24 Allergy Immunotherapy Injections completed CHERIE HERMAN RN [address] [place] [address], [address], [place] [facility] 03/19/2024 16:26:16 03/07/20 24 Allergy Immunotherapy Injections completed SOILA BIRCH, RMA [address], [place], [address], [place] [facility] 03/07/2024 13:40:29 02/20/20 24 Allergy Immunotherapy Injections completed GEMA MAYS [address], [place], [address], [place] [facility] 02/20/2024 17:11:11 02/06/20 24 Allergy Immunotherapy Injections completed CHERIE HERMAN RN [address], [place], [address], [place] [facility] 02/07/2024 08:49:22 08/27/20 24 Allergy Immunotherapy Injections completed GEMA MAYS [address] [facility],[address] [place] [address], [address], [place] [facility] 01/22/2024 14:00:20 01/08/20 24 Allergy Immunotherapy Injections completed GEMA MAYS [address] [place] [address], [address], [place] [facility] 01/08/2024 12:12:08 12/26/19 24 Allergy Immunotherapy Injections completed CHERIE HERMAN RN [address] [place] [address], [address], [place] [facility] 12/26/2023 16:50:55 12/12/19 24 Allergy Immunotherapy Injections completed CHERIE HERMAN RN [address] [facility] [place],[address] [place] [address], [address], [place] [facility] 12/12/2023 16:40:58 11/27/19 24 Allergy Immunotherapy Injections completed GEMA MAYS [address] [facility], [place], [address], [place] [facility] 11/27/2023 16:41:14 11/14/19 24 Allergy Immunotherapy Injections completed GEMA MARINELLI [address] [place] [address], [address], [facility] - [facility] 11/14/2023 11:18:33 10/31/19 24 Allergy Immunotherapy Injections completed SOILA BIRCH RMJohnny [address] [facility] [place],[address] [place] [address], [address], [facility] - [facility] 10/31/2023 16:21:15 10/17/19 24 Allergy Immunotherapy Injections completed SOILA BIRCH RMA [address] [place] [address], [address], [facility] - [facility] 10/17/2023 16:28:03 Imaging Results None recorded. Procedure Notes None recorded. Medical Equipment None Reported. Medications Name Sig Start Date Stop Date Status Note LastModified by Organization Details LastModified Time amoxicill in 500 mg capsule TOME 1 C PSULA POR V A ORAL DOS VECES AL D A POR 10 D 02/24 completed Not Available Not Available Not Available levothyro xine 137 mcg tablet 07/01 completed Medicati on ID: [id number] D uration Value: 30 Brand Name: levothyr oxine Se nd Method: E-Prescr ibed Sub s Allowed: subs OK Speci al Instruct ion: take 1 tablet by mouth once daily Me dication GenericN kati: levothyr oxine Not Available Not Available Not Available prednison e 10 mg tablet PLEASE SEE ATTACHED FOR DETAILED DIRECTIO NS active Not Available Not Available No t Available albuterol sulfate 2.5 mg/3 mL (0.083 %) solution for nebulizat ion INHALE 1 VIAL VIA NEBULIZE R 4 TIMES A DAY NEEDED FOR SHORTNES S OF BREATH OR WHEEZE FOR 30 DAYS active Not Available Not Available No t Available azithromy lakshmi 250 mg tablet TOME 2 TABLETAS V A ORAL HOY, [place] TOME 1 TABLETA DIARIAME NTE TAMIKO 4 D SEG N LAS INDICACI ONES 02/24 completed Not Available Not Available Not Available sucralfat e 1 gram tablet 09/12 completed Medicati on ID: [id number] D uration Value: 30 Reason: () Brand Name: sucralfa te Send Method: E-Prescr ibed Sub s Allowed: subs OK Speci al Instruct ion: MIX 1 TABLET IN 5 OZ WARM WATER STIR AND DRINK SLURRY ON EMPTY STOMACH BEFORE MEALS 3 TIMES DAILY Me dication GenericN kati: sucralfa te Not Available Not Available Not Available sumatript an 25 mg tablet PLEASE SEE ATTACHED FOR DETAILED DIRECTIO NS active Not Available Not Available No t Available ondansetr on HCl 4 mg tablet 01/23 completed Medicati on ID: [id number] D uration Value: 3 Reason: () Brand [...] Not Available Not Available No t Available rizatript an 10 mg tablet PLEASE SEE ATTACHED FOR DETAILED DIRECTIO NS active Not Available Not Available No t Available ciproflox acin 250 mg tablet TAKE 1 TABLET BY MOUTH 2 TIMES A DAY 08/21 completed Not Available Not Available Not Available omeprazol e 40 mg capsule,d elayed release TAKE 1 CAPSULE BY MOUTH DAILY active Not Available Not Available No t Available levothyro xine 25 mcg tablet 01/02 completed Medicati on ID: [id number] D uration Value: 30 Reason: () Brand Name: levothyr oxine Se nd Method: E-Prescr ibed Sub s Allowed: subs OK Speci al Instruct ion: TAKE 1 TABLET BY MOUTH EVERY DAY ON EMPTY STOMACH IN THE MORNING TAKE WITH 50MCG FOR TOTAL 125MCG horace Crespoic Name: levothyr oxine Not Available Not Available Not Available levothyro xine 50 mcg tablet 01/23 completed Medicati on ID: [id number] D uration Value: 30 Reason: () Brand [...] mg tablet 01/02 completed Medicati on ID: [id number] D uration Value: 30 Reason: () Brand Name: Citrucel Send Method: E-Prescr ibed Sub s Allowed: subs OK Speci al Instruct ion: TAKE 2 TABLETS BY MOUTH DAILY, DRINK 8 OZ WATER WITH TABLETS Medicati onGeneri cName: Citrucel Not Available Not Available Not Available levothyro xine 150 mcg tablet 05/19 completed Medicati on ID: [id number] D uration Value: 30 Reason: () Brand Name: levothyr oxine Se nd Method: E-Prescr ibed Sub s Allowed: subs OK Speci al Instruct ion: TAKE 1 TABLET BY MOUTH EVERY DAY Medi cationGe nericNam e: levothyr oxine Not Available Not Available Not Available omeprazol e 20 mg capsule,d elayed release 07/01 completed Medicati on ID: [id number] D uration Value: 30 Brand Name: harlan daniel Send Method: E-Prescr ibed Sub s Allowed: subs OK Speci al Instruct ion: TAKE 1 CAPSULE BY MOUTH TWICE A DAY Medi cationGe nericNam e: omeprazo le Not Available Not Available Not Available epinephri ne 0.3 mg/0.3 mL injection , auto-inje ctor INJECT 1 PEN INJECTOR INTRAMUS CULARLY SINGLE DOSE active Not Available Not Available No t Available ibuprofen 600 mg tablet TAKE 1 TABLET (ORAL) EVERY 8 HOURS FOR 7 DAYS NEEDED FOR PAIN active Not Available Not Available No t Available albuterol sulfate HFA 90 mcg/actua tion aerosol inhaler PLEASE SEE ATTACHED FOR DETAILED DIRECTIO NS active Not Available Not Available No t [...] Not Available No t Available levothyro xine 112 mcg tablet TAKE 1 TABLET BY MOUTH DAILY FOR 90 DAYS active Not Available Not Available No t Available amoxicill in 875 mg-potass ium clavulana te 125 mg tablet TOME ADRIANA TABLETA POR V A ORAL CADA DOCE HORAS 08/21 completed Not Available Not Available Not Available butalbita l-acetami nophen-ca ffeine 50 mg-300 mg-40 mg capsule TOME 1 C PSULA POR V A ORAL LANA VECES AL D A NEEDED FOR MIGRAINE HEADACHE active Not Available Not Available No t Available Anoro Ellipta 62.5 mcg-25 mcg/actua tion powder for inhalatio n INHALE 1 INHALATI ON ONCE DAILY active Not Available Not Available No t Available Flonase Allergy Relief 50 mcg/actua tion nasal spray,gabrielle [address] [place] 2 spray into both nostrils once a day 07/01 completed Medicati on ID: [id number] D uration Value: 30 Brand Name: Flonase [...] Diagnosis SNOMED-CT Code Diagnosis ICD10 Code Diagnosis IMO Codes Diagnosis Note [id number] Aline Mao Allergy [address] [facility] [address] [place] [address] 02/18/2025 16:06:48 02/18/2025 16:30:04 Perennial allergic rhinitis 558361447 J30.89 [id number] CAROLYNN NOLAND RMJohnny Allergy [address] [facility] [place] [address] 03/18/2025 15:50:14 03/18/2025 16:20:18 Perennial allergic rhinitis 509313209 J30.89 Health Concerns Section Related Observation LastModified by Organization Detai ls LastModified Time None Recorded Concern Status LastModified by Organization Details LastModified Time None Recorded Payers Encounter Date Sequence Insurance Name Policy Number Policy Gonsalez Covered Member ID Gonsalez Member ID Guarantor Name 03/18/2025 1 [facility] [employer] - DIRECT - [employer] [place] [employer] (HMO) [id number] Deepa Ross [id number] Deepa Ross OBGyn Episode No OBEpisode recorded.
--- OUTSIDE RECORDS SUMMARY | 2025-03-18 22:09 | XMS_ITS | Clinical Summary ---
Author Organization [facility] Address [address] [place] [address] Care Team Providers Care Credit Counselor Name Role Phone Roxann Mathis MD Primary Care Provider [phone] Encounters Date Type Department Care Team Description 12/22/2024 3:40 PM EDT Ancillary Procedure [facility] Radiology [address] [place] [address] Provider, File Room 12/22/2024 3:40 PM EDT Ancillary Procedure [facility] [address] [place] [address] Provider, File Room 12/22/2024 3:35 PM EDT Ancillary Procedure [facility] [address] [place] [address] Provider, File Room from Last 3 Months [...] Zoster (Shingles) Vaccine (1 of 2) 2017 Influenza Vaccine 12/26/2024 COVID-19 Vaccine (1 - season) 2025 RSV Vaccine 50 years and old er and Patients (1 - 1-dose 75+ series) 2042 Procedures Procedure Name Priority Date/Time Associated Diagnosis [...] of2 resultswithin the time period is included. Narrative [place] - 12/22/2024 3:37 PM EDT This study has been auto finalized and does not contain a result. us File Room Provider IMG DIGITIZE FILMS Final Resu lt Performing Organization Address [facility] de Phone Number [place] [phone] * CT Head Archive for Reference Only (12/22/2024 3:36 PM EDT) Narrative [place] - 12/22/2024 3:36 PM EDT This study has been auto finalized and does not contain a result. us File Room Provider IMG DIGITIZE FILMS Final Resu lt Performing Organization Address [facility] Co de Phone Number [place] [phone] from Last 3 Months Insurance [employer] Care Teams Credit Counselor Relationship Specialty Start Date End Date Roxann Mathis MD [address] [place] [address] PCP - General Family Medicine 11/25/24
--- OUTSIDE RECORDS SUMMARY | 2025-03-18 22:09 | XMS_ITS | Data Portability ---
Author Organization [place] - [facility], Allergy Address [address] [place] [address] Care Team Providers Care Elastic Yarn Twister Helper Name Role Phone BETH ROSA Primary Care Provider [phone] Assessment Encounter Date Assessment Date Assessment LastModified by Organization Details LastModified Time 01/07/2025 01/07/2025 Visit With: GEMA Ontiveros Use of Antihistamine s: No If yes: Vial Test Change in medications: No If yes Increase in asthma symptoms If yes, inhaler use: Reaction to last injections: No If yes: Allergy Symptoms: Other: Missed: Dose Aware of Vial Test Yes Aware: Notes: [email or web address] Not available 01/07/2025 16:31:23 01/21/2025 01/21/2025 Visit With: Carolynn Noland Use of Antihistamine s: No If yes: Vial Test Yes Change in medications: If yes Increase in asthma symptoms If yes, inhaler use: Reaction to last injections: If yes: Allergy Symptoms: Other: Missed: Dose Aware of Vial Test Aware: Notes: [email or web address] Not available 01/21/2025 17:13:30 02/04/2025 02/04/2025 Visit With: Aline Mao MA Use of Antihistamine s: No If yes: Vial Test Change in medications: No If yes Increase in asthma symptoms No If yes, inhaler use: Reaction to last injections: No If yes: Allergy Symptoms: Other: Missed: Dose Aware of Vial Test Aware: Notes: [email or web address] Not available 02/04/2025 16:33:53 02/18/2025 02/18/2025 Visit With: Aline Mao MA Use of Antihistamine s: No If yes: Vial Test Change in medications: No If yes Increase in asthma symptoms No Asthma Hx If yes, inhaler use: Reaction to last injections: No If yes: Allergy Symptoms: Other: Missed: Dose Aware of Vial Test Aware: Notes: [email or web address] Not available 02/18/2025 16:29:47 03/18/2025 03/18/2025 Visit With: Carolynn Noland Use [...] WNE Not available Not available Not available [facility]- Allergy f-up 6mon 2024 03:45P M MARYLOU [...] Address Organization Details Recorded Time Bilateral tinnitus [id number] 02 Active 2018 Tinnitus, bilateral ; Note: Date Diagnosed : 01/23/2019 4:23 PM (H93.13) Not Available [facility] 4 02:13:43 Headache 79439090 Active 2019 Headache, unspecifi ed; Note: Changed from R51 to R51.9 (07/01/2020 3:34 PM) , Date Diagnosed : 07/03/2019 4:22 PM (R51) Not Available [facility] 4 02:13:25 Tinnitus of vascular origin 082296042 Active 2022 Pulsatile tinnitus, right ear; Note: Date Diagnosed : 08/02/2022 4:38 PM (H93.A1) Not Available [facility] 4 02:14:37 Allergic rhinitis 22780787 Active 2023 SCIT [address] Pavel HERNANDEZ MD [address] [facility],[place] [address], [place], [address] , [place] [facility] 11:34:09 Vasomotor rhinitis 0911869 Active 2023 Vasomotor rhinitis; Note: Date Diagnosed : 07/13/2023 4:55 PM (J30.0) Not Available [facility] 02:13:53 Acute maxillary sinusitis 95059439 Active 2023 Acute maxillary sinusitis , unspecifi ed; Note: Date Diagnosed : 07/13/2023 4:55 PM (J01.00) Not Available [facility] 02:14:10 Perennial allergic rhinitis 410525847 Active 2023 Aline Mao [address] [facility],[place] [address], [place], [address] , [place] [facility] 16:29:14 Problem Notes None recorded. Procedures Surgical History Date Name Laterality Status Provider Name and Address Organization Details Recorded Time 03/18/20 25 Allergy Immunotherapy Injections completed CHERIE HERMAN RN 100 [facility],[address], [address], [place] [facility] 03/18/2025 16:19:46 02/19/20 25 Allergy Immunotherapy Injections completed Aline Mao [address] [place] [address],[address], [address], [place] [facility] 02/18/2025 16:29:34 02/05/20 25 Allergy Immunotherapy Injections completed Aline Mao [address] [place], [place] [address]on [place] [address], [place], [address], [place] [facility] 02/04/2025 16:33:44 01/22/20 25 Allergy Immunotherapy Injections completed [facility]MAN RN [facility] [place],[address], [address], [place] [facility] 01/21/2025 17:13:25 01/08/20 25 Allergy Immunotherapy Injections completed SOILA KORZEC, RMA [address],[place], [place], [address], [place] [facility] 01/07/2025 16:31:15 12/25/19 25 Allergy Immunotherapy Injections completed GEMA MAYS [address], [place], [address], [place] [facility] 12/24/2024 16:39:30 12/11/19 25 Allergy Immunotherapy Injections completed CHERIE HERMAN RN [address], [place], [address], [place] [facility] 12/10/2024 16:13:34 11/27/19 25 Allergy Immunotherapy Injections completed SAMSON MAYSA [address] [address], [place], [address], [place] [facility] 11/26/2024 16:39:51 11/13/19 25 Allergy Immunotherapy Injections completed SOILA BIRCH, RMA [address], [place], [address], [place] [facility] 11/12/2024 16:31:21 10/30/19 25 Allergy Immunotherapy Injections completed SOILA HUSAMC, RMA [address],[place] [address], [place], [address], [facility] - [facility] 10/29/2024 16:24:24 10/16/19 25 Allergy Immunotherapy Injections completed SOILA HUSAMC RMA [address],[place] [address], [place], [address], [place] [facility] 10/15/2024 16:53:42 10/02/19 25 Allergy Immunotherapy Injections completed SOILA CAMILOZEC, RMA [address], [place], [address], [place] [facility] 10/01/2024 16:23:26 09/18/19 25 Allergy Immunotherapy Injections completed SOILA KORZEC, RMA [address],[place] [address], [place], [address], [place] [facility] 09/17/2024 16:16:34 09/04/19 25 Allergy Immunotherapy Injections completed SOILA KORZEC, RMA [address], [place], [address], [place] [facility] 09/03/2024 16:01:46 08/22/19 25 Allergy Immunotherapy Injections completed CAROLYNN NOLAND RMA [address], [place], [address], [place] [facility] 08/21/2024 16:05:02 08/07/19 25 Allergy Immunotherapy Injections completed SOILA CAMILOZEC, RMA [address], [place], [address], [place] [facility] 08/06/2024 16:32:03 07/23/19 25 Allergy Immunotherapy Injections completed SOILA CAMILOZEC, RMA [address], [place], [address], [place] [facility] 07/23/2024 16:45:52 07/09/19 25 Allergy Immunotherapy Injections completed SOILA PAGEZEC, RMA [address],[place] [address], [place], [address], [place] [facility] 07/09/2024 16:36:30 06/25/19 25 Allergy Immunotherapy Injections completed CAROLYNN NOLAND RMA [address],[place] [address], [place], [address], [facility] - [facility] 06/25/2024 17:07:58 06/11/19 25 Allergy Immunotherapy Injections completed SOILA WEINERC, RMA [address],[place] [address], [place], [address], [place] [facility] 06/11/2024 13:44:47 05/29/19 25 Allergy Immunotherapy Injections completed SOILA PAGEZEC, RMA [address],[place] [address], [place], [address], [place] [facility] 05/29/2024 11:27:48 05/14/20 24 Allergy Immunotherapy Injections completed CHERIE HERMAN RN [address], [place], [address], [place] [facility] 05/14/2024 16:33:31 04/30/20 24 Allergy Immunotherapy Injections completed SOILA BIRCH, RMA [address], [place], [address], [place] [facility] 04/30/2024 16:31:43 04/16/20 24 Allergy Immunotherapy Injections completed SOILA BIRCH, RMA [address], [place], [address], [place] [facility] 04/16/2024 17:03:52 04/02/20 24 Allergy Immunotherapy Injections completed GEMA MAYS [address], [place], [address], [place] [facility] 04/02/2024 16:17:47 03/19/20 24 Allergy Immunotherapy Injections completed CHERIE HERMAN RN [address],[place] [address] [place] [address], [address], [place] [facility] 03/19/2024 16:26:16 03/07/20 24 Allergy Immunotherapy Injections completed SOILA BIRCH, RMA [address], [place], [address], [place] [facility] 03/07/2024 13:40:29 02/20/20 24 Allergy Immunotherapy Injections completed GEMA MAYS [address],[place] [address], [place], [address], [place] [facility] 02/20/2024 17:11:11 02/06/20 24 Allergy Immunotherapy Injections completed CHERIE HERMAN RN [address] [address],[place] [address] [place] [address], [address], [place] [facility] 02/07/2024 08:49:22 01/22/20 24 Allergy Immunotherapy Injections completed GEMA MAYS [address], [place], [address], [place] [facility] 01/22/2024 14:00:20 01/08/20 24 Allergy Immunotherapy Injections completed GEMA MAYS [address],[place] [address], [place], [address], [place] [facility] 01/08/2024 12:12:08 12/26/19 24 Allergy Immunotherapy Injections completed CHERIE HERMAN RN [facility] [place],[address], [place], [address], [facility] - [facility] 12/26/2023 16:50:55 12/12/19 24 Allergy Immunotherapy Injections completed CHERIE HERMAN RN [facility] [place],[address], [place], [address], [place] [facility] 12/12/2023 16:40:58 11/27/19 24 Allergy Immunotherapy Injections completed CAROLYNN NOLAND, [facility] [address], [place], [address], [facility] - [facility] 11/27/2023 16:41:14 11/14/19 24 Allergy Immunotherapy Injections completed SOILA BIRCH, [facility] [place],[address] [facility], [place], [address], [facility] - [facility] 11/14/2023 11:18:33 10/31/19 24 Allergy Immunotherapy Injections completed SOILA BIRCH, [facility] [place] [address] [place] [address], [address], [facility] - [facility] 10/31/2023 16:21:15 10/17/19 24 Allergy Immunotherapy Injections completed SOILA BIRCH, [facility] 100 [facility],[place] [address] [place] [address], [address], [facility] - [facility] 10/17/2023 16:28:03 Imaging Results None recorded. [...] mcg tablet 07/01 completed Medicati on ID: [id number] D uration Value: 30 Brand Name: levothyr [...] gram tablet 09/12 completed Medicati on ID: [id number] D uration Value: 30 Reason: () Brand [...] mg tablet 01/23 completed Medicati on ID: [id number] D uration Value: 3 Reason: () Brand [...] mcg tablet 01/02 completed Medicati on ID: [id number] D uration Value: 30 Reason: () Brand Name: levothyr oxine Se nd Method: E-Prescr ibed Sub s Allowed: subs OK Speci al Instruct ion: TAKE 1 TABLET BY MOUTH EVERY DAY ON EMPTY STOMACH IN THE MORNING TAKE WITH 50MCG FOR TOTAL 125MCG Charmaine Crespoic Name: levothyr oxine Not Available Not Available Not Available levothyro xine 50 mcg tablet 01/23 completed Medicati on ID: [id number] D uration Value: 30 Reason: () Brand [...] mg tablet 01/02 completed Medicati on ID: [id number] D uration Value: 30 Reason: () Brand Name: Citrucel Send Method: E-Prescr ibed Sub s Allowed: subs OK Speci al Instruct ion: TAKE 2 TABLETS BY MOUTH DAILY, DRINK 8 OZ WATER WITH TABLETS Medicati onGeneri cName: Citrucel Not Available Not Available Not Available levothyro xine 150 mcg tablet 05/19 completed Medicati on ID: [id number] D uration Value: 30 Reason: () Brand Name: levothyr oxine Se nd Method: E-Prescr ibed Sub s Allowed: subs OK Speci al Instruct ion: TAKE 1 TABLET BY MOUTH EVERY DAY Medi cationGe nericNam e: levothyr oxine Not Available Not Available Not Available omeprazol e 20 mg capsule,d elayed release 07/01 completed Medicati on ID: [id number] D uration Value: 30 Brand Name: omeprazo [...] Relief 50 mcg/actua tion nasal spray,gabrielle pension [place] 2 spray into both nostrils once a day 07/01 completed Medicati on ID: [id number] D uration Value: 30 Brand Name: Flonase [...] ICD10 Code Diagnosis IMO Codes Diagnosis Note [id number] SOILA WEINER, RMA Allergy [facility] [place] [address] [place] [address] 10/17/2023 16:13:22 10/17/2023 17:41:05 Perennial allergic rhinitis [id number] J30.89 2931 SOILA HUSAM, RMA Allergy [facility] [place] [place] [address] 10/31/2023 16:06:43 10/31/2023 16:22:50 Perennial allergic rhinitis [id number] J30.89 4686 [facility] HUSAM, RMA Allergy [facility] [place] [place] [address] 11/14/2023 11:17:23 11/14/2023 14:48:16 Perennial allergic rhinitis [id number] J30.89 6403 CAROLYNN NOLAND A Allergy 100 [facility],[place] [address] [place] [address] 11/27/2023 16:10:47 11/27/2023 16:44:32 Perennial allergic rhinitis [id number] J30.89 8352 [facility], [facility] Allergy [facility] [place] [place] [address] 12/12/2023 16:17:18 12/12/2023 16:41:45 Perennial allergic rhinitis [id number] J30.89 16020 CHERIE HERMAN RN Allergy 100 [facility],[place] [place] [address] 12/26/2023 16:12:41 12/26/2023 16:54:07 Perennial allergic rhinitis [id number] J30.89 [id number] CAROLYNN NOLAND A Allergy [facility] [place] [place] [address] 01/08/2024 10:13:46 01/08/2024 12:13:56 Perennial allergic rhinitis [id number] J30.89 [id number] CAROLYNN NOLAND RMA Allergy [facility] [place],[address] [place] [address] 01/22/2024 13:40:12 01/22/2024 15:01:18 Perennial allergic rhinitis [id number] J30.89 [id number] AVEL HERNANDEZ MD [facility] - Michelle 100 [facility] [place] [address] 02/01/2024 15:36:38 02/01/2024 16:07:42 Allergic rhinitis [id number] J30.89 [id number] CAROLYNN NOLAND A Allergy [address] [place] [address],[address] [place] [address] 02/06/2024 16:23:19 02/07/2024 08:49:55 Perennial allergic rhinitis [id number] J30.89 [id number] CAROLYNN NOLAND A Allergy [address] [place] [address],[address] [place] [address] 02/20/2024 16:26:39 02/20/2024 17:23:59 Perennial allergic rhinitis [id number] J30.89 [id number] [facility], A Allergy [address] [place] [address], [address] [place] [address] 03/07/2024 12:27:11 03/07/2024 13:41:01 Perennial allergic rhinitis [id number] J30.89 [id number] CAROLYNN NOLAND A Allergy [address] [place] [address], [address] [place] [address] 03/19/2024 16:15:44 03/19/2024 16:27:02 Perennial allergic rhinitis [id number] J30.89 11239 [facility], A Allergy [address] [place] [address],[address] [place] [address] 04/02/2024 16:11:14 04/02/2024 16:19:33 Perennial allergic rhinitis [id number] J30.89 22721 [facility], A Allergy 100 [facility],[place] [place] [address] 04/16/2024 16:44:27 04/16/2024 17:04:24 Perennial allergic rhinitis [id number] J30.89 13338 CAROLYNN NOLAND A Allergy [address] [place] [address],[address] [place] [address] 04/30/2024 16:13:35 04/30/2024 16:32:22 Perennial allergic rhinitis [id number] J30.89 [id number] [facility]NN [facility] Allergy [address] [place] [address], [address] [place] [address] 05/14/2024 16:21:48 05/14/2024 16:34:07 Perennial allergic rhinitis [id number] J30.89 [id number] [facility]NN [facility] Allergy [address] [place] [address], [address] [place] [address] 05/29/2024 09:15:53 05/29/2024 11:28:25 Perennial allergic rhinitis [id number] J30.89 52877 [facility] Allergy [address] [place] [address], [address] [place] [address] 06/11/2024 13:30:16 06/11/2024 13:45:27 Perennial allergic rhinitis [id number] J30.89 [id number] CAR[facility]YNN [facility] Allergy [address] [place] [address] [address] [place] [address] 06/25/2024 16:57:05 06/25/2024 17:08:31 Perennial allergic rhinitis [id number] J30.89 [id number] CAR[facility]YNN [facility] Allergy [address] [place] [address] [address] [place] [address] 07/09/2024 16:24:50 07/09/2024 16:36:54 Perennial allergic rhinitis [id number] J30.89 [id number] CHERIE HERMAN RN Allergy [address] [place] [address] [address] [place] [address] 07/23/2024 16:16:56 07/23/2024 16:46:34 Perennial allergic rhinitis [id number] J30.89 [id number] [facility] Allergy [address] [place] [address], [address] [place] [address] 08/06/2024 16:16:54 08/06/2024 16:32:47 Perennial allergic rhinitis [id number] J30.89 [id number] AVEL HERNANDEZ MD ENT[facility] of [facility] - [place] [address] [place] [address] [place] [address] 08/21/2024 15:20:45 08/21/2024 16:01:10 Allergic rhinitis [id number] J30.89 [id number] SOILA WEINER, RMA Allergy 100 [facility],[address] [place] [address] 08/21/2024 15:23:00 08/21/2024 16:05:43 Perennial allergic rhinitis [id number] J30.89 13667 SOILA HUSAM, RMA Allergy [address] [place] [address],[address] [place] [address] 09/03/2024 15:35:16 09/03/2024 16:02:14 Perennial allergic rhinitis [id number] J30.89 33599 SOILA HUSAM, RMA Allergy [address] [place] [address],[address] [place] [address] 09/17/2024 16:11:12 09/17/2024 16:17:33 Perennial allergic rhinitis [id number] J30.89 [id number] CAROLYNN NOLAND A Allergy [address] [place] [address],[address] [place] [address] 10/01/2024 16:08:36 10/01/2024 16:23:50 Perennial allergic rhinitis [id number] J30.89 [id number] SOILA HUSAM, RMA Allergy [address] [place] [address],[address] [place] [address] 10/15/2024 16:21:16 10/15/2024 16:54:08 Perennial allergic rhinitis [id number] J30.89 00426 SOILA HUSAM, RMA Allergy [address] [place] [address],[address] [place] [address] 10/29/2024 16:17:00 10/29/2024 16:25:07 Perennial allergic rhinitis [id number] J30.89 [id number] SOILA HUSAM, RMA Allergy [address] [place] [address],[address] [place] [address] 11/12/2024 16:10:27 11/12/2024 16:33:04 Perennial allergic rhinitis [id number] J30.89 [id number] CAROLYNN NOLAND RMA Allergy [address] [place] [address],[address] [place] [address] 11/26/2024 16:14:50 11/26/2024 16:40:47 Perennial allergic rhinitis [id number] J30.89 [id number] CHERIE HERMAN RN Allergy [address] [place] [address],[address] [place] [address] 12/10/2024 16:02:46 12/10/2024 16:14:05 Perennial allergic rhinitis [id number] J30.89 [id number] CAROLYNN NOLAND[facility] Allergy [address] [place] [address], [address] [facility] [address] 12/24/2024 16:31:40 12/24/2024 16:41:35 Perennial allergic rhinitis [id number] J30.89 [id number] [facility] Allergy [address] [place] [address], [address] [place] [address] 01/07/2025 16:09:51 01/07/2025 16:32:48 Perennial allergic rhinitis [id number] J30.89 69344 [facility] Allergy [address] [place] [address], [address] [place] [address] 01/21/2025 16:16:21 01/21/2025 17:13:57 Perennial allergic rhinitis [id number] J30.89 [id number] [facility] Allergy [address] [place] [address],[address] [place] [address] 02/04/2025 16:22:06 02/04/2025 16:34:10 Perennial allergic rhinitis [id number] J30.89 [id number] Aline Mao Allergy [address] [place] [address], [address] [place] [address] 02/18/2025 16:06:48 02/18/2025 16:30:04 Perennial allergic rhinitis [id number] J30.89 [id number] [facility]NN NOLAND [facility] Allergy [address] [place] [address],[place] [address] [facility] [address] 03/18/2025 15:50:14 03/18/2025 16:20:18 Perennial allergic rhinitis [id number] J30.89 Health Concerns Section Related Observation LastModified by Organization Detai ls LastModified Time None Recorded Concern Status LastModified by Organization Details LastModified Time None Recorded Advance Directives Directive None Recorded Payers Insurance Date Sequence Insurance Name Policy Number Policy Gonsalez Covered Member ID Gonsalez Member ID Guarantor Name 12/12/2023 1 [facility] [id number] Deepa Ross [id number] Deepa Ross 03/18/2025 1 [facility] [place] [employer] (HMO) [id number] Deepa Ross [id number] Deepa Ross OBGyn Episode No OBEpisode recorded.
== END 2025-03-18 17:29 | disposition home or self-care (01) ==
LOC: HO.HMCH 16:33
PROVIDERS: PCP Internal Medicine; Visit Provider Internal Medicine
DX: Z00.00 Encounter for general adult medical examination without abnormal findings (principal); R05.3 Chronic cough

== ENCOUNTER → 2025-03-18 16:33 | Outpatient (BNVA) | payer OTHER, SELFPAY | PROVIDERS: PCP Internal Medicine; Visit Provider Internal Medicine | DX: Z00.00 Encounter for general adult medical examination without abnormal findings (principal); G43.909 Migraine, unspecified, not intractable, without status migrainosus; R05.3 Chronic cough; E03.9 Hypothyroidism, unspecified; Z79.899 Other long term (current) drug therapy | CPT/HCPCS: 96127 ==

== ENCOUNTER 2025-04-22 08:24 | Outpatient (REF) | payer OTHER, SELFPAY ==
--- NOTE | ~2025-04-22 | FL_ITS ---
EXAMINATION: XR FLUOROSCOPY UPPER GI SERIES CLINICAL INFORMATION: Prolonged satiety after eating. Reflux type symptoms. COMPARISON: None TECHNIQUE: Fluoroscopic air contrast upper GI examination was performed utilizing standard techniques with thin and thick barium and effervescent granules. Numerous spot images were obtained. Several fluoroscopic image hold cine sequences were also obtained. FINDINGS: UPPER GI SERIES: Lateral cine images of the oropharynx and hypopharynx demonstrate normal swallow mechanism with normal epiglottic inversion and soft palate elevation. No laryngeal penetration, glottic or subglottic aspiration identified. No nasopharyngeal reflux present. Hypopharyngeal structures appear normal without evidence of mass or diverticulum. There was no significant cricopharyngeal achalasia. Dual and single contrast images of the esophagus demonstrate normal caliber, contour, and mucosal pattern. No evidence of stricture, mass, or ulcerations identified. Esophageal peristalsis was mildly disordered. There is a tiny type I hiatus hernia identified. No significant gastroesophageal reflux was seen during the course of the examination. Dual contrast and single contrast images of the stomach demonstrated normal contour and mucosal pattern without evidence of mass, ulceration, or other abnormality. Normal gastric rugal fold pattern. Contrast freely passed into the gastric antrum and duodenal bulb without delay. Single and air-contrast images of the duodenal bulb demonstrate no abnormality. The duodenal sweep has a normal appearance, course, and mucosal fold appearance. The imaged small bowel has a normal mucosal fold pattern. FLUOROSCOPY TIME: 2 minutes, 25 seconds Number of Spot Images:11 Number of cines obtained: 12 DOSE AREA PRODUCT: [id number] uGy-m2 (microgray-meter squared) FL/FL upper GI w air w Ba Swallow IMPRESSION: 1. Mildly disordered esophageal peristalsis. Esophagus otherwise normal. 2. Tiny type I hiatus hernia present. 3. No definite gastroesophageal reflux identified during the course of the examination. 4. Normal-appearing stomach and duodenum. No significant delay of contrast passage from the stomach into the small bowel. Electronically signed by: Ubaldo Cordero MD 04/22/2025 09:35 AM EST
--- OUTSIDE RECORDS SUMMARY | 2025-04-22 08:44 | XMS_ITS | Continuity of Care Document ---
Author Organization [place] - [facility], [facility] Address [address] [place] [address] Care Team Providers [employer] Sales Agent Name Role Phone BETH ROSA Primary Care Provider [phone] Assessment Encounter Date Assessment Date Assessment LastModified by Organization Details LastModified Time 04/01/2025 04/01/2025 59-year-old female presents for follow-up of subcutaneous immunotherapy which patient appears to be compliant with and doing well on. Symptoms are improving, but not yet resolved. I will plan to see her back in another 6 months for reassessment. She may continue vyxw-iem-bchqkxr allergy medication as needed. EpiPen was renewed today. All questions were answered. [email or web address] Not available 04/01/2025 18:53:01 Plan of Treatment Reminders Order Date Submit Date Provider Last Modified By Organization Details Last Modified Time Details Appointments Establish ed 15 2025 02:15P M MARYLOU WHITAKER Not available Not available Not available Lab None recorded. Referral None recorded. Procedures None recorded. Surgeries None recorded. Imaging None recorded. Medication Orders epinephri ne 0.3 mg/0.3 mL injection , auto-inje ctor 2024 025 [facility]/Ph[facility]acy #[id number], [address] [place], [address], 04/01/2025 16:03:49 Patient TargetsNo targets recorded. Patient InstructionsNo instructions recorded. Reason for Referral None Reported. Problems Name Problem SNOMED Code Status Onset Date Resolution Date Notes Provider Name and Address Organization Details Recorded Time Bilateral tinnitus 46734787129 02 Active 2018 Tinnitus, bilateral ; Note: Date Diagnosed : 01/23/2019 4:23 PM (H93.13) Not Available [facility] 4 02:13:43 Headache 30803241 Active 2019 Headache, unspecifi ed; Note: Changed from R51 to R51.9 (07/01/2020 3:34 PM) , Date Diagnosed : 07/03/2019 4:22 PM (R51) Not Available [facility] 4 02:13:25 Tinnitus of vascular origin 926244267 Active 2022 Pulsatile tinnitus, right ear; Note: Date Diagnosed : 08/02/2022 4:38 PM (H93.A1) Not Available [facility] 4 02:14:37 Allergic rhinitis 54808018 Active 2023 [facility]CIT [address] Pavel HERNANDEZ MD [address] [facility],[place] [address], [place], [address] , [place] [facility] 4 11:34:09 Vasomotor rhinitis 9011974 Active 2023 Vasomotor rhinitis; Note: Date Diagnosed : 07/13/2023 4:55 PM (J30.0) Not Available [facility] 4 02:13:53 Acute maxillary sinusitis 31915606 Active 2023 Acute maxillary sinusitis , unspecifi ed; Note: Date Diagnosed : 07/13/2023 4:55 PM (J01.00) Not Available [facility] 4 02:14:10 Perennial allergic rhinitis 879165765 Active 2023 Aline Mao [address] [facility] [address], [place], [address] , [facility] - [facility] 5 16:29:14 Problem Notes None recorded. Procedures Surgical History Date Name Laterality Status Provider Name and Address Organization Details Recorded Time 04/21/20 Allergy Immunotherapy Injections completed GEMA MAYS [address], [place], [address], [facility] - [facility] 04/21/2025 16:24:19 03/18/20 25 Allergy Immunotherapy Injections completed CHERIE HERMAN RN [address], [place], [address], [place] [facility] 03/18/2025 16:19:46 02/19/20 25 Allergy Immunotherapy Injections completed Aline Mao [address], [place], [address], [place] [facility] 02/18/2025 16:29:34 02/05/20 25 Allergy Immunotherapy Injections completed Aline Mao [address], [place], [address], [place] [facility] 02/04/2025 16:33:44 01/22/20 25 Allergy Immunotherapy Injections completed CHERIE HERMAN RN [address], [place], [address], [place] [facility] 01/21/2025 17:13:25 01/08/20 25 Allergy Immunotherapy Injections completed GEMA MARINELLI [address] [place] [address], [address], [place] [facility] 01/07/2025 16:31:15 12/25/19 25 Allergy Immunotherapy Injections completed GEMA MAYS [address] [facility], [place], [address], [place] [facility] 12/24/2024 16:39:30 12/11/19 25 Allergy Immunotherapy Injections completed CHERIE HERMAN RN [address] [facility],[address] [place] [address], [address], [place] [facility] 12/10/2024 16:13:34 11/27/19 25 Allergy Immunotherapy Injections completed GEMA MAYS [address] [facility], [place], [address], [place] [facility] 11/26/2024 16:39:51 11/13/19 25 Allergy Immunotherapy Injections completed SOILA BIRCH RMJohnny [address], [place], [address], [place] [facility] 11/12/2024 16:31:21 10/30/19 25 Allergy Immunotherapy Injections completed SOILA CAMILOZEC, RMA [address], [place], [address], [place] [facility] 10/29/2024 16:24:24 10/16/19 25 Allergy Immunotherapy Injections completed SOILA KORZEC, RMA [address], [place], [address], [place] [facility] 10/15/2024 16:53:42 10/02/19 25 Allergy Immunotherapy Injections completed SOILA KORZEC, RMA [address], [place], [address], [place] [facility] 10/01/2024 16:23:26 09/18/19 25 Allergy Immunotherapy Injections completed SOILA KORZEC, RMA [address], [place], [address], [place] [facility] 09/17/2024 16:16:34 09/04/19 25 Allergy Immunotherapy Injections completed SOILA CAMILOZEC, RMA [address], [place], [address], [place] [facility] 09/03/2024 16:01:46 08/22/19 25 Allergy Immunotherapy Injections completed ABHIJEET MARIN, RMA [address], [place], [address], [place] [facility] 08/21/2024 16:05:02 08/07/19 25 Allergy Immunotherapy Injections completed SOILA HUSAMC, RMA [address], [place], [address], [place] [facility] 08/06/2024 16:32:03 07/23/19 25 Allergy Immunotherapy Injections completed SOILA KORZEC, RMA [address], [place], [address], [place] [facility] 07/23/2024 16:45:52 07/09/19 25 Allergy Immunotherapy Injections completed SOILA KORZEC, RMA [address], [place], [address], [place] [facility] 07/09/2024 16:36:30 06/25/19 25 Allergy Immunotherapy Injections completed ABHIJEET MARIN, RMA [address], [place], [address], [place] [facility] 06/25/2024 17:07:58 06/11/19 25 Allergy Immunotherapy Injections completed SOILA WEINERC, RMA [address], [place], [address], [place] [facility] 06/11/2024 13:44:47 05/29/19 25 Allergy Immunotherapy Injections completed SOILA PAGEZEC, RMA [address], [place], [address], [place] [facility] 05/29/2024 11:27:48 05/14/20 24 Allergy Immunotherapy Injections completed CHERIE HERMAN RN [address], [place], [address], [place] [facility] 05/14/2024 16:33:31 04/30/20 24 Allergy Immunotherapy Injections completed SOILA BIRCH, RMA [address], [place], [address], [place] [facility] 04/30/2024 16:31:43 04/16/20 24 Allergy Immunotherapy Injections completed SOILA BIRCH, RMA [address], [place], [address], [place] [facility] 04/16/2024 17:03:52 04/02/20 24 Allergy Immunotherapy Injections completed ABHIJEET MARIN RMA [address], [place], [address], [place] [facility] 04/02/2024 16:17:47 03/19/20 24 Allergy Immunotherapy Injections completed CHERIE HERMAN RN [address] [facility] [address], [place], [address], [place] [facility] 03/19/2024 16:26:16 03/07/20 24 Allergy Immunotherapy Injections completed SOILA BIRCH, RMA [address], [place], [address], [place] [facility] 03/07/2024 13:40:29 02/20/20 24 Allergy Immunotherapy Injections completed GEMA MAYS [address], [place], [address], [place] [facility] 02/20/2024 17:11:11 02/06/20 24 Allergy Immunotherapy Injections completed CHERIE HERMAN RN [address], [place], [address], [place] [facility] 02/07/2024 08:49:22 01/22/20 24 Allergy Immunotherapy Injections completed GEMA MAYS [address], [place], [address], [place] [facility] 01/22/2024 14:00:20 01/08/20 24 Allergy Immunotherapy Injections completed GEMA MAYS [address], [place], [address], [place] [facility] 01/08/2024 12:12:08 12/26/19 24 Allergy Immunotherapy Injections completed CHERIE HERMAN RN [address] [facility] [address] [facility], [place], [address], [place] [facility] [place] 12/26/2023 16:50:55 12/12/19 24 Allergy Immunotherapy Injections completed CHERIE HERMAN RN [address] [facility] [address], [place], [address], [place] [facility] 12/12/2023 16:40:58 11/27/19 24 Allergy Immunotherapy Injections completed GEMA MAYS [address] [facility] [address], [place], [address], [place] [facility] 11/27/2023 16:41:14 11/14/19 24 Allergy Immunotherapy Injections completed GEMA MARINELLI [address], [place], [address], [place] [facility] 11/14/2023 11:18:33 10/31/19 24 Allergy Immunotherapy Injections completed GEMA MARINELLI [address], [place], [address], [place] [facility] 10/31/2023 16:21:15 10/17/19 24 Allergy Immunotherapy Injections completed [facility], [address],[place] [address], [place], [address], [place] [facility] 10/17/2023 16:28:03 Imaging Results None recorded. [...] mcg tablet 07/01 completed Medicati on ID: [id number] D uration Value: 30 Brand Name: levothyr [...] gram tablet 09/12 completed Medicati on ID: [id number] D uration Value: 30 Reason: () Brand [...] mg tablet 01/23 completed Medicati on ID: [id number] D uration Value: 3 Reason: () Brand Name: onalexandraet atif HCl Send Method: E-Prescr ibed Sub [...] mcg tablet 01/02 completed Medicati on ID: [id number] D uration Value: 30 Reason: () Brand [...] mcg tablet 01/23 completed Medicati on ID: [id number] D uration Value: 30 Reason: () Brand [...] mg tablet 01/02 completed Medicati on ID: [id number] D uration Value: 30 Reason: () Brand Name: Citrucel Send Method: E-Prescr ibed Sub s Allowed: subs OK Speci al Instruct ion: TAKE 2 TABLETS BY MOUTH DAILY, DRINK 8 OZ WATER WITH TABLETS Medicati onGeneri cName: Citrucel Not Available Not Available Not Available levothyro xine 150 mcg tablet 05/19 completed Medicati on ID: [id number] D uration Value: 30 Reason: () Brand Name: levothyr oxine Se nd Method: E-Prescr ibed Sub s Allowed: subs OK Speci al Instruct ion: TAKE 1 TABLET BY MOUTH EVERY DAY Medi cationGe nericNam e: levothyr oxine Not Available Not Available Not Available omeprazol e 20 mg capsule,d elayed release 07/01 completed Medicati on ID: [id number] D uration Value: 30 Brand Name: omeprazo le Send Method: E-Prescr ibed Sub s Allowed: subs OK Speci al Instruct ion: TAKE 1 CAPSULE BY MOUTH TWICE A DAY Medi cationGe nericNam e: omeprazo le Not Available Not Available Not Available epinephri ne 0.3 mg/0.3 mL injection , auto-inje ctor Take 1 auto by injectio n route as directed . 2024 active Not Available Not Available Not Avai lable ibuprofen 600 mg tablet TAKE 1 TABLET [...] Relief 50 mcg/actua tion nasal spray,gabrielle pension Grace 2 spray into both nostrils once a day 07/01 completed Medicati on ID: [id number] D uration Value: 30 Brand Name: Flonase Allergy Relief S end Method: E-Prescr ibed Sub s Allowed: subs OK Medic ationGen ericName : Flonase Allergy Relief Not Available Not Available Not Available Vitals Date Recorded Body height Body mass index (BMI) Body weight Provider Name and Address Organization Details Last Updated DateTime 04/01/2025 165.1 cm 25.3 kg/m2 70600.04 g Elisha Piedra [place] - [facility] 04/01/2025 15:46:25 Social History None recorded. Functional Status None recorded. Mental Status None recorded. Family History Nothing Reported. Medical History No medical history recorded. Gynecological HistoryNo gynecological history recorded. Obstetrics History GPAL:G 0 P 0 0 0 0 Past Encounters Encounter ID Performer Location Encounter Start Date Encounter Closed Date Diagnosis/Indication Diagnosis SNOMED-CT Code Diagnosis ICD10 Code Diagnosis IMO Codes Diagnosis Note [id number] GEMA MAYS Allergy 100 [facility] [address] [address] 03/18/2025 15:50:14 03/18/2025 16:20:18 Perennial allergic rhinitis 666333173 J30.89 [id number] MARYLOU WHITAKER [facility] [address] [place] [address] 04/01/2025 15:30:39 04/01/2025 16:09:25 Perennial allergic rhinitis 004431909 J30.89 Health Concerns Section Related Observation LastModified by Organization Detai ls LastModified Time None Recorded Concern Status LastModified by Organization Details LastModified Time None Recorded Payers Encounter Date Sequence Insurance Name Policy Number Policy Gonsalez Covered Member ID Gonsalez Member ID Guarantor Name 04/01/2025 1 [facility] [employer] - DIRECT - HABEMATOLEL ZERO (HMO) [id number] Deepa Franklinzquez [id number] Deepa Cody Notes Date Note Type Note Provider Name and Address Organization Details Recorded Time 04/01/2025 text/html ROS as noted in the HPI 59-year-old female presents for follow-up of immunotherapy. Patient is a former patient of Dr. Zhao and initiated SCIT back in 2014. She is tolerating the monthly injections fairly well with some local skin reactions. Patient has significant allergies to cats and notes her daughter recently moved into her place, along with her 2 cats. She endorses occasional sneezing and rhinorrhea. Patient only takes Zyrtec-D as needed when severely symptomatic. EpiPen is . History of sinus surgery in [place] circa 2002. Dru Jerome, DO [address] [address], [place], [address], [facility] - [facility] 04/02/2025 20:49:08 OBGyn Episode No OBEpisode recorded.
--- OUTSIDE RECORDS SUMMARY | 2025-04-22 08:44 | XMS_ITS | Continuity of Care Document ---
Author Organization [place] [facility], Allergy Address [address] [place] [address] Care Team Providers Care [employer] Teacher Name Role Phone BETH ROSA Primary Care Provider Assessment Encounter Date Assessment Date Assessment LastModified by Organization Details LastModified Time 01/21/2025 01/21/2025 Visit With: Carolynn Noland Use of Antihistamine s: No If yes: Vial Test Yes Change in medications: If yes Increase in asthma symptoms If yes, inhaler use: Reaction to last injections: If yes: Allergy Symptoms: Other: Missed: Dose Aware of Vial Test Aware: Notes: [email or web address] Not available 01/21/2025 17:13:30 Plan of Treatment Reminders Order Date Submit Date Provider Last Modified By Organization Details Last Modified Time Details Appointments Establish ed 15 2025 02:15P M MARYLOU WHITAKER Not available Not available Not available Lab None recorded. Referral None recorded. Procedures None recorded. Surgeries None recorded. Imaging None recorded. Medication Orders None recorded. Patient TargetsNo targets recorded. Patient InstructionsNo instructions recorded. Reason for Referral None Reported. Problems Name Problem SNOMED Code Status Onset Date Resolution Date Notes Provider Name and Address Organization Details Recorded Time Bilateral tinnitus 63689671001 02 Active 2018 Tinnitus, bilateral ; Note: Date Diagnosed : 01/23/2019 4:23 PM (H93.13) Not Available [facility] 4 02:13:43 Headache 91450586 Active 2019 Headache, unspecifi ed; Note: Changed from R51 to R51.9 (07/01/2020 3:34 PM) , Date Diagnosed : 07/03/2019 4:22 PM (R51) Not Available [facility] 4 02:13:25 Tinnitus of vascular origin 110165871 Active 2022 Pulsatile tinnitus, right ear; Note: Date Diagnosed : 08/02/2022 4:38 PM (H93.A1) Not Available [facility] 4 02:14:37 Allergic rhinitis 51748091 Active 2023 SCIT [address] Pavel HERNANDEZ MD [address] [facility],[place] [address], [place], [address] , [place] - [facility] 4 11:34:09 Vasomotor rhinitis 6094546 Active 2023 Vasomotor rhinitis; Note: Date Diagnosed : 07/13/2023 4:55 PM (J30.0) Not Available [facility] 4 02:13:53 Acute maxillary sinusitis 26312929 Active 2023 Acute maxillary sinusitis , unspecifi ed; Note: Date Diagnosed : 07/13/2023 4:55 PM (J01.00) Not Available [facility] 4 02:14:10 Perennial allergic rhinitis 832054229 Active 2023 Aline Mao [address] [place] [address],[address] [place], [address] , [facility] - [facility] 5 16:29:14 Problem Notes None recorded. Procedures Surgical History Date Name Laterality Status Provider Name and Address Organization Details Recorded Time 04/21/20 25 Allergy Immunotherapy Injections completed GEMA MAYS [address] [facility],[address], [address], [facility] - [facility] 04/21/2025 16:24:19 03/18/20 25 Allergy Immunotherapy Injections completed CHERIE HERMAN RN [address] [facility],[address], [address], [facility] - [facility] 03/18/2025 16:19:46 02/19/20 25 Allergy Immunotherapy Injections completed Aline Mao [address] [place] [address],[address], [address], [place] - [facility] 02/18/2025 16:29:34 02/05/20 25 Allergy Immunotherapy Injections completed Aline Mao [address], [place], [address], [place] [facility] 02/04/2025 16:33:44 01/22/20 25 Allergy Immunotherapy Injections completed CHERIE HERMAN RN [address], [place], [address], [place] [facility] 01/21/2025 17:13:25 01/08/20 25 Allergy Immunotherapy Injections completed SOILA BIRCH RMA [address], [place], [address], [place] [facility] 01/07/2025 16:31:15 12/25/19 25 Allergy Immunotherapy Injections completed GEMA MAYS [address], [place], [address], [place] [facility] 12/24/2024 16:39:30 12/11/19 25 Allergy Immunotherapy Injections completed CHERIE HERMAN RN [address] [facility] [address] [place] [address], [phone], [place] [facility] 12/10/2024 16:13:34 11/27/19 25 Allergy Immunotherapy Injections completed SAMSON MAYSA [address] [place] [address], [phone], [place] [facility] 11/26/2024 16:39:51 11/13/19 25 Allergy Immunotherapy Injections completed SOILA BIRCH RMA [address], [place], [address], [place] [facility] 11/12/2024 16:31:21 10/30/19 25 Allergy Immunotherapy Injections completed SOILA BIRCH RMA [address], [place], [address], [place] [facility] 10/29/2024 16:24:24 10/16/19 25 Allergy Immunotherapy Injections completed SOILA BIRCH RMA [address], [place], [address], [place] [facility] 10/15/2024 16:53:42 10/02/19 25 Allergy Immunotherapy Injections completed SOILA HUSAMC, RMA [address], [place], [address], [place] [facility] 10/01/2024 16:23:26 09/18/19 25 Allergy Immunotherapy Injections completed SOILA KORZEC, RMA [address], [place], [address], [place] [facility] 09/17/2024 16:16:34 09/04/19 25 Allergy Immunotherapy Injections completed SOILA KORZEC, RMA [address], [place], [address], [place] [facility] 09/03/2024 16:01:46 08/22/19 25 Allergy Immunotherapy Injections completed CAROLYNN NOLAND RMA [address], [place], [address], [place] [facility] 08/21/2024 16:05:02 08/07/19 25 Allergy Immunotherapy Injections completed SOILA CAMILOZEC, RMA [address], [place], [address], [place] [facility] 08/06/2024 16:32:03 07/23/19 25 Allergy Immunotherapy Injections completed SOILA KORZEC, RMA [address], [place], [address], [place] [facility] 07/23/2024 16:45:52 07/09/19 25 Allergy Immunotherapy Injections completed SOILA CAMILOZEC, RMA [address], [place], [address], [place] [facility] 07/09/2024 16:36:30 06/25/19 25 Allergy Immunotherapy Injections completed CAROLYNN NOLAND RMA [address], [place], [address], [place] [facility] 06/25/2024 17:07:58 06/11/19 25 Allergy Immunotherapy Injections completed SOILA KORZEC, RMA [address], [place], [address], [place] [facility] 06/11/2024 13:44:47 05/29/19 25 Allergy Immunotherapy Injections completed SOILA BIRCH, RMA [address] [place] [address], [phone], [place] [facility] 05/29/2024 11:27:48 05/14/20 24 Allergy Immunotherapy Injections completed CHERIE HERMAN RN [address] [facility] [address], [place], [address], [place] [facility] 05/14/2024 16:33:31 04/30/20 24 Allergy Immunotherapy Injections completed SOILA BIRCH, RMA [address] [place] [address], [address], [place] [facility] 04/30/2024 16:31:43 04/16/20 24 Allergy Immunotherapy Injections completed SOILA BIRCH, RMA [address] [place] [address], [address], [place] [facility] 04/16/2024 17:03:52 04/02/20 24 Allergy Immunotherapy Injections completed GEMA MAYS [address] [facility] [address] [place] [address], [address], [place] [facility] 04/02/2024 16:17:47 03/19/20 24 Allergy Immunotherapy Injections completed CHERIE HERMAN RN [address] [facility] [address] [place] [address], [address], [place] [facility] 03/19/2024 16:26:16 03/07/20 24 Allergy Immunotherapy Injections completed SOILA BIRCH RMA [address] [facility] [address], [place], [address], [place] [facility] 03/07/2024 13:40:29 02/20/20 24 Allergy Immunotherapy Injections completed GEMA MAYS [address] [place] [address], [phone], [place] [facility] 02/20/2024 17:11:11 02/06/20 24 Allergy Immunotherapy Injections completed CHERIE HERMAN RN [address] [facility] [address], [place], [address], [place] [facility] 02/07/2024 08:49:22 01/22/20 24 Allergy Immunotherapy Injections completed GEMA MAYS [address] [facility] [place],[address], [place], [address], [place] [facility] 01/22/2024 14:00:20 01/08/20 24 Allergy Immunotherapy Injections completed GEMA MAYS [address] [facility] [address], [place], [address], [place] [facility] 01/08/2024 12:12:08 12/26/19 24 Allergy Immunotherapy Injections completed CHERIE HERMAN RN [address] [facility] [address], [address], [place] [facility] 12/26/2023 16:50:55 12/12/19 24 Allergy Immunotherapy Injections completed CHERIE HERMAN RN [address] [facility] [place],[address], [address], [place] [facility] 12/12/2023 16:40:58 11/27/19 24 Allergy Immunotherapy Injections completed GEMA MAYS [address] [facility] [address] [address] [place] [address], [address], [place] [facility] 11/27/2023 16:41:14 11/14/19 24 Allergy Immunotherapy Injections completed SOILA BIRCH RMA [address] [place] [address], [address], [place] [facility] 11/14/2023 11:18:33 10/31/19 24 Allergy Immunotherapy Injections completed SOILA BIRCH RMA [address] [facility] [address] [address], [place], [address], [place] [facility] 10/31/2023 16:21:15 10/17/19 24 Allergy Immunotherapy Injections completed SOILA BIRCH RMA [address] [facility] [address] [address], [place], [address], [place] [facility] 10/17/2023 16:28:03 Imaging Results None recorded. Procedure [...] mcg tablet 07/01 completed Medicati on ID: [id number] D uration Value: 30 Brand Name: levothyr [...] gram tablet 09/12 completed Medicati on ID: [id number] D uration Value: 30 Reason: () Brand [...] mg tablet 01/23 completed Medicati on ID: [id number] D uration Value: 3 Reason: () Brand [...] mcg tablet 01/02 completed Medicati on ID: [id number] D uration Value: 30 Reason: () Brand [...] mcg tablet 01/23 completed Medicati on ID: [id number] D uration Value: 30 Reason: () Brand Name: levothyr oxine Se nd Method: E-Prescr ibed Sub s Allowed: subs DANIELLA Bahena al Instruct ion: TAKE 2 TABLETS ON AN EMPTY STOMACH IN THE MORNING ONCE A DAY TAKE WITH 25MCG FOR TOTAL OF 125MCG [facility]: levothyr oxine Not Available Not Available Not Available levothyro xine 125 mcg tablet TOME 1 TABLETA POR V A ORAL TODOS LOS D active Not Available Not Available No t Available Citrucel 500 mg tablet 01/02 completed Medicati on ID: [id number] D uration Value: 30 Reason: () Brand Name: Citrucel Send Method: E-Prescr ibed Sub s Allowed: subs DANIELLA Bahena al Instruct ion: TAKE 2 TABLETS BY MOUTH DAILY, DRINK 8 OZ WATER WITH TABLETS Medicati onGeneri cName: Citrucel Not Available Not Available Not Available levothyro xine 150 mcg tablet 05/19 completed Medicati on ID: [id number] D uration Value: 30 Reason: () Brand Name: levothyr oxine Se nd Method: E-Prescr ibed Sub s Allowed: subs [place] Speci al Instruct ion: TAKE 1 TABLET BY MOUTH EVERY DAY Medi cationGe nericNam e: levothyr oxine Not Available Not Available Not Available omeprazol e 20 mg capsule,d elayed release 07/01 completed Medicati on ID: [id number] D uration Value: 30 Brand Name: omeprazo [...] Relief 50 mcg/actua tion nasal spray,[facility] [place] 2 spray into both nostrils once a day 07/01 completed Medicati on ID: [id number] D uration Value: 30 Brand Name: Flonase [...] ICD10 Code Diagnosis IMO Codes Diagnosis Note [id number] CAROLYNN NOLAND RMA Allergy 100 [facility],[place] [address] [place] [place] [address] 12/24/2024 16:31:40 12/24/2024 16:41:35 Perennial allergic rhinitis [id number] J30.89 39541 [facility], [facility] Allergy [address] [facility],[place] [address] [place] [place] [address] 01/07/2025 16:09:51 01/07/2025 16:32:48 Perennial allergic rhinitis [id number] J30.89 30989 [facility] [address] [facility],[place] [place] [place] [address] 01/21/2025 16:16:21 01/21/2025 17:13:57 Perennial allergic rhinitis [id number] J30.89 Health Concerns Section Related Observation LastModified by Organization Detai ls LastModified Time None Recorded Concern Status LastModified by Organization Details LastModified Time None Recorded Payers Encounter Date Sequence Insurance Name Policy Number Policy Gonsalez Covered Member ID Gonsalez Member ID Guarantor Name 01/21/2025 1 [facility] [employer] PLANS [facility] [place] (HMO) [id number] Deepa Ross [id number] Deepa Ross OBGyn Episode No OBEpisode recorded.
--- OUTSIDE RECORDS SUMMARY | 2025-04-22 08:44 | XMS_ITS | Continuity of Care Document ---
Author Organization [place] - [facility], Allergy Address [address] [place] [phone] Care Team Providers Care Buildings [employer] Gr[employer] Director Name Role Phone BETH ROSA Primary Care Provider [phone] Assessment Encounter Date Assessment Date Assessment LastModified by Organization Details LastModified Time 04/21/2025 04/21/2025 Visit With: Carolynn Noland Use of Antihistamine s: No If yes: Vial Test Change in medications: No If yes Increase in asthma symptoms If yes, inhaler use: Reaction to last injections: No If yes: Allergy Symptoms: Other: Missed: Dose Aware of Vial Test Aware: Notes: [id number] Not available 04/21/2025 16:24:39 Plan of Treatment Reminders Order Date Submit [...] Address Organization Details Recorded Time Bilateral tinnitus 04954606047 02 Active 2018 Tinnitus, bilateral ; Note: Date Diagnosed : 01/23/2019 4:23 PM (H93.13) Not Available [facility] 02:13:43 Headache 85720654 Active 2019 Headache, unspecifi ed; Note: Changed from R51 to R51.9 (07/01/2020 3:34 PM) , Date Diagnosed : 07/03/2019 4:22 PM (R51) Not Available [facility] 4 02:13:25 Tinnitus of vascular origin 078316040 Active 2022 Pulsatile tinnitus, right ear; Note: Date Diagnosed : 08/02/2022 4:38 PM (H93.A1) Not Available [facility] 4 02:14:37 Allergic rhinitis 41718928 Active 2023 [facility]CIT [address] Pavel HERNANDEZ MD [address] [facility],[place] [address], [place], [address] , [facility] - [facility] [place] 4 11:34:09 Vasomotor rhinitis 4906221 Active 2023 Vasomotor rhinitis; Note: Date Diagnosed : 07/13/2023 4:55 PM (J30.0) Not Available [facility] 4 02:13:53 Acute maxillary sinusitis 11007351 Active 2023 Acute maxillary sinusitis , unspecifi ed; Note: Date Diagnosed : 07/13/2023 4:55 PM (J01.00) Not Available [facility] 4 02:14:10 Perennial allergic rhinitis 664861433 Active 2023 Aline Mao [address] [place] [address],[place] [address], [facility] [place], [address] , [facility] - [facility] [place] 5 16:29:14 Problem Notes None recorded. Procedures Surgical History Date Name Laterality Status Provider Name and Address Organization Details Recorded Time 04/21/20 Allergy Immunotherapy Injections completed GEMA MAYS [address] [facility],[address], [address], [facility] - [facility] [place] 04/21/2025 16:24:19 03/18/20 25 Allergy Immunotherapy Injections completed CHERIE HERMAN RN [address] [facility],[address], [address], [facility] - [facility] 03/18/2025 16:19:46 02/19/20 25 Allergy Immunotherapy Injections completed Aline Mao [address] [facility],[address], [address], [place] - [facility] [place] 02/18/2025 16:29:34 02/05/20 25 Allergy Immunotherapy Injections completed Aline Mao [address], [place], [address], [place] [facility] [place] 02/04/2025 16:33:44 01/22/20 25 Allergy Immunotherapy Injections completed CHERIE HERMAN RN [address],[place] [address], [place], [address], [place] [facility] [place] 01/21/2025 17:13:25 01/08/20 25 Allergy Immunotherapy Injections completed SOILA BIRCH RMA [address],[place] [address], [place], [address], [place] [facility] [place] 01/07/2025 16:31:15 12/25/19 25 Allergy Immunotherapy Injections completed GEMA MAYS [address] [place] [address], [phone], [place] [facility] [place] 12/24/2024 16:39:30 12/11/19 25 Allergy Immunotherapy Injections completed CHERIE HERMAN RN [address],[place] [address] [place] [address], [address], [place] [facility] [place] 12/10/2024 16:13:34 11/27/19 25 Allergy Immunotherapy Injections completed GEMA MAYS [address],[place] [address], [place], [address], [place] [facility] [place] 11/26/2024 16:39:51 11/13/19 25 Allergy Immunotherapy Injections completed SOILA BIRCH RMA [address], [place], [address], [place] [facility] [place] 11/12/2024 16:31:21 10/30/19 25 Allergy Immunotherapy Injections completed SOILA BIRCH RMA [address], [place], [address], [place] [facility] [place] 10/29/2024 16:24:24 10/16/19 25 Allergy Immunotherapy Injections completed SOILA BIRCH RMA [address],[place], [place], [address], [place] [facility] [place] 10/15/2024 16:53:42 10/02/19 25 Allergy Immunotherapy Injections completed SOILA CAMILOZEC, RMA [address],[place], [place], [address], [place] [facility] [place] 10/01/2024 16:23:26 09/18/19 25 Allergy Immunotherapy Injections completed SOILA KORZEC, RMA [address], [place], [address], [place] [facility] [place] 09/17/2024 16:16:34 09/04/19 25 Allergy Immunotherapy Injections completed SOILA KORZEC, RMA [address], [place], [address], [place] [facility] [place] 09/03/2024 16:01:46 08/22/19 25 Allergy Immunotherapy Injections completed CAROLYNN NOLAND RMA [address], [place], [address], [place] [facility] [place] 08/21/2024 16:05:02 08/07/19 25 Allergy Immunotherapy Injections completed SOILA PAGEZEC, RMA [address], [place], [address], [place] [facility] [place] 08/06/2024 16:32:03 07/23/19 25 Allergy Immunotherapy Injections completed SOILA KORZEC, RMA [address], [place], [address], [place] [facility] [place] 07/23/2024 16:45:52 07/09/19 25 Allergy Immunotherapy Injections completed SOILA KORZEC, RMA [address], [place], [address], [place] [facility] [place] 07/09/2024 16:36:30 06/25/19 25 Allergy Immunotherapy Injections completed CAROLYNN NOLAND RMA [address], [place], [address], [place] [facility] [place] 06/25/2024 17:07:58 06/11/19 25 Allergy Immunotherapy Injections completed SOILA KORZEC, RMA [address], [place], [address], [place] [facility] [place] 06/11/2024 13:44:47 05/29/19 25 Allergy Immunotherapy Injections completed SOILA BIRCH, RMA [address],[place] [address], [place], [address], [place] [facility] [place] 05/29/2024 11:27:48 05/14/20 24 Allergy Immunotherapy Injections completed CHERIE HERMAN RN [address],[place] [address], [place], [address], [place] [facility] [place] 05/14/2024 16:33:31 04/30/20 24 Allergy Immunotherapy Injections completed SOILA BIRCH, RMA [address] [place] [address], [address], [place] [facility] [place] 04/30/2024 16:31:43 04/16/20 24 Allergy Immunotherapy Injections completed SOILA BIRCH, RMA [address] [place] [address], [address], [place] [facility] [place] 04/16/2024 17:03:52 04/02/20 24 Allergy Immunotherapy Injections completed GEMA MAYS [address] [place] [address], [address], [place] [facility] [place] 04/02/2024 16:17:47 03/19/20 24 Allergy Immunotherapy Injections completed CHERIE HERMAN RN [address] [place] [address], [address], [place] [facility] [place] 03/19/2024 16:26:16 03/07/20 24 Allergy Immunotherapy Injections completed SOILA BIRCH RMA [address], [place], [address], [place] [facility] [place] 03/07/2024 13:40:29 02/20/20 24 Allergy Immunotherapy Injections completed GEMA MAYS [address],[place] [address], [place], [address], [place] [facility] [place] 02/20/2024 17:11:11 02/06/20 24 Allergy Immunotherapy Injections completed CHERIE HERMAN RN [address], [place], [address], [place] [facility] [place] 02/07/2024 08:49:22 01/22/20 24 Allergy Immunotherapy Injections completed GEMA MAYS [address] [facility] [place],[address] [place] [address], [address], [place] [facility] [place] 01/22/2024 14:00:20 01/08/20 24 Allergy Immunotherapy Injections completed GEMA MAYS [address] [facility] [place] [place], [address], [place] [facility] [place] 01/08/2024 12:12:08 12/26/19 24 Allergy Immunotherapy Injections completed CHERIE HERMAN RN [address] [facility],[address], [address], [facility] - [facility] [place] 12/26/2023 16:50:55 12/12/19 24 Allergy Immunotherapy Injections completed CHERIE HERMAN RN [address] [facility],[address], [address], [facility] - [facility] [place] 12/12/2023 16:40:58 11/27/19 24 Allergy Immunotherapy Injections completed GEMA MAYS [address] [facility],[address], [address], [facility] - [facility] [place] 11/27/2023 16:41:14 11/14/19 24 Allergy Immunotherapy Injections completed SOILA BIRCH RMJohnny [address] [facility] [place],[address] [place] [address], [address], [facility] - [facility] [place] 11/14/2023 11:18:33 10/31/19 24 Allergy Immunotherapy Injections completed SOILA BIRCH RMA [address] [facility] [place],[address] [place] [address], [address], [place] [facility] [place] 10/31/2023 16:21:15 10/17/19 24 Allergy Immunotherapy Injections completed SOILA BIRCH RMA [address],[place] [address], [place], [address], [place] [facility] [place] 10/17/2023 16:28:03 Imaging Results None recorded. Procedure [...] mcg tablet 07/01 completed Medicati on ID: [id number] D uration Value: 30 Brand Name: levothyr [...] gram tablet 09/12 completed Medicati on ID: [id number] D uration Value: 30 Reason: () Brand [...] mg tablet 01/23 completed Medicati on ID: [id number] D uration Value: 3 Reason: () Brand [...] mcg tablet 01/02 completed Medicati on ID: [id number] D uration Value: 30 Reason: () Brand Name: levothyr oxine Se nd Method: E-Prescr ibed Sub s Allowed: subs DANIELLA Speci al Instruct ion: TAKE 1 TABLET BY MOUTH EVERY DAY ON EMPTY STOMACH IN THE MORNING TAKE WITH 50MCG FOR TOTAL 125MCG M pipetio nGeneric Name: levothyr oxine Not Available Not Available Not Available levothyro xine 50 mcg tablet 01/23 completed Medicati on ID: [id number] D uration Value: 30 Reason: () Brand [...] mg tablet 01/02 completed Medicati on ID: [id number] D uration Value: 30 Reason: () Brand Name: Citrucel Send Method: E-Prescr ibed Sub s Allowed: subs DANIELLA Speci al Instruct ion: TAKE 2 TABLETS BY MOUTH DAILY, DRINK 8 OZ WATER WITH TABLETS Medicati onGeneri cName: Citrucel Not Available Not Available Not Available levothyro xine 150 mcg tablet 05/19 completed Medicati on ID: [id number] D uration Value: 30 Reason: () Brand Name: levothyr oxine Se nd Method: E-Prescr ibed Sub s Allowed: subs [place] Speci al Instruct ion: TAKE 1 TABLET BY MOUTH EVERY DAY Medi cationGe nericNam e: levothyr oxine Not Available Not Available Not Available omeprazol e 20 mg capsule,d elayed release 07/01 completed Medicati on ID: [id number] D uration Value: 30 Brand Name: omeprazo [...] Relief 50 mcg/actua tion nasal spray,[facility] [employer] [place] 2 spray into both nostrils once a day 07/01 completed Medicati on ID: [id number] D uration Value: 30 Brand Name: Flonase [...] ICD10 Code Diagnosis IMO Codes Diagnosis Note 48841 MARYLOU WHITAKER [facility] of [address] [address] 04/01/2025 15:30:39 04/01/2025 16:09:25 Perennial allergic rhinitis [id number] J30.89 02473 GEMA MAYS [facility] [address] [place] [address] [address] 04/21/2025 16:14:58 04/21/2025 16:24:55 Perennial allergic rhinitis [id number] J30.89 Health Concerns Section Related Observation LastModified by Organization Detai ls LastModified Time None Recorded Concern Status LastModified by Organization Details LastModified Time None Recorded Payers Encounter Date Sequence Insurance Name Policy Number Policy Gonsalez Covered Member ID Gonsalez Member ID Guarantor Name 04/21/2025 1 [facility] [employer] - DIRECT - YUROK ZERO (HMO) [id number] Deepa Ross [id number] Deepa Ross OBGyn Episode No OBEpisode recorded.
--- OUTSIDE RECORDS SUMMARY | 2025-04-22 08:44 | XMS_ITS | Continuity of Care Document ---
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 Role Phone BETH ROSA Primary Care Provider [phone] Assessment Encounter Date Assessment Date Assessment LastModified [...] Address Organization Details Recorded Time Bilateral tinnitus [id number] 02 Active 2018 Tinnitus, bilateral ; Note: Date Diagnosed : 01/23/2019 4:23 PM (H93.13) Not Available [facility] 4 02:13:43 Headache 55616911 Active 2019 Headache, unspecifi ed; Note: Changed from R51 to R51.9 (07/01/2020 3:34 PM) , Date Diagnosed : 07/03/2019 4:22 PM (R51) Not Available [facility] 4 02:13:25 Tinnitus of vascular origin 912485145 Active 2022 Pulsatile tinnitus, right ear; Note: Date Diagnosed : 08/02/2022 4:38 PM (H93.A1) Not Available [facility] 4 02:14:37 Allergic rhinitis 07820401 Active 2023 [facility] [address] Pavel HERNANDEZ MD [address] [facility],[place] [address], [facility] [place], [address] , [place] - [facility] 4 11:34:09 Vasomotor rhinitis 0080329 Active 2023 Vasomotor rhinitis; Note: Date Diagnosed : 07/13/2023 4:55 PM (J30.0) Not Available [facility] 4 02:13:53 Acute maxillary sinusitis 08584927 Active 2023 Acute maxillary sinusitis , unspecifi ed; Note: Date Diagnosed : 07/13/2023 4:55 PM (J01.00) Not Available [facility] 4 02:14:10 Perennial allergic rhinitis 267104751 Active 2023 Aline Mao [address] [place] [address],[place] [address], [facility] [place], [address] , [facility] - [facility] 5 16:29:14 Problem Notes None recorded. Procedures Surgical History Date Name Laterality Status Provider Name and Address Organization Details Recorded Time 04/21/20 25 Allergy Immunotherapy Injections completed GEMA MAYS [address] [facility],[address], [address], [facility] - [facility] 04/21/2025 16:24:19 03/18/20 25 Allergy Immunotherapy Injections completed CHERIE HERMAN RN [address] [facility],[address], [address], [facility] - [facility] 03/18/2025 16:19:46 02/19/20 25 Allergy Immunotherapy Injections completed Aline Mao [address] [place] [address],[address], [address], [place] - [facility] 02/18/2025 16:29:34 02/05/20 25 Allergy Immunotherapy Injections completed Aline Mao [address], [place], [address], [place] [facility] 02/04/2025 16:33:44 01/22/20 25 Allergy Immunotherapy Injections completed CHERIE HERMAN RN [address],[place] [address], [place], [address], [place] [facility] 01/21/2025 17:13:25 01/08/20 25 Allergy Immunotherapy Injections completed SOILA BIRCH RMA [address] [facility] [address],[place] [address], [place], [address], [place] [facility] 01/07/2025 16:31:15 12/25/19 25 Allergy Immunotherapy Injections completed SAMSON MAYSA [address] [facility] [address],[place] [address] [place] [address], [address], [place] [facility] 12/24/2024 16:39:30 12/11/19 25 Allergy Immunotherapy Injections completed CHERIE HERMAN RN [address] [facility] [address],[place] [address] [place] [address], [address], [place] [facility] 12/10/2024 16:13:34 11/27/19 25 Allergy Immunotherapy Injections completed SAMSON MAYSA [address],[place] [address], [place], [address], [place] [facility] 11/26/2024 16:39:51 11/13/19 25 Allergy Immunotherapy Injections completed SOILA BIRCH RMA [address], [place], [address], [place] [facility] 11/12/2024 16:31:21 10/30/19 25 Allergy Immunotherapy Injections completed SOILA BIRCH RMA [address], [place], [address], [place] [facility] 10/29/2024 16:24:24 10/16/19 25 Allergy Immunotherapy Injections completed SOILA BIRCH RMA [address],[place], [place], [address], [place] [facility] 10/15/2024 16:53:42 10/02/19 25 Allergy Immunotherapy Injections completed SOILA CAMILOAAKASHC, RMA [address], [place], [address], [place] [facility] 10/01/2024 16:23:26 09/18/19 25 Allergy Immunotherapy Injections completed SOILA KORZEC, RMA [address], [place], [address], [place] [facility] 09/17/2024 16:16:34 09/04/19 25 Allergy Immunotherapy Injections completed SOILA KORZEC, RMA [address], [place], [address], [place] [facility] 09/03/2024 16:01:46 08/22/19 25 Allergy Immunotherapy Injections completed CAROLYNN NOLAND RMA [address], [place], [address], [place] [facility] 08/21/2024 16:05:02 08/07/19 25 Allergy Immunotherapy Injections completed SOILA CAMILOZEC, RMA [address], [place], [address], [place] [facility] 08/06/2024 16:32:03 07/23/19 25 Allergy Immunotherapy Injections completed SOILA KORZEC, RMA [address], [place], [address], [place] [facility] 07/23/2024 16:45:52 07/09/19 25 Allergy Immunotherapy Injections completed SOILA KORZEC, RMA [address], [place], [address], [place] [facility] 07/09/2024 16:36:30 06/25/19 25 Allergy Immunotherapy Injections completed CAROLYNN NOLAND RMA [address], [place], [address], [place] [facility] 06/25/2024 17:07:58 06/11/19 25 Allergy Immunotherapy Injections completed SOILA KORZEC, RMA [address], [place], [address], [place] [facility] 06/11/2024 13:44:47 05/29/19 25 Allergy Immunotherapy Injections completed SOILA BIRCH, RMA [address] [address], [place], [address], [place] [facility] 05/29/2024 11:27:48 05/14/20 24 Allergy Immunotherapy Injections completed CHERIE HERMAN RN [address] [facility] [address],[place] [address], [place], [address], [place] [facility] 05/14/2024 16:33:31 04/30/20 24 Allergy Immunotherapy Injections completed SOILA BIRCH, RMA [address] [facility] [address],[place] [address], [place], [address], [place] [facility] 04/30/2024 16:31:43 04/16/20 24 Allergy Immunotherapy Injections completed SOILA BIRCH, RMA [address],[place] [place] [address], [address], [place] [facility] 04/16/2024 17:03:52 04/02/20 24 Allergy Immunotherapy Injections completed GEMA MAYS [address] [facility] [address],[place] [address] [place] [address], [address], [place] [facility] 04/02/2024 16:17:47 03/19/20 24 Allergy Immunotherapy Injections completed CHERIE HERMAN RN [address] [facility] [address] [address] [place] [address], [address], [place] [facility] 03/19/2024 16:26:16 03/07/20 24 Allergy Immunotherapy Injections completed SOILA BIRCH RMA [address], [place], [address], [place] [facility] 03/07/2024 13:40:29 02/20/20 24 Allergy Immunotherapy Injections completed GEMA MAYS [address] [facility] [address], [place], [address], [place] [facility] 02/20/2024 17:11:11 02/06/20 24 Allergy Immunotherapy Injections completed CHERIE HERMAN RN [address] [facility] [address], [place], [address], [place] [facility] 02/07/2024 08:49:22 01/22/20 24 Allergy Immunotherapy Injections completed GEMA MAYS [address] [facility] [address],[place], [place], [address], [place] [facility] 01/22/2024 14:00:20 01/08/20 24 Allergy Immunotherapy Injections completed GEMA MAYS [address] [facility] [address],[place] [address], [place], [address], [place] [facility] 01/08/2024 12:12:08 12/26/19 24 Allergy Immunotherapy Injections completed CHERIE HERMAN RN [address] [facility] [place],[address] [place] [address], [address], [place] [facility] 12/26/2023 16:50:55 12/12/19 24 Allergy Immunotherapy Injections completed CHERIE HERMAN RN [address] [facility] [place],[address], [address], [place] [facility] 12/12/2023 16:40:58 11/27/19 24 Allergy Immunotherapy Injections completed GEMA MAYS [address] [facility] [place],[address] [place] [address], [address], [place] [facility] 11/27/2023 16:41:14 11/14/19 24 Allergy Immunotherapy Injections completed SOILA BIRCH RMJohnny [address],[place] [address] [place] [address], [address], [place] [facility] 11/14/2023 11:18:33 10/31/19 24 Allergy Immunotherapy Injections completed SOILA BIRCH RMA [address] [facility] [address],[place] [address], [place], [address], [place] [facility] 10/31/2023 16:21:15 10/17/19 24 Allergy Immunotherapy Injections completed SOILA BIRCH RMA [address] [facility] [address],[place] [address], [place], [address], [place] [facility] 10/17/2023 16:28:03 Imaging Results None recorded. Procedure [...] mcg tablet 07/01 completed Medicati on ID: [id number] D uration Value: 30 Brand Name: levothyr [...] gram tablet 09/12 completed Medicati on ID: [id number] D uration Value: 30 Reason: () Brand [...] mg tablet 01/23 completed Medicati on ID: [id number] D uration Value: 3 Reason: () Brand [...] mcg tablet 01/02 completed Medicati on ID: [id number] D uration Value: 30 Reason: () Brand Name: levothyr oxine Se nd Method: E-Prescr ibed Sub s Allowed: subs DANIELLA Speci al Instruct ion: TAKE 1 TABLET BY MOUTH EVERY DAY ON EMPTY STOMACH IN THE MORNING TAKE WITH 50MCG FOR TOTAL 125MCG M horace nGeneric Name: levothyr oxine Not Available Not Available Not Available levothyro xine 50 mcg tablet 01/23 completed Medicati on ID: [id number] D uration Value: 30 Reason: () Brand Name: levothyr oxine Se nd Method: E-Prescr ibed Sub s Allowed: subs OK Kahlili al Instruct ion: TAKE 2 TABLETS ON [...] mg tablet 01/02 completed Medicati on ID: [id number] D uration Value: 30 Reason: () Brand Name: Citrucel Send Method: E-Prescr ibed Sub s Allowed: subs DANIELLA Speci al Instruct ion: TAKE 2 TABLETS BY MOUTH DAILY, DRINK 8 OZ WATER WITH TABLETS Medicati onGeneri cName: Citrucel Not Available Not Available Not Available levothyro xine 150 mcg tablet 05/19 completed Medicati on ID: [id number] D uration Value: 30 Reason: () Brand Name: levothyr oxine Se nd Method: E-Prescr ibed Sub s Allowed: subs OK Speci al Instruct ion: TAKE 1 TABLET BY MOUTH EVERY DAY Medi cationGe nericNam e: levothyr oxine Not Available Not Available Not Available omeprazol e 20 mg capsule,d elayed release 07/01 completed Medicati on ID: [id number] D uration Value: 30 Brand Name: omeprazo [...] Relief 50 mcg/actua tion nasal spray,gabrielle pension [place] 2 spray into both nostrils once a day 07/01 completed Medicati on ID: [id number] D uration Value: 30 Brand Name: Flonase [...] ICD10 Code Diagnosis IMO Codes Diagnosis Note [id number] Aline Mao Allergy [address] [facility] 100 [place] [address] 02/18/2025 16:06:48 02/18/2025 16:30:04 Perennial allergic rhinitis [id number] J30.89 79900 GEMA MAYS Allergy 100 [facility] 100 [place] [address] 03/18/2025 15:50:14 03/18/2025 16:20:18 Perennial allergic rhinitis [id number] J30.89 Health Concerns Section Related Observation LastModified by Organization Detai ls LastModified Time None Recorded Concern Status LastModified by Organization Details LastModified Time None Recorded Payers Encounter Date Sequence Insurance Name Policy Number Policy Gonsalez Covered Member ID Gonsalez Member ID Guarantor Name 03/18/2025 1 [facility] [employer] DIRECT - [place] OWING[place] ZERO (HMO) [id number] Deepa Ross [id number] Deepa Ross OBGyn Episode No OBEpisode recorded.
--- OUTSIDE RECORDS SUMMARY | 2025-04-22 08:44 | XMS_ITS | Clinical Summary ---
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
--- OUTSIDE RECORDS SUMMARY | 2025-04-22 08:45 | XMS_ITS | Continuity of Care Document ---
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 Name Role Phone BETH ROSA Primary Care Provider Assessment Encounter Date Assessment Date Assessment LastModified by Organization Details LastModified Time 02/04/2025 02/04/2025 Visit With: Aline Mao [place] Use of Antihistamine s: No If yes: Vial Test Change in medications: No If yes Increase in asthma symptoms No If yes, inhaler use: Reaction to last injections: No If yes: Allergy Symptoms: Other: Missed: Dose Aware of Vial Test Aware: Notes: [email or web address] Not available 02/04/2025 16:33:53 Plan of Treatment Reminders Order Date Submit [...] Address Organization Details Recorded Time Bilateral tinnitus [id number] Active 2018 Tinnitus, bilateral ; Note: Date Diagnosed : 01/23/2019 4:23 PM (H93.13) Not Available [facility] 02:13:43 Headache 29364053 Active 2019 Headache, unspecifi ed; Note: Changed from R51 to R51.9 (07/01/2020 3:34 PM) , Date Diagnosed : 07/03/2019 4:22 PM (R51) Not Available [facility] 4 02:13:25 Tinnitus of vascular origin 644003673 Active 2022 Pulsatile tinnitus, right ear; Note: Date Diagnosed : 08/02/2022 4:38 PM (H93.A1) Not Available [facility] 4 02:14:37 Allergic rhinitis 63400208 Active 2023 [facility] [address] Pavel HERNANDEZ MD [address] [facility],[place] [address], [place], [address] , [place] - [facility] 4 11:34:09 Vasomotor rhinitis 1595038 Active 2023 Vasomotor rhinitis; Note: Date Diagnosed : 07/13/2023 4:55 PM (J30.0) Not Available [facility] 4 02:13:53 Acute maxillary sinusitis 75741065 Active 2023 Acute maxillary sinusitis , unspecifi ed; Note: Date Diagnosed : 07/13/2023 4:55 PM (J01.00) Not Available [facility] 4 02:14:10 Perennial allergic rhinitis 933211042 Active 2023 Aline Mao [address] [facility],[place] [address], [place], [address] , [facility] - [facility] 5 16:29:14 Problem Notes None recorded. Procedures Surgical History Date Name Laterality Status Provider Name and Address Organization Details Recorded Time 04/21/20 Allergy Immunotherapy Injections completed GEMA MAYS [address] [facility],[address], [address], [facility] - [facility] 04/21/2025 16:24:19 03/18/20 25 Allergy Immunotherapy Injections completed CHERIE HERMAN RN [address] [facility] [address], [place], [address], [facility] - [facility] 03/18/2025 16:19:46 02/19/20 25 Allergy Immunotherapy Injections completed Aline Mao [address] [facility],[address], [address], [place] - [facility] 02/18/2025 16:29:34 02/05/20 25 Allergy Immunotherapy Injections completed Aline Mao [address],[place] [address], [place], [address], [place] [facility] 02/04/2025 16:33:44 01/22/20 25 Allergy Immunotherapy Injections completed CHERIE HERMAN RN [address],[place] [address], [place], [address], [place] [facility] 01/21/2025 17:13:25 01/08/20 25 Allergy Immunotherapy Injections completed SOILA BIRCH RMA [address],[place] [address], [place], [address], [place] [facility] 01/07/2025 16:31:15 12/25/19 25 Allergy Immunotherapy Injections completed GEMA MAYS [address],[place] [address] [place] [address], [address], [place] [facility] 12/24/2024 16:39:30 12/11/19 25 Allergy Immunotherapy Injections completed CHERIE HERMAN RN [address] [address],[place] [address] [place] [address], [address], [place] [facility] 12/10/2024 16:13:34 11/27/19 25 Allergy Immunotherapy Injections completed GEMA MAYS [address],[place] [address] [place] [address], [address], [place] [facility] 11/26/2024 16:39:51 11/13/19 25 Allergy Immunotherapy Injections completed SOILA BIRCH RMA [address],[place] [address], [place], [address], [place] [facility] 11/12/2024 16:31:21 10/30/19 25 Allergy Immunotherapy Injections completed SOILA BIRCH RMA [address],[place] [address], [place], [address], [place] [facility] 10/29/2024 16:24:24 10/16/19 25 Allergy Immunotherapy Injections completed SOILA BIRCH RMA [address],[place] [address], [place], [address], [place] [facility] 10/15/2024 16:53:42 10/02/19 25 Allergy Immunotherapy Injections completed SOILA HUSAMC, RMA [address],[place] [address], [place], [address], [place] [facility] 10/01/2024 16:23:26 09/18/19 25 Allergy Immunotherapy Injections completed SOILA KORZEC, RMA [address] [address], [place], [address], [place] [facility] 09/17/2024 16:16:34 09/04/19 25 Allergy Immunotherapy Injections completed SOILA KORZEC, RMA [address] [address], [place], [address], [place] [facility] 09/03/2024 16:01:46 08/22/19 25 Allergy Immunotherapy Injections completed ABHIJEET MARIN RMA [address],[place] [address], [place], [address], [place] [facility] 08/21/2024 16:05:02 08/07/19 25 Allergy Immunotherapy Injections completed SOIAL PAGEZEC, RMA [address],[place] [address], [place], [address], [place] [facility] 08/06/2024 16:32:03 07/23/19 25 Allergy Immunotherapy Injections completed SOILA KORZEC, RMA [address] [address], [place], [address], [place] [facility] 07/23/2024 16:45:52 07/09/19 25 Allergy Immunotherapy Injections completed SOILA CAMILOZEC, RMA [address],[place] [address], [place], [address], [place] [facility] 07/09/2024 16:36:30 06/25/19 25 Allergy Immunotherapy Injections completed ABHIJEET MARIN RMA [address] [address], [place], [address], [place] [facility] 06/25/2024 17:07:58 06/11/19 25 Allergy Immunotherapy Injections completed SOILA CAMILOZEC, RMA [address], [place], [address], [place] [facility] 06/11/2024 13:44:47 05/29/19 25 Allergy Immunotherapy Injections completed SOILA BIRCH, RMA [address],[place] [address], [place], [address], [place] [facility] 05/29/2024 11:27:48 05/14/20 24 Allergy Immunotherapy Injections completed CHERIE HERMAN RN [address] [facility] [address] [address], [place], [address], [place] [facility] 05/14/2024 16:33:31 04/30/20 24 Allergy Immunotherapy Injections completed SOILA BIRCH, RMA [address],[place] [address] [place] [address], [address], [place] [facility] 04/30/2024 16:31:43 04/16/20 24 Allergy Immunotherapy Injections completed SOILA BIRCH, RMA [address],[place] [address] [place] [address], [address], [place] [facility] 04/16/2024 17:03:52 04/02/20 24 Allergy Immunotherapy Injections completed GEMA MAYS [address],[place] [address] [place] [address], [address], [place] [facility] 04/02/2024 16:17:47 03/19/20 24 Allergy Immunotherapy Injections completed CHERIE HERMAN RN [address] [facility] [address],[place] [address] [place] [address], [address], [place] [facility] 03/19/2024 16:26:16 03/07/20 24 Allergy Immunotherapy Injections completed SOILA BIRCH RMA [address] [address], [place], [address], [place] [facility] 03/07/2024 13:40:29 02/20/20 24 Allergy Immunotherapy Injections completed GEMA MAYS [address] [facility] [address] [address], [place], [address], [place] [facility] 02/20/2024 17:11:11 02/06/20 24 Allergy Immunotherapy Injections completed CHERIE HERMAN RN [address],[place] [address], [place], [address], [place] [facility] 02/07/2024 08:49:22 01/22/20 24 Allergy Immunotherapy Injections completed GEMA MAYS [address] [facility] [address],[place] [address] [place] [address], [address], [place] [facility] 01/22/2024 14:00:20 01/08/20 24 Allergy Immunotherapy Injections completed GEMA MAYS [address] [facility] [address], [place], [address], [place] [facility] 01/08/2024 12:12:08 12/26/19 24 Allergy Immunotherapy Injections completed CHERIE HERMAN RN [address] [facility],[address], [address], [facility] - [facility] 12/26/2023 16:50:55 12/12/19 24 Allergy Immunotherapy Injections completed CHERIE HERMAN RN [address] [facility],[address], [address], [facility] - [facility] 12/12/2023 16:40:58 11/27/19 24 Allergy Immunotherapy Injections completed GEMA MAYS [address] [facility],[place] [address] [place] [address], [address], [facility] - [facility] 11/27/2023 16:41:14 11/14/19 24 Allergy Immunotherapy Injections completed SOILA BIRCH RMJohnny [address] [facility],[place] [address] [place] [address], [address], [facility] - [facility] 11/14/2023 11:18:33 10/31/19 24 Allergy Immunotherapy Injections completed SOILA BIRCH RMA [address] [facility] [address],[place] [address] [place] [address], [address], [place] [facility] 10/31/2023 16:21:15 10/17/19 24 Allergy Immunotherapy Injections completed SOILA BIRCH RMA [address] [address] [address], [place], [address], [facility] - [facility] 10/17/2023 16:28:03 Imaging Results None recorded. Procedure [...] mcg tablet 07/01 completed Medicati on ID: [id number] D uration Value: 30 Brand Name: levothyr [...] gram tablet 09/12 completed Medicati on ID: [id number] D uration Value: 30 Reason: () Brand [...] mg tablet 01/23 completed Medicati on ID: [id number] D uration Value: 3 Reason: () Brand [...] mcg tablet 01/02 completed Medicati on ID: [id number] D uration Value: 30 Reason: () Brand [...] mcg tablet 01/23 completed Medicati on ID: [id number] D uration Value: 30 Reason: () Brand Name: levothyr oxine Se nd Method: E-Prescr ibed Sub s Allowed: subs DANIELLA Guilloryi al Instruct ion: TAKE 2 TABLETS ON AN EMPTY STOMACH IN THE MORNING ONCE A DAY TAKE WITH 25MCG FOR TOTAL OF 125MCG M horace [facility] Name: levothyr oxine Not Available Not Available Not Available levothyro xine 125 mcg tablet TOME 1 TABLETA POR V A ORAL TODOS LOS D active Not Available Not Available No t Available Citrucel 500 mg tablet 01/02 completed Medicati on ID: [id number] D uration Value: 30 Reason: () Brand Name: Citrucel Send Method: E-Prescr ibed Sub s Allowed: subs DANIELLA Guilloryi al Instruct ion: TAKE 2 TABLETS BY MOUTH DAILY, DRINK 8 OZ WATER WITH TABLETS Medicati onGeneri cName: Citrucel Not Available Not Available Not Available levothyro xine 150 mcg tablet 05/19 completed Medicati on ID: [id number] D uration Value: 30 Reason: () Brand Name: levothyr oxine Se nd Method: E-Prescr ibed Sub s Allowed: subs OK Speci al Instruct ion: TAKE 1 TABLET BY MOUTH EVERY DAY Medi cationGe nericNam e: levothyr oxine Not Available Not Available Not Available omeprazol e 20 mg capsule,d elayed release 07/01 completed Medicati on ID: [id number] D uration Value: 30 Brand Name: omeprazo [...] Relief 50 mcg/actua tion nasal spray,gabrielle pension Prompton 2 spray into both nostrils once a day 07/01 completed Medicati on ID: [id number] D uration Value: 30 Brand Name: Flonase [...] ICD10 Code Diagnosis IMO Codes Diagnosis Note [id number] SOILA BICRH RMA Allergy [address] [place] [address], [address] [facility] [place] [address] 01/07/2025 16:09:51 01/07/2025 16:32:48 Perennial allergic rhinitis [id number] J30.89 [id number] SOILA WEINER RMA Allergy [address] [place] [address],[place] [address] [facility] [place] [address] 01/21/2025 16:16:21 01/21/2025 17:13:57 Perennial allergic rhinitis 587731495 J30.89 22506 SOILA WEINER RMA Allergy [address] [place] [address], [address] [place] [address] 02/04/2025 16:22:06 02/04/2025 16:34:10 Perennial allergic rhinitis [id number] J30.89 Health Concerns Section Related Observation LastModified by Organization Detai ls LastModified Time None Recorded Concern Status LastModified by Organization Details LastModified Time None Recorded Payers Encounter Date Sequence Insurance Name Policy Number Policy Gonsalez Covered Member ID Gonsalez Member ID Guarantor Name 02/04/2025 1 [facility] [employer] [place] (HMO) [id number] Deepa Ross [id number] Depea Ross OBGyn Episode No OBEpisode recorded.
--- OUTSIDE RECORDS SUMMARY | 2025-04-22 08:45 | XMS_ITS | Continuity of Care Document ---
Author Organization [facility] Formerly [facility], Allergy Address [address] [place] [phone] Care Team Providers Care Services Coordinator Name Role Phone BETH ROSA Primary Care Provider Assessment Encounter Date Assessment Date Assessment LastModified by Organization Details LastModified Time 02/18/2025 02/18/2025 Visit With: Aline Mao MA Use of Antihistamine s: No If yes: Vial Test Change in medications: No If yes Increase in asthma symptoms No Asthma Hx If yes, inhaler use: Reaction to last injections: No If yes: Allergy Symptoms: Other: Missed: Dose Aware of Vial Test Aware: Notes: Not available 02/18/2025 16:29:47 Plan of Treatment Reminders Order Date Submit [...] Address Organization Details Recorded Time Bilateral tinnitus [id number] Active 2018 Tinnitus, bilateral ; Note: Date Diagnosed : 01/23/2019 4:23 PM (H93.13) Not Available [facility] 4 02:13:43 Headache 12162350 Active 2019 Headache, unspecifi ed; Note: Changed from R51 to R51.9 (07/01/2020 3:34 PM) , Date Diagnosed : 07/03/2019 4:22 PM (R51) Not Available [facility] 4 02:13:25 Tinnitus of vascular origin 568021437 Active 2022 Pulsatile tinnitus, right ear; Note: Date Diagnosed : 08/02/2022 4:38 PM (H93.A1) Not Available [facility] 4 02:14:37 Allergic rhinitis 69663416 Active 2023 SCIT [address] Pavel HERNANDEZ MD [address] [facility],[place] [address], [place], [address] , [place] - [facility] 4 11:34:09 Vasomotor rhinitis 6102132 Active 2023 Vasomotor rhinitis; Note: Date Diagnosed : 07/13/2023 4:55 PM (J30.0) Not Available [facility] 4 02:13:53 Acute maxillary sinusitis 15285955 Active 2023 Acute maxillary sinusitis , unspecifi ed; Note: Date Diagnosed : 07/13/2023 4:55 PM (J01.00) Not Available [facility] 4 02:14:10 Perennial allergic rhinitis 165061772 Active 2023 Aline Mao [address] [facility],[place] [address], [place], [address] , [facility] - [facility] 5 16:29:14 Problem Notes None recorded. Procedures Surgical History Date Name Laterality Status Provider Name and Address Organization Details Recorded Time 04/21/20 Allergy Immunotherapy Injections completed GEMA MAYS [address] [facility],[place] [address], [place], [address], [facility] - [facility] 04/21/2025 16:24:19 03/18/20 25 Allergy Immunotherapy Injections completed CHERIE HERMAN RN [address] [facility] [address], [place], [address], [facility] - [facility] 03/18/2025 16:19:46 02/19/20 25 Allergy Immunotherapy Injections completed Aline Mao [address] [facility],[address], [address], [place] - [facility] 02/18/2025 16:29:34 02/05/20 25 Allergy Immunotherapy Injections completed Aline Mao [address],[place] [address], [place], [address], [place] [facility] 02/04/2025 16:33:44 01/22/20 25 Allergy Immunotherapy Injections completed CHERIE HERMAN RN [address] [facility] [address] [address], [place], [address], [place] [facility] 01/21/2025 17:13:25 01/08/20 25 Allergy Immunotherapy Injections completed SOILA BIRCH RMA [address],[place] [address], [place], [address], [place] [facility] 01/07/2025 16:31:15 12/25/19 25 Allergy Immunotherapy Injections completed GEMA MAYS [address],[place] [address], [place], [address], [place] [facility] 12/24/2024 16:39:30 12/11/19 25 Allergy Immunotherapy Injections completed CHERIE HERMAN RN [address],[place] [address] [place] [address], [address], [place] [facility] 12/10/2024 16:13:34 11/27/19 25 Allergy Immunotherapy Injections completed GEMA MAYS [address],[place] [address], [place], [address], [place] [facility] 11/26/2024 16:39:51 11/13/19 25 Allergy Immunotherapy Injections completed SOILA BIRCH RMA [address], [place], [address], [place] [facility] 11/12/2024 16:31:21 10/30/19 25 Allergy Immunotherapy Injections completed SOILA BIRCH RMA [address],[place] [address], [place], [address], [place] [facility] 10/29/2024 16:24:24 10/16/19 25 Allergy Immunotherapy Injections completed SOILA BIRCH RMA [address], [place], [address], [place] [facility] 10/15/2024 16:53:42 10/02/19 25 Allergy Immunotherapy Injections completed SOILA HUSAMC, RMA [address], [place], [address], [place] [facility] 10/01/2024 16:23:26 09/18/19 25 Allergy Immunotherapy Injections completed SOILA KORZEC, RMA [address], [place], [address], [place] [facility] 09/17/2024 16:16:34 09/04/19 25 Allergy Immunotherapy Injections completed SOILA KORZEC, RMA [address], [place], [address], [place] [facility] 09/03/2024 16:01:46 08/22/19 25 Allergy Immunotherapy Injections completed ABHIJEET MARIN RMA [address], [place], [address], [place] [facility] 08/21/2024 16:05:02 08/07/19 25 Allergy Immunotherapy Injections completed SOILA CAMILOZEC, RMA [address], [place], [address], [place] [facility] 08/06/2024 16:32:03 07/23/19 25 Allergy Immunotherapy Injections completed SOILA KORZEC, RMA [address], [place], [address], [place] [facility] 07/23/2024 16:45:52 07/09/19 25 Allergy Immunotherapy Injections completed SOILA KORZEC, RMA [address], [place], [address], [place] [facility] 07/09/2024 16:36:30 06/25/19 25 Allergy Immunotherapy Injections completed ABHIJEET MARIN RMA [address], [place], [address], [place] [facility] 06/25/2024 17:07:58 06/11/19 25 Allergy Immunotherapy Injections completed SOILA KORZEC, RMA [address], [place], [address], [place] [facility] 06/11/2024 13:44:47 05/29/19 25 Allergy Immunotherapy Injections completed SOILA BIRCH, RMA [address] [facility] [address],[place] [address] [place] [address], [address], [place] [facility] 05/29/2024 11:27:48 05/14/20 24 Allergy Immunotherapy Injections completed CHERIE HERMAN RN [address] [facility] [address], [place], [address], [place] [facility] 05/14/2024 16:33:31 04/30/20 24 Allergy Immunotherapy Injections completed SOILA BIRCH, RMA [address] [facility],[place] [address] [place] [address], [address], [place] [facility] 04/30/2024 16:31:43 04/16/20 24 Allergy Immunotherapy Injections completed SOILA BIRCH, RMA [address] [facility],[place] [address] [place] [address], [address], [place] [facility] 04/16/2024 17:03:52 04/02/20 24 Allergy Immunotherapy Injections completed GEMA MAYS [address] [facility],[place] [address] [place] [address], [address], [place] [facility] 04/02/2024 16:17:47 03/19/20 24 Allergy Immunotherapy Injections completed CHERIE HERMAN RN [address] [facility],[address], [address], [place] [facility] 03/19/2024 16:26:16 03/07/20 24 Allergy Immunotherapy Injections completed SOILA BIRCH RMA [address] [facility] [address],[place] [address] [place] [address], [address], [place] [facility] 03/07/2024 13:40:29 02/20/20 24 Allergy Immunotherapy Injections completed GEMA MAYS [address] [facility] [address],[place] [address] [place] [address], [address], [place] [facility] 02/20/2024 17:11:11 02/06/20 24 Allergy Immunotherapy Injections completed CHERIE HERMAN RN [address] [facility],[place] [address], [place], [address], [place] [facility] 02/07/2024 08:49:22 01/22/20 24 Allergy Immunotherapy Injections completed GEMA MAYS [address] [facility] [address],[place] [address], [place], [address], [place] [facility] 01/22/2024 14:00:20 01/08/20 24 Allergy Immunotherapy Injections completed GEMA MAYS [address] [facility],[place] [address], [place], [address], [place] [facility] 01/08/2024 12:12:08 12/26/19 24 Allergy Immunotherapy Injections completed CHERIE HERMAN RN [address] [facility],[place] [address] [place] [address], [address], [place] [facility] 12/26/2023 16:50:55 12/12/19 24 Allergy Immunotherapy Injections completed CHERIE HERMAN RN [address] [facility],[address], [address], [place] [facility] 12/12/2023 16:40:58 11/27/19 24 Allergy Immunotherapy Injections completed GEMA MAYS [address] [facility],[place] [address] [place] [address], [address], [facility] - [facility] 11/27/2023 16:41:14 11/14/19 24 Allergy Immunotherapy Injections completed GEMA MARINELLI [address] [facility],[place] [address] [place] [address], [address], [place] [facility] 11/14/2023 11:18:33 10/31/19 24 Allergy Immunotherapy Injections completed GEMA MARINELLI [address] [facility] [address],[place] [address] [place] [address], [address], [place] [facility] 10/31/2023 16:21:15 10/17/19 24 Allergy Immunotherapy Injections completed SOILA BIRCH RMA [address] [facility] [address],[place] [address], [place], [address], [place] [facility] 10/17/2023 16:28:03 Imaging Results None recorded. Procedure [...] mcg tablet 07/01 completed Medicati on ID: [id number] D uration Value: 30 Brand Name: levothyr [...] gram tablet 09/12 completed Medicati on ID: [id number] D uration Value: 30 Reason: () Brand [...] mg tablet 01/23 completed Medicati on ID: [id number] D uration Value: 3 Reason: () Brand [...] mcg tablet 01/02 completed Medicati on ID: [id number] D uration Value: 30 Reason: () Brand [...] mcg tablet 01/23 completed Medicati on ID: [id number] D uration Value: 30 Reason: () Brand [...] mg tablet 01/02 completed Medicati on ID: [id number] D uration Value: 30 Reason: () Brand Name: Citrucel Send Method: E-Prescr ibed Sub s Allowed: subs DANIELLA Bahena al Instruct ion: TAKE 2 TABLETS BY MOUTH DAILY, DRINK 8 OZ WATER WITH TABLETS Medicati onGeneri cName: Citrucel Not Available Not Available Not Available levothyro xine 150 mcg tablet 05/19 completed Medicati on ID: [id number] D uration Value: 30 Reason: () Brand Name: levothyr oxine Se nd Method: E-Prescr ibed Sub s Allowed: subs [place] Speci al Instruct ion: TAKE 1 TABLET BY MOUTH EVERY DAY Medi cationGe nericNam e: levothyr oxine Not Available Not Available Not Available omeprazol e 20 mg capsule,d elayed release 07/01 completed Medicati on ID: [id number] D uration Value: 30 Brand Name: omeprazo [...] Relief 50 mcg/actua tion nasal spray,gabrielle pension [place] 2 spray into both nostrils once a day 07/01 completed Medicati on ID: [id number] D uration Value: 30 Brand Name: Flonase [...] ICD10 Code Diagnosis IMO Codes Diagnosis Note [id number] SOILA BIRCH RMA Allergy [address] [place] [address],[place] [place] [address] 01/21/2025 16:16:21 01/21/2025 17:13:57 Perennial allergic rhinitis [id number] J30.89 [id number] SOILA BIRCH Johnny [facility] [address] [place] [address],[place] [place] [address] 02/04/2025 16:22:06 02/04/2025 16:34:10 Perennial allergic rhinitis [id number] J30.89 [id number] Aline Mao All[facility] [address] [place] [address],[address] [place] [address] 02/18/2025 16:06:48 02/18/2025 16:30:04 Perennial allergic rhinitis 474503279 J30.89 Health Concerns Section Related Observation LastModified by Organization Detai ls LastModified Time None Recorded Concern Status LastModified by Organization Details LastModified Time None Recorded Payers Encounter Date Sequence Insurance Name Policy Number Policy Gonsalez Covered Member ID Gonsalez Member ID Guarantor Name 02/18/2025 1 [facility] [employer] - RAMPART Z[employer] (HMO) [id number] Deepa Ross [id number] Deepa Ross OBGyn Episode No OBEpisode recorded.
--- OUTSIDE RECORDS SUMMARY | 2025-04-22 08:45 | XMS_ITS | Data Portability ---
Author Organization [place] [facility], Allergy Address [address] [address] Care Team Providers Care [employer] Supervisor Name Role Phone BETH ROSA Primary Care Provider [phone] Assessment Encounter Date Assessment Date Assessment LastModified by Organization Details LastModified Time 02/04/2025 02/04/2025 Visit With: Aline Mao MA Use of Antihistamines: No If yes: Vial Test Change in medications: No If yes Increase in asthma symptoms No If yes, inhaler use: Reaction to last injections: No If yes: Allergy Symptoms: Other: Missed: Dose Aware of Vial Test Aware: Notes: [email or web address] Not available 02/04/2025 16:33:53 02/18/2025 02/18/2025 Visit With: Aline Moa MA Use of Antihistamines: No If yes: Vial Test Change in medications: No If yes Increase in asthma symptoms No Asthma Hx If yes, inhaler use: Reaction to last injections: No If yes: Allergy Symptoms: Other: Missed: Dose Aware of Vial Test Aware: Notes: [email or web address] Not available 02/18/2025 16:29:47 03/18/2025 03/18/2025 Visit With: Carolynn Marin Use of Antihistamines: Yes If yes: Vial Test Change in medications: No If yes Increase in asthma symptoms No If yes, inhaler use: Reaction to last injections: No If yes: Allergy Symptoms: Other: Missed: Dose Aware of Vial Test Aware: Notes: [email or web address] Not available 03/18/2025 16:19:57 04/01/2025 04/01/2025 59-year-old female presents for follow-up of subcutaneous immunotherapy which patient appears to be compliant with and doing well on. Symptoms are improving, but not yet resolved. I will plan to see her back in another 6 months for reassessment. She may continue yndn-mga-pysyzyl allergy medication as needed. EpiPen was renewed today. All questions were answered. [email or web address] Not available 04/01/2025 18:53:01 04/21/2025 04/21/2025 Visit With: Carolynn Marin Use of Antihistamines: No If yes: Vial Test Change in medications: No If yes Increase in asthma symptoms If yes, inhaler use: Reaction to last injections: No If yes: Allergy Symptoms: Other: Missed: Dose Aware of Vial Test Aware: Notes: [email or web address] Not available 04/21/2025 16:24:39 Plan of Treatment [...] mL injection , auto-inje ctor 2024 025 [facility]/Ph[facility] #[id number], [address] [place] [address], [place], [address], 04/01/2025 16:03:49 Patient TargetsNo targets recorded. Patient InstructionsNo instructions recorded. Reason for Referral None Reported. 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 Active 2022 Pulsatile tinnitus, right ear; Note: Date Diagnosed : 08/02/2022 4:38 PM (H93.A1) Not Available [facility] 02:14:37 Allergic rhinitis 98264621 Active 2023 SCIT [address] Pavel HERNANDEZ MD 100 [facility], [place], [address] , [place] [facility] [place] 11:34:09 Vasomotor rhinitis 1795634 Active 2023 Vasomotor rhinitis; Note: Date Diagnosed : 07/13/2023 4:55 PM (J30.0) Not Available [facility] 02:13:53 Acute maxillary sinusitis 79647567 Active 2023 Acute maxillary sinusitis , unspecifi ed; Note: Date Diagnosed : 07/13/2023 4:55 PM (J01.00) Not Available [facility] 02:14:10 Perennial allergic rhinitis 381013869 Active 2023 Aline Mao 100 [facility] [place] [facility],[address], [place], [address] , [place] [facility] [place] 16:29:14 Problem Notes None recorded. Procedures Surgical History Date Name Laterality Status Provider Name and Address Organization Details Recorded Time 04/21/20 Allergy Immunotherapy Injections completed GEMA MAYS 100 [facility],[address], [address], [place] - [facility] [place] 04/21/2025 16:24:19 03/18/20 25 Allergy Immunotherapy Injections completed CHERIE HERMAN RN 100 [facility] [place] [facility],[address] [facility], [place], [address], [place] [facility] [place] 03/18/2025 16:19:46 02/19/20 25 Allergy Immunotherapy Injections completed Aline Mao 100 [facility],[address] [place] [address], [address], [place] [facility] [place] 02/18/2025 16:29:34 02/05/20 25 Allergy Immunotherapy Injections completed Aline Mayco [address], [address], [place] [facility] [place] 02/04/2025 16:33:44 01/22/20 25 Allergy Immunotherapy Injections completed CHERIE HERMAN RN [address], [address], [place] [facility] [place] 01/21/2025 17:13:25 01/08/20 25 Allergy Immunotherapy Injections completed SOILA BIRCH RMA [address], [place], [address], [place] [facility] [place] 01/07/2025 16:31:15 12/25/19 25 Allergy Immunotherapy Injections completed GEMA MAYS [address], [place], [address], [place] [facility] [place] 12/24/2024 16:39:30 12/11/19 25 Allergy Immunotherapy Injections completed CHERIE HERMAN RN [address] [facility] [address], [address], [place] [facility] [place] 12/10/2024 16:13:34 11/27/19 25 Allergy Immunotherapy Injections completed SAMSON MAYSA [address], [address], [place] [facility] [place] 11/26/2024 16:39:51 11/13/19 25 Allergy Immunotherapy Injections completed SOILA BIRCH RMA [address], [place], [address], [place] [facility] [place] 11/12/2024 16:31:21 10/30/19 25 Allergy Immunotherapy Injections completed SOILA WEINERC, RMA [address], [place], [address], [place] [facility] [place] 10/29/2024 16:24:24 10/16/19 25 Allergy Immunotherapy Injections completed SOILA WEINERC, RMA [address], [place], [address], [place] [facility] [place] 10/15/2024 16:53:42 10/02/19 25 Allergy Immunotherapy Injections completed SOILA WEINERC, RMA [address], [place], [address], [place] [facility] [place] 10/01/2024 16:23:26 09/18/19 25 Allergy Immunotherapy Injections completed SOILA HUSAMC, RMA [address], [place], [address], [place] [facility] 09/17/2024 16:16:34 09/04/19 25 Allergy Immunotherapy Injections completed SOILA CAMILOZEC, RMA [address], [place], [address], [place] [facility] [place] 09/03/2024 16:01:46 08/22/19 25 Allergy Immunotherapy Injections completed CAROLYNN MARIN RMA [address], [address], [place] [facility] [place] 08/21/2024 16:05:02 08/07/19 25 Allergy Immunotherapy Injections completed SOILA HUSAMC, RMA [address], [place], [address], [place] [facility] [place] 08/06/2024 16:32:03 07/23/19 25 Allergy Immunotherapy Injections completed SOILA HUSAMC, RMA [address], [address], [place] [facility] [place] 07/23/2024 16:45:52 07/09/19 25 Allergy Immunotherapy Injections completed SOILA HUSAMC, RMA [address], [address], [place] [facility] [place] 07/09/2024 16:36:30 06/25/19 25 Allergy Immunotherapy Injections completed CAROLYNN MARIN RMA [address], [place], [address], [place] [facility] [place] 06/25/2024 17:07:58 06/11/19 25 Allergy Immunotherapy Injections completed SOILA KORZEC, RMA [address], [address], [place] [facility] [place] 06/11/2024 13:44:47 05/29/19 25 Allergy Immunotherapy Injections completed SOILA KORZEC, RMA [address], [address], [place] [facility] 05/29/2024 11:27:48 05/14/20 24 Allergy Immunotherapy Injections completed CHERIE HERMAN RN [address], [place], [address], [place] [facility] [place] 05/14/2024 16:33:31 04/30/20 24 Allergy Immunotherapy Injections completed SOILA BIRCH, RMA [address], [place], [address], [place] [facility] [place] 04/30/2024 16:31:43 04/16/20 24 Allergy Immunotherapy Injections completed SOILA BIRCH RMA [address], [address], [place] [facility] [place] 04/16/2024 17:03:52 04/02/20 24 Allergy Immunotherapy Injections completed GEMA MAYS [address] [place] [address], [address], [place] [facility] [place] 04/02/2024 16:17:47 03/19/20 24 Allergy Immunotherapy Injections completed CHERIE HERMAN RN [address] [facility] [address] [place] [address], [address], [place] [facility] [place] 03/19/2024 16:26:16 03/07/20 24 Allergy Immunotherapy Injections completed GEMA MARINELLI [address] [place] [address], [address], [place] [facility] 03/07/2024 13:40:29 02/20/20 24 Allergy Immunotherapy Injections completed GEMA MAYS [address], [address], [place] [facility] [place] 02/20/2024 17:11:11 02/06/20 24 Allergy Immunotherapy Injections completed CHERIE HERMAN RN [address], [address], [place] [facility] 02/07/2024 08:49:22 01/22/20 24 Allergy Immunotherapy Injections completed GEMA MAYS [address] [place],[address], [address], [place] [facility] 01/22/2024 14:00:20 01/08/20 24 Allergy Immunotherapy Injections completed GEMA MAYS [address] [facility] [address], [address], [facility] - [facility] 01/08/2024 12:12:08 12/26/19 24 Allergy Immunotherapy Injections completed CHERIE HERMAN RN [address] [facility] [address] [place] [address], [address], [place] [facility] [place] 12/26/2023 16:50:55 12/12/19 24 Allergy Immunotherapy Injections completed CHERIE HERMAN RN 100 [facility] [place],[address], [address], [facility] - [facility] 12/12/2023 16:40:58 11/27/19 24 Allergy Immunotherapy Injections completed GEMA MAYS 100 [facility],[address] [place] [address], [address], [facility] - [facility] 11/27/2023 16:41:14 11/14/19 24 Allergy Immunotherapy Injections completed GEMA MARINELLI 100 [facility],[address], [address], [facility] - [facility] 11/14/2023 11:18:33 10/31/19 24 Allergy Immunotherapy Injections completed SOILA BIRCH Johnny 100 [facility],[address], [address], [facility] - [facility] 10/31/2023 16:21:15 10/17/19 24 Allergy Immunotherapy Injections completed SOILA BIRCH Johnny 100 [facility],[address] [place] [address], [address], [facility] - [facility] 10/17/2023 16:28:03 Imaging Results None recorded. [...] mcg tablet 07/01 completed Medicati on ID: [id number] D uration Value: 30 Brand Name: levothyr [...] Available Not Available No t Available azithromy laskhmi 250 mg tablet TOME 2 TABLETAS V A ORAL HOY, [place] TOME 1 TABLETA DIARIAME NTE TAMIKO 4 D SEG N LAS INDICACI ONES 02/24 completed Not Available Not Available Not Available sucralfat e 1 gram tablet 09/12 completed Medicati on ID: [id number] D uration Value: 30 Reason: () Brand [...] mg tablet 01/23 completed Medicati on ID: [id number] D uration Value: 3 Reason: () Brand [...] mcg tablet 01/02 completed Medicati on ID: [id number] D uration Value: 30 Reason: () Brand [...] mcg tablet 01/23 completed Medicati on ID: [id number] D uration Value: 30 Reason: () Brand Name: levothyr oxine Se nd Method: E-Prescr ibed Sub s Allowed: subs DANIELLA Bahena al Instruct ion: TAKE 2 TABLETS ON AN EMPTY STOMACH IN THE MORNING ONCE A DAY TAKE WITH 25MCG FOR TOTAL OF 125MCG M horace nGeneric Name: levothyr oxine Not Available Not Available Not Available levothyro xine 125 mcg tablet TOME 1 TABLETA POR V A ORAL TODOS LOS D active Not Available Not Available No t Available Citrucel 500 mg tablet 01/02 completed Medicati on ID: [id number] D uration Value: 30 Reason: () Brand Name: Citrucel Send Method: E-Prescr ibed Sub s Allowed: subs OK Speci al Instruct ion: TAKE 2 TABLETS BY MOUTH DAILY, DRINK 8 OZ WATER WITH TABLETS Medicati onGeneri cName: Citrucel Not Available Not Available Not Available levothyro xine 150 mcg tablet 05/19 completed Medicati on ID: [id number] D uration Value: 30 Reason: () Brand Name: levothyr oxine Se nd Method: E-Prescr ibed Sub s Allowed: subs DANIELLA Speci al Instruct ion: TAKE 1 TABLET BY MOUTH EVERY DAY Medi cationGe nericNam e: levothyr oxine Not Available Not Available Not Available omeprazol e 20 mg capsule,d elayed release 07/01 completed Medicati on ID: [id number] D uration Value: 30 Brand Name: omeprazo maría Send Method: E-Prescr ibed Sub s Allowed: [...] Relief 50 mcg/actua tion nasal spray,gabrielle pension [place] 2 spray into both nostrils once a day 07/01 completed Medicati on ID: [id number] D uration Value: 30 Brand Name: Flonase Allergy Relief S end Method: E-Prescr ibed Sub s Allowed: subs OK Medic ationGen ericName : Flonase Allergy Relief Not Available Not Available Not Available Vitals Date Recorded Body height Body mass index (BMI) Body weight Provider Name and Address Organization Details Last Updated DateTime 04/01/2025 165.1 cm 25.3 kg/m2 72099.04 g Elisha Piedra [place] [facility] 04/01/2025 15:46:25 Social History None recorded. [...] Diagnosis IMO Codes Diagnosis Note 1218 SOILA BIRCH RMA Allergy 100 [facility] [place] [address] 10/17/2023 16:13:22 10/17/2023 17:41:05 Perennial allergic rhinitis 279672991 J30.89 2931 SOILA BIRCH RMA Allergy 100 [facility],[address] [place] [address] 10/31/2023 16:06:43 10/31/2023 16:22:50 Perennial allergic rhinitis [id number] J30.89 4686 SOILA BIRCH RMA Allergy 100 [facility],[address] [place] [address] 11/14/2023 11:17:23 11/14/2023 14:48:16 Perennial allergic rhinitis 996786429 J30.89 6403 CAROYLNN MARIN RMA Allergy 100 [facility],[address] [place] [address] 11/27/2023 16:10:47 11/27/2023 16:44:32 Perennial allergic rhinitis [id number] J30.89 8352 SOILA BIRCH RMA Allergy 100 [facility] [place] [address] 12/12/2023 16:17:18 12/12/2023 16:41:45 Perennial allergic rhinitis [id number] J30.89 [id number] CHERIE HERMAN RN Allergy 100 [facility],[address] [place] [address] 12/26/2023 16:12:41 12/26/2023 16:54:07 Perennial allergic rhinitis 458547118 J30.89 [id number] CAROLYNN MARIN [facility] Allergy 100 [facility],[address] [place] [address] 01/08/2024 10:13:46 01/08/2024 12:13:56 Perennial allergic rhinitis 628479575 J30.89 11574 CAROLYNN MARIN [facility] Allergy 100 [facility],[address] [place] [address] 01/22/2024 13:40:12 01/22/2024 15:01:18 Perennial allergic rhinitis [id number] J30.89 [id number] DRU HERNANDEZ MD [facility] [place] 100 [facility] [place] [address] 02/01/2024 15:36:38 02/01/2024 16:07:42 Allergic rhinitis 83011209 J30.89 [id number] CAROLYNN MARIN [facility] Allergy 100 [facility],[address] [place] [address] 02/06/2024 16:23:19 02/07/2024 08:49:55 Perennial allergic rhinitis [id number] J30.89 [id number] CAROLYNN MARIN [facility] Allergy 100 [facility],[address] [place] [address] 02/20/2024 16:26:39 02/20/2024 17:23:59 Perennial allergic rhinitis [id number] J30.89 [id number] SOILA WEINER, A Allergy 100 [facility],[address] [place] [address] 03/07/2024 12:27:11 03/07/2024 13:41:01 Perennial allergic rhinitis [id number] J30.89 [id number] CAROLYNN MARIN [facility] Allergy 100 [facility],[address] [place] [address] 03/19/2024 16:15:44 03/19/2024 16:27:02 Perennial allergic rhinitis [id number] J30.89 [id number] [facility], RMA Allergy 100 [facility],[address] [place] [address] 04/02/2024 16:11:14 04/02/2024 16:19:33 Perennial allergic rhinitis [id number] J30.89 [id number] [facility], RMA Allergy 100 [facility],[address] [place] [address] 04/16/2024 16:44:27 04/16/2024 17:04:24 Perennial allergic rhinitis [id number] J30.89 [id number] CAROLYNN MARIN A Allergy 100 [facility],[address] [place] [address] 04/30/2024 16:13:35 04/30/2024 16:32:22 Perennial allergic rhinitis 858917840 J30.89 [id number] CAROLYNN MARIN A Allergy 100 [facility],[address] [place] [address] 05/14/2024 16:21:48 05/14/2024 16:34:07 Perennial allergic rhinitis 774060980 J30.89 [id number] CAROLYNN MARIN A Allergy 100 [facility],[address] [place] [address] 05/29/2024 09:15:53 05/29/2024 11:28:25 Perennial allergic rhinitis 174723741 J30.89 [id number] [facility], RMA Allergy 100 [facility],[address] [place] [address] 06/11/2024 13:30:16 06/11/2024 13:45:27 Perennial allergic rhinitis [id number] J30.89 [id number] CAROLYNN MARIN A Allergy 100 [facility],[address] [place] [address] 06/25/2024 16:57:05 06/25/2024 17:08:31 Perennial allergic rhinitis [id number] J30.89 [id number] CAROLYNN MARIN RMA Allergy 100 [facility],[address] [place] [address] 07/09/2024 16:24:50 07/09/2024 16:36:54 Perennial allergic rhinitis [id number] J30.89 [id number] CHERIE HERMAN RN Allergy [address] [place] [address],[address] [place] [address] 07/23/2024 16:16:56 07/23/2024 16:46:34 Perennial allergic rhinitis [id number] J30.89 [id number] [facility], A Allergy [address] [place] [address],[address] [place] [address] 08/06/2024 16:16:54 08/06/2024 16:32:47 Perennial allergic rhinitis [id number] J30.89 [id number] DRU HERNANDEZ MD [facility] [place] 100 [facility] [place] [address] 08/21/2024 15:20:45 08/21/2024 16:01:10 Allergic rhinitis [id number] J30.89 [id number] [facility] Allergy [address] [place] [address], [address] [place] [address] 08/21/2024 15:23:00 08/21/2024 16:05:43 Perennial allergic rhinitis [id number] J30.89 [id number] [facility], A Allergy [address] [place] [address],[address] [place] [address] 09/03/2024 15:35:16 09/03/2024 16:02:14 Perennial allergic rhinitis [id number] J30.89 38003 [facility], A Allergy [address] [place] [address],[address] [place] [address] 09/17/2024 16:11:12 09/17/2024 16:17:33 Perennial allergic rhinitis [id number] J30.89 [id number] CAROLYNN MARIN, A Allergy [address] [place] [address],[address] [place] [address] 10/01/2024 16:08:36 10/01/2024 16:23:50 Perennial allergic rhinitis [id number] J30.89 [id number] [facility], A Allergy [address] [place] [address],[address] [place] [address] 10/15/2024 16:21:16 10/15/2024 16:54:08 Perennial allergic rhinitis 596711314 J30.89 [id number] SOILA WEINER, [facility] Allergy [address] [place] [address],[address] [place] [address] 10/29/2024 16:17:00 10/29/2024 16:25:07 Perennial allergic rhinitis [id number] J30.89 [id number] SOILA HUSAM, [facility] Allergy [address] [place] [address],[address] [place] [address] 11/12/2024 16:10:27 11/12/2024 16:33:04 Perennial allergic rhinitis [id number] J30.89 [id number] CAROLYNNJohnny MARIN [facility] Allergy [address] [place] [address],[address] [place] [address] 11/26/2024 16:14:50 11/26/2024 16:40:47 Perennial allergic rhinitis [id number] J30.89 [id number] CHERIE HERMAN product safety consultant [address] [place] [address],[address] [place] [address] 12/10/2024 16:02:46 12/10/2024 16:14:05 Perennial allergic rhinitis [id number] J30.89 [id number] CAROLYNN MARIN [facility] Allergy [address] [place] [address],[address] [place] [address] 12/24/2024 16:31:40 12/24/2024 16:41:35 Perennial allergic rhinitis [id number] J30.89 [id number] SOILA HUSAM, A Allergy [address] [place] [address],[address] [place] [address] 01/07/2025 16:09:51 01/07/2025 16:32:48 Perennial allergic rhinitis [id number] J30.89 [id number] SOILA HUSAM, [facility] Allergy [address] [place] [address],[address] [place] [address] 01/21/2025 16:16:21 01/21/2025 17:13:57 Perennial allergic rhinitis [id number] J30.89 [id number] SOILA HUSAM, [facility] Allergy [address] [place] [address],[address] [place] [address] 02/04/2025 16:22:06 02/04/2025 16:34:10 Perennial allergic rhinitis [id number] J30.89 [id number] Aline Mao Allergy [address] [place] [address] [address] [place] [address] 02/18/2025 16:06:48 02/18/2025 16:30:04 Perennial allergic rhinitis [id number] J30.89 [id number] CAROLYNN MARIN [facility] Allergy [address] [place] [address], [place] [address] 03/18/2025 15:50:14 03/18/2025 16:20:18 Perennial allergic rhinitis [id number] J30.89 [id number] MARYLOU WHITAKER [facility] 100 [facility] [place] [address] 04/01/2025 15:30:39 04/01/2025 16:09:25 Perennial allergic rhinitis [id number] J30.89 [id number] CAROLYNN MARIN Johnny Allergy [address] [place] [address] [place] [address] 04/21/2025 16:14:58 04/21/2025 16:24:55 Perennial allergic rhinitis [id number] J30.89 Health Concerns Section Related Observation LastModified by Organization Detai ls LastModified Time None Recorded Concern Status LastModified by Organization Details LastModified Time None Recorded Advance Directives Directive None Recorded Payers Insurance Date Sequence Insurance Name Policy Number Policy Gonsalez Covered Member ID Gonsalez Member ID Guarantor Name 12/12/[address] [facility] HOSPITAL PLAN [id number] Deepa Ross [id number] 2 Deepa Ross 04/21/[address] [facility] [employer] - DIRECT - [place] ZERO (HMO) [id number] Deepa Ross [id number] 2 Deepa Ross Notes Date Note Type Note Provider Name [...] is . History of sinus surgery in [place] circa 2002. Dru Jerome, [address] [facility],[place] [address], [place], [address], [facility] - [facility] 04/02/2025 20:49:08 OBGyn Episode No OBEpisode recorded.
== END 2025-04-22 08:25 | disposition home or self-care (01) ==
LOC: HO.XRAY 08:24
PROVIDERS: PCP Internal Medicine; Visit Provider Nurse Practitioner Family
DX: K21.9 Gastro-esophageal reflux disease without esophagitis (principal); R68.81 Early satiety
CPT/HCPCS: 74246

== ENCOUNTER → 2025-04-22 08:26 | Outpatient (BNV) | payer OTHER, SELFPAY | PROVIDERS: PCP Internal Medicine; Visit Provider Radiology Diagnostic Radiology | DX: K21.9 Gastro-esophageal reflux disease without esophagitis (principal); K22.89 Other specified disease of esophagus; K44.9 Diaphragmatic hernia without obstruction or gangrene | CPT/HCPCS: 74246 ==

== ENCOUNTER 2025-05-04 15:41 | Outpatient (AMB) | payer OTHER, SELFPAY ==
--- NOTE | 2025-05-04 15:44 | MHC.OFFVIS ---
Vital Signs 05/04/25 15:45 Height 5 ft 5 in Weight 156 lb BMI 26.0 BP 116/76 Blood Pressure Location Rt brachial Position Sitting Pulse 88 Pulse Source Pulse Oximeter Pulse Oximetry (%) 96 Oxygen Delivery Method Room Air Intake Visit Reasons: 2 mos FUV. Abn labs + HP F/U Intake Note: Est pt for mgmt of GERD, Dysphagia + chronic abd pain. Discuss EGD + [place]. CC; Pt denies any current GI sx or concerns. Pt does report having rare episodes of bloating and reflux but that it is very diet dependent. [facility] [employer] Required: No Accompanied by: Self / Same As Patient Allergies No Known Allergies Allergy (Verified 05/12/25 08:26) HPI HPI 2 mos FUV. Abn labs + HP F/U: Details: LAST VISIT: Heart burn Transaminitis Dysphagia History of Helicobacter pylori infection Postprandial epigastric pain Plan Will do H pylori testing today if positive will treat empirically. Will check transglutaminase, lipase, we will recheck liver panel. Although patient had 1 episode only of liver enzymes elevated and then normal since then. Patient change her diet, states that she is eating clean. Denies eating food that is high in fat or fried. Will check lipase, vitamin B12, folate, vitamin-D level. Patient will be sent for upper GI with barium swallow as well. She is due to go for colonoscopy. When returning in 2-3 months we will discuss going for colonoscopy and possible upper endoscopy. Patient is agreeable to this plan and verbalizes understanding of instructions. She was given the opportunity to ask questions and all questions answered. ? Thank you for allowing me to participate in her care Orders Transglutaminase IgA Today R10.9 US abdomen comp w elastography Today R79.89 H Pylori Breath Test Today K21.9 Lipase Today R10.9 Liver Panel Today R74.01 Vitamin B12 and Folate Today R19.7 Vitamin D 25-OH (D2 and D3) Today E55.9 FL upper GI w Ba Swallow Today K21.9 TODAY'S VISIT Patient is here today for follow-up to discuss lab results as well as upper GI series results. Reflux not seen, however disorganized peristalsis seen. Patient denies having reflux, however occasionally feeling like she gets full very quickly. It does depending on what she eats. Patient denies dyspepsia, dysphagia or odynophagia. Patient is trying to stay away from food that is causing acid reflux. Patient denies melena, hematochezia, unintentional weight loss or ribbon like stools. Patient does report that occasionally if she feels like she is constipated. Does not feel like she empties her bowels completely when she has a bowel movement. Occasional abdominal distension and bloating depending on what she eats. Still trying to figure out what she triggers her bloating. 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 Current occupational exposures/hazards: No Cognitive needs: No Hearing needs: No Vision needs: Yes (Glasses) Physical Exam Vital Signs: Last Vital Signs Pulse 88 05/04/25 15:45 BP 116/76 05/04/25 15:45 Pulse Ox 96 05/04/25 15:45 Oxygen Delivery Method Room Air 05/04/25 15:45 BMI result Body Mass Index 26.0 Const General: healthy appearing, no acute distress and well developed Nutritional Appearance: well nourished Orientation/consciousness: patient oriented x3 Resp Effort & Inspection: normal respiratory effort, able to speak in complete sentences, no tracheal deviation and symmetric chest movement Auscultation: clear to auscultation bilaterally Cardio Rate: regular rate GI Inspection: Yes normal to inspection and No distended Palpation (GI): Soft to palpation, not firm, nontender and No hepatosplenomegaly present Auscultation: normal bowel sounds General: Yes no CVA tenderness Back/Spine/Pelvis Back: no CVA tenderness Skin General skin exam: elasticity normal, turgor normal and dry skin Neuro General: patient oriented x3 Psych Appearance: grossly normal Mental Status: mental status grossly normal Results Reviewed Results Reviewed: UPPER GI SERIES WITH BARIUM SWALLOW IMPRESSION: 1. Mildly disordered esophageal peristalsis. Esophagus otherwise normal. 2. Tiny type I hiatus hernia present. 3. No definite gastroesophageal reflux identified during the course of the examination. 4. Normal-appearing stomach and duodenum. No significant delay of contrast passage from the stomach into the small bowel. Laboratory Tests 12/27/24 08:16 Total Bilirubin 0.4 Direct Bilirubin 0.1 AST 27 ALT 24 Alkaline Phosphatase 124 H Lipase 29 Vitamin B12 531 25-OH Vitamin D Total 37 Folate 14.5 TSH 0.24 L Free T4 1.24 Tiss Transglutamin IgA <1.0 Assessment & Plan Assessment & Plan (1) Heart burn: Code(s): R12 - Heartburn Category: Medical (2) Transaminitis: Code(s): R74.01 - Elevation of levels of liver transaminase levels Category: Medical (3) History of Helicobacter pylori infection: Code(s): Z86.19 - Personal history of other infectious and parasitic diseases Category: Medical (4) Postprandial epigastric pain: Code(s): R10.13 - Epigastric pain (5) Early satiety: Code(s): R68.81 - Early satiety Plan Patient reports that she no longer has trouble swallowing, however she feels like the food feels her up very quickly and she can only eat small meals. She does admit that she does not empty her bowels completely and we can start her on senna. We will send her for gastric emptying study to see if she has a gastroparesis or this is just related to her having constipation. Patient was encouraged to increase fluid intake and activity to promote bowel motility. Continue avoiding dietary triggers. Bloating can be trigger with certain food. Patient was encouraged to stay on low FODMAP diet. List of food recommended as well as list of food to avoid given to patient. Patient will return in 2-3 months we will discuss going for colonoscopy. She is agreeable to this plan and verbalizes understanding of instructions. She was given the opportunity to ask questions and all questions answered. Thank you for allowing me to participate in her care Orders: Orders NM gastric emptying study 05/04/25 R68.81 - Early satiety Medications: New sennosides (Natural Senna Laxative) 17.2 mg (2 x 8.6 mg) PO BEDTIME 60 tabs 3RF constipation K59.00 - Constipation, unspecified Coding Level of Care Code Est Pt Level 4 (27131) Diagnoses Heart burn R12 Transaminitis R74.01 History of Helicobacter pylori infection Z86.19 Postprandial epigastric pain R10.13 Early satiety R68.81 Time Spent (min) 40 Comment 25 minutes spent with patient and additional 15 minutes spent reviewing her records
[2025-05-04 15:45] VITALS: BP 116/76; PULSE 88; O2SAT 96; BMI 26.0
--- OUTSIDE RECORDS SUMMARY | 2025-05-05 01:18 | XMS_ITS | Continuity of Care Document ---
Author Organization [place] - [facility], Allergy Address [address] [place] [phone] Care Team Providers Care Manager Program Name Role Phone BETH ROSA Primary Care [...] Dose Aware of Vial Test Aware: Notes: [email or web address] Not available 04/21/2025 16:24:39 Plan of Treatment [...] Address Organization Details Recorded Time Bilateral tinnitus 14603135947 02 Active 2018 Tinnitus, bilateral ; Note: Date Diagnosed : 01/23/2019 4:23 PM (H93.13) Not Available [facility] 02:13:43 Headache 69960004 Active 2019 Headache, unspecifi ed; Note: Changed from R51 to R51.9 (07/01/2020 3:34 PM) , Date Diagnosed : 07/03/2019 4:22 PM (R51) Not Available [facility] 4 02:13:25 Tinnitus of vascular origin 965760673 Active 2022 Pulsatile tinnitus, right ear; Note: Date Diagnosed : 08/02/2022 4:38 PM (H93.A1) Not Available [facility] 4 02:14:37 Allergic rhinitis 67392679 Active 2023 SCIT [address] Pavel HERNANDEZ MD [address] [facility],[place] [address], [facility] [place], [address] , [facility] - [facility] [place] 4 11:34:09 Vasomotor rhinitis 1287620 Active 2023 Vasomotor rhinitis; Note: Date Diagnosed : 07/13/2023 4:55 PM (J30.0) Not Available [facility] 4 02:13:53 Acute maxillary sinusitis 60900748 Active 2023 Acute maxillary sinusitis , unspecifi ed; Note: Date Diagnosed : 07/13/2023 4:55 PM (J01.00) Not Available [facility] 4 02:14:10 Perennial allergic rhinitis 349470020 Active 2023 Aline Mao [address] [place] [address],[place] [address], [place], [address] , [facility] - [facility] [place] 5 16:29:14 Problem Notes None recorded. Procedures Surgical History Date Name Laterality Status Provider Name and Address Organization Details Recorded Time 04/21/20 Allergy Immunotherapy Injections completed GEMA MAYS [address] [facility],[address], [address], [facility] - [facility] [place] 04/21/2025 16:24:19 03/18/20 25 Allergy Immunotherapy Injections completed CHERIE HERMAN RN [address] [facility],[address], [address], [facility] - [facility] 03/18/2025 16:19:46 02/19/20 25 Allergy Immunotherapy Injections completed Aline Mao [address] [facility],[address], [address], [place] - [facility] [place] 02/18/2025 16:29:34 02/05/20 25 Allergy Immunotherapy Injections completed Aline Mao [address], [place], [address], [place] [facility] 02/04/2025 16:33:44 01/22/20 25 Allergy Immunotherapy Injections completed CHERIE HERMAN RN [address],[place] [address], [place], [address], [place] [facility] [place] 01/21/2025 17:13:25 01/08/20 25 Allergy Immunotherapy Injections completed SOILA BIRCH RMA [address],[place] [address], [place], [address], [place] [facility] [place] 01/07/2025 16:31:15 12/25/19 25 Allergy Immunotherapy Injections completed GEMA MAYS [address] [place] [address], [address], [place] [facility] 12/24/2024 16:39:30 12/11/19 25 Allergy Immunotherapy Injections completed CHERIE HERMAN RN [address] [place] [address], [address], [place] [facility] 12/10/2024 16:13:34 11/27/19 25 Allergy Immunotherapy Injections completed GEMA MAYS [address],[place] [address], [place], [address], [place] [facility] 11/26/2024 16:39:51 11/13/19 25 Allergy Immunotherapy Injections completed SOILA BIRCH RMA [address], [place], [address], [place] [facility] 11/12/2024 16:31:21 10/30/19 25 Allergy Immunotherapy Injections completed SOILA BIRCH RMA [address],[place] [address], [place], [address], [place] [facility] 10/29/2024 16:24:24 10/16/19 25 Allergy Immunotherapy Injections completed SOILA BIRCH RMA [address],[place] [address], [place], [address], [place] [facility] 10/15/2024 16:53:42 10/02/19 25 Allergy Immunotherapy Injections completed SOILA CAMILOZEC, RMA [address],[place] [address], [place], [address], [place] [facility] 10/01/2024 16:23:26 09/18/19 25 Allergy Immunotherapy Injections completed SOILA KORZEC, RMA [address], [place], [address], [place] [facility] 09/17/2024 16:16:34 09/04/19 25 Allergy Immunotherapy Injections completed SOILA KORZEC, RMA [address], [place], [address], [place] [facility] 09/03/2024 16:01:46 08/22/19 25 Allergy Immunotherapy Injections completed CAROLYNN NOLAND RMA [address], [place], [address], [place] [facility] 08/21/2024 16:05:02 08/07/19 25 Allergy Immunotherapy Injections completed SOILA PAGEZEC, RMA [address], [place], [address], [place] [facility] 08/06/2024 16:32:03 07/23/19 25 Allergy Immunotherapy Injections completed SOILA KORZEC, RMA [address],[place] [address], [place], [address], [place] [facility] 07/23/2024 16:45:52 07/09/19 25 Allergy Immunotherapy Injections completed SOILA KORZEC, RMA [address], [place], [address], [place] [facility] 07/09/2024 16:36:30 06/25/19 25 Allergy Immunotherapy Injections completed CAROLYNN NOLAND RMA [address],[place] [address], [place], [address], [place] [facility] 06/25/2024 17:07:58 06/11/19 25 Allergy Immunotherapy Injections completed SOILA KORZEC, RMA [address], [place], [address], [place] [facility] 06/11/2024 13:44:47 05/29/19 25 Allergy Immunotherapy Injections completed SOILA BIRCH, RMA [address],[place] [address], [place], [address], [place] [facility] 05/29/2024 11:27:48 05/14/20 24 Allergy Immunotherapy Injections completed CHERIE HERMAN RN [address],[place] [address], [place], [address], [place] [facility] [place] 05/14/2024 16:33:31 04/30/20 24 Allergy Immunotherapy Injections completed SOILA BIRCH, RMA [address] [place] [address], [address], [place] [facility] [place] 04/30/2024 16:31:43 04/16/20 24 Allergy Immunotherapy Injections completed SOILA BIRCH, RMA [address] [place] [address], [address], [place] [facility] 04/16/2024 17:03:52 04/02/20 24 Allergy Immunotherapy Injections completed GEMA MAYS [address] [place] [address], [address], [place] [facility] 04/02/2024 16:17:47 03/19/20 24 Allergy Immunotherapy Injections completed CHERIE HERMAN RN [address] [place] [address], [address], [place] [facility] 03/19/2024 16:26:16 03/07/20 24 Allergy Immunotherapy Injections completed SOILA BIRCH RMA [address], [place], [address], [place] [facility] 03/07/2024 13:40:29 02/20/20 24 Allergy Immunotherapy Injections completed GEMA MAYS [address],[place] [address], [place], [address], [place] [facility] 02/20/2024 17:11:11 02/06/20 24 Allergy Immunotherapy Injections completed CHERIE HERMAN RN [address], [place], [address], [place] [facility] 02/07/2024 08:49:22 01/22/20 24 Allergy Immunotherapy Injections completed GEMA MAYS [address] [facility] [place],[address] [place] [address], [address], [place] [facility] 01/22/2024 14:00:20 01/08/20 24 Allergy Immunotherapy Injections completed GEMA MAYS [address] [facility] [place] [address], [place], [address], [place] [facility] 01/08/2024 12:12:08 12/26/19 24 Allergy Immunotherapy Injections completed CHERIE HERMAN RN [address] [facility],[address], [address], [facility] - [facility] [place] 12/26/2023 16:50:55 12/12/19 24 Allergy Immunotherapy Injections completed CHERIE HERMAN RN [address] [facility],[address], [address], [facility] - [facility] [place] 12/12/2023 16:40:58 11/27/19 24 Allergy Immunotherapy Injections completed GEMA MAYS [address] [facility],[address], [address], [facility] - [facility] [place] 11/27/2023 16:41:14 11/14/19 24 Allergy Immunotherapy Injections completed SOILA BIRCH RMJohnny [address] [facility] [place],[address] [place] [address], [address], [facility] - [facility] [place] 11/14/2023 11:18:33 10/31/19 24 Allergy Immunotherapy Injections completed SOILA BIRCH RMA [address] [facility] [place],[address] [place] [address], [address], [place] [facility] 10/31/2023 16:21:15 10/17/19 24 Allergy Immunotherapy Injections completed SOILA BIRCH RMA [address],[place] [address], [place], [address], [place] [facility] 10/17/2023 16:28:03 Imaging Results None recorded. Procedure [...] mcg tablet 07/01 completed Medicati on ID: [id number] D uration Value: 30 Brand Name: levothyr [...] gram tablet 09/12 completed Medicati on ID: [id number] D uration Value: 30 Reason: () Brand [...] mg tablet 01/23 completed Medicati on ID: [id number] D uration Value: 3 Reason: () Brand [...] mcg tablet 01/02 completed Medicati on ID: [id number] D uration Value: 30 Reason: () Brand [...] mcg tablet 01/23 completed Medicati on ID: [id number] D uration Value: 30 Reason: () Brand [...] mg tablet 01/02 completed Medicati on ID: [id number] D uration Value: 30 Reason: () Brand Name: Citrucel Send Method: E-Prescr ibed Sub s Allowed: subs DANIELLA Speci al Instruct ion: TAKE 2 TABLETS BY MOUTH DAILY, DRINK 8 OZ WATER WITH TABLETS Medicati onGeneri cName: Citrucel Not Available Not Available Not Available levothyro xine 150 mcg tablet 05/19 completed Medicati on ID: [id number] D uration Value: 30 Reason: () Brand Name: levothyr oxine Se nd Method: E-Prescr ibed Sub s Allowed: subs OK Speci al Instruct ion: TAKE 1 TABLET BY MOUTH EVERY DAY Medi cationGe nericNam e: levothyr oxine Not Available Not Available Not Available omeprazol e 20 mg capsule,d elayed release 07/01 completed Medicati on ID: [id number] D uration Value: 30 Brand Name: omeprazo [...] Relief 50 mcg/actua tion nasal spray,gabrielle pension [place] 2 spray into both nostrils once a day 07/01 completed Medicati on ID: [id number] D uration Value: 30 Brand Name: Flonase [...] ICD10 Code Diagnosis IMO Codes Diagnosis Note [id number] MARYLOU WHITAKER [facility] of [address] [address] 04/01/2025 15:30:39 04/01/2025 16:09:25 Perennial allergic rhinitis [id number] J30.89 [id number] GEMA MAYS Allergy [address] [place] [address] [address] 04/21/2025 16:14:58 04/21/2025 16:24:55 Perennial allergic rhinitis [id number] J30.89 Health Concerns Section Related Observation LastModified by Organization Detai ls LastModified Time None Recorded Concern Status LastModified by Organization Details LastModified Time None Recorded Payers Encounter Date Sequence Insurance Name Policy Number Policy Gonsalez Covered Member ID Gonsalez Member ID Guarantor Name 04/21/2025 1 [facility] [employer] - DIRECT - [place] [id number] Deepa Ross [id number] Deepa Ross OBGyn Episode No OBEpisode recorded.
--- OUTSIDE RECORDS SUMMARY | 2025-05-05 01:18 | XMS_ITS | Continuity of Care Document ---
Author Organization [place] [facility], Allergy Address [address] [place] [phone] Care Team Providers Care Flower Arranger Name Role Phone BETH ROSA Primary Care Provider [phone] Assessment Encounter Date Assessment Date Assessment LastModified [...] Address Organization Details Recorded Time Bilateral tinnitus [id number] [id number] Active 2018 Tinnitus, bilateral ; Note: Date Diagnosed : 01/23/2019 4:23 PM (H93.13) Not Available [facility] 4 02:13:43 Headache 40621636 Active 2019 Headache, unspecifi ed; Note: Changed from R51 to R51.9 (07/01/2020 3:34 PM) , Date Diagnosed : 07/03/2019 4:22 PM (R51) Not Available [facility] 4 02:13:25 Tinnitus of vascular origin [id number] Active 2022 Pulsatile tinnitus, right ear; Note: Date Diagnosed : 08/02/2022 4:38 PM (H93.A1) Not Available [facility] 4 02:14:37 Allergic rhinitis 72959525 Active 2023 [facility] [address] Pavel HERNANDEZ MD [address] [facility],[place] [address], [facility] [place], [address] , [place] - [facility] 4 11:34:09 Vasomotor rhinitis 1551298 Active 2023 Vasomotor rhinitis; Note: Date Diagnosed : 07/13/2023 4:55 PM (J30.0) Not Available [facility] 4 02:13:53 Acute maxillary sinusitis 96833734 Active 2023 Acute maxillary sinusitis , unspecifi ed; Note: Date Diagnosed : 07/13/2023 4:55 PM (J01.00) Not Available [facility] 4 02:14:10 Perennial allergic rhinitis 773793768 Active 2023 Aline Mao [address] [place] [address],[place] [address], [facility] [place], [address] , [facility] - [facility] 5 16:29:14 Problem Notes None recorded. Procedures Surgical History Date Name Laterality Status Provider Name and Address Organization Details Recorded Time 04/21/20 25 Allergy Immunotherapy Injections completed GEMA MAYS [address] [facility],[address], [address], [facility] - [facility] 04/21/2025 16:24:19 03/18/20 25 Allergy Immunotherapy Injections completed CHERIE HERMAN RN 100 [facility],[address], [address], [facility] - [facility] 03/18/2025 16:19:46 02/19/20 25 Allergy Immunotherapy Injections completed Aline Mao [address] [place] [address],[address], [address], [place] - [facility] 02/18/2025 16:29:34 02/05/20 25 Allergy Immunotherapy Injections completed Aline Mao [address], [place], [address], [place] [facility] 02/04/2025 16:33:44 01/22/20 25 Allergy Immunotherapy Injections completed CHERIE HERMAN RN [address],[place] [address], [address], [place] [facility] 01/21/2025 17:13:25 01/08/20 25 Allergy Immunotherapy Injections completed SOILA BIRCH RMA [address] [facility],[place] [address], [address], [place] [facility] 01/07/2025 16:31:15 12/25/19 25 Allergy Immunotherapy Injections completed SAMSON MAYSA [address] [facility],[address] [place] [address], [address], [place] [facility] 12/24/2024 16:39:30 12/11/19 25 Allergy Immunotherapy Injections completed CHERIE HERMNA RN 100 [facility],[address] [place] [address], [address], [place] [facility] 12/10/2024 16:13:34 11/27/19 25 Allergy Immunotherapy Injections completed SAMSON MAYSA [address], [address], [place] [facility] 11/26/2024 16:39:51 11/13/19 25 Allergy Immunotherapy Injections completed SOILA BIRCH RMA [address], [place], [address], [place] [facility] 11/12/2024 16:31:21 10/30/19 25 Allergy Immunotherapy Injections completed SOILA BIRCH RMA [address], [address], [place] [facility] 10/29/2024 16:24:24 10/16/19 25 Allergy Immunotherapy Injections completed SOILA BIRCH RMA [address], [address], [place] [facility] 10/15/2024 16:53:42 10/02/19 25 Allergy Immunotherapy Injections completed SOILA CAMILOAAKASHC, RMA [address], [address], [place] [facility] 10/01/2024 16:23:26 09/18/19 25 Allergy Immunotherapy Injections completed SOILA KORZEC, RMA [address], [place], [address], [place] [facility] 09/17/2024 16:16:34 09/04/19 25 Allergy Immunotherapy Injections completed SOILA KORZEC, RMA [address], [place], [address], [place] [facility] 09/03/2024 16:01:46 08/22/19 25 Allergy Immunotherapy Injections completed CAROLYNN NOLAND RMA [address], [place], [address], [place] [facility] 08/21/2024 16:05:02 08/07/19 25 Allergy Immunotherapy Injections completed SOILA CAMILOZEC, RMA [address], [place], [address], [place] [facility] 08/06/2024 16:32:03 07/23/19 25 Allergy Immunotherapy Injections completed SOILA KORZEC, RMA [address], [address], [place] [facility] 07/23/2024 16:45:52 07/09/19 25 Allergy Immunotherapy Injections completed SOILA KORZEC, RMA [address], [place], [address], [place] [facility] 07/09/2024 16:36:30 06/25/19 25 Allergy Immunotherapy Injections completed CAROLYNN NOLNAD RMA [address], [address], [place] [facility] 06/25/2024 17:07:58 06/11/19 25 Allergy Immunotherapy Injections completed SOILA KORZEC, RMA [address], [place], [address], [place] [facility] 06/11/2024 13:44:47 05/29/19 25 Allergy Immunotherapy Injections completed SOILA BIRCH, RMA [address], [address], [place] [facility] 05/29/2024 11:27:48 05/14/20 24 Allergy Immunotherapy Injections completed CHERIE HERMAN RN [address] [facility],[address], [address], [place] [facility] 05/14/2024 16:33:31 04/30/20 24 Allergy Immunotherapy Injections completed SOILA BIRCH, RMA [address] [facility],[address], [address], [place] [facility] 04/30/2024 16:31:43 04/16/20 24 Allergy Immunotherapy Injections completed SOILA BIRCH, RMA [address] [place] [address], [address], [place] [facility] 04/16/2024 17:03:52 04/02/20 24 Allergy Immunotherapy Injections completed GEMA MAYS [address] [facility],[address] [place] [address], [address], [place] [facility] 04/02/2024 16:17:47 03/19/20 24 Allergy Immunotherapy Injections completed CHERIE HERMAN RN [address] [facility],[address] [place] [address], [address], [place] [facility] 03/19/2024 16:26:16 03/07/20 24 Allergy Immunotherapy Injections completed SOILA BIRCH RMA [address], [address], [place] [facility] 03/07/2024 13:40:29 02/20/20 24 Allergy Immunotherapy Injections completed GEMA MAYS [address] [facility],[address], [address], [place] [facility] 02/20/2024 17:11:11 02/06/20 24 Allergy Immunotherapy Injections completed CHERIE HERMAN RN [address] [facility],[address], [place], [address], [place] [facility] 02/07/2024 08:49:22 01/22/20 24 Allergy Immunotherapy Injections completed GEMA MAYS [address] [facility],[address], [address], [place] [facility] 01/22/2024 14:00:20 01/08/20 24 Allergy Immunotherapy Injections completed GEMA MAYS [address] [facility],[address], [address], [place] [facility] 01/08/2024 12:12:08 12/26/19 24 Allergy Immunotherapy Injections completed CHERIE HERMAN RN 100 [facility],[address] [place] [address], [address], [place] [facility] 12/26/2023 16:50:55 12/12/19 24 Allergy Immunotherapy Injections completed CHERIE HERMAN RN 100 [facility] [place],[address], [address], [place] [facility] 12/12/2023 16:40:58 11/27/19 24 Allergy Immunotherapy Injections completed GEMA MAYS 100 [facility],[address] [place] [address], [address], [place] [facility] 11/27/2023 16:41:14 11/14/19 24 Allergy Immunotherapy Injections completed SOILA BIRCH RMJohnny [address] [place] [address], [address], [place] [facility] 11/14/2023 11:18:33 10/31/19 24 Allergy Immunotherapy Injections completed SOILA BIRCH RMA [address] [facility],[address], [address], [place] [facility] 10/31/2023 16:21:15 10/17/19 24 Allergy Immunotherapy Injections completed SOILA BIRCH RMA [address] [facility],[address], [address], [place] [facility] 10/17/2023 16:28:03 Imaging Results None recorded. Procedure [...] mcg tablet 07/01 completed Medicati on ID: [id number] D uration Value: 30 Brand Name: levothyr [...] gram tablet 09/12 completed Medicati on ID: [id number] D uration Value: 30 Reason: () Brand [...] mg tablet 01/23 completed Medicati on ID: [id number] D uration Value: 3 Reason: () Brand [...] mcg tablet 01/02 completed Medicati on ID: [id number] D uration Value: 30 Reason: () Brand [...] mcg tablet 01/23 completed Medicati on ID: [id number] D uration Value: 30 Reason: () Brand [...] mg tablet 01/02 completed Medicati on ID: [id number] D uration Value: 30 Reason: () Brand Name: Citrucel Send Method: E-Prescr ibed Sub s Allowed: subs DANIELLA Speci al Instruct ion: TAKE 2 TABLETS BY MOUTH DAILY, DRINK 8 OZ WATER WITH TABLETS Medicati onGeneri cName: Citrucel Not Available Not Available Not Available levothyro xine 150 mcg tablet 05/19 completed Medicati on ID: [id number] D uration Value: 30 Reason: () Brand Name: levothyr oxine Se nd Method: E-Prescr ibed Sub s Allowed: subs [place] Speci al Instruct ion: TAKE 1 TABLET BY MOUTH EVERY DAY Medi cationGe nericNam e: levothyr oxine Not Available Not Available Not Available omeprazol e 20 mg capsule,d elayed release 07/01 completed Medicati on ID: [id number] D uration Value: 30 Brand Name: omeprazo [...] Relief 50 mcg/actua tion nasal spray,gabrielle pension [place] 2 spray into both nostrils once a day 07/01 completed Medicati on ID: [id number] D uration Value: 30 Brand Name: Flonase [...] ICD10 Code Diagnosis IMO Codes Diagnosis Note [id number] Aline Mao Allergy 100 [facility] 100 [place] [address] 02/18/2025 16:06:48 02/18/2025 16:30:04 Perennial allergic rhinitis [id number] J30.89 69353 GEMA MAYS Allergy 100 [facility] 100 [place] [address] 03/18/2025 15:50:14 03/18/2025 16:20:18 Perennial allergic rhinitis [id number] J30.89 Health Concerns Section Related Observation LastModified by Organization Detai ls LastModified Time None Recorded Concern Status LastModified by Organization Details LastModified Time None Recorded Payers Encounter Date Sequence Insurance Name Policy Number Policy Gonsalez Covered Member ID Gonsalez Member ID Guarantor Name 03/18/2025 1 [facility] [employer] - [place] (H[place]) [id number] Deepa Ross [id number] Deepa Ross OBGyn Episode No OBEpisode recorded.
--- OUTSIDE RECORDS SUMMARY | 2025-05-05 01:18 | XMS_ITS | Continuity of Care Document ---
Author Organization [place] - [facility], [facility] Address [address] [place] [address] Care Team Providers Care Md Urologist Name Role Phone BETH ROSA Primary Care Provider [phone] Assessment Encounter Date Assessment Date Assessment LastModified by Organization Details LastModified Time 04/01/2025 04/01/2025 59-year-old female presents for follow-up of subcutaneous immunotherapy which patient appears to be compliant with and doing well on. Symptoms are improving, but not yet resolved. I will plan to see her back in another 6 months for reassessment. She may continue [id number] allergy medication as needed. EpiPen was renewed [...] mL injection , auto-inje ctor 2024 025 [facility]/Pharmacy #[id number], [address] [place], [address], 04/01/2025 16:03:49 Patient TargetsNo targets recorded. Patient InstructionsNo instructions recorded. Reason for Referral None Reported. Problems Name Problem SNOMED Code Status Onset Date Resolution Date Notes Provider Name and Address Organization Details Recorded Time Bilateral tinnitus 87060890739 02 Active 2018 Tinnitus, bilateral ; Note: Date Diagnosed : 01/23/2019 4:23 PM (H93.13) Not Available [facility] 4 02:13:43 Headache 72638539 Active 2019 Headache, unspecifi ed; Note: Changed from R51 to R51.9 (07/01/2020 3:34 PM) , Date Diagnosed : 07/03/2019 4:22 PM (R51) Not Available [facility] 4 02:13:25 Tinnitus of vascular origin 160084961 Active 2022 Pulsatile tinnitus, right ear; Note: Date Diagnosed : 08/02/2022 4:38 PM (H93.A1) Not Available [facility] 4 02:14:37 Allergic rhinitis 62366379 Active 2023 [facility] [address] Pavel HERNANDEZ MD [address] [facility],[place] [address], [place], [address] , [place] - [facility] 4 11:34:09 Vasomotor rhinitis 3753448 Active 2023 Vasomotor rhinitis; Note: Date Diagnosed : 07/13/2023 4:55 PM (J30.0) Not Available [facility] 4 02:13:53 Acute maxillary sinusitis 07592857 Active 2023 Acute maxillary sinusitis , unspecifi ed; Note: Date Diagnosed : 07/13/2023 4:55 PM (J01.00) Not Available [facility] 4 02:14:10 Perennial allergic rhinitis 392751709 Active 2023 Aline Mao [address] [facility] [address], [place], [address] , [facility] - [facility] 5 16:29:14 Problem Notes None recorded. Procedures Surgical History Date Name Laterality Status Provider Name and Address Organization Details Recorded Time 04/21/20 Allergy Immunotherapy Injections completed GEMA MAYS [address], [place], [address], [facility] - [facility] 04/21/2025 16:24:19 03/18/20 25 Allergy Immunotherapy Injections completed CHERIE HERMAN RN [address], [place], [address], [place] [facility] 03/18/2025 16:19:46 02/19/20 25 Allergy Immunotherapy Injections completed Aline Mao [address], [place], [address], [place] [facility] 02/18/2025 16:29:34 02/05/20 25 Allergy Immunotherapy Injections completed Aline Mao [address], [place], [address], [place] [facility] 02/04/2025 16:33:44 01/22/20 25 Allergy Immunotherapy Injections completed CHERIE HERMAN RN [address],[place] [address], [place], [address], [place] [facility] 01/21/2025 17:13:25 01/08/20 25 Allergy Immunotherapy Injections completed GEMA MARINELLI [address],[place] [address] [place] [address], [address], [place] [facility] 01/07/2025 16:31:15 12/25/19 25 Allergy Immunotherapy Injections completed GEMA MAYS [address],[place] [address], [place], [address], [place] [facility] 12/24/2024 16:39:30 12/11/19 25 Allergy Immunotherapy Injections completed CHERIE HERMAN RN [address] [place] [address], [address], [place] [facility] 12/10/2024 16:13:34 11/27/19 25 Allergy Immunotherapy Injections completed GEMA MAYS [address] [address], [place], [address], [place] [facility] 11/26/2024 16:39:51 11/13/19 25 Allergy Immunotherapy Injections completed SOILA BIRCH RMJohnny [address], [place], [address], [place] [facility] 11/12/2024 16:31:21 10/30/19 25 Allergy Immunotherapy Injections completed SOILA CAMILOZEC, RMA [address], [place], [address], [place] [facility] 10/29/2024 16:24:24 10/16/19 25 Allergy Immunotherapy Injections completed SOILA KORZEC, RMA [address], [place], [address], [place] [facility] 10/15/2024 16:53:42 10/02/19 25 Allergy Immunotherapy Injections completed SOILA KORZEC, RMA [address], [place], [address], [place] [facility] 10/01/2024 16:23:26 09/18/19 25 Allergy Immunotherapy Injections completed SOILA KORZEC, RMA [address], [place], [address], [place] [facility] 09/17/2024 16:16:34 09/04/19 25 Allergy Immunotherapy Injections completed SOILA CAMILOZEC, RMA [address], [place], [address], [place] [facility] 09/03/2024 16:01:46 08/22/19 25 Allergy Immunotherapy Injections completed ABHIJEET MARIN, RMA [address], [place], [address], [place] [facility] 08/21/2024 16:05:02 08/07/19 25 Allergy Immunotherapy Injections completed SOILA HUSAMC, RMA [address], [place], [address], [place] [facility] 08/06/2024 16:32:03 07/23/19 25 Allergy Immunotherapy Injections completed SOILA KORZEC, RMA [address], [place], [address], [place] [facility] 07/23/2024 16:45:52 07/09/19 25 Allergy Immunotherapy Injections completed SOILA KORZEC, RMA [address], [place], [address], [place] [facility] 07/09/2024 16:36:30 06/25/19 25 Allergy Immunotherapy Injections completed ABHIJEET MARIN, RMA [address], [place], [address], [place] [facility] 06/25/2024 17:07:58 06/11/19 25 Allergy Immunotherapy Injections completed SOILA WEINERC, RMA [address], [place], [address], [place] [facility] 06/11/2024 13:44:47 05/29/19 25 Allergy Immunotherapy Injections completed SOILA PAGEZEC, RMA [address], [place], [address], [place] [facility] 05/29/2024 11:27:48 05/14/20 24 Allergy Immunotherapy Injections completed CHERIE HERMAN RN [address], [place], [address], [place] [facility] 05/14/2024 16:33:31 04/30/20 24 Allergy Immunotherapy Injections completed SOILA BIRCH, RMA [address], [place], [address], [place] [facility] 04/30/2024 16:31:43 04/16/20 24 Allergy Immunotherapy Injections completed SOILA BIRCH, RMA [address], [place], [address], [place] [facility] 04/16/2024 17:03:52 04/02/20 24 Allergy Immunotherapy Injections completed ABHIJEET MARIN RMA [address], [place], [address], [place] [facility] 04/02/2024 16:17:47 03/19/20 24 Allergy Immunotherapy Injections completed CHERIE HERMAN RN [address],[place] [address], [place], [address], [place] [facility] 03/19/2024 16:26:16 03/07/20 24 Allergy Immunotherapy Injections completed SOILA BIRCH, RMA [address], [place], [address], [place] [facility] 03/07/2024 13:40:29 02/20/20 24 Allergy Immunotherapy Injections completed GEMA MAYS [address], [place], [address], [place] [facility] 02/20/2024 17:11:11 02/06/20 24 Allergy Immunotherapy Injections completed CHERIE HERMAN RN [address], [place], [address], [place] [facility] 02/07/2024 08:49:22 01/22/20 24 Allergy Immunotherapy Injections completed GEMA MAYS [address], [place], [address], [place] [facility] 01/22/2024 14:00:20 01/08/20 24 Allergy Immunotherapy Injections completed GEMA MAYS [address], [place], [address], [place] [facility] 01/08/2024 12:12:08 12/26/19 24 Allergy Immunotherapy Injections completed CHERIE HERMAN RN [address] [facility], [place], [address], [place] [facility] 12/26/2023 16:50:55 12/12/19 24 Allergy Immunotherapy Injections completed CHERIE HERMAN RN [address],[place] [address], [place], [address], [place] [facility] 12/12/2023 16:40:58 11/27/19 24 Allergy Immunotherapy Injections completed GEMA MAYS [address],[place], [place], [address], [place] [facility] 11/27/2023 16:41:14 11/14/19 24 Allergy Immunotherapy Injections completed GEMA MARINELLI [address], [place], [address], [place] [facility] 11/14/2023 11:18:33 10/31/19 24 Allergy Immunotherapy Injections completed GEMA MARINELLI [address],[place], [place], [address], [place] [facility] 10/31/2023 16:21:15 10/17/19 24 Allergy Immun[address] Injections [address] [facility], [address],[place] [address], [place], [address], [place] [facility] 10/17/2023 16:28:03 Imaging Results None recorded. [...] mcg tablet 07/01 completed Medicati on ID: [id number] D uration Value: 30 Brand Name: levothyr [...] gram tablet 09/12 completed Medicati on ID: [id number] D uration Value: 30 Reason: () Brand [...] mg tablet 01/23 completed Medicati on ID: [id number] D uration Value: 3 Reason: () Brand [...] mcg tablet 01/02 completed Medicati on ID: [id number] D uration Value: 30 Reason: () Brand [...] mcg tablet 01/23 completed Medicati on ID: [id number] D uration Value: 30 Reason: () Brand [...] mg tablet 01/02 completed Medicati on ID: [id number] D uration Value: 30 Reason: () Brand Name: Citrucel Send Method: E-Prescr ibed Sub s Allowed: subs OK Speci al Instruct ion: TAKE 2 TABLETS BY MOUTH DAILY, DRINK 8 OZ WATER WITH TABLETS Medicati onGeneri cName: Citrucel Not Available Not Available Not Available levothyro xine 150 mcg tablet 05/19 completed Medicati on ID: [id number] D uration Value: 30 Reason: () Brand Name: levothyr oxine Se nd Method: E-Prescr ibed Sub s Allowed: subs OK Speci al Instruct ion: TAKE 1 TABLET BY MOUTH EVERY DAY Medi cationGe nericNam e: levothyr oxine Not Available Not Available Not Available omeprazol e 20 mg capsule,d elayed release 07/01 completed Medicati on ID: [id number] D uration Value: 30 Brand Name: omeprazo [...] Relief 50 mcg/actua tion nasal spray,gabrielle pension Yeoman 2 spray into both nostrils once a day 07/01 completed Medicati on ID: [id number] D uration Value: 30 Brand Name: Flonase Allergy Relief S end Method: E-Prescr ibed Sub s Allowed: subs OK Medic ationGen ericName : Flonase Allergy Relief Not Available Not Available Not Available Vitals Date Recorded Body height Body mass index (BMI) Body weight Provider Name and Address Organization Details Last Updated DateTime 04/01/2025 165.1 cm 25.3 kg/m2 59908.04 g Elisha Piedra [place] - [facility] 04/01/2025 15:46:25 Social History None recorded. Functional Status None recorded. Mental Status None recorded. Family History Nothing Reported. Medical History No medical history recorded. Gynecological HistoryNo gynecological history recorded. Obstetrics History GPAL:G 0 P 0 0 0 0 Past Encounters Encounter ID Performer Location Encounter Start Date Encounter Closed Date Diagnosis/Indication Diagnosis SNOMED-CT Code Diagnosis ICD10 Code Diagnosis IMO Codes Diagnosis Note [id number] GEMA MAYS Allergy [address] [facility] [address] [address] 03/18/2025 15:50:14 03/18/2025 16:20:18 Perennial allergic rhinitis 148240910 J30.89 [id number] MARYLOU WHITAKER [facility] [address] [place] [address] 04/01/2025 15:30:39 04/01/2025 16:09:25 Perennial allergic rhinitis 819105711 J30.89 Health Concerns Section Related Observation LastModified by Organization Detai ls LastModified Time None Recorded Concern Status LastModified by Organization Details LastModified Time None Recorded Payers Encounter Date Sequence Insurance Name Policy Number Policy Gonsalez Covered Member ID Gonsalez Member ID Guarantor Name 04/01/2025 1 [facility] [employer] - [place] [employer] (HMO) [id number] Deepa Franklinzquez [id number] 2 Deepa Cody Notes Date Note Type [...] is . History of sinus surgery in [place] circa 2002. Dru Jerome, DO [address] [address], [place], [address], [facility] - [facility] 04/02/2025 20:49:08 OBGyn Episode No OBEpisode recorded.
--- OUTSIDE RECORDS SUMMARY | 2025-05-05 01:18 | XMS_ITS | Clinical Summary ---
Author Organization [facility] Address [address] [place] [address] Care Team Providers Care Loop Sewer Name Role Phone Roxann Mathis MD Primary Care Provider [phone] Social History Tobacco Use Types Packs/Day Years [...] Influenza Vaccine 12/26/2024 COVID-19 Vaccine (1 - 2024-26 season) 2025 RSV Vaccine 50 years and old er and Patients (1 - 1-dose 75+ series) 2042 Insurance [employer]NA[employer]ED [employer]ICARE Care Teams Loop Sewer Relationship Specialty Start Date End Date Roxann Mathis MD [address] [place] [address] PCP - General Family Medicine 11/25/24
--- OUTSIDE RECORDS SUMMARY | 2025-05-05 01:19 | XMS_ITS | Data Portability ---
Author Organization [place] - [facility], Allergy Address [address] [address] Care Team Providers Care Director Hedis Name Role Phone BETH ROSA Primary Care [...] Dose Aware of Vial Test Aware: Notes: [email or web address] Not available 02/04/2025 16:33:53 02/18/2025 02/18/2025 Visit With: Aline Mao MA Use of Antihistamines: No If yes: Vial Test Change in medications: No If yes Increase in asthma symptoms No Asthma Hx If yes, inhaler use: Reaction to last injections: No If yes: Allergy Symptoms: Other: Missed: Dose Aware of Vial Test Aware: Notes: [email or web address] Not available 02/18/2025 16:29:47 03/18/2025 03/18/2025 Visit [...] 6 months for reassessment. She may continue ptle-yrd-ymbjdhm allergy medication as needed. EpiPen was renewed today. All questions were answered. [email or web address] Not available 04/01/2025 18:53:01 04/21/2025 04/21/2025 Visit With: Carolynn Marin Use of Antihistamines: No If yes: Vial Test Change in medications: No If yes Increase in asthma symptoms If yes, inhaler use: Reaction to last injections: No If yes: Allergy Symptoms: Other: Missed: Dose Aware of Vial Test Aware: Notes: [email or web address] Not available 04/21/2025 16:24:39 Plan of Treatment [...] mL injection , auto-inje ctor 2024 025 [facility]/Pharmacy #[id number], [address] [place] [address], [place], [address], 04/01/2025 16:03:49 Patient TargetsNo targets recorded. Patient InstructionsNo instructions recorded. Reason for Referral None Reported. Problems Name Problem SNOMED Code Status Onset Date Resolution Date Notes Provider Name and Address Organization Details Recorded Time Bilateral tinnitus 46052432171 02 Active 2018 Tinnitus, bilateral ; Note: Date Diagnosed : 01/23/2019 4:23 PM (H93.13) Not Available [facility] 4 02:13:43 Headache 58671686 Active 2019 Headache, unspecifi ed; Note: Changed from R51 to R51.9 (07/01/2020 3:34 PM) , Date Diagnosed : 07/03/2019 4:22 PM (R51) Not Available [facility] 4 02:13:25 Tinnitus of vascular origin 898874902 Active 2022 Pulsatile tinnitus, right ear; Note: Date Diagnosed : 08/02/2022 4:38 PM (H93.A1) Not Available [facility] 02:14:37 Allergic rhinitis 32868231 Active 2023 [facility] [address] Pavel HERNANDEZ MD [address] [facility],[address], [place], [address] , [place] - [facility] 11:34:09 Vasomotor rhinitis 5492183 Active 2023 Vasomotor rhinitis; Note: Date Diagnosed : 07/13/2023 4:55 PM (J30.0) Not Available [facility] 02:13:53 Acute maxillary sinusitis 55610131 Active 2023 Acute maxillary sinusitis , unspecifi ed; Note: Date Diagnosed : 07/13/2023 4:55 PM (J01.00) Not Available [facility] 02:14:10 Perennial allergic rhinitis 309660370 Active 2023 Aline Mao [address] [facility],[address], [place], [address] , [place] [facility] 16:29:14 Problem Notes None recorded. Procedures Surgical History Date Name Laterality Status Provider Name and Address Organization Details Recorded Time 04/21/20 Allergy Immunotherapy Injections completed GEMA MAYS 100 [facility],[address], [address], [place] - [facility] 04/21/2025 16:24:19 03/18/20 25 Allergy Immunotherapy Injections completed CHERIE HERMAN RN [address] [facility],[address] [facility], [place], [address], [place] [facility] 03/18/2025 16:19:46 02/19/20 25 Allergy Immunotherapy Injections completed Aline Mao [address] [facility],[address] [place] [address], [address], [place] [facility] 02/18/2025 16:29:34 02/05/20 25 Allergy Immunotherapy Injections completed Aline Mayco [address], [address], [place] [facility] 02/04/2025 16:33:44 01/22/20 25 Allergy Immunotherapy Injections completed CHERIE HERMAN RN [address] [address], [place], [address], [place] [facility] 01/21/2025 17:13:25 01/08/20 25 Allergy Immunotherapy Injections completed SOILA BIRCH RMA [address], [place], [address], [place] [facility] 01/07/2025 16:31:15 12/25/19 25 Allergy Immunotherapy Injections completed GEMA MAYS [address], [place], [address], [place] [facility] 12/24/2024 16:39:30 12/11/19 25 Allergy Immunotherapy Injections completed CHERIE HERMAN RN [address], [place], [address], [place] [facility] 12/10/2024 16:13:34 11/27/19 25 Allergy Immunotherapy Injections completed SAMSON MAYSA [address], [place], [address], [place] [facility] 11/26/2024 16:39:51 11/13/19 25 Allergy Immunotherapy Injections completed SOILA BIRCH RMA [address], [place], [address], [place] [facility] 11/12/2024 16:31:21 10/30/19 25 Allergy Immunotherapy Injections completed SOILA WEINERC, RMA [address], [place], [address], [place] [facility] 10/29/2024 16:24:24 10/16/19 25 Allergy Immunotherapy Injections completed SOILA WEINERC, RMA [address], [place], [address], [place] [facility] 10/15/2024 16:53:42 10/02/19 25 Allergy Immunotherapy Injections completed SOILA WEINERC, RMA [address], [place], [address], [place] [facility] 10/01/2024 16:23:26 09/18/19 25 Allergy Immunotherapy Injections completed SOILA HUSAMC, RMA [address], [place], [address], [place] [facility] 09/17/2024 16:16:34 09/04/19 25 Allergy Immunotherapy Injections completed SOILA CAMILOZEC, RMA [address], [place], [address], [place] [facility] 09/03/2024 16:01:46 08/22/19 25 Allergy Immunotherapy Injections completed CAROLYNN MARIN RMA [address], [place], [address], [place] [facility] 08/21/2024 16:05:02 08/07/19 25 Allergy Immunotherapy Injections completed SOILA HUSAMC, RMA [address], [place], [address], [place] [facility] 08/06/2024 16:32:03 07/23/19 25 Allergy Immunotherapy Injections completed SOILA HUSAMC, RMA [address], [place], [address], [place] [facility] 07/23/2024 16:45:52 07/09/19 25 Allergy Immunotherapy Injections completed SOILA HUSAMC, RMA [address], [place], [address], [place] [facility] 07/09/2024 16:36:30 06/25/19 25 Allergy Immunotherapy Injections completed CAROLYNN MARIN RMA [address], [place], [address], [place] [facility] 06/25/2024 17:07:58 06/11/19 25 Allergy Immunotherapy Injections completed SOILA KORZEC, RMA [address], [place], [address], [place] [facility] 06/11/2024 13:44:47 05/29/19 25 Allergy Immunotherapy Injections completed SOILA KORZEC, RMA [address], [place], [address], [place] [facility] 05/29/2024 11:27:48 05/14/20 24 Allergy Immunotherapy Injections completed CHERIE HERMAN RN [address], [place], [address], [place] [facility] 05/14/2024 16:33:31 04/30/20 24 Allergy Immunotherapy Injections completed SOILA BIRCH, RMA [address], [place], [address], [place] [facility] 04/30/2024 16:31:43 04/16/20 24 Allergy Immunotherapy Injections completed SOILA BIRCH RMA [address], [place], [address], [place] [facility] 04/16/2024 17:03:52 04/02/20 24 Allergy Immunotherapy Injections completed GEMA MAYS [address] [place] [address], [address], [place] [facility] 04/02/2024 16:17:47 03/19/20 24 Allergy Immunotherapy Injections completed CHERIE HERMAN RN [address] [address] [place] [address], [address], [place] [facility] 03/19/2024 16:26:16 03/07/20 24 Allergy Immunotherapy Injections completed GEMA MARINELLI [address] [place] [address], [address], [place] [facility] 03/07/2024 13:40:29 02/20/20 24 Allergy Immunotherapy Injections completed GEMA MAYS [address], [place], [address], [place] [facility] 02/20/2024 17:11:11 02/06/20 24 Allergy Immunotherapy Injections completed CHERIE HERMAN RN [address], [place], [address], [place] [facility] 02/07/2024 08:49:22 01/22/20 24 Allergy Immunotherapy Injections completed GEMA MAYS [address], [place], [address], [place] [facility] 01/22/2024 14:00:20 01/08/20 24 Allergy Immunotherapy Injections completed GEMA MAYS [address], [place], [address], [facility] - [facility] 01/08/2024 12:12:08 12/26/19 24 Allergy Immunotherapy Injections completed CHERIE HERMAN RN [address] [place] [address], [address], [place] [facility] 12/26/2023 16:50:55 12/12/19 24 Allergy Immunotherapy Injections completed CHERIE HERMAN RN [address] [facility],[address], [address], [facility] - [facility] 12/12/2023 16:40:58 11/27/19 24 Allergy Immunotherapy Injections completed GEMA MAYS [address] [facility],[address] [place] [address], [address], [facility] - [facility] 11/27/2023 16:41:14 11/14/19 24 Allergy Immunotherapy Injections completed GEMA MARINELLI [address] [facility],[address], [address], [facility] - [facility] 11/14/2023 11:18:33 10/31/19 24 Allergy Immunotherapy Injections completed SOILA BIRCH Johnny [address] [facility],[address], [address], [facility] - [facility] 10/31/2023 16:21:15 10/17/19 24 Allergy Immunotherapy Injections completed SOILA BIRCH Johnny [address] [facility],[address] [place] [address], [address], [facility] - [facility] 10/17/2023 16:28:03 Imaging Results None recorded. [...] mcg tablet 07/01 completed Medicati on ID: [id number] D uration Value: 30 Brand Name: levothyr [...] gram tablet 09/12 completed Medicati on ID: [id number] D uration Value: 30 Reason: () Brand [...] mg tablet 01/23 completed Medicati on ID: [id number] D uration Value: 3 Reason: () Brand [...] mcg tablet 01/02 completed Medicati on ID: [id number] D uration Value: 30 Reason: () Brand [...] mcg tablet 01/23 completed Medicati on ID: [id number] D uration Value: 30 Reason: () Brand [...] mg tablet 01/02 completed Medicati on ID: [id number] D uration Value: 30 Reason: () Brand Name: Citrucel Send Method: E-Prescr ibed Sub s Allowed: subs OK Speci al Instruct ion: TAKE 2 TABLETS BY MOUTH DAILY, DRINK 8 OZ WATER WITH TABLETS Medicati onGeneri cName: Citrucel Not Available Not Available Not Available levothyro xine 150 mcg tablet 05/19 completed Medicati on ID: [id number] D uration Value: 30 Reason: () Brand Name: levothyr oxine Se nd Method: E-Prescr ibed Sub s Allowed: subs DANIELLA Speci al Instruct ion: TAKE 1 TABLET BY MOUTH EVERY DAY Medi cationGe nericNam e: levothyr oxine Not Available Not Available Not Available omeprazol e 20 mg capsule,d elayed release 07/01 completed Medicati on ID: [id number] D uration Value: 30 Brand Name: omeprazo [...] Relief 50 mcg/actua tion nasal spray,gabrielle pension Cameron 2 spray into both nostrils once a day 07/01 completed Medicati on ID: [id number] D uration Value: 30 Brand Name: Flonase Allergy Relief S end Method: E-Prescr ibed Sub s Allowed: subs OK Medic ationGen ericName : Flonase Allergy Relief Not Available Not Available Not Available Vitals Date Recorded Body height Body mass index (BMI) Body weight Provider Name and Address Organization Details Last Updated DateTime 04/01/2025 165.1 cm 25.3 kg/m2 98878.04 g Elisha Piedra [place] - [facility] 04/01/2025 15:46:25 Social History None recorded. [...] Note 1218 SOILA BIRCH RMA Allergy [address] [facility],[place] [place] [address] 10/17/2023 16:13:22 10/17/2023 17:41:05 Perennial allergic rhinitis [id number] J30.89 2931 SOILA BIRCH RMA Allergy 100 [facility],[address] [place] [address] 10/31/2023 16:06:43 10/31/2023 16:22:50 Perennial allergic rhinitis [id number] J30.89 4686 SOILA BIRCH RMA Allergy 100 [facility],[address] [place] [address] 11/14/2023 11:17:23 11/14/2023 14:48:16 Perennial allergic rhinitis [id number] J30.89 6403 CAROLYNN MARIN RMA Allergy [address] [facility],[address] [place] [address] 11/27/2023 16:10:47 11/27/2023 16:44:32 Perennial allergic rhinitis [id number] J30.89 8352 SOILA BIRCH RMA Allergy [address] [facility],[address] [place] [address] 12/12/2023 16:17:18 12/12/2023 16:41:45 Perennial allergic rhinitis [id number] J30.89 [id number] CHERIE HERMAN RN Allergy 100 [facility],[address] [place] [address] 12/26/2023 16:12:41 12/26/2023 16:54:07 Perennial allergic rhinitis [id number] J30.89 [id number] CAROLYNN MARIN [facility] Allergy 100 [facility],[address] [place] [address] 01/08/2024 10:13:46 01/08/2024 12:13:56 Perennial allergic rhinitis [id number] J30.89 [id number] CAROLYNN MARIN [facility] Allergy 100 [facility],[address] [place] [address] 01/22/2024 13:40:12 01/22/2024 15:01:18 Perennial allergic rhinitis 604001050 J30.89 [id number] DRU HERNANDEZ MD [facility] [place] [address] [facility] [place] [address] 02/01/2024 15:36:38 02/01/2024 16:07:42 Allergic rhinitis [id number] J30.89 [id number] CAROLYNN MARIN [facility] Allergy 100 [facility],[address] [place] [address] 02/06/2024 16:23:19 02/07/2024 08:49:55 Perennial allergic rhinitis [id number] J30.89 [id number] CAROLYNN MARIN [facility] Allergy 100 [facility],[address] [place] [address] 02/20/2024 16:26:39 02/20/2024 17:23:59 Perennial allergic rhinitis [id number] J30.89 [id number] SOILA WEINER, A Allergy 100 [facility],[address] [place] [address] 03/07/2024 12:27:11 03/07/2024 13:41:01 Perennial allergic rhinitis [id number] J30.89 [id number] CAROLYNN MARIN [facility] Allergy 100 [facility],[address] [place] [address] 03/19/2024 16:15:44 03/19/2024 16:27:02 Perennial allergic rhinitis [id number] J30.89 [id number] [facility], RMA Allergy 100 [facility],[address] [place] [address] 04/02/2024 16:11:14 04/02/2024 16:19:33 Perennial allergic rhinitis [id number] J30.89 [id number] [facility], RMA Allergy 100 [facility],[address] [place] [address] 04/16/2024 16:44:27 04/16/2024 17:04:24 Perennial allergic rhinitis [id number] J30.89 [id number] CAROLYNN MARIN A Allergy 100 [facility],[address] [place] [address] 04/30/2024 16:13:35 04/30/2024 16:32:22 Perennial allergic rhinitis [id number] J30.89 [id number] CAROLYNN MARIN A Allergy 100 [facility],[address] [place] [address] 05/14/2024 16:21:48 05/14/2024 16:34:07 Perennial allergic rhinitis [id number] J30.89 [id number] CAROLYNN MARIN A Allergy 100 [facility],[address] [place] [address] 05/29/2024 09:15:53 05/29/2024 11:28:25 Perennial allergic rhinitis [id number] J30.89 [id number] [facility], RMA Allergy 100 [facility],[address] [place] [address] 06/11/2024 13:30:16 06/11/2024 13:45:27 Perennial allergic rhinitis [id number] J30.89 [id number] CAROLYNN MARIN A Allergy 100 [facility],[address] [place] [address] 06/25/2024 16:57:05 06/25/2024 17:08:31 Perennial allergic rhinitis [id number] J30.89 [id number] CAROLYNN MARIN RMA Allergy 100 [facility],[address] [place] [address] 07/09/2024 16:24:50 07/09/2024 16:36:54 Perennial allergic rhinitis [id number] J30.89 [id number] CHERIE HERMAN RN Allergy [address] [place] [address],[address] [place] [address] 07/23/2024 16:16:56 07/23/2024 16:46:34 Perennial allergic rhinitis [id number] J30.89 14509 [facility], A Allergy [address] [place] [address],[address] [place] [address] 08/06/2024 16:16:54 08/06/2024 16:32:47 Perennial allergic rhinitis [id number] J30.89 [id number] DRU HERNANDEZ MD [facility] - [place] 100 [facility] [place] [address] 08/21/2024 15:20:45 08/21/2024 16:01:10 Allergic rhinitis [id number] J30.89 [id number] [facility] Allergy [address] [place] [address], [address] [place] [address] 08/21/2024 15:23:00 08/21/2024 16:05:43 Perennial allergic rhinitis [id number] J30.89 [id number] [facility], A Allergy [address] [place] [address],[address] [place] [address] 09/03/2024 15:35:16 09/03/2024 16:02:14 Perennial allergic rhinitis [id number] J30.89 [id number] [facility], A Allergy [address] [place] [address],[address] [place] [address] 09/17/2024 16:11:12 09/17/2024 16:17:33 Perennial allergic rhinitis [id number] J30.89 [id number] CAROLYNN MARIN, A Allergy [address] [place] [address],[address] [place] [address] 10/01/2024 16:08:36 10/01/2024 16:23:50 Perennial allergic rhinitis [id number] J30.89 [id number] [facility], A Allergy [address] [place] [address],[address] [place] [address] 10/15/2024 16:21:16 10/15/2024 16:54:08 Perennial allergic rhinitis [id number] J30.89 [id number] SOILA WEINER, [facility] Allergy [address] [place] [address],[address] [place] [address] 10/29/2024 16:17:00 10/29/2024 16:25:07 Perennial allergic rhinitis [id number] J30.89 [id number] SOILA HUSAM, [facility] Allergy [address] [place] [address],[address] [place] [address] 11/12/2024 16:10:27 11/12/2024 16:33:04 Perennial allergic rhinitis [id number] J30.89 [id number] CAROLYNNJohnny MARIN [facility] Allergy [address] [place] [address],[address] [place] [address] 11/26/2024 16:14:50 11/26/2024 16:40:47 Perennial allergic rhinitis [id number] J30.89 [id number] CHERIE HERMAN 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 [address] [place] [address],[address] [place] [address] 12/10/2024 16:02:46 12/10/2024 16:14:05 Perennial allergic rhinitis [id number] J30.89 [id number] CAROLYNN MARIN [facility] Allergy [address] [place] [address],[address] [place] [address] 12/24/2024 16:31:40 12/24/2024 16:41:35 Perennial allergic rhinitis [id number] J30.89 [id number] SOILA HUSAM, A Allergy [address] [place] [address],[address] [place] [address] 01/07/2025 16:09:51 01/07/2025 16:32:48 Perennial allergic rhinitis [id number] J30.89 [id number] SOILA HUSAM, [facility] Allergy [address] [place] [address],[address] [place] [address] 01/21/2025 16:16:21 01/21/2025 17:13:57 Perennial allergic rhinitis [id number] J30.89 [id number] SOILA HUSAM, [facility] Allergy [address] [place] [address],[address] [place] [address] 02/04/2025 16:22:06 02/04/2025 16:34:10 Perennial allergic rhinitis [id number] J30.89 [id number] Aline Mao Allergy [address] [place] [address] [address] [place] [address] 02/18/2025 16:06:48 02/18/2025 16:30:04 Perennial allergic rhinitis [id number] J30.89 [id number] CAROLYNN MARIN [facility] Allergy [address] [place] [address], [place] [address] 03/18/2025 15:50:14 03/18/2025 16:20:18 Perennial allergic rhinitis [id number] J30.89 [id number] MARYLOU WHITAKER [facility] [place] [address] 04/01/2025 15:30:39 04/01/2025 16:09:25 Perennial allergic rhinitis [id number] J30.89 [id number] CAROLYNN MARIN Johnny Allergy [address] [place] [address] 100 [place] [address] 04/21/2025 16:14:58 04/21/2025 16:24:55 Perennial allergic rhinitis [id number] J30.89 Health Concerns Section Related Observation LastModified by Organization Detai ls LastModified Time None Recorded Concern Status LastModified by Organization Details LastModified Time None Recorded Advance Directives Directive None Recorded Payers Insurance Date Sequence Insurance Name Policy Number Policy Gonsalez Covered Member ID Gonsalez Member ID Guarantor Name 12/12/2023 1 [facility] PL[facility] [id number] Deeap Ross [id number] Deepa Ross 04/21/2025 1 [facility] [employer] - DIRECT - BILL [employer] (HMO) [id number] Deepa Ross [id number] Deepa Ross Notes Date Note Type [...] is . History of sinus surgery in [place] circa 2002. Dru Jerome, 100 [facility],[place] [address], [place], [address], [facility] - [facility] 04/02/2025 20:49:08 OBGyn Episode No OBEpisode recorded.
--- OUTSIDE RECORDS SUMMARY | 2025-05-05 01:19 | XMS_ITS | Continuity of Care Document ---
Author Organization [facility], Allergy Address [address] [place] [phone] Care Team Providers Care Precision Thread Grinder Operator Name Role Phone BETH ROSA Primary Care Provider [phone] Assessment Encounter Date Assessment Date Assessment LastModified by Organization Details LastModified Time 02/18/2025 02/18/2025 Visit With: Aline Mao MA Use of Antihistamine s: No If yes: Vial Test Change in medications: No If yes Increase in asthma symptoms No Asthma Hx If yes, inhaler use: Reaction to last injections: No If yes: Allergy Symptoms: Other: Missed: Dose Aware of Vial Test Aware: Notes: [email or web address] Not available 02/18/2025 16:29:47 Plan of Treatment [...] Address Organization Details Recorded Time Bilateral tinnitus [id number] Active 2018 Tinnitus, bilateral ; Note: Date Diagnosed : 01/23/2019 4:23 PM (H93.13) Not Available [facility] 4 02:13:43 Headache 35284963 Active 2019 Headache, unspecifi ed; Note: Changed from R51 to R51.9 (07/01/2020 3:34 PM) , Date Diagnosed : 07/03/2019 4:22 PM (R51) Not Available [facility] 4 02:13:25 Tinnitus of vascular origin 920248139 Active 2022 Pulsatile tinnitus, right ear; Note: Date Diagnosed : 08/02/2022 4:38 PM (H93.A1) Not Available [facility] 4 02:14:37 Allergic rhinitis 67029038 Active 2023 [facility] [address] Pavel HERNANDEZ MD [address] [facility],[place] [address], [facility] [place], [address] , [place] - [facility] 4 11:34:09 Vasomotor rhinitis 8240475 Active 2023 Vasomotor rhinitis; Note: Date Diagnosed : 07/13/2023 4:55 PM (J30.0) Not Available [facility] 4 02:13:53 Acute maxillary sinusitis 06664381 Active 2023 Acute maxillary sinusitis , unspecifi ed; Note: Date Diagnosed : 07/13/2023 4:55 PM (J01.00) Not Available [facility] 4 02:14:10 Perennial allergic rhinitis 660526274 Active 2023 Aline Mao [address] [facility],[place] [address], [place], [address] , [facility] - [facility] 5 16:29:14 Problem Notes None recorded. Procedures Surgical History Date Name Laterality Status Provider Name and Address Organization Details Recorded Time 04/21/20 Allergy Immunotherapy Injections completed GEMA MAYS [address] [facility],[place] [address], [place], [address], [facility] - [facility] 04/21/2025 16:24:19 03/18/20 25 Allergy Immunotherapy Injections completed CHERIE HERMAN RN [address] [facility] [address], [place], [address], [facility] - [facility] 03/18/2025 16:19:46 02/19/20 25 Allergy Immunotherapy Injections completed Aline Mao [address] [facility],[address], [address], [place] - [facility] 02/18/2025 16:29:34 02/05/20 25 Allergy Immunotherapy Injections completed Aline Mao [address],[place], [place], [address], [place] [facility] 02/04/2025 16:33:44 01/22/20 25 Allergy Immunotherapy Injections completed CHERIE HERMAN RN [address] [facility], [place], [address], [place] [facility] 01/21/2025 17:13:25 01/08/20 25 Allergy Immunotherapy Injections completed SOILA BIRCH RMA [address],[place] [address], [place], [address], [place] [facility] 01/07/2025 16:31:15 12/25/19 25 Allergy Immunotherapy Injections completed GEAM MAYS [address],[place] [address], [place], [address], [place] [facility] 12/24/2024 16:39:30 12/11/19 25 Allergy Immunotherapy Injections completed CHERIE HERMAN RN [address] [facility] [address] [address],[place] [address] [place] [address], [address], [place] [facility] 12/10/2024 16:13:34 11/27/19 25 Allergy Immunotherapy Injections completed GEAM MAYS [address],[place] [address], [place], [address], [place] [facility] 11/26/2024 16:39:51 11/13/19 25 Allergy Immunotherapy Injections completed SOILA BIRCH RMA [address], [place], [address], [place] [facility] 11/12/2024 16:31:21 10/30/19 25 Allergy Immunotherapy Injections completed SOILA BIRCH RMA [address],[place], [place], [address], [place] [facility] 10/29/2024 16:24:24 10/16/19 25 Allergy Immunotherapy Injections completed SOILA BIRCH RMA [address], [place], [address], [place] [facility] 10/15/2024 16:53:42 10/02/19 25 Allergy Immunotherapy Injections completed SOILA HUSAMC, RMA [address], [place], [address], [place] [facility] 10/01/2024 16:23:26 09/18/19 25 Allergy Immunotherapy Injections completed SOILA KORZEC, RMA [address], [place], [address], [place] [facility] 09/17/2024 16:16:34 09/04/19 25 Allergy Immunotherapy Injections completed SOILA KORZEC, RMA [address], [place], [address], [place] [facility] 09/03/2024 16:01:46 08/22/19 25 Allergy Immunotherapy Injections completed ABHIJEET MARIN RMA [address], [place], [address], [place] [facility] 08/21/2024 16:05:02 08/07/19 25 Allergy Immunotherapy Injections completed SOILA CAMILOZEC, RMA [address], [place], [address], [place] [facility] 08/06/2024 16:32:03 07/23/19 25 Allergy Immunotherapy Injections completed SOILA KORZEC, RMA [address], [place], [address], [place] [facility] 07/23/2024 16:45:52 07/09/19 25 Allergy Immunotherapy Injections completed SOILA KORZEC, RMA [address], [place], [address], [place] [facility] 07/09/2024 16:36:30 06/25/19 25 Allergy Immunotherapy Injections completed ABHIJEET MARIN RMA [address], [place], [address], [place] [facility] 06/25/2024 17:07:58 06/11/19 25 Allergy Immunotherapy Injections completed SOILA KORZEC, RMA [address], [place], [address], [place] [facility] 06/11/2024 13:44:47 05/29/19 25 Allergy Immunotherapy Injections completed SOILA BIRCH, RMA [address] [facility],[place] [address] [place] [address], [address], [place] [facility] 05/29/2024 11:27:48 05/14/20 24 Allergy Immunotherapy Injections completed CHERIE HERMAN RN [address] [facility] [address], [place], [address], [place] [facility] 05/14/2024 16:33:31 04/30/20 24 Allergy Immunotherapy Injections completed SOILA BIRCH, RMA [address] [facility],[place] [address] [place] [address], [address], [place] [facility] 04/30/2024 16:31:43 04/16/20 24 Allergy Immunotherapy Injections completed SOILA BIRCH, RMA [address] [facility],[place] [address] [place] [address], [address], [place] [facility] 04/16/2024 17:03:52 04/02/20 24 Allergy Immunotherapy Injections completed GEMA MAYS [address] [facility],[place] [address] [place] [address], [address], [place] [facility] 04/02/2024 16:17:47 03/19/20 24 Allergy Immunotherapy Injections completed CHERIE HERMAN RN [address] [facility],[address], [address], [place] [facility] 03/19/2024 16:26:16 03/07/20 24 Allergy Immunotherapy Injections completed SOILA BIRCH RMA [address] [facility],[place] [address] [place] [address], [address], [place] [facility] 03/07/2024 13:40:29 02/20/20 24 Allergy Immunotherapy Injections completed GEMA MAYS [address] [facility],[place] [address] [place] [address], [address], [place] [facility] 02/20/2024 17:11:11 02/06/20 24 Allergy Immunotherapy Injections completed CHERIE HERMAN RN [address] [facility] [address], [place], [address], [place] [facility] 02/07/2024 08:49:22 01/22/20 24 Allergy Immunotherapy Injections completed GEMA MAYS [address] [facility],[place], [place], [address], [place] [facility] 01/22/2024 14:00:20 01/08/20 24 Allergy Immunotherapy Injections completed GEMA MAYS [address] [facility], [place], [address], [place] [facility] 01/08/2024 12:12:08 12/26/19 24 Allergy Immunotherapy Injections completed CHERIE HERMAN RN [address] [facility],[place] [address] [place] [address], [address], [place] [facility] 12/26/2023 16:50:55 12/12/19 24 Allergy Immunotherapy Injections completed CHERIE HERMAN RN [address] [facility],[address], [address], [place] [facility] 12/12/2023 16:40:58 11/27/19 24 Allergy Immunotherapy Injections completed GEMA MAYS [address] [facility],[place] [address] [place] [address], [address], [facility] - [facility] 11/27/2023 16:41:14 11/14/19 24 Allergy Immunotherapy Injections completed GEMA MARINELLI [address] [facility],[place] [address] [place] [address], [address], [place] [facility] 11/14/2023 11:18:33 10/31/19 24 Allergy Immunotherapy Injections completed GEMA MARINELLI [address] [facility],[place] [address] [place] [address], [address], [place] [facility] 10/31/2023 16:21:15 10/17/19 24 Allergy Immunotherapy Injections completed SOILA BIRCH RMA [address] [facility] [address],[place], [place], [address], [place] [facility] 10/17/2023 16:28:03 Imaging Results None recorded. Procedure [...] mcg tablet 07/01 completed Medicati on ID: [id number] D uration Value: 30 Brand Name: levothyr [...] gram tablet 09/12 completed Medicati on ID: [id number] D uration Value: 30 Reason: () Brand [...] mg tablet 01/23 completed Medicati on ID: [id number] D uration Value: 3 Reason: () Brand [...] mcg tablet 01/02 completed Medicati on ID: [id number] D uration Value: 30 Reason: () Brand [...] mcg tablet 01/23 completed Medicati on ID: [id number] D uration Value: 30 Reason: () Brand [...] mg tablet 01/02 completed Medicati on ID: [id number] D uration Value: 30 Reason: () Brand Name: Citrucel Send Method: E-Prescr ibed Sub s Allowed: subs DANIELLA Bahena al Instruct ion: TAKE 2 TABLETS BY MOUTH DAILY, DRINK 8 OZ WATER WITH TABLETS Medicati onGeneri cName: Citrucel Not Available Not Available Not Available levothyro xine 150 mcg tablet 05/19 completed Medicati on ID: [id number] D uration Value: 30 Reason: () Brand Name: levothyr oxine Se nd Method: E-Prescr ibed Sub s Allowed: subs OK Speci al Instruct ion: TAKE 1 TABLET BY MOUTH EVERY DAY Medi cationGe nericNam e: levothyr oxine Not Available Not Available Not Available omeprazol e 20 mg capsule,d elayed release 07/01 completed Medicati on ID: [id number] D uration Value: 30 Brand Name: omeprazo [...] Relief 50 mcg/actua tion nasal spray,gabrielle pension [employer] 2 spray into both nostrils once a day 07/01 completed Medicati on ID: [id number] D uration Value: 30 Brand Name: Flonase [...] ICD10 Code Diagnosis IMO Codes Diagnosis Note [id number] SOILA BIRCH RMA Allergy [address] [place] [address],[place] [address] [place] [address] 01/21/2025 16:16:21 01/21/2025 17:13:57 Perennial allergic rhinitis [id number] J30.89 [id number] SOILA BIRCH Johnny [facility] [address] [place] [address],[place] [address] [facility] [address] 02/04/2025 16:22:06 02/04/2025 16:34:10 Perennial allergic rhinitis 843907065 J30.89 [id number] Aline Mao Allergy [address] [place] [address],[address] [place] [address] 02/18/2025 16:06:48 02/18/2025 16:30:04 Perennial allergic rhinitis [id number] J30.89 Health Concerns Section Related Observation LastModified by Organization Detai ls LastModified Time None Recorded Concern Status LastModified by Organization Details LastModified Time None Recorded Payers Encounter Date Sequence Insurance Name Policy Number Policy Gonsalez Covered Member ID Gonsalez Member ID Guarantor Name 02/18/2025 1 [facility] [employer] - TEJON ZERO (HMO) [id number] Deepa Ross [id number] Deepa Ross OBGyn Episode No OBEpisode recorded.
--- OUTSIDE RECORDS SUMMARY | 2025-05-05 01:19 | XMS_ITS | Continuity of Care Document ---
Author Organization [facility], Allergy Address [address] [place] [id number] Care Team Providers Care Parlor Maid Name Role Phone BETH ROSA Primary Care Provider [phone] Assessment Encounter Date Assessment Date Assessment LastModified by Organization Details LastModified Time 02/04/2025 02/04/2025 Visit With: Aline Mao MA Use of Antihistamine s: No If yes: Vial Test Change in medications: No If yes Increase in asthma symptoms No If yes, inhaler use: Reaction to last injections: No If yes: Allergy Symptoms: Other: Missed: Dose Aware of Vial Test Aware: Notes: Not available 02/04/2025 16:33:53 Plan of Treatment [...] Address Organization Details Recorded Time Bilateral tinnitus 71493386515 02 Active 2018 Tinnitus, bilateral ; Note: Date Diagnosed : 01/23/2019 4:23 PM (H93.13) Not Available [facility] 02:13:43 Headache 56882590 Active 2019 Headache, unspecifi ed; Note: Changed from R51 to R51.9 (07/01/2020 3:34 PM) , Date Diagnosed : 07/03/2019 4:22 PM (R51) Not Available [facility] 4 02:13:25 Tinnitus of vascular origin 690937232 Active 2022 Pulsatile tinnitus, right ear; Note: Date Diagnosed : 08/02/2022 4:38 PM (H93.A1) Not Available [facility] 4 02:14:37 Allergic rhinitis 80359677 Active 2023 [facility] [address] Pavel HERNANDEZ MD [address] [facility],[place] [address], [place], [address] , [place] - [facility] 4 11:34:09 Vasomotor rhinitis 2710967 Active 2023 Vasomotor rhinitis; Note: Date Diagnosed : 07/13/2023 4:55 PM (J30.0) Not Available [facility], [facility] 4 02:13:53 Acute maxillary sinusitis 62518901 Active 2023 Acute maxillary sinusitis , unspecifi ed; Note: Date Diagnosed : 07/13/2023 4:55 PM (J01.00) Not Available [facility], [facility] 4 02:14:10 Perennial allergic rhinitis 305078197 Active 2023 Aline Mao [address] [facility],[place] [address], [place], [address] , [facility] - [facility] 5 16:29:14 Problem Notes None recorded. Procedures Surgical History Date Name Laterality Status Provider Name and Address Organization Details Recorded Time 04/21/20 Allergy Immunotherapy Injections completed GEMA MAYS [address] [facility],[address], [address], [facility] - [facility] 04/21/2025 16:24:19 03/18/20 25 Allergy Immunotherapy Injections completed CHERIE HERMAN RN [address] [facility] [address], [place], [address], [facility] - [facility] 03/18/2025 16:19:46 02/19/20 25 Allergy Immunotherapy Injections completed Aline Mao [address] [facility],[address], [address], [place] - [facility] 02/18/2025 16:29:34 02/05/20 25 Allergy Immunotherapy Injections completed Aline Mao [address],[place] [address], [place], [address], [place] [facility] 02/04/2025 16:33:44 01/22/20 25 Allergy Immunotherapy Injections completed CHERIE HERMAN RN [address],[place] [address], [place], [address], [place] [facility] 01/21/2025 17:13:25 01/08/20 25 Allergy Immunotherapy Injections completed SOILA BIRCH RMA [address],[place] [address], [place], [address], [place] [facility] 01/07/2025 16:31:15 12/25/19 25 Allergy Immunotherapy Injections completed GEMA MAYS [address],[place] [address] [place] [address], [address], [place] [facility] 12/24/2024 16:39:30 12/11/19 25 Allergy Immunotherapy Injections completed CHERIE HERMAN RN [address],[place] [address] [place] [address], [address], [place] [facility] 12/10/2024 16:13:34 11/27/19 25 Allergy Immunotherapy Injections completed GEMA MAYS [address],[place] [address] [place] [address], [address], [place] [facility] 11/26/2024 16:39:51 11/13/19 25 Allergy Immunotherapy Injections completed SOILA BIRCH RMA [address],[place] [address], [place], [address], [place] [facility] 11/12/2024 16:31:21 10/30/19 25 Allergy Immunotherapy Injections completed SOILA BIRCH RMA [address],[place] [address], [address], [place] [facility] 10/29/2024 16:24:24 10/16/19 25 Allergy Immunotherapy Injections completed SOILA BIRCH RMA [address],[place] [address], [place], [address], [place] [facility] 10/15/2024 16:53:42 10/02/19 25 Allergy Immunotherapy Injections completed SOILA HUSAMC, RMA [address], [place], [address], [place] [facility] 10/01/2024 16:23:26 09/18/19 25 Allergy Immunotherapy Injections completed SOILA KORZEC, RMA [address], [place], [address], [place] [facility] 09/17/2024 16:16:34 09/04/19 25 Allergy Immunotherapy Injections completed SOILA KORZEC, RMA [address], [place], [address], [place] [facility] 09/03/2024 16:01:46 08/22/19 25 Allergy Immunotherapy Injections completed ABHIJEET MARIN RMA [address],[place] [address], [place], [address], [place] [facility] 08/21/2024 16:05:02 08/07/19 25 Allergy Immunotherapy Injections completed SOILA PAGEZEC, RMA [address],[place] [address], [place], [address], [place] [facility] 08/06/2024 16:32:03 07/23/19 25 Allergy Immunotherapy Injections completed SOILA KORZEC, RMA [address], [place], [address], [place] [facility] 07/23/2024 16:45:52 07/09/19 25 Allergy Immunotherapy Injections completed SOILA CAMILOZEC, RMA [address],[place] [address], [place], [address], [place] [facility] 07/09/2024 16:36:30 06/25/19 25 Allergy Immunotherapy Injections completed ABHIJEET MARIN RMA [address], [place], [address], [place] [facility] 06/25/2024 17:07:58 06/11/19 25 Allergy Immunotherapy Injections completed SOILA CAMILOZEC, RMA [address], [place], [address], [place] [facility] 06/11/2024 13:44:47 05/29/19 25 Allergy Immunotherapy Injections completed SOILA BIRCH, RMA [address],[place] [address], [place], [address], [place] [facility] 05/29/2024 11:27:48 05/14/20 24 Allergy Immunotherapy Injections completed CHERIE HERMAN RN [address] [facility] [address], [place], [address], [place] [facility] 05/14/2024 16:33:31 04/30/20 24 Allergy Immunotherapy Injections completed SOILA BIRCH, RMA [address],[place] [address] [place] [address], [address], [place] [facility] 04/30/2024 16:31:43 04/16/20 24 Allergy Immunotherapy Injections completed SOILA BIRCH, RMA [address],[place] [address] [place] [address], [address], [place] [facility] 04/16/2024 17:03:52 04/02/20 24 Allergy Immunotherapy Injections completed GEMA MAYS [address],[place] [address] [place] [address], [address], [place] [facility] 04/02/2024 16:17:47 03/19/20 24 Allergy Immunotherapy Injections completed CHERIE HERMAN RN [address] [facility],[place] [address] [place] [address], [address], [place] [facility] 03/19/2024 16:26:16 03/07/20 24 Allergy Immunotherapy Injections completed SOILA BIRCH RMA [address], [place], [address], [place] [facility] 03/07/2024 13:40:29 02/20/20 24 Allergy Immunotherapy Injections completed GEMA MAYS [address] [address], [place], [address], [place] [facility] 02/20/2024 17:11:11 02/06/20 24 Allergy Immunotherapy Injections completed CHERIE HERMAN RN [address],[place] [address], [place], [address], [place] [facility] 02/07/2024 08:49:22 01/22/20 24 Allergy Immunotherapy Injections completed GEMA MAYS [address] [facility],[place] [address] [place] [address], [address], [place] [facility] 01/22/2024 14:00:20 01/08/20 24 Allergy Immunotherapy Injections completed GEMA MAYS [address] [facility] [address], [place], [address], [place] [facility] 01/08/2024 12:12:08 12/26/19 24 Allergy Immunotherapy Injections completed CHERIE HERMAN RN [facility] [place],[address], [address], [facility] - [facility] 12/26/2023 16:50:55 12/12/19 24 Allergy Immunotherapy Injections completed CHERIE HERMAN RN [address] [facility],[address], [address], [facility] - [facility] 12/12/2023 16:40:58 11/27/19 24 Allergy Immunotherapy Injections completed GEMA MAYS [address] [facility],[place] [address] [place] [address], [address], [facility] - [facility] 11/27/2023 16:41:14 11/14/19 24 Allergy Immunotherapy Injections completed SOILA BIRCH RMJohnny [address] [facility],[place] [address] [place] [address], [address], [facility] - [facility] 11/14/2023 11:18:33 10/31/19 24 Allergy Immunotherapy Injections completed SOILA BIRCH RMA [address] [facility],[place] [address] [place] [address], [address], [place] [facility] 10/31/2023 16:21:15 10/17/19 24 Allergy Immunotherapy Injections completed SOILA BIRCH RMA [address] [address], [place], [address], [facility] - [facility] 10/17/2023 16:28:03 Imaging Results None recorded. Procedure [...] mcg tablet 07/01 completed Medicati on ID: [id number] D uration Value: 30 Brand Name: levothyr [...] gram tablet 09/12 completed Medicati on ID: [id number] D uration Value: 30 Reason: () Brand [...] mg tablet 01/23 completed Medicati on ID: [id number] D uration Value: 3 Reason: () Brand [...] mcg tablet 01/02 completed Medicati on ID: [id number] D uration Value: 30 Reason: () Brand [...] mcg tablet 01/23 completed Medicati on ID: [id number] D uration Value: 30 Reason: () Brand Name: levothyr oxine Se nd Method: E-Prescr ibed Sub s Allowed: subs DANIELLA Guilloryi al Instruct ion: TAKE 2 TABLETS ON AN EMPTY STOMACH IN THE MORNING ONCE A DAY TAKE WITH 25MCG FOR TOTAL OF 125MCG [facility] Name: levothyr oxine Not Available Not Available Not Available levothyro xine 125 mcg tablet TOME 1 TABLETA POR V A ORAL TODOS LOS D active Not Available Not Available No t Available Citrucel 500 mg tablet 01/02 completed Medicati on ID: [id number] D uration Value: 30 Reason: () Brand Name: Citrucel Send Method: E-Prescr ibed Sub s Allowed: subs DANIELLA Guilloryi al Instruct ion: TAKE 2 TABLETS BY MOUTH DAILY, DRINK 8 OZ WATER WITH TABLETS Medicati onGeneri cName: Citrucel Not Available Not Available Not Available levothyro xine 150 mcg tablet 05/19 completed Medicati on ID: [id number] D uration Value: 30 Reason: () Brand Name: levothyr oxine Se nd Method: E-Prescr ibed Sub s Allowed: subs [place] Speci al Instruct ion: TAKE 1 TABLET BY MOUTH EVERY DAY Medi cationGe nericNam e: levothyr oxine Not Available Not Available Not Available omeprazol e 20 mg capsule,d elayed release 07/01 completed Medicati on ID: [id number] D uration Value: 30 Brand Name: omeprazo [...] Relief 50 mcg/actua tion nasal spray,gabrielle pension [place] 2 spray into both nostrils once a day 07/01 completed Medicati on ID: [id number] D uration Value: 30 Brand Name: Flonase [...] ICD10 Code Diagnosis IMO Codes Diagnosis Note [id number] SOILA BIRCH RMA Allergy [address] [place] [address], [address] [place] [address] 01/07/2025 16:09:51 01/07/2025 16:32:48 Perennial allergic rhinitis [id number] J30.89 10441 SOILA WEIENR RMA Allergy [address] [place] [address],[place] ite [address] [place] [address] 01/21/2025 16:16:21 01/21/2025 17:13:57 Perennial allergic rhinitis 580550346 J30.89 46785 SOILA WEINER RMA Allergy [address] [place] [address], [address] [place] [address] 02/04/2025 16:22:06 02/04/2025 16:34:10 Perennial allergic rhinitis 254331424 J30.89 Health Concerns Section Related Observation LastModified by Organization Detai ls LastModified Time None Recorded Concern Status LastModified by Organization Details LastModified Time None Recorded Payers Encounter Date Sequence Insurance Name Policy Number Policy Gonsalez Covered Member ID Gonsalez Member ID Guarantor Name 02/04/2025 1 [facility] [employer] - [place] (HMO) [id number] Deepa Ross [id number] Deepa Ross OBGyn Episode No OBEpisode recorded.
== END 2025-05-04 16:24 | disposition home or self-care (01) ==
LOC: HO.HGI 15:41
PROVIDERS: PCP Internal Medicine; Visit Provider Nurse Practitioner Family
DX: R74.01 Elevation of levels of liver transaminase levels (principal); Z86.19 Personal history of other infectious and parasitic diseases; R10.13 Epigastric pain; R68.81 Early satiety
CPT/HCPCS: 99214

== ENCOUNTER 2025-05-12 08:08 | Emergency (ER) | payer OTHER, SELFPAY ==
--- NOTE | ~2025-05-12 | XR_ITS ---
EXAMINATION: XR LUMBOSACRAL SPINE CLINICAL INFORMATION: midline lumbar pain s/p heavy lifting COMPARISON: X-ray 12/13/2020 TECHNIQUE: Three views of the lumbosacral spine. FINDINGS: Vertebral body heights are preserved. No evidence of acute fracture or subluxation. No suspicious bony lesions. Moderate L5-S1 disc degeneration. Multilevel facet degeneration. SI joints are symmetric. Paraspinal soft tissues appear unremarkable. No suspicious soft tissue calcification.. XR/XR lumbar spine 2-3V IMPRESSION: 1. No radiographic evidence of acute fracture. 2. Lumbar spondylosis. Electronically signed by: Harjit Mitchell MD 05/12/2025 09:43 AM [facility]
[2025-05-12 08:25] VITALS: BP 143/59; PULSE 110; RESP 18; TEMP 36.1; O2SAT 98; BMI 25.0
--- OUTSIDE RECORDS SUMMARY | 2025-05-12 09:10 | XMS_ITS | Clinical Summary ---
Author Organization [facility] Address [address] [place] [address] Care Team Providers Care Heat Treat Supervisor Name Role Phone Roxann Mathis MD Primary Care Provider [phone] Social History Tobacco Use Types Packs/Day Years [...] 2042 Insurance [employer] MANA[employer]ED [employer]ICARE Care Teams Heat Treat Supervisor Relationship Specialty Start Date End Date Roxann Mathis MD [address] [place] [address] PCP - General Family Medicine 11/25/24
[2025-05-12] MEDS: Lidocaine 4 % Patch ADH..PATCH 1 PATCH TRANSDERMA (09:39)
[2025-05-12 09:49] LABS: Appearance Urine Clear; Glucose Urine UA Negative (Negative); PH 6.5 (5.0-9.0); Specific Gravity - Urine 1.010 (1.005-1.025)
[2025-05-12 10:10] VITALS: BP 112/71; PULSE 81; RESP 17; TEMP 36.5; O2SAT 93
--- NOTE | 2025-05-12 11:01 | ED.BACK ---
HPI - Back Pain/Injury General Chief Complaint: Back Pain/Injury Stated Complaint: back pain Time Seen by Provider: 05/12/25 09:01 Source: patient Mode of arrival: ambulatory Limitations: no limitations History of Present Illness ED Provider: JESSICA ROSSI PA-C HPI Narrative: 59-year-old female presents to the emergency department today for evaluation of low back pain x2 weeks. Patient states that she brought day care facility out of her home. She states her back pain began after lifting a heavy child onto the diaper changing table 2 weeks ago. Reports pain to the entire low back extending into bilateral hips. States her back feels stiff. Pain is worse with movement. She has been trialing old strep a Flexeril, ibuprofen and cold packs without much improvement. Denies history of spinal surgery or IVDU. Denies numbness/tingling/weakness of the LEs, saddle anesthesia, bowel/bladder incontinence or retention, Related Data Home Medications ?Medication ?Instructions ?Recorded ?Confirmed epinephrine 0.3 mg/0.3 mL IM PRN 12/25/24 03/18/25 injection, auto-injector rizatriptan 10 mg tablet mg PO 12/25/24 03/18/25 Previous Rx's ?Medication ?Instructions ?Recorded ondansetron 4 mg disintegrating 4 mg PO Q6H PRN nausea and 08/11/24 tablet vomiting #10 tabs albuterol sulfate 2.5 mg/3 mL 2.5 mg (3 mL) inhalation QID PRN 11/11/24 (0.083 %) solution for nebulization shortness of breath or wheezing 30 days #75 mL albuterol sulfate 90 mcg/actuation 2 puff inhalation Q4-6H PRN 12/09/24 aerosol inhaler (Ventolin HFA) shortness of breath or wheezing #8.5 grams nebulizers (AeroEclipse II #1 ea 12/11/24 Nebulizer) cetirizine 5 mg-pseudoephedrine ER 1 tab PO BID 7 days #14 tabs 12/25/24 120 mg tablet,extended release,12hr umeclidinium 62.5 mcg-vilanterol 1 inh inhalation DAILY 60 days #60 03/10/25 25 mcg/actuation powdr for ea inhalation (Anoro Ellipta) sennosides 8.6 mg tablet (Natural 17.2 mg (2 x 8.6 mg) PO BEDTIME 05/04/25 Senna Laxative) constipation #60 tabs levothyroxine 112 mcg tablet 112 mcg PO DAILY 90 days #90 tabs 05/05/25 diazepam 2 mg tablet (Valium) 2 mg PO BID PRN muscle spasm 3 05/12/25 days #6 tabs lidocaine 5 % topical patch See Rx Instructions topical 05/12/25 .COMPLEX #15 ea prednisone 20 mg tablet 40 mg (2 x 20 mg) PO DAILY 5 days 05/12/25 #10 tabs Allergies Allergy/AdvReac Type Severity Reaction Status Date / Time No Known Allergies Allergy Verified 05/12/25 08:26 Review of Systems Review of Systems: Constitutional: No fever, chills, fatigue, night sweats, weight changes ENT/Mouth: No ear pain, hearing loss, nasal congestion, sinus pain, rhinorrhea, sore throat Eyes: No eye pain, swelling, redness, vision changes, discharge Cardio: No chest pain, palpitations, CHAVEZ, orthopnea, peripheral edema Pulm: No SOB, cough, sputum, wheezing, dyspnea, hemoptysis GI: No nausea, vomiting, hematemesis, abdominal pain, diarrhea, constipation, hematochezia, melena : No irregular bleeding, dysuria, frequency, urgency, hesitancy, hematuria, flank pain, urinary flow changes, urinary incontinence or retention MSK: +back pain, No neck pain, joint pain, myalgias Skin: No lesions, rashes Neuro: No weakness, numbness, paresthesias, LOC, dizziness, headache All other systems reviewed and are negative. Yes all other systems are reviewed and are negative [facility] Past Medical History Attestation statement: The following information was validated with the patient. Source: old records reviewed and nursing notes reviewed Medical History History of Helicobacter pylori infection Patellofemoral arthritis of right knee Hypothyroidism Surgical History History of biopsy History of cholecystectomy History of section Family History Family History Father CVD (cardiovascular disease) DVT (deep venous thrombosis) Mother Liver problem Kidney disease Diabetes Social History Social History Housing: Apartment Alcohol intake: never Patient Tobacco Use Status: Never used Tobacco e-Cigarette/Vaping Use: Never Used Second Hand Smoke Exposure: No service: No Current occupational status: 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 Current occupational exposures/hazards: No Cognitive needs: No Hearing needs: No Vision needs: Yes (Glasses) Physical Exam Vital Signs: Vital Signs: Last Vital Signs Temp 97.7 F 05/12/25 12:13 Pulse 81 05/12/25 12:13 Resp 17 05/12/25 12:13 BP 112/71 05/12/25 12:13 Pulse Ox 93 05/12/25 12:13 O2 Del Method Room Air 05/12/25 12:13 BMI result Body Mass Index 25.0 vital signs stable, afebrile Const: General: cooperative, healthy appearing, comfortable, no acute distress, alert, awake and Physically active Orientation/consciousness: patient oriented x3 HEENT: Head: Yes normal to inspection, Yes normocephalic and Yes atraumatic Eyes: General: appearance normal, both eyes and all related structures Pupils: Equal, round and reactive pupils present EOM: EOMs intact bilaterally Neck: Other: + no cervical midline spinous tenderness or step-off deformity. Neck: Yes normal visual inspection, Yes full ROM and Yes no meningeal signs Resp: Effort & Inspection: normal respiratory effort Auscultation: clear to auscultation bilaterally Cardio: Rate: regular rate Rhythm: regular rhythm GI: Inspection: Yes normal to inspection Palpation (GI): Soft to palpation and nontender : General: Yes no CVA tenderness Back/Spine/Pelvis: Other: No midline spinous tenderness or step-off deformity. There is bilateral lumbar paraspinal muscle tenderness to palpation. Positive straight leg raise. Back: no CVA tenderness Neuro: Other: Strength 5/5 intact throughout.? No saddle anesthesia.? Sensation intact to light touch.? Neurovascular intact distally.?ambulating with slow but steady General: patient oriented x3, gait normal and no meningeal signs Cranial nerves: Yes Equal, round and reactive pupils present Gait exam (Neuro): Normal gait present Course Course Course Narrative: xr lumbar spine negative for acute process. UA without infection or blood. unlikely renal related. patietn medicated w/ toradol, valium and lido patch with improvement in pain. ambulating w/ steady gait to the bathroom. Concern for muscle spasm/strain - will d/c home with meds. her will be driving her home today. Patient has remained stable throughout ED visit today. Discussed worrisome signs and symptoms and when to return to the ED. All questions answered at this time. Patient is agreeable with disposition and stable for discharge. Medications Administered Discontinued Medications Generic Name Dose Route Start Last Admin Trade Name Caryn PRN Reason Stop Dose Admin Diazepam 5 mg 05/12/25 09:26 05/12/25 09:39 Diazepam 5 Mg Tablet PO 05/12/25 09:27 5 mg ONCE ONE Administration Ketorolac Tromethamine 30 mg 05/12/25 09:26 05/12/25 09:39 Ketorolac Tromethamine 30 Mg/Ml Vial IM 05/12/25 09:27 30 mg ONCE ONE Administration Lidocaine 1 patch 05/12/25 09:26 05/12/25 09:39 Lidocaine 4 % Patch Adh..Patch TRANSDERMA 05/12/25 09:27 1 patch ONCE ONE Administration Protocol Medical Decision Making Medical Decision Making [facility] Narrative: 59-year-old female presents to the emergency department today for evaluation of low back pain x2 weeks. patient initially tachycardic, hypertensive. vitals are otherwise wnl. on exam, no midline spinous tenderness or step-off deformity. There is bilateral lumbar paraspinal muscle tenderness to palpation. Positive straight leg raise. no cvat. abd exam benign. Concern for MSK sprain/strain, fracture, subluxation, disc herniation, sciatica, UTI, renal colic, nephrolithiasis. Unlikely cord compression, cauda equina, Guillain-[place], epidural abscess. Plan for imaging, ua, pain control, re-eval. Differential Diagnosis Differential Diagnoses: The differential diagnosis associated with the presentation includes as above Admission/Observation Not indicated. Lab Data [facility] Lab Attestation statement: I reviewed the patient's lab results. as above. Labs: Lab Results 05/12/25 Range/Units 09:42 Urine Color Yellow Urine Appearance Clear Urine pH 6.5 (5.0-9.0) Ur Specific [place] 1.010 (1.005-1.025) Urine Protein Negative (Neg-Trace) mg/dL Urine Glucose (UA) Negative (Negative) mg/dL Urine Ketones Negative (Negative) mg/dL Urine Blood Negative (Negative) Urine Nitrite Negative (Negative) Ur Leukocyte Esterase Negative (Negative) Independent Interpretation I performed an independent interpretation of an: Plain X-Ray Interpretation: xr lumbar spine without fracture Radiology Impression Discussion of test interpretation with radiology: I have reviewed the radiologist's reading. Radiologist Impression: Procedure(s): XR lumbar spine 2-3V Accession Number(s): [id number] cc: Jessica Rossi; Roxann Mathis MD~ Reason for Exam: midline lumbar pain s/p heavy lifting EXAMINATION: XR LUMBOSACRAL SPINE CLINICAL INFORMATION: midline lumbar pain s/p heavy lifting COMPARISON: X-ray 12/13/2020 TECHNIQUE: Three views of the lumbosacral spine. FINDINGS: Vertebral body heights are preserved. No evidence of acute fracture or subluxation. No suspicious bony lesions. Moderate L5-S1 disc degeneration. Multilevel facet degeneration. SI joints are symmetric. Paraspinal soft tissues appear unremarkable. No suspicious soft tissue calcification.. XR/XR lumbar spine 2-3V IMPRESSION: 1. No radiographic evidence of acute fracture. 2. Lumbar spondylosis. Electronically signed by: Harjit Mitchell MD 05/12/2025 09:43 AM EST External Record Review External record reviewed: Inpatient record Prescription Management I considered prescription management with: Other (valium, lido patch) Social Determinants Patient?s care significantly limited by Social Determinants of Health including: Other Social Determinant of Health Critical Care Time Critical Care Time Critical Care Time: No Discharge Plan Discharge Clinical Impression: Lumbar back pain Patient Disposition: Home, Self-Care Instructions: Muscle Spasm (ED) Additional Instructions: You were evaluated in the Emergency Department today for your back pain.? Your evaluation did not show signs of medical conditions requiring emergent intervention at this time. Avoid bending, lifting, or twisting. Use ice several times per day for 20 minutes at a time for the next 48 hours and then change to heat. Valium has been sent to your pharmacy for you to take to relax the muscles in the back. DO NOT TAKE THIS WITH FLEXERIL. Lidoderm patches are numbing patches. Apply to painful areas. I am also sending a steroid (predisone) to your pharmacy to help with inflammation. take this as prescribed. Please schedule an appointment for follow-up with your primary care provider this week for further evaluation of your symptoms. Return to the Emergency Department if you experience worsening back pain, difficulty walking, fevers, numbness, tingling, incontinence, or any other concerning symptoms. In the case of an emergency call 911. Prescriptions: New diazepam [Valium] 2 mg tablet 2 mg PO BID PRN (Reason: muscle spasm) 3 Days Qty: 6 0RF lidocaine 5 % adhesive patch,medicated See Rx Instructions .ROUTE .COMPLEX Qty: 15 0RF Rx Instructions: leave on most painful area for up to 12 hrs prednisone 20 mg tablet 40 mg PO DAILY 5 Days Qty: 10 0RF No Action albuterol sulfate [Ventolin HFA] 90 mcg/actuation HFA aerosol inhaler 2 puff inhalation Q4-6H PRN (Reason: shortness of breath or wheezing) Qty: 8.5 3RF (DME) nebulizers [AeroEclipse II Nebulizer] Misc See Rx Instructions .Route Qty: 1 0RF Rx Instructions: As directed umeclidinium-vilanterol [Anoro Ellipta] 62.5-25 mcg/actuation blister with device 1 inh inhalation DAILY 60 Days Qty: 60 3RF levothyroxine 112 mcg tablet 112 mcg PO DAILY 90 Days Qty: 90 1RF ondansetron 4 mg tablet,disintegrating 4 mg PO Q6H PRN (Reason: nausea and vomiting) Qty: 10 0RF epinephrine 0.3 mg/0.3 mL auto-injector IM PRN sennosides [Natural Senna Laxative] 8.6 mg tablet 17.2 mg PO BEDTIME Qty: 60 3RF albuterol sulfate 2.5 mg /3 mL (0.083 %) solution for nebulization 2.5 mg inhalation QID PRN (Reason: shortness of breath or wheezing) 30 Days Qty: 75 2RF rizatriptan 10 mg tablet PO cetirizine-pseudoephedrine 5-120 mg tablet extended release 12 hr 1 tab PO BID 7 Days Qty: 14 0RF Referrals: Roxann Mathis MD [Primary Care Provider, Internal Medicine] Interventions: ED Discharge Assessment Last Done: 05/12/25 12:13 Discharge Date/Time: 05/12/25 12:13 Print Language: Luxembourgish
[2025-05-12 12:13] VITALS: BP 112/71; PULSE 81; RESP 17; TEMP 36.5; O2SAT 93
== END 2025-05-12 12:13 | disposition home or self-care (01) ==
PROVIDERS: Physician Assistant Medical; Emergency Provider Emergency Medicine Emergency Medical Services; PCP Internal Medicine
DX: M54.50 Low back pain, unspecified (principal); M47.816 Spondylosis without myelopathy or radiculopathy, lumbar region
CPT/HCPCS: 72100; 81003; 96372; 99284; J1885

== ENCOUNTER → 2025-05-12 09:26 | Outpatient (BNV) | payer OTHER, SELFPAY | PROVIDERS: Emergency Provider Emergency Medicine Emergency Medical Services; PCP Internal Medicine; Visit Provider Radiology Diagnostic Ultrasound | DX: M47.816 Spondylosis without myelopathy or radiculopathy, lumbar region (principal) | CPT/HCPCS: 72100 ==

== ENCOUNTER → 2025-05-26 07:45 | Outpatient (REF) | payer OTHER, SELFPAY ==
--- NOTE | ~2025-05-26 | NM_ITS ---
EXAMINATION: IN RADIONUCLIDE SOLID FOOD GASTRIC EMPTYING 4-HOUR STUDY CLINICAL INFORMATION: R68.81 - Early satiety COMPARISON: There are no prior studies available for comparison. TECHNIQUE: A standard meal consisting of 4 oz of Egg Beaters brand tagged with 1.0 mCi Tc-99m Sulfur Colloid, 4 oz water and 1.5 slices of toast with jelly was administered orally to the patient. Images were obtained using a dual head gamma camera in the anterior and posterior projections over of the stomach immediately post ingestion and at hourly intervals up to 4 hours post ingestion. The anterior and posterior counts at each time interval were averaged using the geometric mean and expressed as percentage of the immediate post ingestion counts. FINDINGS: There is visualization of activity in the stomach immediately post ingestion. As the study progresses, there is clearance of activity from the stomach and visualization of progressively increasing small bowel activity. Retention in the stomach at each time interval was: 1 hour 69% (normal 37%-90%) 2 hours 22% (normal 30%-60%) 3 hours 8% 4 hours 0% (normal 0%-10%) IN/IN gastric emptying study IMPRESSION: Normal 4-hour solid food gastric emptying study. For solid meal, rapid gastric emptying is less than 30% at 60 minutes. Delayed gastric emptying criteria is more than 60% remaining at 120 minutes or more than 10% at 240 minutes. The 4-hour value is the best discriminator of a normal or abnormal result. Gastric emptying study grading per JNMT Consensus Recommendations in 2008 (https://tech.snmjournals.org/content/36/44) Grade 1 (mild retention): 11-20% at 4h Grade 2 (moderate retention): 21-35% at 4h Grade 3 (severe retention): 36-50% at 4h Grade 4 (very severe retention): >50% retention at 4h Electronically signed by: Deepak Masterson MD 05/26/2025 01:40 PM [facility]
--- OUTSIDE RECORDS SUMMARY | 2025-05-26 09:08 | XMS_ITS | Clinical Summary ---
Author Organization [facility] Address [address] [place] [address] Care Team Providers Care Procedural Nurse Name Role Phone Dylan Ambriz Primary Care Provider [phone] Medications No known medications Active Problems Problem Noted Date Diagnosed Date Cerebral arterial aneurysm 09/29/2019 Social History Tobacco Use Types Packs/Day Years Used Date Smoking Tobacco: Never Assessed Comments Unknown Sex and Gender Information Value Date Recorded Sex Assigned at Female 08/29/2019 4:07 PM EDT Legal Sex Female 4:01 PM EDT Gender Identity Female 08/29/2019 4:07 PM EDT Sexual Orientation Not on file Plan of Treatment Not on file Insurance [id number] Care Teams Procedural Nurse Relationship Specialty Start Date End Date Dylan Ambriz [address] [id number] PCP - General 08/29/19
--- OUTSIDE RECORDS SUMMARY | 2025-05-26 09:08 | XMS_ITS | Clinical Summary ---
Author Organization [facility] Address [address] [place] [address] Care Team Providers Care Parole Officer Name Role Phone Roxann Mathis MD Primary Care Provider [phone] Social History Tobacco Use Types Packs/Day Years [...] 2042 Insurance [employer] Care Teams Parole Officer Relationship Specialty Start Date End Date Roxann Mathis MD [address] [place] [address] PCP - General Family Medicine 11/25/24
== END ==
LOC: HO.NUCMED 07:45
PROVIDERS: PCP Internal Medicine; Visit Provider Nurse Practitioner Family
DX: R68.81 Early satiety (principal)
CPT/HCPCS: 78264; A9541

== ENCOUNTER → 2025-05-26 07:46 | Outpatient (BNV) | payer OTHER, SELFPAY | PROVIDERS: PCP Internal Medicine; Visit Provider Radiology Diagnostic Radiology | DX: R68.81 Early satiety (principal) | CPT/HCPCS: 78264 ==